=== PATIENT | male | born 1980 | race Caucasian/White ===

== ENCOUNTER → 2022-12-08 07:51 | Outpatient (CLI) | payer OTHER, SELFPAY ==
--- NOTE | 2022-12-08 07:55 | MR_ITS ---
FINAL REPORT CLINICAL HISTORY: RADICULOPATHY. RIGHT SIDED LOW BACK PAIN X4 WEEKS. NO INJURY OR TRAUMA. FINDINGS: Multiplanar MR imaging of the lumbar spine was performed without contrast. On the sagittal T2-weighted images, disc degeneration is seen at multiple levels. The vertebral alignment is normal. There is no evidence of fracture. The conus has an unremarkable appearance. T11-12: There is no significant canal stenosis or neural foraminal narrowing. T12-L1: There is no significant canal stenosis or neural foraminal narrowing. L1-2: There is no significant canal stenosis or neural foraminal narrowing. L2-3: There is no significant canal stenosis or neural foraminal narrowing. L3-4: An annular disc bulge is present. There is a right posterolateral disc protrusion with moderate right neural foraminal narrowing. L4-5: An annular disc bulge is present. There is a right posterolateral disc protrusion with moderate right and mild left neural foraminal narrowing. L5-S1: An annular disc bulge is present. There is no significant canal stenosis or neural foraminal narrowing. There is spurring of the sacroiliac joints with partial fusion on the right. IMPRESSION: Right posterolateral disc protrusions at L3-4 and L4-5 with moderate right neural foraminal narrowing. Reviewed, Interpreted and Dictated by Chetan Machado III, MD Transcribed by Anastacia Gipson Authenticated and [facility]
== END ==
PROVIDERS: PCP General Practice; Visit Provider General Practice
DX: M54.16 Radiculopathy, lumbar region (principal); M54.50 Low back pain, unspecified
CPT/HCPCS: 72148; 76376

== ENCOUNTER 2023-08-23 10:36 | Emergency (ER) | payer BC, SELFPAY ==
--- NOTE | 2023-08-23 10:40 | EXP.UTC ---
Discharge Plan Disposition Patient Disposition: Home, Self-Care Condition: Good Prescriptions Prescriptions: New amoxicillin [amoxicillin] 875 mg tablet 875 mg PO Q12H Qty: 20 0RF benzonatate [benzonatate] 100 mg capsule 100 mg PO TIDP PRN (Reason: Cough) Qty: 30 0RF methylprednisolone 4 mg Tablets,Dose Pack 4 mg PO DIRECTED 6 Days Qty: 21 0RF Rx Instructions: Take 1 pack as directed for 6 days guaifenesin [Mucinex] 600 mg tablet extended release 12hr 600 - 1,200 mg PO BIDP PRN (Reason: Congestion) Qty: 30 0RF No Action lisinopril 40 mg tablet 40 mg PO DAILY cetirizine 10 mg tablet PO DAILY Mounjaro 7.5 mg/0.5 mL pen injector SQ fluticasone propionate 50 mcg/actuation spray,suspension intranasal Referrals Follow up/Referrals: Chichi Tao MD [Primary Care Provider] - See instructions Activity Restrictions/Add. Instructions Additional Instructions/Restrictions: Drink plenty of fluids. Take tylenol or ibuprofen for pain or fever. Take the medications as directed. Follow up with your regular doctor. GO TO THE ER FOR ANY WORSENING SYMPTOMS Clinical Impressions Clinical Impression: Sinusitis Instructions Patient Instructions: Sinusitis, DI for Sinusitis Discharge ED Provider: Carlos Montemayor [facility] General Stated complaint: Headache,bodyaches Time Seen by Provider: 08/23/23 10:40 History of Present Illness Provider Complaint: He states that for the past 1 week he has had worsening sinus congestion. Related Data Home Medications Medication Instructions Recorded Confirmed cetirizine 10 mg tablet mg PO DAILY 08/23/23 08/23/23 fluticasone propionate 50 intranasal 08/23/23 08/23/23 mcg/actuation nasal spray,suspension lisinopril 40 mg tablet 40 mg PO DAILY 08/23/23 08/23/23 tirzepatide 7.5 mg/0.5 mL mg SQ 08/23/23 08/23/23 subcutaneous pen injector (Mounjaro) Previous Rx's Medication Instructions Recorded amoxicillin 875 mg tablet 875 mg PO Q12H #20 tabs 08/23/23 benzonatate 100 mg capsule 100 mg PO TIDP PRN Cough #30 caps 08/23/23 guaifenesin 600 mg tablet, 600 - 1,200 mg PO BIDP PRN 08/23/23 extended release 12 hr (Mucinex) Congestion #30 tabs methylprednisolone 4 mg tablets in 4 mg PO DIRECTED 6 days #21 tabs 08/23/23 a dose pack Allergies Allergy/AdvReac Type Severity Reaction Status Date / Time No Known Allergies Allergy Verified 08/23/23 10:57 [facility] Disclaimer: The information contained in this section may have been updated after the patient was seen, as this information can be updated by other users. 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 Social History (Updated 08/23/23 @ 09:54 by Marlena Spaulding) Smoking Status: Never smoker alcohol intake: never current occupational status: employed Travel in the last 8 weeks: None ROS Obtained: Yes All systems reviewed & no additional complaints except as documented Constitutional Constitutional: Reports poor appetite Eyes Eyes: Reports system reviewed and no additional complaints, except as documented ENT Ears, Nose, Mouth, and Throat: Reports as per HPI Cardiovascular Cardiovascular: Reports system reviewed and no additional complaints, except as documented and Denies chest pain Respiratory Respiratory: Denies shortness of breath, Denies chest congestion, Reports cough, Denies stridor and Denies wheezing Gastrointestinal Gastrointestingal: Reports system reviewed and no additional complaints, except as documented; Denies abdominal pain, diarrhea or vomiting Musculoskeletal Musculoskeletal: Reports system reviewed and no additional complaints, except as documented and Denies arthralgias Integumentary/Breasts Skin/Breast: Reports system reviewed and no additional complaints, except as documented and Denies rash Neurologic Neurologic: Denies paresthesias Allergic/Immunologic Allergic/Immunologic: Denies wheezing Physical Exam General General appearance: alert and in no apparent distress Eye Eye exam: Present normal appearance, PERRL and EOMI ENT ENT exam: Present mucous membranes moist and normal external ear exam Expanded ENT Exam External ear exam: Present normal external inspection TM/Canal exam: Bilateral TM: erythema and bulging Nose exam: Absent sinus tenderness Nasal speculum exam: Bilateral: normal Mouth exam: Present normal external inspection; Absent drooling Teeth exam: Present normal inspection Throat exam: Present tonsillar erythema and tonsillomegaly Neck Neck exam: Present normal inspection, full ROM and trachea midline; Absent tenderness, lymphadenopathy or thyromegaly Chest Chest inspection: Present normal inspection and symmetric chest wall rise; Absent tenderness or rash Respiratory Respiratory exam: Present normal lung sounds bilaterally; Absent respiratory distress, wheezes, stridor or accessory muscle use Cardiovascular Cardiovascular exam: Present regular rate, normal rhythm and normal heart sounds Abdominal Exam Abdominal exam: Present soft; Absent distention, tenderness, guarding, rebound or rigidity Extremities Exam Extremities exam: Present normal inspection, full ROM and normal capillary refill; Absent tenderness or calf tenderness Back Exam Back exam: Present normal inspection and full ROM; Absent tenderness Neurological Exam Neurological exam: Present alert and oriented X3 Psychiatric Psychiatric exam: Present normal affect and normal mood Skin Skin exam: Present warm, dry, intact and normal color Lymphatic Lymphatic Findings: no adenopathy Medical Decision Making Medical Records Medical records reviewed: No I reviewed the patient's medical records. Dario Inquiry Pt receiving controlled substance: No
[2023-08-23 10:52] VITALS: BP 129/99; PULSE 109; RESP 18; O2SAT 97; BMI 40.9
[2023-08-23 11:10] LABS: UTC Strep Screen (Rapid) Negative (Negative)
[2023-08-23 11:34] LABS: UTC Influenza A Antigen Negative (Negative); UTC Influenza B Antigen Negative (Negative)
[2023-08-23 11:43] VITALS: BP 0/0; PULSE 0; RESP 0; TEMP -17.7; TEMP 0
== END 2023-08-23 11:43 | disposition home or self-care (01) ==
PROVIDERS: Emergency Provider Nurse Practitioner Family; PCP General Practice
DX: U07.1 COVID-19 (principal); R51.9 Headache, unspecified; J01.90 Acute sinusitis, unspecified; R05.9 Cough, unspecified
CPT/HCPCS: 87635; 87804; 87880; 99204; 99212; G0463

== ENCOUNTER 2023-09-30 14:54 | Outpatient (CLI) | payer BC, SELFPAY ==
--- NOTE | 2023-09-30 14:58 | XR_ITS ---
FINAL REPORT CLINICAL HISTORY: Foot pain FINDINGS: Left ankle Three views were obtained. There is no acute fracture or dislocation. The joint spaces appear normal. No soft tissue abnormality is identified. There is a small plantar calcaneal spur. IMPRESSION: No acute process. Reviewed, Interpreted and Dictated by Chetan Machado III, MD Transcribed by Anastacia Gipson Authenticated and [facility]
--- NOTE | 2023-09-30 14:58 | XR_ITS ---
FINAL REPORT CLINICAL HISTORY: Foot pain FINDINGS: Left foot Three views were obtained. There is no acute fracture or dislocation. The joint spaces appear normal. No soft tissue abnormality is identified. There is a small plantar calcaneal spur. IMPRESSION: No acute process. Reviewed, Interpreted and Dictated by Chetan Machado III, MD Transcribed by Anastacia Gipson Authenticated and [facility]
== END 2023-09-30 23:59 ==
LOC: RAD 14:55
PROVIDERS: Visit Provider Nurse Practitioner
DX: M79.671 Pain in right foot (principal); M79.672 Pain in left foot; Z87.312 Personal history of (healed) stress fracture
CPT/HCPCS: 73610; 73630

== ENCOUNTER 2023-10-04 08:49 | Outpatient (POV) | payer OTHER, SELFPAY ==
--- NOTE | 2023-10-04 08:56 | EXP.PAIN.OV ---
HPI Data of Consult Requesting Physician: Iliana Kline APRN Primary Care Provider: Chichi Tao MD Consult Narrative History of present illness: Mr. Jason is a 43 year old male who presents today as a new patient. He is a referral from the [facility]. Today he rates his pain a 3 out of 10 however states his pain will go much higher than more he increases his activity. Patient describes this as a throbbing sensation with occasional sharp shooting pains depending on his position. He states this has been going on for longer than a year in his low back and right hip. He does state the pain interferes with his ability to perform activities of daily living such as cooking and cleaning or even simple ambulation. Patient states he has tried Tylenol, ibuprofen along with heat and ice and topicals such as Biofreeze with minimal relief. Patient had been seeing a chiropractor on a regular basis and states that this did initially help his symptoms but then over time it made his pain worse. Patient was getting epidural injections at our office in [place] and states that these did help. His last 1 was a lumbar epidural back in May in the L4-L5 and states that it did provide significant relief lasting several months. He does state that he is back to his baseline today. He has had gabapentin in the past. His Dario has been reviewed and is appropriate. CC: Iliana Kline APRN [facility] Disclaimer: The information contained in this section may have been updated after the patient was seen, as this information can be updated by other users. 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 Family History (Updated 10/04/23 @ 09:19 by Litzy Jimenez RN) Other Unknown family medical history Social History (Updated 10/04/23 @ 09:20 by Litzy Jimenez RN) Smoking Status: Never smoker alcohol intake: never current occupational status: employed Travel in the last 8 weeks: None Review of Systems Review of Systems Review of systems:: pertinent systems reviewed and negative unless documented below Review of systems (narrative): Review of Systems: General: No recent weight changes, no fever, no sleep disturbances Respiratory: No cough, no shortness of air, no recurring pulmonary infections Cardiovascular/peripheral vascular: No chest pain, no palpitations, no edema, no shortness of breath Gastrointestinal: No new onset incontinence, normal bowel movements reported Genitourinary: No new onset incontinence Musculoskeletal: Low back pain, right hip pain Psychiatric: [Normal mood/affect] Neurological: [Denies weakness in extremities], [denies balance issues] Meds Home Medications and Allergies Home Medications Medication Instructions Recorded Confirmed Type lisinopril 40 mg tablet 40 mg PO DAILY 08/23/23 10/04/23 History tirzepatide 7.5 mg/0.5 mL 7.5 mg SQ DIRECTED Diabetes 08/23/23 10/04/23 History subcutaneous pen injector (Mounjaro) fexofenadine 180 mg tablet 180 mg PO DAILY 10/04/23 10/04/23 History New Prescriptions to Start Prescriptions: Allergies Allergy/AdvReac Type Severity Reaction Status Date / Time No Known Allergies Allergy Verified 09/30/23 13:45 Objective Narrative: Physical Exam: General: Alert and oriented x3, no acute distress, pleasant and cooperative Lungs: Respirations even and unlabored, symmetrical chest expansion Eyes: PERRL Musculoskeletal: Flexion and extension of lumbar [spine] somewhat guarded secondary to pain, [antalgic gait noted] point tenderness along right SI with positive right Nickolas's, Meghan's, Gaenslen's, compression and distraction exam Neurological: Speech clear, no gross sensory deficit Additional findings Additional findings: FINDINGS: Multiplanar MR imaging of the lumbar spine was performed without contrast. On the sagittal T2-weighted images, disc degeneration is seen at multiple levels. The vertebral alignment is normal. There is no evidence of fracture. The conus has an unremarkable appearance. T11-12: There is no significant canal stenosis or neural foraminal narrowing. T12-L1: There is no significant canal stenosis or neural foraminal narrowing. L1-2: There is no significant canal stenosis or neural foraminal narrowing. L2-3: There is no significant canal stenosis or neural foraminal narrowing. L3-4: An annular disc bulge is present. There is a right posterolateral disc protrusion with moderate right neural foraminal narrowing. L4-5: An annular disc bulge is present. There is a right posterolateral disc protrusion with moderate right and mild left neural foraminal narrowing. L5-S1: An annular disc bulge is present. There is no significant canal stenosis or neural foraminal narrowing. There is spurring of the sacroiliac joints with partial fusion on the right. IMPRESSION: Right posterolateral disc protrusions at L3-4 and L4-5 with moderate right neural foraminal narrowing. Reviewed, Interpreted and Dictated by Chetan Machado III, MD Transcribed by Anastacia Gipson Authenticated and [facility] Assessment and Plan *Assessment and plan (1) Lumbar radiculopathy: Status: Acute Category: Medical Code(s): M54.16 - Radiculopathy, lumbar region (2) Sacroiliitis: Status: Acute Category: Medical Code(s): M46.1 - Sacroiliitis, not elsewhere classified (3) Right hip pain: Status: Acute Category: Medical Code(s): M25.551 - Pain in right hip Plan Patient is experiencing significant pain in his low back and right hip. Patient had limited range of motion of his lumbar spine along with point tenderness at his right SI and a positive right Nickolas's, Meghan's, Gaenslen's, compression and distraction exam. I have discussed with the patient that he may benefit from a right SI injection. Risk and benefits were discussed with patient and he would like to proceed forward with this plan of care. Patient has tried and failed conservative treatment such as oral medication, heat and ice, topicals, TENS unit, chiropractor therapy and at home stretching exercise for longer than 6 weeks. I will order the patient a compounded cream. We will schedule the patient for a right SI injection under fluoroscopy. Patient has been instructed to contact the clinic with any concerns before the next appointment. Dr. Kamara has reviewed this note and agrees with this plan of care. This note was dictated using voice recognition software and make contain errors or omissions.
[2023-10-04 08:59] VITALS: BP 116/84; PULSE 75; RESP 18; O2SAT 99; BMI 40.6
== END 2023-10-04 23:59 ==
PROVIDERS: PCP General Practice; Visit Provider Nurse Practitioner Family
DX: M46.1 Sacroiliitis, not elsewhere classified (principal); M54.16 Radiculopathy, lumbar region; M25.551 Pain in right hip
CPT/HCPCS: 99202; G0463

== ENCOUNTER 2023-10-12 09:42 | Day surgery (SDC) | payer OTHER, SELFPAY ==
[2023-10-12 10:04] VITALS: BP 140/72; PULSE 76; RESP 16; TEMP 36.4; O2SAT 99; BMI 40.2
--- NOTE | 2023-10-12 10:22 | EXP.PAIN.PRO ---
Procedure Date: 10/12/23 Time: 10:20 Anesthesiologist:: Som Tsai CRNA Complications:: None Pre-procedure Diagnosis:: Degenerative disc lumbar spine multilevels. Lumbar radiculopathy. Right sacroiliitis. Post-procedure Diagnosis:: Same. Indications for Procedure:: Patient is a very pleasant 43-year-old male comes our clinic today for right sacroiliac joint injection. Patient has had multiple lumbar epidural steroid injections with some relief in terms of overall low back pain as well as bilateral right hip and leg. Today presents for right sacroiliac joint injection. He has extreme point tenderness over the right sacroiliac joint. Patient describes difficulty sitting for any length of time. Difficulty transitioning from sitting to standing. Ambulation increases the pain significantly. He rates his pain 8/10. Procedure Details:: Procedure: Right sacroliliac joint injection under fluoroscopy Informed consent was obtained and the risk and benefits of the procedure were explained to the patient.~ The patient was taken to the procedure room and noninvasive monitors were placed including noninvasive blood pressure cuff and pulse oximeter.~ The patient was placed prone on the procedure table.~ The~ right hip was cleansed using Betadine as a cleansing solution.~ C-arm fluorosocpy was used to view the right SI joint.~ The skin and subcutaneous tissues were anesthetized using Lidocaine 1.5% and a 25-gauge needle.~ After this, a 22-gauge spinal needle was inserted under fluoroscopic guidance into the inferior aspect of the right SI joint.~ Omnipaque dye was injected and a good spread was seen throughout the joint.~ After this, approximately 5 mL of bupivacaine 0.25% and Depo-Medrol 40 mg was incrementally injected into the sacroiliac joint.~ The patient tolerated the procedure well with no complications.~ The patient was observed in the Pain Clinic, then discharged home neurologically intact.~ Plan and Disposition:: Patient was discharged without incident.
[2023-10-12 10:28] VITALS: BP 141/85; PULSE 69; RESP 18; O2SAT 99
[2023-10-12 10:31] VITALS: BP 173/98; PULSE 68; RESP 18; O2SAT 97
[2023-10-12] MEDS: methylPREDNISolone ACETATE 80MG/ML VIAL 80 MG (10:31)
[2023-10-12] MEDS: BUPIVACAINE 0.25% 10ML INJ 25 MG IJ (10:31)
[2023-10-12] MEDS: LIDOCAINE 1% 5ML PF VIAL 5 ML (10:31)
[2023-10-12 10:32] VITALS: BP 173/98; PULSE 68; RESP 18; O2SAT 97
== END 2023-10-12 10:28 | disposition home or self-care (01) ==
PROVIDERS: PCP General Practice; Visit Provider Nurse Anesthetist, Certified Registered
DX: M46.1 Sacroiliitis, not elsewhere classified (principal); M51.16 Intervertebral disc disorders with radiculopathy, lumbar region
CPT/HCPCS: 27096; G0260; J1040

== ENCOUNTER 2023-11-10 12:16 | Outpatient (CLI) | payer BC, SELFPAY ==
[2023-11-10 12:39] LABS: Blood Urea Nitrogen 15 mg/dl (9-20); Estimated Glomerular Filt Rate 81 ml/min (>60); GFR (African American) 98 ML/MIN (>60)
--- NOTE | 2023-11-10 12:40 | MR_ITS ---
FINAL REPORT CLINICAL HISTORY: Evaluate for tendon tear/rupture COMPARISON: None FINDINGS: Multiplanar MR imaging of the left ankle was performed without and with contrast. The bony structures are intact without evidence of fracture, bone bruise or marrow edema. The ankle mortise is intact. No osteochondral lesion is identified. The anterior and posterior talofibular ligaments are intact. The Achilles tendon is intact. The plantar fascia is intact. The supporting tendons about the ankle are intact. The posterior plantar aponeurosis is intact. No significant joint effusion is seen. The musculature is intact. There is no evidence of soft tissue mass or cyst. On the postcontrast images, there is no evidence of abnormal enhancement. IMPRESSION: No evidence of tendon tear/rupture. Reviewed, Interpreted and Dictated by Tunde Cartagena MD Transcribed by Nancy Aparicio Authenticated and . [facility]
--- NOTE | 2023-11-10 12:40 | MR_ITS ---
FINAL REPORT CLINICAL HISTORY: Evaluate for tendon tear/rupture COMPARISON: None FINDINGS: Multiplanar MR imaging of the left foot was performed with and without contrast. There is no evidence of fracture or marrow edema. There is no evidence of stress fracture or reaction. No bony mass is identified. The Achilles tendon is intact. The plantar fascia is intact. The flexor and extensor tendons are intact. No fluid collections are identified. The intrinsic muscles are unremarkable. There are no areas of abnormal contrast-enhancement. IMPRESSION: No evidence of tendon tear/rupture. Reviewed, Interpreted and Dictated by Tunde Cartagena MD Transcribed by Nancy Aparicio Authenticated and [facility]
[2023-11-10] MEDS: GADOTERIDOL INJ 17ML SYRINGE 28 ML IV (15:15)
[2023-11-10] MEDS: SODIUM CHLORIDE 0.9% 10ML SYR (RAD ONLY) 10 ML IV (15:15)
== END 2023-11-10 23:59 | disposition home or self-care (01) ==
PROVIDERS: PCP Family Medicine; Visit Provider Nurse Practitioner
DX: M25.572 Pain in left ankle and joints of left foot (principal); M25.472 Effusion, left ankle; G89.29 Other chronic pain
CPT/HCPCS: 36415; 73720; 73723; 82565; 84520; A9576

== ENCOUNTER 2023-11-10 15:07 | Outpatient (POV) | payer OTHER, SELFPAY ==
[2023-11-10 15:22] VITALS: BP 146/92; PULSE 85; RESP 18; O2SAT 99; BMI 40.6
--- NOTE | 2023-11-10 15:51 | EXP.PAIN.SOA ---
[facility] Pain Management SOAP Note Subjective:: Patient is a pleasant 43-year-old male who presents today for follow-up right SI injection on 10/12/2023. Patient states that he has not really had significant relief following this injection. Patient denies any new trauma or injury. Patient does state that his pain is still along his low back and the right side and it does feel like today it goes more into his right hip and into his thigh. He describes it as an aching, throbbing sensation with some numbness and tingling. Patient does state the pain interferes with his ability to perform activities of daily living such as cooking and cleaning. Patient does state from her last visit that the compounded cream has significantly helped improve some of his symptoms and that he does typically use this at night. His Dario has been reviewed and is appropriate. Review of Systems: General: No recent weight changes, no fever, no sleep disturbances Respiratory: No cough, no shortness of air, no recurring pulmonary infections Cardiovascular/peripheral vascular: No chest pain, no palpitations, no edema, no shortness of breath Gastrointestinal: No new onset incontinence, normal bowel movements reported Genitourinary: No new onset incontinence Musculoskeletal: Low back pain, right leg pain Psychiatric: [Normal mood/affect] Neurological: [Denies weakness in extremities], [denies balance issues] Objective:: Physical Exam: General: Alert and oriented x3, no acute distress, pleasant and cooperative Lungs: Respirations even and unlabored, symmetrical chest expansion Eyes: PERRL Musculoskeletal: Flexion and extension of lumbar [spine] somewhat guarded secondary to pain, [antalgic gait noted] positive right leg raise with decreased sensation to light touch and decreased reflexes Neurological: Speech clear, no gross sensory deficit Assessment:: Degenerative disc disease of lumbar spine with lumbar radiculopathy symptoms, right hip pain, right thigh pain, right sacroiliitis Plan:: Patient is experiencing worsening pain in his low back with radiating symptoms to his right hip and right lower side. Patient did have limited range of motion of his lumbar spine with a positive right leg raise and decreased sensation to light touch and decreased reflexes. I have discussed with the patient that he may benefit from a right transforaminal epidural steroid injection. Risk and benefits were discussed with patient and he would like to proceed forward with this plan of care. Patient did have 2 levels in his lumbar spine that did have moderate right neuroforaminal narrowing. We will order the patient a right transforaminal epidural steroid injection L3-L4 and L4-L5 under fluoroscopy. Patient is not on any blood thinners. Patient has been instructed to contact the clinic with any concerns before the next appointment. Dr. Kamara has reviewed this note and agrees with this plan of care. This note was dictated using voice recognition software and make contain errors or omissions. [facility] Disclaimer: The information contained in this section may have been updated after the patient was seen, as this information can be updated by other users. 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
== END 2023-11-10 23:59 | disposition home or self-care (01) ==
PROVIDERS: PCP Family Medicine; Visit Provider Nurse Practitioner Family
DX: M51.16 Intervertebral disc disorders with radiculopathy, lumbar region (principal); M25.511 Pain in right shoulder; M79.18 Myalgia, other site; M46.1 Sacroiliitis, not elsewhere classified
CPT/HCPCS: 99212; G0463

== ENCOUNTER 2023-12-28 07:57 | Day surgery (SDC) | payer OTHER, BC, SELFPAY ==
[2023-12-28 08:09] VITALS: BP 135/81; PULSE 75; RESP 18; TEMP 36.5; O2SAT 98; BMI 40.2
[2023-12-28 08:32] VITALS: BP 136/85; PULSE 60; RESP 18; O2SAT 97
[2023-12-28] MEDS: LIDOCAINE 1% 5ML PF VIAL 5 ML (08:32)
[2023-12-28 08:33] VITALS: BP 136/85; PULSE 57; RESP 18; O2SAT 97
--- NOTE | 2023-12-28 08:36 | EXP.PAIN.PRO ---
Procedure Date: 12/28/23 Time: 08:20 Anesthesiologist:: Som Tsai CRNA Complications:: None Pre-procedure Diagnosis:: Degenerative disc lumbar spinal falls. Lumbar radiculopathy. Lumbar disc bulge L3-4, L4-5. Post-procedure Diagnosis:: Same. Indications for Procedure:: Patient is a pleasant 43-year-old male comes to our clinic today for repeat right L3-4, L4-5 transforaminal epidural steroid injection. Patient reporting significant improvement terms of his overall right hip and leg pain with previous injection same level. His main complaint is low lumbar back pain right greater than left. Right hip and leg radicular symptoms. Procedure Details:: Details of the procedure were explained to the patient. The patient was taken the procedure room placed in the prone position. The area of the lumbar spine was cleansed using chlorhexidine as a cleansing solution. At this time using fluoroscopy guidance markers were placed on the right lateral border of the L4 and L5 vertebral body. The skin and subcutaneous tissue was anesthetized using 1% lidocaine and 25-gauge needle. At this time using a 22-gauge 3-1/2 inch spinal needle the right upper one third of the L4-5 foramen was accessed. The same was done at the right L5-S1 foramen. Needle positions were confirmed and a lateral view using fluoroscopy and contrast dye. At this time 1 cc of 1% lidocaine +20 mg of Depo-Medrol was injected at each level after negative aspiration. Morganza were removed. Band-Aid applied. Patient tolerated the procedure without difficulty. There are no complications. Plan and Disposition:: Patient was discharged without incident.
[2023-12-28 08:38] VITALS: BP 128/70; PULSE 67; RESP 18; TEMP 36.5; O2SAT 98
== END 2023-12-28 08:39 | disposition home or self-care (01) ==
PROVIDERS: PCP Family Medicine; Visit Provider Nurse Anesthetist, Certified Registered
DX: M51.16 Intervertebral disc disorders with radiculopathy, lumbar region (principal); M51.26 Other intervertebral disc displacement, lumbar region
CPT/HCPCS: 64483; 64484; J1010

== ENCOUNTER 2024-06-17 23:39 | Emergency (ER) | payer BC, SELFPAY ==
--- NOTE | 2024-06-17 23:22 | ECG_ITS ---
APPROVED REPORT Exam: Resting ECG HR:68 bpm ECG Measurements Heart Rate 68 AXES DE 139 P 31 QRSd 100 QRS 65 QT 366 T 52 QTc 383 Conclusion SINUS RHYTHM INCOMPLETE RIGHT BUNDLE BRANCH BLOCK [90+ ms QRS DURATION, TERMINAL R IN V1/V2, 40+ ms S IN I/aVL/V4/V5/V6] No STEMI Electronically signed by : YU BARKER, 06/19/2024 07:48:10
--- OUTSIDE RECORDS SUMMARY | 2024-06-17 23:46 | XMS_ITS | Clinical Summary ---
Author Organization [facility] Address [address] [place] [address] Care Team Providers Care Magnetic Prospecting Operator Name Role Phone Unavailable Primary Care Provider Unavailabl e Allergies No known active allergies Medications Medication Sig Dispensed Refills Start Date End Date Status Promethazine-DM (PROMETHAZINE-DM) 6.25-15 mg/5 mL syrupIndications:C ough,SOB (shortness of breath) Take 5 mL by mouth Every 4 to 6 Hours as needed for Cough. 120 mL 07/13/2018 Active albuterol (PROVENTIL HFA) 90 mcg/Actuation inhalerIndications :Cough,SOB (shortness of breath) Take 2 Puffs by inhalation Every 4 hours as needed. 1 Package QS 07/13/2018 Active Active Problems Problem Noted Date Diagnosed Date Cough 07/13/2018 Social History Tobacco Use Types Packs/Day Years Used Date Smoking Tobacco: Never Smokeless Tobacco: Current Sex and Gender Information Value Date Recorded Sex Assigned at Not on file Gender Identity Not on file Sexual Orientation Not on file Last Filed Vital Signs Vital Sign Reading Time Taken Comments Blood Pressure 180/90 07/13/2018 1:13 PM EST Pulse 105 07/13/2018 1:13 PM EST Temperature 36.7 ??C (98 ??F) 07/13/2018 1:13 PM EST Respiratory Rate 14 07/13/2018 1:13 PM EST Oxygen Saturation 96% 07/13/2018 1:13 PM EST Inhaled Oxygen Concentration - - Weight 139.7 kg (308 lb) 07/13/2018 1:13 PM EST Height - - Body Mass Index - - Plan of Treatment Health Maintenance Due Date Last Done Comments COLOGUARD 1979 COLONOSCOPY 1979 Colorectal Screening Combination 1979 FIT 1979 HEP C SCREENING 1979 SIGMOIDOSCOPY 1979 ANNUAL WELLNESS EXAM 1982 DTAP/TDAP/TD VACCINE (1 - Tdap) 1998 INFLUENZA VACCINE (#1) 2024 HEP A VACCINE Aged Out No longer elig ible based on patient's age to complete this topic HIB VACCINE Aged Out No longer eligi ble based on patient's age to complete this topic ROTOVIRUS VACCINE Aged Out No longer eligible based on patient's age to complete this topic Guarantor Name Account Type Relation to Patient Date of Phone Billing Address [id number] Workers Comp Self 1980 [address] [place] [address] Lambert Jason II Personal/Family Self 1980 [address] [place] [address]
--- OUTSIDE RECORDS SUMMARY | 2024-06-17 23:46 | XMS_ITS | Data Portability ---
Author Organization [facility] Address [address] [place] [address] Care Team Providers Care Mail Deliverer Name Role Phone FREDI TAO Primary Care Provider [phone] FREDI TAO Referring Provider FREDI TAO Primary Care Provider Assessment No assessment recorded. Plan of Treatment Reminders Order Date Submit Date Provider Last Modified By Organization Details Last Modified Time Details Appointments None recorded. Lab None recorded. Referral None recorded. Procedures None recorded. Surgeries None recorded. Imaging XR, ankle [address], [address] [place] [address] [place], [address], 3 09:33:52 XR, ankle [address], [address] [place] [address] [place], [address], 3 10:05:32 Medication Orders Sensorcaine 0.5 % (5 mg/mL) injection solution [address] [facility], [address] [place], [address], 3 08:07:27 Kenalog 10 mg/mL suspension for injection [address] [facility], [address] [place], [address], 3 08:07:00 Kenalog 10 mg/mL suspension for injection [address] [facility], [address] [place], [address], 3 09:33:52 bupivacaine (PF) 0.5 % (5 mg/mL) injection solution [address] [facility], [address] [place], [address], 3 09:33:52 Kenalog 10 mg/mL suspension for injection [address] [facility], [address] [place], [address], 3 10:05:32 bupivacaine (PF) 0.5 % (5 mg/mL) injection solution [address] [facility], [address] [place], [address], 3 10:05:32 Patient TargetsNo targets recorded. Patient InstructionsNo instructions recorded. Reason for Referral None Reported. Results Created Date Observation Date Name Description Value Unit Range Abnormal Flag Note LastModifiedBy Organization Detail LastModifiedTime 05/27/20 23 XR, ankle No observ ation record ed. KENDELL Palacios [facility] [address] [place], [address], 05/27/2023 08:15:36 06/08/20 23 XR, ankle No observ ation record ed. 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 Previo us inject ion of the ankle not otherw ise specif ied COMPAR ERIN: No compar erin availa ble. TECHNI QUE: Sagitt al T1, proton densit y fat sat, STIR, and 3DFSPG R; pugh l proton densit y and T2; axial T1 and STIR. FINDIN GS: Achill es tendon and planta r fascia are unrema rkable . Ankle joint within normal limits . No eviden ce of ankle ligame nt tear. ATFL intact . Mild synovi tis tibial is oil seal assembler ior and flexor digito rum longus as well as the perone us tendon s. No eviden ce of flexor tendon tear. Marrow signal genera lly age-ap propri ate. Howeve r there is marrow edema in the talus extend ing from its latera l margin and into the talar neck, but withou t tensio n throug h the medial margin of the neck. There is mild arthro sis of the subtal ar articu lation with edema fillin g the sinus tarsus . The cervic al ligame nt and intero sseous ligame nts are intere sting but do not appear to be comple tely torn. Subtle effusi ons ankle joint, subtal ar joint and the talar navicu lar joint. Visual ized midfoo t articu lation s are unrema rkable IMPRES [place]: 1. Marrow edema of the talus as detail ed above most compat ible with stress fractu re. 2. Suspec t sinus Tarsi syndro me with partia l tears of the cervic al and intero sseous ligame nts. This report is genera bernard using voice recogn ition comput er softwa re. Inadve rtent errors may have occurr ed while dictat ing report . Common sense approa ch is apprec iated and do not hesita te to call for clarif icatio n when necess gurinder. Electr onical ly Signed by Suzie Jimenez on 2022 at 1036 Report ed and signed by: MARCELLO Jimenez M.D. PAGE 1 Signed Report (CHINA NUED) [facility] Medica l Name: HOLLIE JASON [address] Phys: Jackson ACCOUNTS PAYABLE PROFESSIONAL/F COFFEE TASTER,[place] [address] : 1979 Age: 43 Sex: M Acct: [id number] Loc: G.MRI PHONE #: Exam Date: 2022 Status : REG CLI FAX #: Rad# [id number] Unit# [id number] Admit Date: 2022 EXAMS: CPT CODE: [id number] [place] [id number] CC: Fredi Tao ; Anuradha Elias Lisbet ACCOUNTS PAYABLE PROFESSIONAL/F COFFEE TASTER Dictat ed Date/T hoa: 2022 (1036) Techno logist : ELPIDIO MUNOZ Transc ribed Date/T hoa: 2022 (1036) Transc riptio nist: DR.HAR LEW Johnson onic Signat ure Date/T hoa: 2022 (1036) Printe d Date/T hoa: 2022 (1039) BATCH NO: N/A PAGE 2 Signed Report CC'ed Logic: Orderi ng Provid er: LISBET ANURADHA Attend ing Provid er: LISBET ANURADHA Referr ing Provid er: LISBET ANURADHA Consul ting Provid er: YORDAN miller[address] [place] [address] [place], [address], 07/07/2023 10:50:21 Result Notes None recorded. Procedures Surgical History None recorded. Imaging Results Imaging Date Name Status LastModified by Organiz ation Details LastModified Time 05/27/2023 XR, ankle completed KENDELL Palacios [facility] [address] [place], [address], 05/27/2023 08:15:36 06/08/2023 XR, ankle completed KENDELL Palacios [facility] [address] [place], [address], 06/08/2023 09:25:20 07/07/2023 - MRI ankle wo contrast lt completed [address] [facility] [place], [address], 07/07/2023 10:50:21 Procedure Notes None recorded. Medical Equipment None Reported. Allergies No known drug allergies Medications Name Sig Start Date Stop Date Status Note LastModified by Organization Details LastModified Time metformin 500 mg tablet TAKE 2 TABLETS BY MOUTH TWICE DAILY 05/27 completed Not Available Not Available Not Available cetirizine 10 mg tablet TAKE 1 TABLET BY MOUTH ONCE DAILY active Not Available Not Available No t Available azithromyci n 250 mg tablet TAKE 2 TABLETS BY MOUTH ON DAY 1, AND THEN TAKE 1 TABLET BY MOUTH ONCE A DAY ON DAY 2 THROUGH DAY 5 active Not Available Not Available No t Available prednisone 20 mg tablet TAKE 1 TABLET BY MOUTH TWICE DAILY 05/27 completed Not Available Not Available Not Available sildenafil 100 mg tablet TAKE 1/2 (ONE-HALF ) TABLET BY MOUTH ONCE DAILY NEEDED active Not Available Not Available No t Available Sensorcaine 0.5 % (5 mg/mL) injection solution Take 2 mL by injection route. 05/27 completed Not Available Not Available Not Available ketorolac 10 mg tablet TAKE 1 TABLET BY MOUTH EVERY 6 HOURS NEEDED active Not Available Not Available No t Available meloxicam 7.5 mg tablet TAKE 1 TABLET BY MOUTH TWICE DAILY 05/27 completed Not Available Not Available Not Available amoxicillin 875 mg tablet TAKE 1 TABLET BY MOUTH EVERY 12 HOURS active Not Available Not Available No t Available Kenalog 10 mg/mL suspension for injection Take 20 mg by injection route. 2022 active Not Available Not Available Not Avai lable benzonatate 100 mg capsule TAKE 1 CAPSULE BY MOUTH THREE TIMES DAILY NEEDED FOR COUGH active Not Available Not Available No t Available gabapentin 300 mg capsule 05/27 completed Not Available Not Available Not Available montelukast 10 mg tablet TAKE 1 TABLET BY MOUTH ONCE DAILY FOR 90 DAYS active Not Available Not Available No t Available methylpredn isolone 4 mg tablets in a dose pack TAKE BY MOUTH DIRECTED ON INSIDE OF PACKAGE active Not Available Not Available No t Available lisinopril 40 mg tablet TAKE 1 TABLET BY MOUTH ONCE DAILY AT BEDTIME active Not Available Not Available No t Available ondansetron 4 mg disintegrat ing tablet active Not Available Not Available N ot Available fluticasone propionate 50 mcg/actuati on nasal spray,suspe nsion USE 2 SPRAY(S) IN EACH NOSTRIL ONCE DAILY active Not Available Not Available No t Available ipratropium bromide 21 mcg (0.03 %) nasal spray 04/22 completed Not Available Not Available Not Available amoxicillin 875 mg-potassiu m clavulanate 125 mg tablet 05/27 completed Not Available Not Available Not Available escitalopra m 10 mg tablet TAKE 1 TABLET BY MOUTH ONCE DAILY FOR 90 DAYS 04/22 completed Not Available Not Available Not Available bupivacaine (PF) 0.5 % (5 mg/mL) injection solution Take 2 mL by injection route. 2022 active Not Available Not Available Not Avai lable lisinopril 05/27 completed Not Available Not Available Not Available metformin 05/27 completed Not Available Not Available Not Available Mounjaro 7.5 mg/0.5 mL subcutaneou s pen injector INJCET ONE (1) SYRINGE SUBCUTANE OUSLY ONCE A WEEK active Not Available Not Available No t Available Mounjaro 5 mg/0.5 mL subcutaneou s pen injector INJECT 5 MG SUBCUTANE OUSLY ONCE A WEEK 04/22 completed Not Available Not Available Not Available Mounjaro 10 mg/0.5 mL subcutaneou s pen injector active Not Available Not Available Not Available Mounjaro 2.5 mg/0.5 mL subcutaneou s pen injector INJECT 2.5 MG SUBCUTANE OUSLY ONCE A WEEK 04/22 completed Not Available Not Available Not Available Mounjaro 04/22 completed Not Available Not Available Not Available Vitals None Recorded Social History Question Answer Notes LastModified by Organizat ion Details LastModified Time Tobacco Smoking Status Never Smoker Livia DANIEL Piper [facility] [place] 01/27/2023 10:40:06 Do You Have An Advance Directive? No Information not available 01/27/2023 What Is Your Level Of Alcohol Consumption? None Information not available 01/27/2023 Are You Blind Or Do You Have Difficulty Seeing? No Information not available 01/27/2023 Are You Passively Exposed To Smoke? No Information no t available 01/27/2023 Do You Use Any Illicit Or Recreational Drugs? No Information not available 01/27/2023 Sex: Male Functional Status Question Answer Note LastModified by Organization D etails LastModified Time What is your exercise level? Moderate Information not available 01/27/2023 Mental Status None recorded. Family History Nothing Reported. Medical History Condition Response High Cholesterol Y Diabetes Y Hypertension Y Immunizations Vaccine Type Date Status Provider Name and Address Organization Details Recorded Time COVID-19 vaccine, vector-nr, rS-Ad26, PF, 0.5 mL 10/03/2020 completed DANIEL Fuchs [facility] [place] 06/08/2023 09:21:40 Past Encounters Encounter ID Performer Location Encounter Start Date Encounter Closed Date Diagnosis/Indication Diagnosis SNOMED-CT Code Diagnosis ICD10 Code [id number] KEO WARD [facility] [address] [place] [address] 01/27/2023 10:12:17 01/27/2023 10:56:27 Plantar fasciitis of right foot [id number] M72.2 [id number] KEO WARD [facility] [address] [place] [address] 05/27/2023 07:53:41 05/27/2023 08:35:47 Plantar fasciitis of right foot [id number] 5481047 M72.2 Injury of left ankle 436 5640769 2612974 S99.912A Acquired b ilateral pes planus 0572840070 8816952 M21.41 M21.42 [id number] ANURADHA DOLL NP [facility] [address] [place] [address] 06/08/2023 08:41:25 06/08/2023 09:43:18 Injury of left ankle 6902087858 1669826 S99.912D Tendinitis of left posterior tibial tendon 6381540647 50789 M76.822 [id number] MD DENISE [facility] [address] [address] 07/13/2023 13:08:17 07/13/2023 14:08:12 Stress fracture 803438080 M84.372A Health Concerns Section Related Observation LastModified by Organization Detai ls LastModified Time None Recorded Concern Status LastModified by Organization Details LastModified Time None Recorded Advance Directives Directive N: Payers Encounter Date Sequence Insurance Name Policy Number Policy Bauman Covered Member ID Bauman Member ID Guarantor Name 01/27/2023 1 [place] [id number] Vincent L Casie II [id number] Vinc[place] Jason 05/27/2023 1 [place] [id number] Vincent L Casie II [id number] Vincent L Casie 06/08/2023 1 [place]) [id number] 0 Vincent L Casie II [id number] Lambert Jason 07/13/2023 1 [place]) [id number] 0 Vincent L Casie II [id number] Lambert Jason Notes Date Note Type Note Provider Name and Address Organization Details Recorded Time 01/27/2023 text/html 42 year old male here today for right heel pain. He states that his last plantar fasciitis injection had helped for about 3 years. He tried working out pain with exercises, but no relief. He has most pain in heel, but some down lateral aspect of foot. ANURADHA DOLL NP [address] [facility],[address], [place], [address], [facility] [place] 01/27/2023 11:29:27 05/27/2023 text/html Patient is here to repeat RIGHT plantar fascia injection 01.27.23. His last injection was ineffective, he states that he feels the injection was pushed in too fast .He has continued to do the exercises. The pain remains in the heel.He is a type 2 diabetic. He also had a LEFT ankle injury, pain is over the achilles tendon. This date of injury was last date; 05.27.23. He states that he slid in the grass and then the foot hit a ditch and stopped him abruptly. He is wearing ankle brace. CHE1 ANURADHA DOLL, KEO [address], [place], [address], [facility] [place] 05/27/2023 09:05:53 06/08/2023 text/html Patient presents to office for continued complaints of LEFT ankle pain due to injury sustained 05/26/23. States pain is in achilles and comes around to posterior medial malleoli. Pain is sharp with plantar flexion and when walking toe to heel. Is wearing brace. No medication intervention. Injection last visit to right heel was effective. Repeat x-rays today in office. [id number] ANURADHA DOLL NP [address], [place], [address], [facility] [place] 06/08/2023 14:29:05 07/13/2023 text/html 43 year old male presents today in office for MRI LEFT ankle at [facility] 07/07/23 follow-up that revealed:IMPRESSIO N:1. Marrow edema of the talus as detailed above most compatible with stress fracture.2. 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
--- OUTSIDE RECORDS SUMMARY | 2024-06-17 23:46 | XMS_ITS | Encounter Summary ---
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 Name Role Phone Pcp, No Primary Care Provider Unavailabl e Reason for Referral * Consultation (Routine) - Authorized Specialty Diagnoses / Procedures Referred By Nitin rick Referred To Contact Pain Medicine Diagnoses Lumbar facet arthropathy Spinal stenosis of lumbar region without neurogenic claudication Lumbar radiculopathy Christina Blackburn APRN, MICHAEL [address] [facility] [address] [place] [address] Phone: tel: fax: Referral ID Status Reason Start Date Expiration Date Visits Requested Visits Authorized [id number] Authorized Specialty Services Required 12/18/2022 06/18/2024 1 1 Scheduling Instructions [place], lumbar facet blocks Reason for Visit * Consultation (Routine) - Closed Specialty Diagnoses / Procedures Referred By Conttray t Referred To Contact Neurosurgery Diagnoses Biomechanical lesion, unspecified Chichi Tao MD [address] [place] [address] Phone: tel: fax: [place] [facility] [address] [place] [address] Phone: tel: fax: Referral ID Status Reason Start Date Expiration Date V isits Requested Visits Authorized [id number] Closed Specialty Services Required 12/09/2022 06/09/2024 1 1 Encounter Details Date Type Department Care Team (Late st Contact Info) Description 12/18/2022 10:10 AM EDT Consult [place] [facility] [address] [place] [address] Christina Blackburn APRN, MICHAEL [address] [place] [address] Lumbar facet arthropathy (Primary Dx); Spinal stenosis of lumbar region without neurogenic claudication; Lumbar radiculopathy; Biomechanical lesion, unspecified Social History Tobacco Use Types Packs/Day Years Used Date Smoking Tobacco: Never Smokeless Tobacco: Current Chew Tobacco Cessation:Ready to Q uit: Not Asked; Counseling Given: Not Answered Alcohol Use Standard Drinks/Week Comments Not Currently 0 (1 standard drink = 0.6 oz pur e alcohol) occas Sex and Gender Information Value Date Recorded Sex Assigned at Not on file Legal Sex Male 8:10 AM EDT Gender Identity Not on file Sexual Orientation Not on file documented as of this encounter Last Filed Vital Signs Vital Sign Reading Time Taken Comments Blood Pressure 138/88 12/18/2022 10:20 AM EDT Pulse 88 12/18/2022 10:20 AM EDT Temperature - - Respiratory Rate 18 12/18/2022 10:20 AM EDT Oxygen Saturation 95% 12/18/2022 10:20 AM EDT Inhaled Oxygen Concentration - - Weight 154 kg (340 lb 0.3 oz) 12/18/2022 10:20 A M EDT Height 182.9 cm (6') 12/18/2022 10:20 AM EDT Body Mass Index 46.12 12/18/2022 10:20 AM EDT documented in this encounter Miscellaneous Notes * Progress Notes - Christina Blackburn APRN, MICHAEL - 12/18/2022 10:10 AM EDT Chichi Tao MD We had the pleasure of seeing your patient in our clinic today for Neurosurgical consultation. I personally reviewed approximately 18 pages of new patient referral paperwork that was sent to the clinic. Chief Complaint Back pain History Of Present Illness Lambert Jason is a 42 y.o. male presenting with an exacerbation of low back pain. He states that he had issues with back pain and right lower extremity issues about 4-5 years ago, but symptoms improved with time. His current symptoms began 11/24/2022. He was at work lifting and carrying items as normal. The next morning he woke up with severe back pain. He was unable to bend forward, had right lower extremity pain, also had a urge to void. Symptoms have improved, but continues to have mostly back pain. He describes back pain centrally at his belt line with radiation to the right lumbar paraspinal muscles which is constant. A few weeks ago, had pain radiating through the right groin, anteriorthigh but this resolved following physical therapy, chiropractic treatment. Since 11/23/2022 has had 1 episode of posterior lower extremity thigh pain, nothing past the knee. Denies left lower extremity symptoms. Denies paresthesias. Denies bowel bladder incontinence. Symptoms are worse with twistingand bending. Symptoms are somewhat improved with physical therapy/chiropractic treatment. Rates pain today as a 3/10. Has been completing therapy for about 3 weeks. This is done through a chiropractic office, but includes stretching, strengthening, ultrasound, heat, massage, traction. He is not had any treatment with interventional pain. Received an IM steroid injection in the emergency department followed by oral ketorolac, unsure benefit. Also had oral steroids. Past medical history consistent for hypertension, hyperlipidemia, diabetes with controlled blood sugars. Positive tobacco use. Positive paternal history of spine issues. 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 He works 3 weeks on, 3weeks off. Past Medical History He has a past medical history of Anxiety, Diabetes mellitus ([facility]), and Hypertension. Surgical History He has a past surgical history that includes Knee surgery and Tonsillectomy. Family History History reviewed. No pertinent family history. Social History He reports that he has never smoked. His smokeless tobacco use includes chew. He reports that he does not currently use alcohol. He reports that he does not use drugs. Medications Current Outpatient Medications Medication Sig Dispense Refill lisinopril 40 MG tablet lisinopril 40 mg tablet TAKE 1 TABLET BY MOUTH ONCE DAILY AT BEDTIME FOR 90 DAYS tirzepatide (Mounjaro) 5 MG/0.5ML solution pen-injector solution pen-injector Mounjaro 5 mg/0.5 mL subcutaneous pen injector No current facility-administered medications for this visit. Allergies Patient has no known allergies. Review of Systems 14 point review of systems was performed and was negative except as noted per HPI. Last Recorded Vitals Visit Vitals BP 138/88 Pulse 88 Resp 18 Ht 1.829 m (6') Wt 154 kg (340 lb 0.3 oz) SpO2 95% BMI 46.12 kg/m?? Smoking Status Never BSA 2.8 m?? Physical Exam GEN: well developed, no acute distress Head: normocephalic, atraumatic Eyes:EOMs intact Ears: normal auditory acuity PULM: no increased work of breathing, normal effort MSK: no joint swelling, normal range of motion SKIN: warm and dry, intact PSYCHE: normal mood and affect, appropriate historian Neuro Exam Strength 5/5 lower extremities Sensation intact throughout DTRs 2+ Achilles, 1+ right patella, absent left patella Gavi's absent, clonus absent Straight leg raise negative Som's positive on right Able to rise from chair without difficulty No overt gait abnormalities. Imaging I personally reviewed MRI of the lumbar spine completed 12/08/2022. Facet arthropathy noted. Right lateral disc protrusions at L3-4, greatest L4-5 with neural foraminal narrowing. Narrowing also present on the left. Assessment and Plan Lambert Jason is a 42 y.o. male presenting with back pain and right lower extremity symptoms though right leg symptoms have resolved with chiropractic treatment/physical therapy. MRI imaging does reveal degenerative changes including lateral disc protrusions at L4-5 and L3-4. Also presence of facet arthropathy which most likely is cause of continued symptoms. At this time, recommend that he continue chiropractic/physical therapy treatment as long as it is providing benefit. We will refer him to local interventional pain for lumbar facet blocks. If he does not have any improvement or has worsening lower extremity radiculopathy, encouraged to contact the clinic otherwise follow up as needed.Will defer any returned to work recommendations to referring providers.. Assessment/Plan Problem List Items Addressed This Visit Nervous Lumbar radiculopathy Relevant Orders Ambulatory referral to Pain Medicine Other Visit Diagnoses Lumbar facet arthropathy - Primary Relevant Orders Ambulatory referral to Pain Medicine Spinal stenosis of lumbar region without neurogenic claudication Relevant Orders Ambulatory referral to Pain Medicine Biomechanical lesion, unspecified Christina Blackburn APRN [facility] Department of Neurosurgery Thank you for allowing us to be a part of your patient's care. Please do not hesitate to contact usat [facility] if there are any questions or concerns. documented in this encounter Plan of Treatment Scheduled Referrals Name Type Priority Associated Diagnoses Orde r Schedule Ambulatory referral to Pain Medicine Outpatient Referral Routine Lumbar facet arthropathy Spinal stenosis of lumbar region without neurogenic claudication Lumbar radiculopathy Expected: 12/18/2022 (Approximate), Expires: 06/19/2024 documented as of this encounter Visit Diagnoses Diagnosis Lumbar facet arthropathy- Primary Spondylosis of unspecified site without mention of myelopathy Spinal stenosis of lumbar region without neurogenic claudication Lumbar radiculopathy Thoracic or lumbosacral neuritis or radiculitis, unspecified Biomechanical lesion, unspecified documented in this encounter Additional Health Concerns Assessment Noted Time A fall risk assessment has been complete d for the patient 12/18/2022 10:31 AM EDT A Body Mass Index follow-up plan has been documented for the patient 12/18/2022 3:35 PM EDT documented as of this encounter Care Teams Fermenting Cellar Dropper Relationship Specialty Start Date [place] [address] PCP - General Family Medicine 12/18/22 documented as of this encounter
--- OUTSIDE RECORDS SUMMARY | 2024-06-17 23:46 | XMS_ITS | Continuity of Care Document ---
Author Organization [facility] Address [address] [place] [address] Care Team Providers Care Streaming Media Specialist Name Role Phone CALE SMALL Curriculum Development Coordinator Unavailable NANCY MATTA Customer Associate NANCY MATTA Customer Associate [phone] Assessment No assessment recorded. Plan of Treatment Reminders Order Date Submit Date Provider Last Modified By Organization Details Last Modified Time Details Appointments Follow Up 2024 08:30A M Sergio Shin MD Not available Not available Not available Lab HbA1c (hemoglob in A1c), blood 2023 [facility], [address] , [facility], [place], [address], 05/13/2024 04:11:49 Referral None recorded. Procedures None recorded. Surgeries None recorded. Imaging None recorded. Medication Orders cetirizin e 10 mg tablet 2023 [facility], [address] [place], [address], 05/12/2024 10:25:16 fluticaso ne propionat e 50 mcg/actua tion nasal spray,zack pension 2023 [facility], [address] [place], [address], 05/12/2024 10:25:14 Mounjaro 15 mg/0.5 mL subcutane ous pen injector 2023 [facility], [address] [place], [address], 05/12/2024 10:25:13 ProAir HFA 90 mcg/actua tion aerosol inhaler 2023 [facility], [address] [place], [address], 05/12/2024 10:25:15 sildenafi l 100 mg tablet 2023 [facility], [address] [place], [address], 05/12/2024 10:25:15 lisinopri l 40 mg tablet [address] [facility], [address] [place], [address], 05/12/2024 10:25:14 Patient TargetsNo targets recorded. Patient Instructions Encounter Date Encounter Id Patient Instructions Last Modified By Organization Details Last Modified Time 05/12/2024 [id number] deciding about using medicines to quit smoking [email or web address] Not available 05/12/2024 10:56:32 Quitting Tobacco : Care Instructions [email or web address] Not available 05/12/2024 10:56:32 diabetic foot exam* Not available 05/12/2024 10:40:41 body mass index: care instructions [email or web address] Not available 05/12/2024 10:25:12 learning about healthy weight [email or web address] Not available 05/12/2024 10:25:12 Reason for Referral None Reported. Problems Name Problem SNOMED Code Status Onset Date Resolution Date Notes Provider Name and Address Organization Details Recorded Time Hypertens kings disorder 24920858 Active Chichi Tao MD [address], [place], [address], [place] - [facility] 09:48:21 Hyperlipi demia 20784587 Active Chichi Tao MD [address], [place], [address], [place] [facility] 09:48:22 Tobacco dependenc e syndrome 39561166 Active 2019 Chihci Tao MD [address], [place], [address], [place] [facility] 09:48:22 COVID-19 [id number] Completed 201910/15/2021 Chichi Tao MD [address], [place], [address], [place] [facility] 09:48:32 Blood glucose outside reference range 900231855 Active 2021 Chichi Tao MD [address], [place], [address], [place] [facility] 10:15:43 Acute bacterial sinusitis 36559480 Active 2021 Chichi Tao MD [address], [place], [address], [place] [facility] 17:49:07 Allergic rhinitis 57087319 Active 2022 Chichi Tao MD [address], [place], [address], [place] [facility] 3 14:40:13 Dysfuncti on of left eustachia n tube 753425495433 9106 Active 2022 Chichi Tao MD [address], [place], [address], [place] [facility] 3 14:51:31 Type 2 diabetes mellitus 94110588 Active 2022 Chichi Tao MD [address], [place], [address], [place] [facility] 14:51:33 Insulin resistanc e 651794552 Active 2022 Chichi Tao MD [address], [place], [address], [place] [facility] 14:52:07 Lumbar radiculop athy 997073188 Active 2022 Chichi Tao MD [address], [place], [address], [place] [facility] 09:53:05 History of male erectile disorder 578847654 Active 2022 Chichi Tao MD [address], [place], [address], [facility] - [facility] 3 17:24:31 Problem Notes None recorded. Procedures Surgical History Date Name Laterality Status Provider Name and Address Organization Details Recorded Time 11/23/19 20 Diastolic B/P 80-89 mm Hg completed [facility] - [facility] 11/23/2019 14:49:01 11/23/19 20 Systolic B/P greater than or equal to 140 mm Hg completed [facility] 11/23/2019 14:48:57 07/31/19 20 Diastolic B/P 80-89 mm Hg completed [facility] - [facility] 07/31/2019 08:58:33 07/31/19 20 Systolic B/P 130-139 mm Hg completed [facility] - [facility] 07/31/2019 08:58:36 07/26/19 20 Medication Reconcilliation completed [facility] 07/26/2019 17:10:58 07/18/20 19 Diastolic B/P greater than or equal to 90 mm Hg completed [facility] - [facility] 07/18/2019 09:42:10 07/18/20 19 Systolic B/P 130-139 mm Hg completed [facility] - [facility] 07/18/2019 09:42:18 06/20/20 19 Medication Reconcilliation completed [facility] - [facility] 06/20/2019 13:25:12 06/19/20 19 Medication Reconcilliation completed [facility]rupti [place] - [facility] 06/19/2019 14:16:46 Knee Surgery completed [facility] [place] [facility] 09/21/2017 14:51:42 Imaging Results None recorded. Procedure Notes None recorded. Medical Equipment None Reported. Allergies No known drug allergies Medications Name Sig Start Date Stop Date Status Note LastModified by Organization Details LastModified Time losartan 50 mg tablet Take 1 tablet every day by oral route. 07/03 completed Not Available Not Available Not Available metformin 500 mg tablet Take 2 tablets twice a day by oral route for 90 days. 12/07 completed Not Available Not Available Not Available doxycycli ne hyclate 100 mg capsule TAKE 1 CAPSULE BY MOUTH TWICE DAILY FOR 10 DAYS 10/15 completed Not Available Not Available Not Available trazodone 50 mg tablet Take 1 tablet every day by oral route at bedtime. 07/26 completed not taking Not Available Not Available Not Available cetirizin e 10 mg tablet Take 1 tablet every day by oral route for 90 days. 2023 active Not Available Not Available Not Avai lable azithromy simone 250 mg tablet TAKE 2 TABLETS BY MOUTH ON DAY 1, AND THEN TAKE 1 TABLET BY MOUTH ONCE A DAY ON DAY 2 THROUGH DAY 5 11/09 completed Not Available Not Available Not Available prednison e 20 mg tablet TAKE 1 TABLET BY MOUTH TWICE DAILY 11/09 completed Not Available Not Available Not Available naproxen 250 mg tablet Take 1 tablet twice a day by oral route. 07/03 completed Not Available Not Available Not Available amlodipin e 5 mg tablet Take 1 tablet every day by oral route for 90 days. 04/24 completed Not Available Not Available Not Available ciproflox acin 500 mg tablet Take 1 tablet every 12 hours by oral route. 09/04 completed Not Available Not Available Not Available sildenafi l 100 mg tablet Take 0.5 tablets every day by oral route as needed. 2023 active Not Available Not Available Not Avai lable ketorolac 10 mg tablet TAKE 1 TABLET BY MOUTH EVERY 6 HOURS NEEDED 12/07 completed Not Available Not Available Not Available Kenalog 40 mg/mL suspensio n for injection Take 80 mg by injectio n route. 05/12 completed Not Available Not Available Not Available meloxicam 7.5 mg tablet TAKE 1 TABLET BY MOUTH TWICE DAILY 04/19 completed Not Available Not Available Not Available amoxicill in 875 mg tablet TAKE 1 TABLET BY MOUTH EVERY 12 HOURS 11/09 completed Not Available Not Available Not Available pravastat in 10 mg tablet TAKE ONE TABLET BY MOUTH EVERY DAY AT BEDTIME 09/21 completed Not Available Not Available Not Available amlodipin e 10 mg tablet TAKE 1 TABLET BY MOUTH ONCE DAILY 10/15 completed Not Available Not Available Not Available benzonata te 100 mg capsule TAKE 1 CAPSULE BY MOUTH THREE TIMES DAILY NEEDED FOR COUGH 11/09 completed Not Available Not Available Not Available hydrocodo ne 7.5 mg-acetam inophen 325 mg tablet TK 1 PO EVERY 6 HOURS PRN FOR PAIN 10/09 completed Not Available Not Available Not Available cephalexi n 500 mg capsule Take 1 capsule twice a day by oral route for 10 days. 2023 active Not Available Not Available Not Avai lable pantopraz ole 40 mg tablet,de layed release TAKE 1 TABLET BY MOUTH ONCE DAILY 08/10 completed Not Available Not Available Not Available simvastat in 20 mg tablet take 1 tablet (20 mg) by oral route once daily in the evening 01/31 completed simvasta tin 20 mg oral tablet;P rescribe Status: Prescrib ed on: 08/05/19 16 1:03PM;U ser: gillisa; Est. Completi on: 02/01/20 16;Pharm acyVerif ied: 08/05/19 16 1:03PM Not Available Not Available Not Available lisinopri l 10 mg tablet TAKE 1 TABLET BY MOUTH ONCE DAILY 10/20 completed Not Available Not Available Not Available hydrochlo rothiazid e 12.5 mg capsule Take 1 capsule every day by oral route. 07/18 completed Not Available Not Available Not Available gabapenti n 300 mg capsule 11/09 completed Not Available Not Available Not Available sertralin e 25 mg tablet Take 1 tablet every day by oral route. 08/21 completed Not Available Not Available Not Available diclofena c sodium 75 mg tablet,de layed release Take 1 tablet twice a day by oral route with meals. 04/24 completed Not Available Not Available Not Available monteluka st 10 mg tablet TAKE 1 TABLET BY MOUTH ONCE DAILY 05/12 completed Not Available Not Available Not Available pravastat in 20 mg tablet 09/21 completed Not Available Not Available Not Available lisinopri l 5 mg tablet Take 1 tablet every day by oral route. 08/21 completed Not Available Not Available Not Available hydrochlo rothiazid e 25 mg tablet Take 1 tablet every day by oral route. 08/21 completed Not Available Not Available Not Available ibuprofen 600 mg tablet Take 1 tablet 3 times a day by oral route. 11/22 completed Not Available Not Available Not Available methylpre dnisolone 4 mg tablets in a dose pack TAKE BY MOUTH DIRECTED ON INSIDE OF PACKAGE 11/09 completed Not Available Not Available Not Available albuterol sulfate HFA 90 mcg/actua tion aerosol inhaler Inhale 2 puffs every 4 hours by inhalati on route. active Not Available Not Available No t Available lisinopri l 40 mg tablet Take 1 tablet every day by oral route at bedtime for 90 days. active Not Available Not Available No t Available ondansetr on 4 mg disintegr ating tablet 11/09 completed Not Available Not Available Not Available cefdinir 300 mg capsule Take 1 capsule every 12 hours by oral route. 07/05 completed Not Available Not Available Not Available fluticaso ne propionat e 50 mcg/actua tion nasal spray,zack pension [place] 2 sprays every day by intranas al route for 90 days. 2023 active Not Available Not Available Not Avai lable Augmentin 500 mg-125 mg tablet Take 1 tablet every 8 hours by oral route. 06/26 completed Not Available Not Available Not Available ipratropi um bromide 21 mcg (0.03 %) nasal spray 08/10 completed Not Available Not Available Not Available naproxen 500 mg tablet 12/07 completed Not Available Not Available Not Available amoxicill in 875 mg-potass ium clavulana te 125 mg tablet TAKE 1 TABLET BY MOUTH TWICE DAILY WITH FOOD 06/13 completed Not Available Not Available Not Available hydroxyzi ne pamoate 25 mg capsule Take 1 capsule 4 times a day by oral route as needed. 11/22 completed Not Available Not Available Not Available Mucinex 600 mg tablet, extended release Take 1 tablet every 12 hours by oral route. 06/26 completed Not Available Not Available Not Available escitalop rhys 10 mg tablet TAKE 1 TABLET BY MOUTH ONCE DAILY FOR 90 DAYS 12/07 completed Not Available Not Available Not Available Claritin 1 po daily 11/09 completed Not Available Not Available Not Available Versapro Cream Base topical 05/12 completed Not Available Not Available Not Available OneTouch Verio test strips USE DIRECTED TWICE DAILY TO THREE TIMES DAILY active Not Available Not Available No t Available Nasal Allergy 55 mcg spray aerosol USE 2 SPRAY(S) IN EACH NOSTRIL ONCE DAILY active Not Available Not Available No t Available OneTouch Verio Reflect Meter USE DIRECTED active Not Available Not Available No t Available Wegovy 0.25 mg/0.5 mL subcutane ous pen injector Inject 0.25 mg every week by subcutan eous route for 28 days. 11/02 completed Not Available Not Available Not Available Mounjaro 7.5 mg/0.5 mL subcutane ous pen injector INJCET ONE (1) SYRINGE SUBCUTAN EOUSLY ONCE A WEEK 11/09 completed Not Available Not Available Not Available Mounjaro 5 mg/0.5 mL subcutane ous pen injector INJECT 5 MG SUBCUTAN EOUSLY ONCE A WEEK 01/26 completed Not Available Not Available Not Available Mounjaro 15 mg/0.5 mL subcutane ous pen injector Inject 15 mg by subcutan eous route. active Not Available Not Available No t Available Mounjaro 10 mg/0.5 mL subcutane ous pen injector Inject 10 mg every week by subcutan eous route for 28 days. 06/13 completed Not Available Not Available Not Available Mounjaro 2.5 mg/0.5 mL subcutane ous pen injector INJECT 2.5 MG SUBCUTAN EOUSLY ONCE A WEEK 12/07 completed Not Available Not Available Not Available Breyna 80 mcg-4.5 mcg/actua tion HFA aerosol inhaler INHALE 2 PUFFS BY MOUTH TWICE DAILY active Not Available Not Available No t Available Vitals Date Recorded Body height Body mass index (BMI) Body weight Body temperature Heart rate Oxygen saturation Oxygen saturation in Arterial blood by Pulse oximetry Respiratory rate Systolic blood pressure Diastolic blood pressure Provider Name and Address Organization Details Last Updated DateTime 190.5 cm 38.5 kg/m2 318734. 45 g 98.6 [degF] 84 /min 96 % 96 % 18 /min 100 mm[Hg] 80 mm[Hg] Carmen Hay [place] - [facility] 4 09:58:02 Social History Question Answer Notes LastModified by Organizat ion Details LastModified Time Tobacco Smoking Status Never Smoker Orion Bernal meng, [place] - [facility] 05/10/2017 18:23:54 Able To Swim? Yes Information not available 09/21/2017 Do You Have An Advance Directive? No Information not available 05/10/2017 What Is Your Level Of Alcohol Consumption? Occasional Information not available 09/21/2017 How Many Times Per Week Do You Consume Alcohol? Less Than 1 Time Per Week [email or web address] Information not available 12/07/2022 Are You Blind Or Do You Have Difficulty Seeing? No Information not available 05/10/2017 What Is Your Level Of Caffeine Consumption? Occasional Information not available 05/10/2017 How Much Tobacco Do You Chew? 5+/day [email or web address] Information not available 12/07/2022 In The 14 Days Before Symptom Onset, Have You Had Close Contact With A Laboratory-confir med COVID-19 While That Case Was Ill? No [email or web address] Information not available 12/07/2022 In The 14 Days Before Symptom Onset, Have You Had Close Contact With A Person Who Is Under Investigation For COVID-19 While That Person Was Ill? No [email or web address] Information not available 12/07/2022 Have You Been To An Area Known To Be High Risk For COVID-19? No [email or web address] Information not available 12/07/2022 Are You Currently Employed? Yes Information not available 05/10/2017 Are You Deaf Or Do You Have Serious Difficulty Hearing? No Information not available 05/10/2017 What Type Of Diet Are You Following? REGULAR Information not available 05/10/2017 Which Illicit Or Recreational Drugs Have You Used? None [email or web address] Information not available 12/07/2022 Have You Processed Blood Or Body Fluids From An Ebola Virus Disease Patient Without Appropriate PPE? No Information not available 12/07/2022 Do You Reside In Or Have You Traveled To An Area Where Ebola Virus Transmission Is Active? No [email or web address] Information not available 12/07/2022 Do You Or Have You Ever Used E-cigarettes Or Vape? Former User Of Electronic Cigarettes [email or web address] Information not available 08/28/2019 What Is The Highest Grade Or Level Of School You Have Completed Or The Highest Degree You Have Received? 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 No [email or web address] Information no t available 12/07/2022 What Is The Fluoride Status Of Your Home? Unknown [email or web address] Information not available 12/07/2022 Hard Of Hearing Or Deaf In One Or Both Ears? No Information not available 05/10/2017 Have You Recently Or Are You Planning To Travel To An Area With Zika Virus? No Information not available 12/07/2022 Legally Blind In One Or Both Eyes? No Information no t available 05/10/2017 Live Alone Or With Others? With Others Information not available 05/10/2017 Do You Have A Medical Power Of Ward Aide? No [email or web address] Information not available 12/07/2022 What Was The Date Of Your Most Recent Tobacco Screening? 05/12/2024 Information not available 05/12/2024 How Many Children Do You Have? 1 Information not available 09/21/2017 Do You Use Protection During Sex? No Information not available 05/10/2017 Do You Use Protection Against STDs? No [email or web address] Information not available 12/07/2022 What Is Your Relationship Status? Information not available 05/10/2017 Seat Belts Used Routinely Yes Information not available 05/10/2017 Are You Sexually Active? Yes Information not available 05/10/2017 Smoke Alarm In Home Yes Information not available 09/21/2017 Do You Have Smoke And Carbon Monoxide Detectors In Your Home? Yes [email or web address] Information not available 12/07/2022 Are You Passively Exposed To Smoke? No [email or web address] Information no t available 12/07/2022 Do You Or Have You Ever Used Smokeless Tobacco? Currently Chews Tobacco Information not available 11/23/2019 How Much Tobacco Do You Smoke? No Information not available 11/23/2019 General Stress Level Medium Information not available 09/21/2017 Do You Feel Stressed (tense, Restless, Nervous, Or Anxious, Or Unable To Sleep At Night)? [id number] Information not available 12/07/2022 Do You Use Any Illicit Or Recreational Drugs? No [email or web address] Information not available 12/07/2022 Has Tobacco Cessation Counseling Been Provided? Yes Information not available 11/10/2023 On What Date Was Tobacco Cessation Counseling Provided? 05/12/2024 Information not available 05/12/2024 What Contraceptive Method Was Reported At Start Of This Visit? Male Relying On Female Method Information not available 11/10/2023 What Contraceptive Method Was Reported At End Of This Visit? Male Relying On Female Method Information not available 11/10/2023 Do You Or Have You Ever Used Any Other Forms Of Tobacco Or Nicotine? No [email or web address] Information not available 12/07/2022 Do You Want To Talk About Contraception Or Prevention During Your Visit Today? No - This Question Does Not Apply To Me/I Prefer Not To Answer Information not available 11/10/2023 How Many Years Have You Used E-cigarettes Or Vape? 25 [email or web address] Information not available 12/07/2022 How Many Years Have You Used Smokeless Tobacco? 25 Information not available 11/10/2023 Sex: Male Functional Status Question Answer Note LastModified by Organizat ion Details LastModified Time Do you have difficulty walking or climbing stairs? No Information not available 05/10/2017 Do you have transportation difficulties? No [email or web address] Information not available 12/07/2022 Are you able to walk? [email or web address] Information not available 05/10/2017 Do you have difficulty doing errands alone? No Information not available 05/10/2017 Are you able to care for yourself? Yes Information n ot available 05/10/2017 Do you have difficulty dressing or bathing? No Information not available 05/10/2017 What is your exercise level? Occasional Information not available 09/21/2017 Mental Status Question Answer Note LastModified by Organization D etails LastModified Time Do you have difficulty concentrating, remembering or making decisions? No Information no t available 05/10/2017 Family History Relationship Description Onset Age of this Age Resolved Age Notes LastModified by Organization Details LastModified Time Maternal Grandmother Heart disease [email or web address] Not available 2018 14:18:36 Mother Hypertensive disorder [email or web address] Not available 2018 14:18:45 Mother Diabetes mellitus [email or web address] Not available 2018 14:18:54 Medical History Condition Response Pancreatitis N Coronary Artery Disease N Gout N Other N Atrial Fibrillation N congenital heart disease N Blood Diseases N Kidney Stones N Hyperthyroidism N Rheumatoid arthritis N Blood Transfusion N Erectile Dysfunction N amputation N Colonoscopy N Skin Lesions N COPD N Depression N Pneumonia N Incontinence N Murmur N Edema N Alzheimer's Disease N Migraine Headaches N Tobacco Abuse N Anxiety Disorder N Muscle, Joint, or Bone Problems N Hemorrhoids N Obesity N Vision or Eye Problems N Restless Leg Syndrome N Arthritis N Polyps N Infertility N Mental Disorder N Carpal Tunnel N Acid Reflux (GERD) N Cancer N Varicosities N Stroke N Tendonitis N Crohn's Disease N Hypercholesterolemia N Skin Cancer N Headaches N Fibromyalgia N Irritable Bowel Syndrome N Anal Fissure N Kidney Disease N Heart Problems N Ear or Hearing Problems N Hospitalizations N Gallstones N Kidney or Bladder Problems N Goiter N Acne N Skin Problems N Eating Disorder N Johnson's Esophagus N Hypertriglyceridemia N MRSA exposure N Constipation N Embolism N Vitamin B12 Deficiency N Deviated Septum N Tuberculosis N AIDS/HIV N Myocardial Infarction N Asthma N Mitral Valve Disorders N Vertigo N Hepatitis N Thyroid Cancer N Neuropathy N Pulmonary Embolism N History of DVT N Herniated Disc N Chronic Ear Infections N Chicken Pox N Autism Spectrum Disorder (ASD) N Von Willebrands Disease N Thrombophilias N Breast Cancer N Hernia N Plantar Fasciitis N Hospital Admission Other Than N Lung Disease N Hypothyroidism N Developmental or Behavioral Disorders N Defects or Inherited Disease N Breast Problem N Difficulty Swallowing N Ovarian Cyst N Anesthesia Complications N Testosterone Deficiency N Meniere's disease N Head Injury/Concussion N Interstitial Cystitis N Congenital Anomalies N Hypoglycemia N Blood clot N Vitamin D Deficiency N Cellulitis N Endometriosis N Fracture N Bladder or Kidney Problems N Liver Disease N Schizophrenia N Panic Disorder N Concussion N Spina Bifida N Allergies/Hayfever N Osteoarthritis N Parkinson's Disease N Disc Protrusion N STI N Esophagitis N Angina N Thyroid Problems N GI Problems N ADD/ADHD N Anemia N Multiple Sclerosis N Abnormal PAP N Lumbago N Mental Illness N Psychiatric Illness N Ovarian Cancer N Diabetes N Bedwetting N Degenerative Disc Disease N Seizures/Epilepsy N Congestive Heart Failure (CHF) N Syncope N Insomnia N Hyperlipidemia N Eczema N Diverticulitis N Dementia N Attention Deficient Disorder N Abuse/Domestic Violence N Ulcerative colitis N Cerebrovascular Disease N Depression N Guillain-[place] N Sleep Apnea N Aneurysm N Heart Disease N Bronchitis N Suicidal Ideation N Pre-Eclampsia N Hypertension Y Osteoporosis N Immunizations Vaccine Type Date Status Provider Name and Address Organization Details Recorded Time Tdap 05/10/2018 completed Not Available [facility] 11:49:39 COVID-19 vaccine, vector-nr, rS-Ad26, PF, 0.5 mL 10/03/2020 completed DANIEL Parker - [facility] 12/07/2022 10:06:59 Past Encounters Encounter ID Performer Location Encounter Start Date Encounter Closed Date Diagnosis/Indication Diagnosis SNOMED-CT Code Diagnosis ICD10 Code [id number] Sergio Shin MD [address] [place] [id number] 05/12/2024 09:35:03 05/12/2024 10:43:11 Lumbar radiculopathy 976476530 M54.16 History of male erectile disorder 459188124 Z87.438 Type 2 galindo betes mellitus 10863262 E11.9 Allergic rhinitis 383861 04 J30.9 Insulin resistance 04134 5000 E88.819 Tobacco de pendence syndrome 41825920 F17.200 Hypertensive disorder 38 451667 I10 Hyperlipidemia 06202023 E78.1 Pulmonary emphysema 8743 3001 J43.9 Essential hypertension 94376038 I10 Body mass index 30+ - obesity 468767315 Z68.38 Health Concerns Section Related Observation LastModified by Organization Detai ls LastModified Time None Recorded Concern Status LastModified by Organization Details LastModified Time None Recorded Payers Encounter Date Sequence Insurance Name Policy Number Policy Bauman Covered Member ID Bauman Member ID Guarantor Name 05/12/2024 1 [place] [id number] Lambert Jason II [id number] Lambert Jason Notes Date Note Type Note Provider Name and Address Organization Details Recorded Time 05/12/2024 text/html Here for checkup, labs, refills. BS [id number]. Loraine pascual. Had eye exam Burak Dowd. Sergio Shin MD [facility] [address], [place], [address], [place] - [facility] 05/12/2024 10:27:16
--- OUTSIDE RECORDS SUMMARY | 2024-06-17 23:46 | XMS_ITS | Clinical Summary ---
Author Organization Healthcare Address [address] [place] [address] Care Team Providers Care Ball Thread Machine Tender Name Role Phone Pcp, No Primary Care Provider Unavailabl e Allergies No known active allergies Medications lisinopril 40 MG tablet lisinopril 40 mg tablet TAKE 1 TABLET BY MOUTH ONCE DAILY AT BEDTIME FOR 90 DAYS Active tirzepatide (Mounjaro) 5 MG/0.5ML solution pen-injector solution pen-injector Mounjaro 5 mg/0.5 mL subcutaneous pen injector Active Active Problems Problem Noted Date Diagnosed Date Hyperlipidemia 12/18/2022 Hypertensive disorder 12/18/2022 Lumbar radiculopathy 11/25/2022 Dysfunction of left eustachian tube 08/10/2022 Type 2 diabetes mellitus 08/10/2022 Blood glucose abnormal 10/15/2021 Tobacco dependence syndrome 11/23/2019 Social History Tobacco Use Types Packs/Day Years [...] Mass Index 46.12 12/18/2022 10:20 AM EDT Plan of Treatment Health Maintenance Due Date Last Done Comments [facility]-Depression Screening 1980 [facility]-Infant/Child/Adol SDOH Screenings 1979 [facility]- SDOH Screenings 1997 [facility]-Adult SDOH Screenings 1997 [facility]-Hepatitis B Vaccines (1 of 3 - 19+ 3-dose series) 1998 CT Colonography 2024 Colonoscopy 2024 FIT-DNA 2024 FIT 2024 FOBT 2024 Sigmoidoscopy 2024 [facility]-Colorectal Cancer Screening 2024 [id number] Vaccine (2 - 20 24-25 season) 2024 10/03/2020 [facility]-Influenza Vaccine (#1) 2024 [facility]-DTaP,Tdap,and Td Vaccine s (2 - Td or Tdap) 05/10/2028 05/10/2018 [facility]-Zoster Vaccines (1 of 2) 2029 [facility]-RSV Vaccine: 60+ Years o r (1 - 1-dose 75+ series) 2054 [facility]-HIB Vaccines Aged Out No longer e ligible based on patient's age to complete this topic [facility]-HPV Vaccines Aged Out No longer e ligible based on patient's age to complete this topic [facility]-Hepatitis A Vaccines Aged Out No longer eligible based on patient's age to complete this topic [facility]-IPV Vaccines Aged Out No longer e ligible based on patient's age to complete this topic [facility]-Pneumococcal Vaccine: Pediatrics (0 to 5 Years) and At-Risk Patients (6 to 64 Years) Aged Out No long er eligible based on patient's age to complete this topic [facility]-Rotavirus Vaccines Aged Out No lo nger eligible based on patient's age to complete this topic Insurance [employer] Care Teams Ball Thread Machine Tender Relationship Specialty Start Date End Date Pcp, [place] [address] PCP - General Family Medicine 12/18/22
--- OUTSIDE RECORDS SUMMARY | 2024-06-17 23:46 | XMS_ITS | Encounter Summary ---
Author Organization Healthcare Address [address] [place] [address] Care Team Providers Care Home Theatre Technician Name Role Phone Pcp, No Primary Care Provider Unavailabl e Encounter Details Date Type Department Care Team (Latest Contact Info) Description 12/18/2022 Travel Social History Tobacco Use Types Packs/Day Years Used Date Smoking Tobacco: Never Smokeless Tobacco: Current Chew Alcohol Use Standard Drinks/Week Comments Not Currently 0 (1 standard drink = 0.6 oz pur e alcohol) occas Sex and Gender Information Value Date Recorded Sex Assigned at Not on file Legal Sex Male 8:10 AM EDT Gender Identity Not on file Sexual Orientation Not on file documented as of this encounter Plan of Treatment Not on file documented as of this encounter Visit Diagnoses Not on filedocumented in this encounter Additional Health Concerns Assessment Noted Time A fall risk assessment has been complete d for the patient 12/18/2022 10:31 AM EDT A Body Mass Index follow-up plan has been documented for the patient 12/18/2022 3:35 PM EDT documented as of this encounter Care Teams Home Theatre Technician Relationship Specialty Start Date End Date Pcp, [place] [address] PCP - General Family Medicine 12/18/22 documented as of this encounter
--- OUTSIDE RECORDS SUMMARY | 2024-06-17 23:46 | XMS_ITS | Referral Summary ---
Author Organization [facility] Address [address] [place] [address] Care Team Providers Care Vocational Nursing Instructor Name Role Phone Unavailable Primary Care Provider [...] Mass Index - - Plan of Treatment Not on file Guarantor Name Account Type Relation to Patient Date of Phone Billing Address [id number] [employer] Workers [employer] Self [address] [place], [place] [id number] Lambert Jason II Personal/Family Self [address] [place], [place] [phone]
--- OUTSIDE RECORDS SUMMARY | 2024-06-17 23:46 | XMS_ITS | Encounter Summary ---
Author Organization Healthcare Address [facility] [place] [address] Care Team Providers Care Selector Packer Name Role Phone Pcp, No Primary Care Provider Unavailabl e Encounter Details Date Type Department Care Team (Late st Contact Info) Description 12/08/2022 Orders Only External Location [address] [place] [address] Chichi Tao MD [address] [place], [place] [id number] Social History Tobacco Use Types Packs/Day Years Used Date Smoking Tobacco: Never Assessed Sex and Gender Information Value Date Recorded Sex Assigned at Not on file Legal Sex Male 8:10 AM EDT Gender Identity Not on file Sexual Orientation Not on file documented as of this encounter Plan of Treatment Not on file documented as of this encounter Procedures Procedure Name Priority Date/Time Associated Diagnosis Comments MR OUTSIDE IMAGES 12/08/2022 7:55 AM EDT documented in this encounter Results * MR transfer of outside films (12/08/2022 7:55 AM EDT) Anatomical Region Laterality Modality Magnetic Resonan ce 12/08/2022 7:55 AM EDT Chichi Tao MD IMG MRI PROCEDURES Final Result documented in this encounter Visit Diagnoses Not on filedocumented in this encounter Care Teams Selector Packer Relationship Specialty Start Date End Date Pcp, No [address] [place] [address] PCP - General Family Medicine 12/18/22 documented as of this encounter
--- OUTSIDE RECORDS SUMMARY | 2024-06-17 23:46 | XMS_ITS | Encounter Summary ---
Author Organization Healthcare Address [address] [place] [address] Care Team Providers Care Ingot Caster Name Role Phone Pcp, No Primary Care Provider Unavailabl e Reason for Visit * Reason Onset Date Comments HCN - Patient Message 12/22/2022 Pain medic ine referral info Encounter Details Date Type Department Care Team (Late st Contact Info) Description 12/22/2022 Telephone [place] [facility] [address], [address] [place] [address] Christina lBackburn, INFIRMARY ATTENDANT, DNP [address] [place] [address] HCN - Patient Message (Pain medicine referral info) Social History Tobacco Use Types Packs/Day Years [...] on file documented as of this encounter Miscellaneous Notes * Telephone Encounter - Khalif Alarcon - 12/23/2022 10:44 AM EDT Called patient and discussed referral patient is understanding * Telephone Encounter - Khalif Alarcon - 12/23/2022 7:29 AM EDT Reason: Performed Elsewhere 12/21/2022 faxed 15 pages to [facility] at [phone] facility will review and schedule they will notify us and the patient once complete Per the provider request * Telephone Encounter - Lori Ng - 12/22/2022 2:48 PM EDT Patient Phone Message Reason for Call: Looking to find out where referral for LP / Pain clinic was sent Please call back Best contact number and optimal time of day to reach caller: [phone] Note: Please do not reply to this message. Follow-up communication and further actions as a result of this message need to be communicated with the patient directly, if the patient is not active onMyChart. If the patient is active on MyChart, they will receive notification of the communication/outcome via Cloutt. documented in this encounter Plan of Treatment Not on [...] documented as of this encounter Care Teams Ingot Caster Relationship Specialty Start Date End Date Pcp, [place] [address] PCP - General Family Medicine 12/18/22 documented as of this encounter
--- OUTSIDE RECORDS SUMMARY | 2024-06-17 23:46 | XMS_ITS | Continuity of Care Document ---
Author Organization [facility] Address [address] [place] [address] [place] [address] Care Team Providers Care Business Support Coordinator Name Role Phone CALE SMALL Cans Vacuum Tester Unavailable NANCY MATTA Dairy Farm Worker NANCY MATTA Dairy Farm Worker Assessment No assessment recorded. Plan of Treatment Reminders Order Date Submit Date Provider Last Modified By Organization Details Last Modified Time Details Appointments Follow Up 20 2024 08:30A M Sergio Shin MD Not available Not available Not available Lab urinalysi s, dipstick 2023 024 [facility], [address] [place] [address] , [place], [address], 06/13/2024 17:20:56 culture, urine 2023 024 [facility], [address] , [facility], [place], [address], 06/15/2024 04:11:27 Referral None recorded. Procedures None recorded. Surgeries None recorded. Imaging None recorded. Medication Orders cephalexi n 500 mg capsule 2023 024 [facility], [address] [place], [address], 06/13/2024 17:21:00 Patient TargetsNo targets recorded. Patient InstructionsNo instructions recorded. Reason for Referral None Reported. Results Created Date Observation Date Name Description Value Unit Range Abnormal Flag Note LastModifiedBy Organization Detail LastModifiedTime 06/13/20 24 06/13/2024 urina lysis , dipst ick Leukocytes Negati ve Not Available [address] , [place], [address], 06/13/2024 17:06:13 06/13/20 24 06/13/2024 urina lysis , dipst ick Nitrite negati ve Not Available [address] , [place], [address], 06/13/2024 17:06:13 06/13/2006/13/2024 urina lysis , dipst ick Urobilinogen .2 Not Available [address] , [place], [address], 06/13/2024 17:06:13 06/13/20 24 06/13/2024 urina lysis , dipst ick Protein Negati ve Not Available [address] , [place], [address], 06/13/2024 17:06:13 06/13/20 24 06/13/2024 urina lysis , dipst ick pH 5.5 Not Available [address] , [place], [address], 06/13/2024 17:06:13 06/13/2006/13/2024 urina lysis , dipst ick Blood Hemoly zed: Trace Not Available [address] , [place], [address], 06/13/2024 17:06:13 06/13/20 24 06/13/2024 urina lysis , dipst ick Specific [place] 1.030 Not Available [address] [place], [address], 06/13/2024 17:06:13 06/13/20 24 06/13/2024 urina lysis , dipst ick Ketone Negati ve Not Available [address] , [place], [address], 06/13/2024 17:06:13 06/13/20 24 06/13/2024 urina lysis , dipst ick Bilirubin Negati ve Not Available [address] , [place], [address], 06/13/2024 17:06:13 06/13/2006/13/2024 urina lysis , dipst ick Glucose Negati ve Not Available [address] , [place], [address], 06/13/2024 17:06:13 06/13/2006/13/2024 urina lysis , dipst ick Appearance Slight ly Cloudy Not Available [address] , [place], [address], 06/13/2024 17:06:13 06/13/20 24 06/13/2024 urina lysis , dipst ick Color Dark Yellow Not Available [address] , [place], [address], 06/13/2024 17:06:13 Result Notes None recorded. Problems Name Problem SNOMED Code Status Onset Date Resolution Date Notes Provider Name and Address Organization Details Recorded Time Hypertens kings disorder 00305271 Active Chichi Tao MD [address], [place], [address], [facility] - [facility] 2 09:48:21 Hyperlipi demia 10371398 Active Chichi Tao MD [address], [place], [address], [place] - [facility] 2 09:48:22 Tobacco dependenc e syndrome 08221971 Active 2019 Chichi Tao MD [address], [place], [address], [place] [facility] 2 09:48:22 COVID-19 910196334 Completed 201910/15/2021 Chichi Tao MD [address], [place], [address], [place] [facility] 2 09:48:32 Blood glucose outside reference range 427234510 Active 2021 Chichi Tao MD [address], [place], [address], [place] [facility] 2 10:15:43 Acute bacterial sinusitis 61619643 Active 2021 Chichi Tao MD [address], [place], [address], [place] [facility] 2 17:49:07 Allergic rhinitis 12403492 Active 2022 Chichi Tao MD [address], [place], [address], [place] [facility] 3 14:40:13 Dysfuncti on of left eustachia n tube 761170956110 9106 Active 2022 Chichi Tao MD [address], [place], [address], [place] [facility] 3 14:51:31 Type 2 diabetes mellitus 21665100 Active 2022 Chichi Tao MD [address], [place], [address], [place] [facility] 3 14:51:33 Insulin resistanc e 998519206 Active 2022 Chichi Tao MD [address], [place], [address], [place] [facility] 3 14:52:07 Lumbar radiculop athy 147250837 Active 2022 Chichi Tao MD [address], [place], [address], [place] [facility] 3 09:53:05 History of male erectile disorder 140189299 Active 2022 Chichi Tao MD [address], [place], [address], [facility] - [facility] 3 17:24:31 Problem Notes None recorded. Procedures Surgical History Date Name Laterality Status Provider Name and Address Organization Details Recorded Time 11/23/19 20 Diastolic B/P 80-89 mm Hg completed [facility] - [facility] 11/23/2019 14:49:01 11/23/19 20 Systolic B/P greater than or equal to 140 mm Hg completed [facility] 11/23/2019 14:48:57 07/31/19 20 Diastolic B/P 80-89 mm Hg completed [facility] 07/31/2019 08:58:33 07/31/19 20 Systolic B/P 130-139 mm Hg completed [facility] 07/31/2019 08:58:36 07/26/19 20 Medication Reconcilliation completed [facility] 07/26/2019 17:10:58 07/18/20 19 Diastolic B/P greater than or equal to 90 mm Hg completed [facility] 07/18/2019 09:42:10 07/18/20 19 Systolic B/P 130-139 mm Hg completed [facility] 07/18/2019 09:42:18 06/20/20 19 Medication Reconcilliation completed [facility] 06/20/2019 13:25:12 06/19/20 19 Medication Reconcilliation completed [facility] 06/19/2019 14:16:46 Knee Surgery completed Zoila Ha [place] - [facility] 09/21/2017 14:51:42 Imaging Results None recorded. Procedure [...] TAKE 1 TABLET BY MOUTH ONCE DAILY 03/30 /2022 completed Not Available Not Available Not Available [...] tablet;P rescribe Status: Prescrib ed on: 08/05/19 1:03PM;U ser: [email or web address]; Est. Completi on: 02/01/20 16;Pharm acyVerif ied: 08/05/19 1:03PM Not Available Not Available Not Available [...] e 50 mcg/actua tion nasal spray,zack pension [place] 2 sprays every day by intranas al [...] height Body mass index (BMI) Body weight Heart rate Oxygen saturation Oxygen saturation in Arterial blood by Pulse oximetry Respiratory rate Systolic blood pressure Diastolic blood pressure Provider Name and Address Organization Details Last Updated DateTime 4 190.5 cm 38.7 kg/m2 252926. 63 g 82 /min 98 % 98 % 16 /min 102 mm[Hg] 76 mm[Hg] Zoila Ha [place] - [facility] 4 17:09:52 Social History Question Answer Notes LastModified by [...] Alcohol? Less Than 1 Time Per Week [email or web address] Information not available 12/07/2022 Are You Blind Or Do You Have Difficulty Seeing? No Information not available 05/10/2017 What Is Your Level Of Caffeine Consumption? Occasional Information not available 05/10/2017 How Much Tobacco Do You Chew? 5+/day [email or web address] Information not available 12/07/2022 In The 14 Days Before Symptom Onset, Have You Had Close Contact With A Laboratory-confir med COVID-19 While That Case Was Ill? No [email or web address] Information not available 12/07/2022 In The 14 Days Before Symptom Onset, Have You Had Close Contact With A Person Who Is Under Investigation For COVID-19 While That Person Was Ill? No [email or web address] Information not available 12/07/2022 Have You Been To An Area Known To Be High Risk For COVID-19? No [email or web address] Information not available 12/07/2022 Are You Currently Employed? Yes Information not available 05/10/2017 Are You Deaf Or Do You Have Serious Difficulty Hearing? No Information not available 05/10/2017 What Type Of Diet Are You Following? REGULAR Information not available 05/10/2017 Which Illicit Or Recreational Drugs Have You Used? None Information not available 12/07/2022 Have You Processed Blood Or Body Fluids From An Ebola Virus Disease Patient Without Appropriate PPE? No Information not available 12/07/2022 Do You Reside In Or Have You Traveled To An Area Where Ebola Virus Transmission Is Active? No Information not available 12/07/2022 Do You Or Have You Ever Used E-cigarettes Or Vape? Former User Of Electronic Cigarettes [email or web address] Information not available 08/28/2019 What Is The Highest Grade Or Level Of School You Have Completed Or The Highest Degree You Have Received? 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 No Information no t available 12/07/2022 What Is The Fluoride Status Of Your Home? Unknown [email or web address] Information not available 12/07/2022 Hard Of Hearing Or Deaf In One Or Both Ears? No Information not available 05/10/2017 Have You Recently Or Are You Planning To Travel To An Area With Zika Virus? No [email or web address] Information not available 12/07/2022 Legally Blind In One Or Both Eyes? No Information no t available 05/10/2017 Live Alone Or With Others? With Others Information not available 05/10/2017 Do You Have A Medical Power Of President [employer]? No [email or web address] Information not available 12/07/2022 What Was The Date Of Your Most Recent Tobacco Screening? 05/12/2024 Information not available 05/12/2024 How Many Children Do You Have? 1 Information not available 09/21/2017 Do You Use Protection During Sex? No Information not available 05/10/2017 Do You Use Protection Against STDs? No [email or web address] Information not available 12/07/2022 What Is Your Relationship Status? Information not available 05/10/2017 Seat Belts Used Routinely Yes Information not available 05/10/2017 Are You Sexually Active? Yes Information not available 05/10/2017 Smoke Alarm In Home Yes Information not available 09/21/2017 Do You Have Smoke And Carbon Monoxide Detectors In Your Home? Yes Information not available 12/07/2022 Are You Passively Exposed To Smoke? No Information no t available 12/07/2022 Do You Or Have You Ever Used Smokeless Tobacco? Currently Chews Tobacco Information not available 11/23/2019 How Much Tobacco Do You Smoke? No Information not available 11/23/2019 General Stress Level Medium Information not available 09/21/2017 Do You Feel Stressed (tense, Restless, Nervous, Or Anxious, Or Unable To Sleep At Night)? [id number] [email or web address] Information not available 12/07/2022 Do You Use Any Illicit Or Recreational Drugs? No [email or web address] Information not available 12/07/2022 Has Tobacco Cessation [...] Other Forms Of Tobacco Or Nicotine? No [email or web address] Information not available 12/07/2022 Do You Want To Talk About Contraception Or Prevention During Your Visit Today? No - This Question Does Not Apply To Me/I Prefer Not To Answer Information not available 11/10/2023 How Many Years Have You Used E-cigarettes Or Vape? 25 [email or web address] Information not available 12/07/2022 How Many Years Have You Used Smokeless Tobacco? 25 Information not available 11/10/2023 Sex: Male Functional Status Question Answer Note LastModified by Organizat ion Details LastModified Time Do you have difficulty walking or climbing stairs? No Information not available 05/10/2017 Do you have transportation difficulties? No [email or web address] Information not available 12/07/2022 Are you able [...] Than N Lung Disease N Hypothyroidism N Defects or Inherited Disease N Developmental or Behavioral Disorders N Breast Problem N Difficulty Swallowing N Ovarian Cyst N Anesthesia Complications N Testosterone Deficiency N Meniere's disease N Head Injury/Concussion N Interstitial Cystitis N Congenital Anomalies N Hypoglycemia N Blood clot N Vitamin D Deficiency N Cellulitis N Endometriosis N Bladder or Kidney Problems N Fracture N Liver Disease N Schizophrenia N Panic [...] Congestive Heart Failure (CHF) N Syncope N Hyperlipidemia N Insomnia N Eczema N Abuse/Domestic Violence N Attention Deficient Disorder N Dementia N Diverticulitis N Ulcerative colitis N Cerebrovascular Disease N Depression N Guillain-Dulce N Sleep Apnea N Aneurysm N Bronchitis N Heart Disease N Suicidal Ideation N Pre-Eclampsia N Hypertension [...] Diagnosis/Indication Diagnosis SNOMED-CT Code Diagnosis ICD10 Code [id number] Jaclyn Bosch APRN [address] [place] [address] 06/13/2024 17:00:11 06/13/2024 17:21:04 Dysuria 80945929 R30.0 Acute sinusitis 72800585 J01.90 Health Concerns Section Related Observation LastModified by Organization Detai ls LastModified Time None Recorded Concern Status LastModified by Organization Details LastModified Time None Recorded Payers Encounter Date Sequence Insurance Name Policy Number Policy Bauman Covered Member ID Bauman Member ID Guarantor Name 06/13/2024 1 [employer] OF [place] [id number] Thudallas Shar Jason II [id number] Lambert Jason Notes Date Note Type Note Provider Name and Address Organization Details Recorded Time 06/13/2024 text/html Lambert is a 44 year old male who complains of pressure and burning with voiding and frequency x4-5 days. He states he has bilateral lower back pain that started accompanying symptoms today. Denies fever. 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 He admits to mild sore throat with nasal drainage. He reports that his ears feel full today. Jaclyn Bosch, ORDERING MACHINE OPERATOR [address], [place], [address], [place] - [facility] 06/13/2024 17:22:21
--- OUTSIDE RECORDS SUMMARY | 2024-06-17 23:46 | XMS_ITS | Encounter Summary ---
Author Organization Healthcare Address [address] [place] [address] Care Team Providers Care Data Modeler Name Role Phone Pcp, No Primary Care Provider Unavailabl e Encounter Details Date Type Department Care Team (Late st Contact Info) Description 12/08/2022 Orders Only External Location [address] [place] [address] Chichi Tao MD [address] [place], [place] [id number] Social History Tobacco Use Types Packs/Day Years [...] Name Priority Date/Time Associated Diagnosis Comments MR LUMBAR SPINE WO IV CONTRAST 12/08/2022 7:55 AM EDT documented in this encounter Results * MR Lumbar Spine wo IV Contrast (12/08/2022 7:55 AM EDT) Anatomical Region Laterality Modality L-spine Magnetic Resonan ce 12/08/2022 7:55 AM EDT Chichi Tao MD IMG MRI PROCEDURES Final Result documented in this encounter Visit Diagnoses Not on filedocumented in this encounter Care Teams Data Modeler Relationship Specialty Start Date End Date Pcp, No [address] [place] [address] PCP - General Family Medicine 12/18/22 documented as of this encounter
--- OUTSIDE RECORDS SUMMARY | 2024-06-17 23:46 | XMS_ITS | Encounter Summary ---
Author Organization [facility] Address [address] [place] [address] Care Team Providers Care Room Inspector Name Role Phone Unavailable Primary Care Provider Unavailabl e Reason for Visit * Reason Comments Nasal Congestion Chest Congestion Encounter Details Date Type Department Care Team (Late st Contact Info) Description 07/13/2018 12:10 PM EST Office Visit [facility] [address] [place] [address] Fer Ruiz APRN Cough (Primary Dx); SOB (shortness of breath); Pneumonia of left lower lobe due to infectious organism Social History Tobacco Use Types Packs/Day Years [...] - - Body Mass Index - - documented in this encounter Patient Instructions * Patient Instructions* Fer Ruiz APRN - 07/13/2018 12:10 PM EST Community-acquired Pneumonia WHAT YOU SHOULD KNOW: Community-acquired pneumonia (CAP) is a lung infection that you get from being around other people in the community. When you have CAP, your lungs become inflamed and cannot work well. CAP is caused by different germs, including bacteria, viruses, and fungi (yeasts). The germs are easily spread from an infected person to others by coughing, sneezing, or close contact. AFTER YOU LEAVE: Medicines: ?? Antibiotics: This medicine is given to fight or prevent an infection caused by bacteria. Always take your antibiotics exactly as ordered by your primary healthcare provider. Do not stop taking your medicine unless directed by your primary healthcare provider. Never save antibiotics or take leftover antibiotics that were given to you for another illness. ?? Expectorants: Expectorant medicine helps thin your sputum (mucus from the lungs). When sputum isthin, it may be easier for you to cough it up and spit it out. This may make your breathing easier,and may help you get better faster. ?? Bronchodilators: You may need bronchodilators to help open the air passages in your lungs, and help you breathe more easily. ?? Antipyretics: This medicine is given to decrease a fever. ?? Steroids: Steroid medicine may help open your air passages so you can breathe easier. Do not stop taking this medicine without your primary healthcare provider's okay. Stopping on your own can cause problems. ?? Inhalers and nebulizers: Your caregiver may give you one or more inhalers to help you breathe easier and cough up mucus. An inhaler gives your medicine in a mist form so that you can breathe it into your lungs. This type of medicine may also be given using a nebulizer, or breathing treatment machine . Using inhalers and nebulizers the right way takes practice. Ask your caregiver for more information about using inhalers and nebulizers correctly. ?? Antifungal medicine: This medicine helps kill fungus that may be causing your pneumonia. ?? Antiviral medicine: This is given to treat pneumonia if it is caused by a virus. ?? Take your medicine as directed. Call your primary healthcare provider if you think your medicineis not helping or if you have side effects. Tell him if you are allergic to any medicine. Keep a list of the medicines, vitamins, and herbs you take. Include the amounts, and when and why you take them. Bring the list or the pill bottles to follow-up visits. Carry your medicine list with you in case of an emergency. Follow up with your primary healthcare provider as directed: Write down your questions so you remember to ask them during your visits. Breathing treatments and support: ?? Deep breathing and coughing: Your primary healthcare provider may want you to do deep breathing and coughing. Deep breathing helps to open the air passages in your lungs. Coughing helps to bring up mucus from your lungs. Sit up regularly or get out of bed to help you breathe easier and get better faster. ?? Oxygen: You may need extra oxygen to help you breathe easier. It may be given through a plastic mask over your mouth and nose. It may be given through a nasal cannula, or prongs, instead of a mask. A nasal cannula is a pair of short, thin tubes that rest just inside your nose. Tell your caregiver if your nose gets dry or if you get redness or sores on your skin. Never smoke or let anyone else s moke in the same room while your oxygen is on. Doing so may cause a fire. Self-care: ?? Avoid the spread of germs: Wash your hands often with soap and water. Use gel hand cleanser whenthere is no soap and water available. Do not touch your eyes, nose, or mouth unless you have washedyour hands first. Cover your mouth when you cough. Cough into a tissue or your shirtsleeve so you do not spread germs from your hands. If you are sick, stay away from others as much as possible. ?? Drink enough liquids: Men 19 years old or older should drink about 3 liters of liquid each day (close to thirteen 8 ounce cups). Women 19 years old or older should drink about 2.2 liters of liquideach day (close to nine 8 ounce cups). Liquids help thin your mucus, which may make it easier for you to cough it up. While you are sick, do not drink alcohol. ?? Get vaccinated: The pneumococcal vaccine is given to adults aged 65 years or older to prevent pneumococcal disease, such as pneumonia. People aged 19 to 64 years at high risk for pneumococcal disease also should get the pneumococcal vaccine. It may need to be repeated 5 years later. Get an influenza (flu) vaccine every year as soon as it becomes available. ?? Quit smoking: Do not smoke, and do not allow others to smoke around you. Smoking increases your risk of lung infections and CAP. Smoking also makes it harder for you to get better after a lung infection. Talk to your primary healthcare provider if you need help to quit smoking. ?? Rest: Rest when you feel it is needed. Slowly start to do more each day. Return to your daily activities as directed. Contact your primary healthcare provider if: ?? You have fever and chills. ?? Your cough comes back, does not go away, or you begin to cough up blood. ?? You feel very tired or weak, or are sleeping more than usual. ?? You cannot eat or have loss of appetite, nausea, or vomiting. ?? You are urinating less, or not at all. ?? Your heart or pulse beats more than 100 times in 1 minute. ?? You have questions or concerns about your condition or care. Seek care immediately or call 911 if: ?? Your symptoms do not get better, or get worse. ?? You are confused and cannot think clearly. ?? You have more trouble breathing, or your breathing seems faster than normal. ?? Your lips or fingernails turn ruth or blue. ?? 2012 [employer]. Information is for End User's use only and may not be sold, redistributed or otherwise used for commercial purposes. All illustrations and images included in CareNotes?? are the copyrighted property of [employer]. or [employer]. The above information is an director of student financial aid only. It is not intended as medical advice for individual conditions or treatments. Talk to your doctor, nurse or pharmacist before following any medical regimen to see if it is safe and effective for you. Doxycycline (By mouth) Doxycycline (vye-z-MDI-sandy) This medicine is a tetracycline antibiotic that treats infections and anthrax infection after possible exposure. Also used to prevent malaria and treat rosacea or severe acne. Brand Name(s):Adoxa, Adoxa Gary 1/150, Alodox, Avidoxy, Avidoxy DK, Doryx, Monodox, Morgidox [id number], Morgidox [id number], NutriDox Convenience, Ocudox Convenience Kit, Oracea, Oraxyl, Periostat, Vibramycin Calcium There may be other brand names for this medicine. When This Medicine Should Not Be Used: This medicine is not right for everyone. Do not use this medicine if you had an allergic reaction to doxycycline or another tetracycline antibiotic, or if you are or . How to Use This Medicine: Capsule, Long Acting Capsule, Delayed Release Capsule, Liquid, Tablet, Delayed Release Tablet Take your medicine as directed. Ask your pharmacist or doctor if you need to take this medicine with or without food. Some forms can be taken with food or milk, but others must be taken on an empty stomach. Doryx?? delayed-release tablets: You may take this brand of medicine with food or milk to avoid stomach irritation. You may take this medicine by breaking the tablets. Hold the tablet between your thumb and index fingers close to the appropriate scored line. Then, apply enough pressure to snap the tablet segments apart. Do not use the tablet if it does not break on the scored lines. You may also take this medicine by sprinkling the broken tablets onto room- temperature applesauce. Swallow this mixture right away; do not chew. Do not store the mixture for later use. Oracea?? delayed-release capsules: This medicine must be taken on an empty stomach, at least 1 hour before or 2 hours after a meal. Swallow the capsules with a full glass (8 ounces) of water while you are sitting or standing. Do not lie down right after you this medicine. Staying upright may help prevent throat problems. Capsule: Swallow whole. Do not break, crush, chew, or open it. Oral liquid: Shake the bottle well just before each use. Measure the oral liquid medicine with a marked measuring spoon, oral syringe, or medicine cup. Take all of the medicine in your prescription to clear up your infection, even if you feel better after the first few doses. Drink plenty of fluids to avoid throat problems, if you take the capsule or tablet form. Malaria prevention: Start taking the medicine 1 or 2 days before you travel. Take the medicine every day during your trip. Keep taking it for 4 weeks after you return. However, do not use the medicine for longer than 4 months. Do not use this medicine for more than 9 months if you are using it for rosacea. Use only the brand of medicine your doctor prescribed. Other brands may not work the same way. Missed dose:Take a dose as soon as you remember. If it is almost time for your next dose, wait until then and take a regular dose. Do not take extra medicine to make up for a missed dose. Store the medicine in a closed container at room temperature, away from heat, moisture, and direct light. Do not freeze the oral liquid. Drugs and Foods to Avoid: Ask your doctor or pharmacist before using any other medicine, including ncip-rno-wvemthl medicines, vitamins, and herbal products. Some foods and medicines can affect how doxycycline works. Tell your doctor if you are using bismuth subsalicylate, isotretinoin or other acne medicines, acitretin or other medicine to treat psoriasis, a penicillin antibiotic, stomach medicine, medicine for seizures, a blood thinner (such as warfarin), or any medicine that contains aluminum, calcium, or iron (such an antacid or vitamin supplement). Warnings While Using This Medicine: This medicine may cause defects if either partner is using it during conception or .Tell your doctor right away if you or your partner becomes . Tell your doctor if you have kidney disease, liver disease, asthma, or an allergy to sulfites. Tellyour doctor if you have had surgery on your stomach, or if you have a history of yeast infections. This medicine may cause the following problems: Permanent change in tooth color (in children younger than 8 years old) Severe diarrhea Increased pressure inside the head Yeast infection Immune system problems control pills may not work as well when used with this medicine. Use a second form of control to keep from getting . Ask your doctor before you take any medicine to stop severe diarrhea. This medicine may make your skin more sensitive to sunlight. Wear sunscreen. Do not use sunlamps ortanning beds. Tell any doctor or dentist who treats you that you are using this medicine. This medicine may affect certain medical test results. Call your doctor if your symptoms do not improve or if they get worse. Keep all medicine out of the reach of children. Never share your medicine with anyone. Possible Side Effects While Using This Medicine: Call your doctor right away if you notice any of these side effects: Allergic reaction: Itching or hives, swelling in your face or hands, swelling or tingling in your mouth or throat, chest tightness, trouble breathing Burning, pain, or irritation in your upper stomach or throat Diarrhea that may contain blood Fever, chills, cough, runny or stuffy nose, sore throat, and body aches Joint pain, fever, rash, and unusual tiredness or weakness Severe headache, dizziness, or vision changes If you notice these less serious side effects, talk with your doctor: Darkening of your skin, scars, teeth, or gums Sores or white patches on your lips, mouth, or throat If you notice other side effects that you think are caused by this medicine, tell your doctor. Call your doctor for medical advice about side effects. You may report side effects to FDA at 5-358-BSM-5313 ?? 2012 [employer]. Information is for End User's use only and may not be sold, redistributed or otherwise used for commercial purposes. The above information is an director of student financial aid only. It is not intended as medical advice for individual conditions or treatments. Talk to your doctor, nurse or pharmacist before following any medical regimen to see if it is safe and effective for you. Antihistamine/Antitussive (By mouth) Treats runny nose, sneezing, watery eyes, and cough caused by the common cold or flu. Brand Name(s):Biclora, Children's Triaminic Cough & Runny Nose, Coricidin Cough & Cold Maximum Strength, Cough & Cold, Dytan-AT, EndaCof-C, [facility] Night Time Cough, Maxichlor DM, Nighttime Cough, Poly-Hist PD, Prohist CF, Promethazine DM, [employer] Nighttime Cough, Respi-TANN, [facility] Nighttime Cough Relief There may be other brand names for this medicine. When This Medicine Should Not Be Used: You should not use this medicine if you have ever had an allergic reaction to any cough and cold medicine or to any antihistamine or antitussive. You should not use this medicine if you have taken anMAO inhibitors such as Nardil??, Marplan??, Eldepryl??, or Parnate?? within the past 14 days. Do not give any ggaq-gev-iskmvpw (OTC) cough and cold medicine to a baby or child under 4 years old. Using these medicines in very young children might cause serious or possibly life-threatening side effects. How to Use This Medicine: Capsule, Chewable Tablet, Liquid, Tablet ?? Take your medicine as directed. ?? Follow the instructions on the medicine label if you are using this medicine without a prescription. ?? Measure the oral liquid medicine with a marked measuring spoon, oral syringe, or medicine cup. If a dose is missed: ?? Take a dose as soon as you remember. If it is almost time for your next dose, wait until then and take a regular dose. Do not take extra medicine to make up for a missed dose. How to Store and Dispose of This Medicine: ?? Store the medicine in a closed container at room temperature, away from heat, moisture, and direct light. Do not freeze. ?? Ask your pharmacist, doctor, or health caregiver about the best way to dispose of any outdated medicine or medicine no longer needed. ?? Keep all medicine out of the reach of children. Never share your medicine with anyone. Drugs and Foods to Avoid: Ask your doctor or pharmacist before using any other medicine, including jzww-wpq-rylswlj medicines, vitamins, and herbal products. ?? Do not use any other medicines that make you sleepy. These include sleeping pills, narcotic painrelievers, and sedatives. Warnings While Using This Medicine: ?? If you are or , talk to your doctor before using this medicine. ?? Make sure your doctor knows if you have heart disease, high blood pressure, diabetes, glaucoma, an enlarged prostate, seizure disorder, asthma, emphysema, or an overactive thyroid. ?? This medicine might contain phenylalanine (aspartame). This is only a concern if you have a disorder called phenylketonuria (a problem with amino acids). Talk to your doctor before using this medicine. ?? This medicine may make you drowsy. Avoid driving, using machines, or doing anything else that could be dangerous if you are not alert. ?? Some liquid cough medicines contain alcohol. ?? Call your doctor if your symptoms get worse after 2 or 3 days of treatment, or if they do not improve after 7 days. Also call if you develop a severe sore throat or fever; or cough up thick yellowmucus. ?? Children may be more sensitive to this medicine than adults, especially if they take too much medicine. Always read medicine labels carefully and give your child the right amount. Ask your pharmacist if you are not sure how much medicine to use. Possible Side Effects While Using This Medicine: Call your doctor right away if you notice any of these side effects: ?? Fast, slow, or irregular heartbeat ?? Trouble breathing ?? Extreme weakness ?? Skin rash, hives, or itching If you notice these less serious side effects, talk with your doctor: ?? Drowsiness or dizziness ?? Dry mouth, nose, or throat ?? Sunburn (use a sunscreen) ?? Trouble urinating ?? Confusion ?? Thickened mucus If you notice other side effects that you think are caused by this medicine, tell your doctor. Call your doctor for medical advice about side effects. You may report side effects to FDA at 4-305-GMC-9019 ?? 2012 [employer]. Information is for End User's use only and may not be sold, redistributed or otherwise used for commercial purposes. The above information is an director of student financial aid only. It is not intended as medical advice for individual conditions or treatments. Talk to your doctor, nurse or pharmacist before following any medical regimen to see if it is safe and effective for you. Albuterol (By breathing) Albuterol (hi-EYS-eol-ol) Treats or prevents bronchospasm. This medicine is a bronchodilator. Brand Name(s):Accuneb, Novaplus Ventolin HFA, ProAir HFA, Proair HFA, Proventil, Proventil HFA, ReliOn Ventolin HFA, Ventolin HFA There may be other brand names for this medicine. When This Medicine Should Not Be Used: This medicine is not right for everyone. Do not use it if you had an allergic reaction to albuterol. How to Use This Medicine: Aerosol, Powder Under Pressure, Solution ?? Take your medicine as directed. This medicine is used with either a metered- dose inhaler or a nebulizer. ?? Solution: You will use this medicine with an inhaler device called a nebulizer. The nebulizer turns the medicine into a fine mist that you breathe in through your mouth and to your lungs. Your caregiver will show you how to use your nebulizer. ?? Store unopened vials of this medicine at room temperature, away from heat and direct light. Do not freeze. An open vial of medicine must be used right away. ?? Aerosol: You will use this medicine with a device called a metered-dose inhaler. The inhaler fits on the medicine canister and turns the medicine into a fine spray that you breathe in through yourmouth and to your lungs. You may be told to use a spacer, which is a tube that is placed between the inhaler and your mouth. Your caregiver will show you how to use your inhaler and the spacer (if needed). ?? To use the inhaler: ?? Remove the cap and look at the mouthpiece to make sure it is clean. ?? Shake the inhaler well just before each use. Avoid spraying this medicine into your eyes. ?? Test spray in the air before using for the first time or if the inhaler has not been used for a while. ?? If you are supposed to use more than one puff, wait 1 to 2 minutes before inhaling the second puff. Repeat these steps for the next puff, starting with shaking the inhaler. ?? When you have finished all your inhalations, rinse your mouth out with water. ?? Clean the inhaler mouthpiece at least once a week with warm running water for 30 seconds. Let itair dry completely. ?? If you need to use the inhaler before it is completely dry, shake off the excess water, replace the canister, and spray it 2 times in the air away from the face. Use your regular dose. Wash the mouthpiece again and dry it completely. ?? Store the canister at room temperature, away from heat and direct light. Do not freeze. Do not keep this medicine inside a car where it could be exposed to extreme heat or cold. Do not poke holes in the canister or throw it into a fire, even if the canister is empty. ?? Missed dose: Take a dose as soon as you remember. If it is almost time for your next dose, wait until then and take a regular dose. Do not take extra medicine to make up for a missed dose. ?? Read and follow the patient instructions that come with this medicine. Talk to your doctor or pharmacist if you have any questions. Drugs and Foods to Avoid: Ask your doctor or pharmacist before using any other medicine, including jmwc-zgr-fjyyobn medicines, vitamins, and herbal products. ?? Some medicines can affect how albuterol works. Tell your doctor if you are also using digoxin, blood pressure medicine, any other inhaled medicine, or a diuretic (water pill). Tell your doctor if you have used medicine for depression or an MAO inhibitor within the past 2 weeks. Warnings While Using This Medicine: ?? Tell your doctor if you are or , or if you have kidney disease, diabetes, heart disease, heart rhythm problems, high blood pressure, overactive thyroid, low potassium in the blood, or a history of seizures. ?? This medicine may cause the following problems: ?? Paradoxical bronchospasm (worsening of breathing problems or wheezing; can be life-threatening) ?? Low potassium levels in the blood ?? If you use a corticosteroid medicine to control your asthma, keep using it as ordered by your doctor. ?? Call your doctor if your symptoms do not improve or if they get worse. ?? If any of your asthma medicines do not seem to be working as well as usual, call your doctor right away. Do not change your doses or stop using your medicines without asking your doctor. ?? Your doctor will check your progress and the effects of this medicine at regular visits. Keep all appointments. ?? Keep all medicine out of the reach of children. Never share your medicine with anyone. Possible Side Effects While Using This Medicine: Call your doctor right away if you notice any of these side effects: ?? Allergic reaction: Itching or hives, swelling in your face or hands, swelling or tingling in your mouth or throat, chest tightness, trouble breathing ?? Dry mouth, increased thirst, muscle cramps, nausea, vomiting ?? Fast, pounding, or uneven heartbeat, chest pain ?? Lightheadedness, dizziness, or fainting ?? Trouble breathing, increased wheezing, cough, chest tightness If you notice these less serious side effects, talk with your doctor: ?? Cough, sore throat, runny or stuffy nose ?? Headache ?? Tremors, nervousness If you notice other side effects that you think are caused by this medicine, tell your doctor. Call your doctor for medical advice about side effects. You may report side effects to FDA at 4-428-HPV-1177 ?? 2012 [employer]. Information is for End User's use only and may not be sold, redistributed or otherwise used for commercial purposes. The above information is an director of student financial aid only. It is not intended as medical advice for individual conditions or treatments. Talk to your doctor, nurse or pharmacist before following any medical regimen to see if it is safe and effective for you. documented in this encounter Progress Notes * Fer Ruiz APRN - 07/13/2018 12:10 PM EST [facility] Subjective: Patient ID: Lambert Jason II is an 38 y.o. male. Chief Complaint: Chief Complaint Patient presents with ??? Nasal Congestion ??? Chest Congestion Cough This is a new problem. The current episode started in the past 7 days. The problem has been gradually worsening. The cough is non-productive. Associated symptoms include nasal congestion, rhinorrhea and shortness of breath. Pertinent negatives include no chills, fever or rash. Nothing aggravates the symptoms. He has tried nothing for the symptoms. There is no history of asthma, COPD, environmental allergies or pneumonia. No past medical history on file. No past surgical history on file. No family history on file. Social History Substance Use Topics ??? Smoking status: Never Smoker ??? Smokeless tobacco: Current User ??? Alcohol use Not on file No Known Allergies Review of Systems Constitutional: Negative. Negative for activity change, appetite change, chills, fatigue, fever andunexpected weight change. HENT: Positive for rhinorrhea. Eyes: Negative. Respiratory: Positive for cough and shortness of breath. Cardiovascular: Negative. Gastrointestinal: Negative. Genitourinary: Negative. Musculoskeletal: Negative. Negative for neck stiffness. Skin: Negative. Negative for rash. Allergic/Immunologic: Negative for environmental allergies. Neurological: Negative. Psychiatric/Behavioral: Negative. All other systems reviewed and are negative. Objective: BP 180/90 Pulse 105 Temp 98 ??F (36.7 ??C) (Oral) Resp 14 Wt (!) 139.7 kg (308 lb) SpO2 96% Physical Exam Constitutional: He is oriented to person, place, and time. He appears well- developed and well-nourished. No distress. HENT: Right Ear: External ear normal. Left Ear: External ear normal. Nose: Nose normal. Mouth/Throat: Oropharynx is clear and moist. Eyes: Conjunctivae are normal. Neck: Neck supple. Cardiovascular: Normal rate. Pulmonary/Chest: Effort normal and breath sounds normal. He has no wheezes. He has no rales. Neurological: He is alert and oriented to person, place, and time. Skin: Skin is warm and dry. Psychiatric: He has a normal mood and affect. His behavior is normal. Nursing note and vitals reviewed. Procedures Assessment: 1. Cough XR Chest PA And Lateral 2. SOB (shortness of breath) XR Chest PA And Lateral Plan: Further patient work-up may be needed prior to any additional specific diagnosis being assigned. Per orders Patient / family questions answered Agrees to take medications as directed. Pt/family voiced understanding of treatment plan. Education sheet. Agrees to see primary care provider for f/u Will return to urgent care prn Agrees will go to the ER if symptoms worsen or become severe and/or urgent care is closed All POC testing and X-rays were independently reviewed by Fer Ruiz APRN Orders Placed This Encounter ??? XR Chest PA And Lateral There are no Patient Instructions on file for this visit. * Aleksandra Hardy RT(R) - 07/13/2018 12:10 PM EST Chest performed by RICHMOND Leigh), patient name and date of verified. Patient returned to exam room. documented in this encounter Plan of Treatment Not on file documented as of this encounter Results * XR Chest PA And Lateral (07/13/2018 1:43 PM EST) Anatomical Region Laterality Modality Chest Computed Radiogr aphy 07/13/2018 Narrative 07/13/2018 2:08 PM EST ?[facility] ?[address] ?[place] [address] ?Radiology PATIENT NAME: ??Lambert Jason, II ? MR#: ??[id number] PROCEDURE DATE: ??07/13/2018 ?ROOM#: ORDERING PHYS: ??Fer Ruiz EXAM: ??PA and lateral views of the chest, 07/13/2018. COMPARISON: ??None. INDICATION: ??Shortness of breath. FINDINGS: PA and lateral views of the chest demonstrate normal mediastinal and cardiac size. ??Lungs are clear. ??No focal consolidation or pleural effusion is noted. Pulmonary vasculatures are normal in appearance. ??No acute osseous or soft tissue abnormality is identified. IMPRESSION: ??No acute cardiopulmonary abnormality. ?THIS IS AN ELECTRONICALLY VERIFIED REPORT ?07/13/2018 2:08 PM: ??MD Tara Ornelas MD pn DD: ??07/13/2018 TD: ??07/13/2018 JOB #: ??[id number] ? Radiology Page 1 ?of ?? 1 ?COPY Procedure Note Tara Dunham MD - 07/13/2018 [place] [address] Radiology PATIENT NAME: Lambert Jason II MR#: [id number] PROCEDURE DATE: 07/13/2018 ROOM#: ORDERING PHYS: Fer Ruiz EXAM: PA and lateral views of the chest, 07/13/2018. COMPARISON: None. INDICATION: Shortness of breath. FINDINGS: PA and lateral views of the chest demonstrate normal mediastinal andcardiac size. Lungs are clear. No focal consolidation or pleural effusion isnoted. Pulmonary vasculatures are normal in appearance. No acute osseous orsoft tissue abnormality is identified. IMPRESSION: No acute cardiopulmonary abnormality. THIS IS AN ELECTRONICALLY VERIFIED REPORT 07/13/2018 2:08 PM: MD Tara Ornelas MD pn TD: 07/13/2018 JOB #: [id number] Radiology Page 1 of 1COPY Fer Ruiz APRN IMG DIAGNOSTIC IMAGI NG ORDERABLES documented in this encounter Visit Diagnoses Diagnosis Cough- Primary SOB (shortness of breath) Shortness of breath Pneumonia of left lower lobe due to infectious organism Cough SOB (shortness of breath) Shortness of breath documented in this encounter
--- OUTSIDE RECORDS SUMMARY | 2024-06-17 23:46 | XMS_ITS | Encounter Summary ---
Author Organization [facility] Address [address] [place] [address] Care Team Providers Care Fur Dresser Name Role Phone Unavailable Primary Care Provider Unavailabl e Encounter Details Date Type Department Care Team (Latest Contact Info) Description 07/13/2018 1:40 PM EST Ancillary Procedure [facility] X-Ray [phone] Fer Ruiz APRN Cough; SOB (shortness of breath) Discharge Disposition: Home or Self Care Social History Tobacco Use Types Packs/Day Years Used Date Smoking Tobacco: Never Smokeless Tobacco: Current Sex and Gender Information Value Date Recorded Sex Assigned at Not on file Gender Identity Not on file Sexual Orientation Not on file documented as of this encounter Plan of Treatment Not on file documented as of this encounter Procedures Procedure Name Priority Date/Time Associated Diagnosis Comments XR CHEST PA AND LATERAL STAT 07/13/2018 1:43 PM EST Cough SOB (shortness of breath) documented in this encounter Results * XR Chest PA And Lateral (07/13/2018 1:43 PM EST) Anatomical Region Laterality Modality Chest Computed Radiogr aphy 07/13/2018 Narrative 07/13/2018 2:08 PM EST ?[facility] ?[address] ?[place] [address] ?Radiology PATIENT NAME: ??Lambert Jason II ? MR#: ??[id number] PROCEDURE DATE: ??07/13/2018 ?ROOM#: ORDERING PHYS: ??Fer [...] pn DD: ??07/13/2018 TD: ??07/13/2018 JOB #: ??[id number] ? Radiology Page 1 ?of ?? 1 ?COPY Procedure Note Tara Dunham MD - 07/13/2018 [place] [address] Radiology PATIENT NAME: Lambert Jason II MR#: [id number] PROCEDURE DATE: 07/13/2018 ROOM#: ORDERING PHYS: Fer [...] Ornelas MD pn TD: 07/13/2018 JOB #: [id number] Radiology Page 1 of 1COPY Fer Ruiz [employer] IMG DIAGNOSTIC IMAGI NG ORDERABLES documented in this encounter Visit Diagnoses Diagnosis Cough SOB (shortness of breath) Shortness of breath documented in this encounter
--- OUTSIDE RECORDS SUMMARY | 2024-06-17 23:46 | XMS_ITS | Data Portability ---
Author Organization [facility] Address [address] [place] [address] Care Team Providers Care Telemetry Technician Name Role Phone MARYSE SMALL Entertainment Agent Unavailable NANCY MATTA Unit Nurse [phone] NANCY MATTA Unit Nurse [phone] Assessment No assessment recorded. Plan of Treatment Reminders Order Date Submit Date Provider Last Modified By Organization Details Last Modified Time Details Appointments Follow Up 20 2024 08:30A M Sergio Shin MD Not available Not available Not available Lab HbA1c (hemoglob in A1c), blood [address], [address] [place] [address] , [place], [address], 04/19/2023 12:35:31 HbA1c (hemoglob in A1c), blood 2023 024 [facility] [address], [address], [place], [address], 11/11/2023 09:14:04 lipid panel, serum 2023 024 [facility], [address], [address], [place], [address], 11/11/2023 09:14:03 CMP, serum or plasma 2023 024 [facility], [address], [address], [place], [address], 11/11/2023 09:14:02 microalbu min, urine 2023 024 [facility], [address], [address], [place], [address], 11/11/2023 09:14:04 CBC w/ auto diff 2023 024 [facility], [address], [address], [place], [address], 11/11/2023 09:14:01 HbA1c (hemoglob in A1c), blood 2023 024 [facility], [address], [address], [place], [address], 05/13/2024 04:11:49 urinalysi s, dipstick [address], [address] [place] [address] , [place], [address], 06/13/2024 17:20:56 culture, urine 2023 024 [facility], [address], [address], [place], [address], 06/15/2024 04:11:27 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 Surgeries None recorded. Imaging None recorded. Medication Orders fluticaso ne propionat e 50 mcg/actua tion nasal spray,zack pension 2022 023 [facility], [address] [place], [address], 04/19/2023 12:35:43 cetirizin e 10 mg tablet 2022 023 [facility], [address] [place] [address], [address], 04/19/2023 12:35:43 Mounjaro 7.5 mg/0.5 mL subcutane ous pen injector [address] [facility], [address] [place] [address], [address], 11/10/2023 09:10:10 lisinopri l 40 mg tablet 2022 023 [facility], [address] [place] [address], [address], 04/19/2023 12:35:43 cetirizin e 10 mg tablet 2023 024 [facility], [address] [place] [address], [address], 11/10/2023 09:28:53 fluticaso ne propionat e 50 mcg/actua tion nasal spray,zack pension 2023 024 [facility], [address] [place] [address], [address], 11/10/2023 09:28:[address] 10 mg tablet 2023 024 [facility], [address] [place] [address], [address], 05/12/2024 09:59:00 sildenafi l 100 mg tablet 2023 024 [facility], [address] [place] [address], [address], 11/10/2023 09:28:52 Mounjaro 10 mg/0.5 mL subcutane ous pen injector 2023 024 [facility], [address] [place], [address], 06/13/2024 17:07:20 lisinopri l 40 mg tablet 2023 024 [facility], [address] [place], [address], 11/10/2023 09:28:55 Kenalog 40 mg/mL suspensio n for injection 2023 Not available 05/12/2024 09:58:46 cetirizin e 10 mg tablet 2023 024 [facility], [address] [place] [address], [address], 05/12/2024 10:25:16 fluticaso ne propionat e 50 mcg/actua tion nasal spray,zack pension 2023 024 [facility], [address] [place], [address], 05/12/2024 10:25:14 Mounjaro 15 mg/0.5 mL subcutane ous pen injector 2023 024 [facility], [address] [place], [address], 05/12/2024 10:25:13 ProAir HFA 90 mcg/actua tion aerosol inhaler 2023 024 [facility], [address] [place], [address], 05/12/2024 10:25:15 sildenafi l 100 mg tablet 2023 024 [facility], [address] [place], [address], 05/12/2024 10:25:15 lisinopri l 40 mg tablet 2023 024 [facility], [address] [place], [address], 05/12/2024 10:25:14 cephalexi n 500 mg capsule 2023 024 [facility], [address] [place], [address], 06/13/2024 17:21:00 Patient TargetsNo targets recorded. Patient Instructions Encounter Date Encounter Id Patient Instructions Last Modified By Organization Details Last Modified Time 04/19/2023 [id number] learning about healthy weight Not available 04/19/2023 12:35:31 body mass index: care instructions Not available 04/19/2023 12:35:31 labs from [facility] Not availabl e 04/19/2023 16:36:31 11/10/2023 [id number] deciding about using medicines to quit smoking tgrosser Not available 11/10/2023 11:37:20 Quitting Tobacco : Care Instructions tgrosser Not available 11/10/2023 11:37:20 diabetic foot exam* tgrosser Not available 11/10/2023 09:25:22 body mass index: care instructions tgrosser Not available 11/10/2023 09:28:43 learning about healthy weight tgrosser Not available 11/10/2023 09:28:43 02/18/2024 [id number] deciding about using medicines to quit smoking tgrosser Not available 02/18/2024 15:57:03 Quitting Tobacco : Care Instructions tgrosser Not available 02/18/2024 15:57:03 body mass index: care instructions tgrosser Not available 02/18/2024 15:52:42 learning about healthy weight tgrosser Not available 02/18/2024 15:52:42 05/12/2024 [id number] deciding about using medicines to quit smoking tgrosser Not available 05/12/2024 10:56:32 Quitting Tobacco : Care Instructions tgrosser Not available 05/12/2024 10:56:32 diabetic foot exam* Not available 05/12/2024 10:40:41 body mass index: care instructions tgrosser Not available 05/12/2024 10:25:12 learning about healthy weight tgrosser Not available 05/12/2024 10:25:12 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 Referral for Aller gic rhinitis Referring Physician: Sergio Shin, Family Medicine, Encounter Date: 02/18/2024 Results Created Date Observation Date Name Description Value Unit Range Abnormal Flag Note LastModifiedBy Organization Detail LastModifiedTime 04/19/2004/19/2023 HbA1c (hemo globi n A1c), blood HbA1C 5.8 % Not Available [address] , [place], [address], 04/19/2023 12:06:27 11/10/19 24 11/11/2023 CBC WITH DIFFE RENTI AL/PL ATELE T WBC 5.2 x10e3 /uL 3.4-10 .8 Not Available [facility] ([facility]) [address] [place], [address], 11/11/2023 09:14:01 11/10/1911/11/2023 CBC WITH DIFFE RENTI AL/PL ATELE T RBC 5.38 x10e6 /uL 4.14-5 .80 Not Available [facility] ([facility]) [address] [place], [address], 11/11/2023 09:14:01 11/10/1911/11/2023 CBC WITH DIFFE RENTI AL/PL ATELE T hemoglobin 15.3 g/dL 13.0-1 7.7 Not Available [facility] ([facility]) [address] [place], [address], 11/11/2023 09:14:01 11/10/1911/11/2023 CBC WITH DIFFE RENTI AL/PL ATELE T hematocrit 45.7 % 37.5-5 1.0 Not Available [facility] ([facility]) [address] [place], [address], 11/11/2023 09:14:01 11/10/1911/11/2023 CBC WITH DIFFE RENTI AL/PL ATELE T MCV 85 fL 79-97 Not Available [facility] ([facility]) [address] [facility], [place], [address], 11/11/2023 09:14:01 11/10/1911/11/2023 CBC WITH DIFFE RENTI AL/PL ATELE T MCH 28.4 pg 26.6-3 3.0 Not Available [facility] ([facility]) [address] [facility], [place], [address], 11/11/2023 09:14:01 11/10/1911/11/2023 CBC WITH DIFFE RENTI AL/PL ATELE T MCHC 33.5 g/dL 31.5-3 5.7 Not Available [facility] ([facility]) [address] [facility], [place], [address], 11/11/2023 09:14:01 11/10/1911/11/2023 CBC WITH DIFFE RENTI AL/PL ATELE T RDW 13.2 % 11.6-1 5.4 Not Available [facility] ([facility]) [address] [facility], [place], [address], 11/11/2023 09:14:01 11/10/1911/11/2023 CBC WITH DIFFE RENTI AL/PL ATELE T platelets 279 x10e3 /uL 150-45 0 Not Available [facility] ([facility]) [address] [place], [address], 11/11/2023 09:14:01 11/10/1911/11/2023 CBC WITH DIFFE RENTI AL/PL ATELE T neutrophils 42 % not estab. Not Available [facility] ([facility]) [address] [place], [address], 11/11/2023 09:14:01 11/10/19 24 11/11/2023 CBC WITH DIFFE RENTI AL/PL ATELE T lymphs 42 % not estab. Not Available [facility] ([facility]) [address] [facility], [place], [address], 11/11/2023 09:14:01 11/10/19 24 11/11/2023 CBC WITH DIFFE RENTI AL/PL ATELE T monocytes 13 % not estab. Not Available [facility] ([facility]) [address] [facility], [place], [address], 11/11/2023 09:14:01 11/10/1911/11/2023 CBC WITH DIFFE RENTI AL/PL ATELE T eos 2 % not estab. Not Available [facility] ([facility]) [address] [facility], [place], [address], 11/11/2023 09:14:01 11/10/19 24 11/11/2023 CBC WITH DIFFE RENTI AL/PL ATELE T basos 1 % not estab. Not Available [facility] ([facility]) [address] [facility], [place], [address], 11/11/2023 09:14:01 11/10/19 24 11/11/2023 CBC WITH DIFFE RENTI AL/PL ATELE T immature cells WEB OPERATIONS SPECIALIST Not Available [facility] ([facility]) [address] [facility], [place], [address], 11/11/2023 09:14:01 11/10/1911/11/2023 CBC WITH DIFFE RENTI AL/PL ATELE T neutrophils (absolute) 2.2 x10e3 /uL 1.4-7. 0 Not Available [facility] ([facility]) [address] [place], [address], 11/11/2023 09:14:01 11/10/19 24 11/11/2023 CBC WITH DIFFE RENTI AL/PL ATELE T lymphs (absolute) 2.2 x10e3 /uL 0.7-3. 1 Not Available [facility] ([facility]) [address] [facility], [place], [address], 11/11/2023 09:14:01 11/10/19 24 11/11/2023 CBC WITH DIFFE RENTI AL/PL ATELE T monocytes(ab solute) 0.7 x10e3 /uL 0.1-0. 9 Not Available [facility] ([facility]) [address] [facility], [place], [address], 11/11/2023 09:14:01 11/10/1911/11/2023 CBC WITH DIFFE RENTI AL/PL ATELE T eos (absolute) 0.1 x10e3 /uL 0.0-0. 4 Not Available [facility] ([facility]) [address] [facility], [place], [address], 11/11/2023 09:14:01 11/10/1911/11/2023 CBC WITH DIFFE RENTI AL/PL ATELE T baso (absolute) 0.0 x10e3 /uL 0.0-0. 2 Not Available [facility] ([facility]) [address] [facility], [place], [address], 11/11/2023 09:14:01 11/10/1911/11/2023 CBC WITH DIFFE RENTI AL/PL ATELE T immature granulocytes 0 % not estab. Not Available [facility] ([facility]) [address] [facility], [place], [address], 11/11/2023 09:14:01 11/10/1911/11/2023 CBC WITH DIFFE RENTI AL/PL ATELE T immature grans (abs) 0.0 x10e3 /uL 0.0-0. 1 Not Available [facility] ([facility]) [address] [facility], [place], [address], 11/11/2023 09:14:01 11/10/19 24 11/11/2023 CBC WITH DIFFE RENTI AL/PL ATELE T NRBC WEB OPERATIONS SPECIALIST Not Available [facility] ([facility]) [address] [facility], [place], [address], 11/11/2023 09:14:01 11/10/19 24 11/11/2023 CBC WITH DIFFE RENTI AL/PL ATELE T hematology comments: WEB OPERATIONS SPECIALIST Not Available [facility] ([facility]) [address] [facility], [place], [address], 11/11/2023 09:14:01 11/10/19 24 11/11/2023 COMP. METAB OLIC PANEL (14) glucose 101 mg/dL 70-99 above high normal Not Available [facility] ([facility]) [address] [facility], [place], [address], 11/11/2023 09:14:02 11/10/19 24 11/11/2023 COMP. METAB OLIC PANEL (14) BUN 16 mg/dL 6-24 Not Available [facility] ([facility]) [address] [place], [address], 11/11/2023 09:14:02 11/10/19 24 11/11/2023 COMP. METAB OLIC PANEL (14) creatinine 1.05 mg/dL 0.76-1 .27 Not Available [facility] ([facility]) [address] [facility], [place], [address], 11/11/2023 09:14:02 11/10/19 24 11/11/2023 COMP. METAB OLIC PANEL (14) eGFR 90 mL/mi n/1.7 3 >59 Not Available [facility] ([facility]) [address] [place], [address], 11/11/2023 09:14:02 11/10/19 24 11/11/2023 COMP. METAB OLIC PANEL (14) BUN/creatini ne ratio 15 9-20 Not Available [facility] ([facility]) [address] [place], [address], 11/11/2023 09:14:02 11/10/19 24 11/11/2023 COMP. METAB OLIC PANEL (14) sodium 141 mmol/ L 134-14 4 Not Available [facility] ([facility]) [address] [place], [address], 11/11/2023 09:14:02 11/10/19 24 11/11/2023 COMP. METAB OLIC PANEL (14) potassium 5.3 mmol/ L 3.5-5. 2 above high normal Not Available [facility] ([facility]) [address] [place], [address], 11/11/2023 09:14:02 11/10/19 24 11/11/2023 COMP. METAB OLIC PANEL (14) chloride 103 mmol/ L 96-106 Not Available [facility] ([facility]) [address] [place], [address], 11/11/2023 09:14:02 11/10/19 24 11/11/2023 COMP. METAB OLIC PANEL (14) carbon dioxide, total 25 mmol/ L 20-29 Not Available [facility] ([facility]) [address] [place], [address], 11/11/2023 09:14:02 11/10/19 24 11/11/2023 COMP. METAB OLIC PANEL (14) calcium 9.6 mg/dL 8.7-10 .2 Not Available [facility] ([facility]) [address] [place], [address], 11/11/2023 09:14:02 11/10/19 24 11/11/2023 COMP. METAB OLIC PANEL (14) protein, total 7.3 g/dL 6.0-8. 5 Not Available [facility] ([facility]) [address] [facility], [place], [address], 11/11/2023 09:14:02 11/10/19 24 11/11/2023 COMP. METAB OLIC PANEL (14) albumin 4.3 g/dL 4.1-5. 1 Not Available [facility] ([facility]) [address] [place], [address], 11/11/2023 09:14:02 11/10/19 24 11/11/2023 COMP. METAB OLIC PANEL (14) globulin, total 3.0 g/dL 1.5-4. 5 Not Available [facility] ([facility]) [address] [place], [address], 11/11/2023 09:14:02 11/10/19 24 11/11/2023 COMP. METAB OLIC PANEL (14) A/G ratio 1.4 1.2-2. 2 Not Available [facility] ([facility]) [address] [place], [address], 11/11/2023 09:14:02 11/10/1911/11/2023 COMP. METAB OLIC PANEL (14) bilirubin, total 0.3 mg/dL 0.0-1. 2 Not Available [facility] ([facility]) [address] [place], [address], 11/11/2023 09:14:02 11/10/19 24 11/11/2023 COMP. METAB OLIC PANEL (14) alkaline phosphatase 67 IU/L 44-121 Not Available [facility] ([facility]) [address] [place], [address], 11/11/2023 09:14:02 11/10/19 24 11/11/2023 COMP. METAB OLIC PANEL (14) AST (SGOT) 18 IU/L 0-40 Not Available [facility] ([facility]) [address] [place], [address], 11/11/2023 09:14:02 11/10/19 24 11/11/2023 COMP. METAB OLIC PANEL (14) ALT (SGPT) 17 IU/L 0-44 Not Available [facility] ([facility]) [address] [place], [address], 11/11/2023 09:14:02 11/10/19 24 11/11/2023 LIPID PANEL cholesterol, total 196 mg/dL 100-19 9 Not Available [facility] ([facility]) [address] [place], [address], 11/11/2023 09:14:03 11/10/19 24 11/11/2023 LIPID PANEL triglyceride s 123 mg/dL 0-149 Not Available [facility] ([facility]) [address] [place], [address], 11/11/2023 09:14:03 11/10/19 24 11/11/2023 LIPID PANEL HDL cholesterol 41 mg/dL >39 Not Available [facility] ([facility]) [address] [place], [address], 11/11/2023 09:14:03 11/10/19 24 11/11/2023 LIPID PANEL VLDL cholesterol renae 22 mg/dL 5-40 Not Available [facility] ([facility]) [address] [place], [address], 11/11/2023 09:14:03 11/10/19 24 11/11/2023 LIPID PANEL LDL chol calc ([facility]) 133 mg/dL 0-99 above high normal Not Available [facility] ([facility]) [address] [place], [address], 11/11/2023 09:14:03 11/10/19 24 11/11/2023 LIPID PANEL comment: WEB OPERATIONS SPECIALIST Not Available [facility] ([facility]) [address] [place], [address], 11/11/2023 09:14:03 11/10/19 24 11/11/2023 HEMOG LOBIN A1C hemoglobin A1C 6.0 % 4.8-5. 6 above high normal Predi abete s: 5.7 - 6.4 Diabe justyn: >6.4 Glyce nissa contr ol for adult s with diabe justyn: <7.0 Not Available [facility] ([facility]) [address] [facility], [place], [address], 11/11/2023 09:14:04 11/10/19 24 11/11/2023 ALBUM IN, RANDO M URINE albumin, urine 10.2 ug/mL not estab. Not Available [facility] ([facility]) [address] [facility], [place], [address], 11/11/2023 09:14:04 05/12/20 24 05/13/2024 HEMOG LOBIN A1C hemoglobin A1C 5.8 % 4.8-5. 6 above high normal Predi abete s: 5.7 - 6.4 Diabe justyn: >6.4 Glyce nissa contr ol for adult s with diabe justyn: <7.0 Not Available [facility] ([facility]) [address] [facility], [place], [address], 05/13/2024 04:11:49 06/13/2006/13/2024 urina lysis , dipst ick Leukocytes Negati ve Not Available [address] , [place], [address], 06/13/2024 17:06:13 06/13/2006/13/2024 urina lysis , dipst ick Nitrite negati ve Not Available [address] , [place], [address], 06/13/2024 17:06:13 06/13/20 24 06/13/2024 urina lysis , dipst ick Urobilinogen .2 Not Available [address] , [place], [address], 06/13/2024 17:06:13 06/13/2006/13/2024 urina lysis , dipst ick Protein Negati ve Not Available [address] , [place], [address], 06/13/2024 17:06:13 06/13/20 24 06/13/2024 urina lysis , dipst ick pH 5.5 Not Available [address] , [place], [address], 06/13/2024 17:06:13 06/13/20 24 06/13/2024 urina lysis , dipst ick Blood Hemoly zed: Trace Not Available [address] , [place], [address], 06/13/2024 17:06:13 06/13/2006/13/2024 urina lysis , dipst ick Specific [place] 1.030 Not Available [address] , [place], [address], 06/13/2024 17:06:13 06/13/20 24 06/13/2024 urina lysis , dipst ick Ketone Negati ve Not Available [address] , [place], [address], 06/13/2024 17:06:13 06/13/20 24 06/13/2024 urina lysis , dipst ick Bilirubin Negati ve Not Available [address] [place], [address], 06/13/2024 17:06:13 06/13/20 24 06/13/2024 urina lysis , dipst ick Glucose Negati ve Not Available [address] , [place], [address], 06/13/2024 17:06:13 06/13/2006/13/2024 urina lysis , dipst ick Appearance Slight ly Cloudy Not Available [address] , [place], [address], 06/13/2024 17:06:13 06/13/2006/13/2024 urina lysis , dipst ick Color Dark Yellow Not Available [address] , [place], [address], 06/13/2024 17:06:13 11/10/19 24 07/07/2023 MRI, ankle , w/ contr ast No observ ation record ed. [address] [place], [address], 11/25/2023 11:12:16 11/11/19 24 11/10/2023 MRI, foot, w/ contr ast No observ ation record ed. [place] [id number], [place], [address], 11/12/2023 08:48:32 11/11/19 24 11/10/2023 MRI, ankle , w/ contr ast No observ ation record ed. [address], [place], [address], 11/12/2023 08:48:43 Result Notes None recorded. 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 Chichi Tao MD [address], [place], [address], [place] [facility] 09:48:21 Hyperlipi demia 90460448 Active Chichi Tao MD [address], [place], [address] [facility] 2 09:48:22 Tobacco dependenc e syndrome 75960554 Active 2019 Chichi Tao MD [address], [place], [address] [facility] 09:48:22 COVID-19 655321782 Completed 201910/15/2021 Chichi Tao MD [address], [place], [address] [facility] 09:48:32 Blood glucose outside reference range 760318374 Active 2021 Chichi Tao MD [address], [place], [address] [facility] 10:15:43 Acute bacterial sinusitis 64071479 Active 2021 Chichi Tao MD [address], [place], [address] [facility] 2 17:49:07 Allergic rhinitis 32779191 Active 2022 Chichi Tao MD [address], [place], [address] [facility] 3 14:40:13 Dysfuncti on of left eustachia n tube 466491134688 9106 Active 2022 Chichi Tao MD [address], [place], [address] [facility] 3 14:51:31 Type 2 diabetes mellitus 76941485 Active 2022 Chichi Tao MD [address], [place], [address] [facility] 14:51:33 Insulin resistanc e 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 Procedures Surgical History Date Name Laterality Status Provider Name and Address Organization Details Recorded Time 11/23/19 20 Diastolic B/P 80-89 mm Hg completed Carmen Hay [place] [facility] 11/23/2019 14:49:01 11/23/19 20 Systolic B/P greater than or equal to 140 mm Hg completed Carmen Hay [place] [facility] 11/23/2019 14:48:57 07/31/19 20 Diastolic B/P 80-89 mm Hg [place] Trupti Lou [place] [facility] 07/31/2019 08:58:33 07/31/19 20 Systolic B/P 130-139 mm Hg [place] Trupti Lou [place] [facility] 07/31/2019 08:58:36 07/26/19 20 Medication Reconcilliation completed Trupti Luo [place] [facility] 07/26/2019 17:10:58 07/18/20 19 Diastolic B/P greater than or equal to 90 mm Hg [place]i Lou [place] [facility] 07/18/2019 09:42:10 07/18/20 19 Systolic B/P 130-139 mm Hg [place] Trupti Lou [place] [facility] 07/18/2019 09:42:18 06/20/20 19 Medication Reconcilliation [place] Trupti Lou [place] [facility] 06/20/2019 13:25:12 06/19/20 19 Medication Reconcilliation [place] Trupti Lou [place] [facility] 06/19/2019 14:16:46 Knee Surgery [place]ila Ha [place] [facility] 09/21/2017 14:51:42 Imaging Results Imaging Date Name Status LastModified by Organiz ation Details LastModified Time 07/07/2023 MRI, ankle, w/ contrast completed [place] [address] , [place], [address], 11/25/2023 11:12:16 11/10/2023 MRI, foot, w/ contrast completed [email or web address] [place] [address], [place], [address], 11/12/2023 08:48:32 11/10/2023 MRI, ankle, w/ contrast completed [address], [place], [address], 11/12/2023 08:48:43 Procedure Notes None recorded. Medical Equipment None [...] e 50 mcg/actua tion nasal spray,zack pension [place] 2 sprays every day by intranas al [...] height Body mass index (BMI) Body weight Oxygen saturation Oxygen saturation in Arterial blood by Pulse oximetry Respiratory rate Heart rate Systolic blood pressure Diastolic blood pressure Provider Name and Address Organization Details Last Updated DateTime 3 190.5 cm 38 kg/m2 637257. 18 g 97 % 97 % 18 /min 89 /min 130 mm[Hg] 78 mm[Hg] Radha Hair in [facility] 3 12:03:50 Date Recorded Body height Body mass index (BMI) Body weight Body temperature Heart rate Oxygen saturation Oxygen saturation in Arterial blood by Pulse oximetry Respiratory rate Systolic blood pressure Diastolic blood pressure Provider Name and Address Organization Details Last Updated DateTime 4 190.5 cm 38.2 kg/m2 979099. 27 g 98.2 [degF] 80 /min 97 % 97 % 18 /min 130 mm[Hg] 84 mm[Hg] Carmen Vinson [facility] 4 09:07:13 Date Recorded Body height Body mass index (BMI) Body weight Body temperature Heart rate Oxygen saturation Oxygen saturation in Arterial blood by Pulse oximetry Respiratory rate Systolic blood pressure Diastolic blood pressure Provider Name and Address Organization Details Last Updated DateTime 4 190.5 cm 38.1 kg/m2 153977. 67 g 98.5 [degF] 90 /min 97 % 97 % 18 /min 124 mm[Hg] 82 mm[Hg] Carmen Vinson [facility] 4 15:34:51 Date Recorded Body height Body mass index (BMI) Body weight Body temperature Heart rate Oxygen saturation Oxygen saturation in Arterial blood by Pulse oximetry Respiratory rate Systolic blood pressure Diastolic blood pressure Provider Name and Address Organization Details Last Updated DateTime 4 190.5 cm 38.5 kg/m2 989666. 45 g 98.6 [degF] 84 /min 96 % 96 % 18 /min 100 mm[Hg] 80 mm[Hg] Carmen Vinson [place] - [facility] 4 09:58:02 Date Recorded Body height Body mass index (BMI) Body weight Heart rate Oxygen saturation Oxygen saturation in Arterial blood by Pulse oximetry Respiratory rate Systolic blood pressure Diastolic blood pressure Provider Name and Address Organization Details Last Updated DateTime 4 190.5 cm 38.7 kg/m2 593498. 63 g 82 /min 98 % 98 [...] Alcohol? Less Than 1 Time Per Week [email or web address] Information not available 12/07/2022 Are You Blind Or Do You Have Difficulty Seeing? No Information not available 05/10/2017 What Is Your Level Of Caffeine Consumption? Occasional Information not available 05/10/2017 How Much Tobacco Do You Chew? 5+/day [email or web address] Information not available 12/07/2022 In The 14 Days Before Symptom Onset, Have You Had Close Contact With A Laboratory-confir med COVID-19 While That Case Was Ill? No [email or web address] Information not available 12/07/2022 In The 14 Days Before Symptom Onset, Have You Had Close Contact With A Person Who Is Under Investigation For COVID-19 While That Person Was Ill? No [email or web address] Information not available 12/07/2022 Have You Been To An Area Known To Be High Risk For COVID-19? No [email or web address] Information not available 12/07/2022 Are You Currently Employed? Yes Information not available 05/10/2017 Are You Deaf Or Do You Have Serious Difficulty Hearing? No Information not available 05/10/2017 What Type Of Diet Are You Following? REGULAR Information not available 05/10/2017 Which Illicit Or Recreational Drugs Have You Used? None [email or web address] Information not available 12/07/2022 Have You Processed Blood Or Body Fluids From An Ebola Virus Disease Patient Without Appropriate PPE? No Information not available 12/07/2022 Do You Reside In Or Have You Traveled To An Area Where Ebola Virus Transmission Is Active? No [email or web address] Information not available 12/07/2022 Do You Or Have You Ever Used E-cigarettes Or Vape? Former User Of Electronic Cigarettes [email or web address] Information not available 08/28/2019 What Is The Highest Grade Or Level Of School You Have Completed Or The Highest Degree You Have Received? [id number] Information not available 12/07/2022 What Is Your Occupation? [employer] Information not available 09/21/2017 Have There Been Any Changes To Your Family Or Social Situation? No [email or web address] Information no t available 12/07/2022 What Is The Fluoride Status Of Your Home? Unknown [email or web address] Information not available 12/07/2022 Hard Of Hearing Or Deaf In One Or Both Ears? No Information not available 05/10/2017 Have You Recently Or Are You Planning To Travel To An Area With Zika Virus? No [email or web address] Information not available 12/07/2022 Legally Blind In One Or Both Eyes? No Information no t available 05/10/2017 Live Alone Or With Others? With Others Information not available 05/10/2017 Do You Have A Medical Power Of Creasing And Cutting Press Feeder? No [email or web address] Information not available 12/07/2022 What Was The Date Of Your Most Recent Tobacco Screening? 05/12/2024 Information not available 05/12/2024 How Many Children Do You Have? 1 Information not available 09/21/2017 Do You Use Protection During Sex? No Information not available 05/10/2017 Do You Use Protection Against STDs? No Information not available 12/07/2022 What Is Your Relationship Status? Information not available 05/10/2017 Seat Belts Used Routinely Yes Information not available 05/10/2017 Are You Sexually Active? Yes Information not available 05/10/2017 Smoke Alarm In Home Yes Information not available 09/21/2017 Do You Have Smoke And Carbon Monoxide Detectors In Your Home? Yes [email or web address] Information not available 12/07/2022 Are You Passively Exposed To Smoke? No [email or web address] Information no t available 12/07/2022 Do You Or Have You Ever Used Smokeless Tobacco? Currently Chews Tobacco Information not available 11/23/2019 How Much Tobacco Do You Smoke? No Information not available 11/23/2019 General Stress Level Medium Information not available 09/21/2017 Do You Feel Stressed (tense, Restless, Nervous, Or Anxious, Or Unable To Sleep At Night)? [id number] [email or web address] Information not available 12/07/2022 Do You Use Any Illicit Or Recreational Drugs? No [email or web address] Information not available 12/07/2022 Has Tobacco Cessation [...] Other Forms Of Tobacco Or Nicotine? No [email or web address] Information not available 12/07/2022 Do You Want To Talk About Contraception Or Prevention During Your Visit Today? No - This Question Does Not Apply To Me/I Prefer Not To Answer Information not available 11/10/2023 How Many Years Have You Used E-cigarettes Or Vape? 25 Information not available 12/07/2022 How Many Years Have You Used Smokeless Tobacco? 25 Information not available 11/10/2023 Sex: Male Functional Status Question Answer Note LastModified by Organizat ion Details LastModified Time Do you have difficulty walking or climbing stairs? No Information not available 05/10/2017 Do you have transportation difficulties? No [email or web address] Information not available 12/07/2022 Are you able [...] Response Pancreatitis N Coronary Artery Disease N Other N Gout N Atrial Fibrillation N congenital heart disease N Kidney Stones N Blood Diseases N Hyperthyroidism N Blood Transfusion N Rheumatoid arthritis N Erectile Dysfunction N amputation N Colonoscopy N Skin Lesions N Depression N COPD N Pneumonia N Incontinence N Murmur N Edema N Alzheimer's Disease N Migraine Headaches N Tobacco Abuse N Anxiety Disorder N Hemorrhoids N Muscle, Joint, or Bone Problems N Obesity N Vision or Eye Problems N Arthritis N Restless Leg Syndrome N Infertility N Polyps N Carpal Tunnel N Mental Disorder N Acid Reflux (GERD) N Cancer N Stroke N Varicosities N Tendonitis N Crohn's Disease N Hypercholesterolemia N Skin Cancer N Fibromyalgia N Headaches N Irritable Bowel Syndrome N Anal Fissure [...] colitis N Cerebrovascular Disease N Depression N Guillain-Vevay N Sleep Apnea N Aneurysm N Heart Disease N Bronchitis N Suicidal Ideation N Pre-Eclampsia N Hypertension Y Osteoporosis N Immunizations Vaccine Type Date Status Provider Name and Address Organization Details Recorded Time Tdap 05/10/2018 completed Not Available [facility] 11:49:39 COVID-19 vaccine, vector-nr, rS-Ad26, PF, 0.5 mL 10/03/2020 completed [place] - [facility] 12/07/2022 10:06:59 Past Encounters Encounter ID Performer Location Encounter Start Date Encounter Closed Date Diagnosis/Indication Diagnosis SNOMED-CT Code Diagnosis ICD10 Code [id number] Chichi Tao MD [address] [place] [address] 05/10/2017 18:05:03 05/10/2017 19:53:56 Essential hypertension 64925937 I10 Mixed hyperlipidemia 267 260164 E78.2 [id number] Gustavo Price [address] [place] [address] 7 09/21/2017 14:23:10 09/21/2017 15:24:09 Low back pain 265796249 M54.5 [id number] Gustavo Price [address] [place] [address] 09/28/2017 08:39:02 09/28/2017 09:25:02 Low back pain 454334829 M54.5 [id number] Chichi Tao MD [address] [place] [address] 04/24/2019 16:24:36 04/24/2019 17:02:50 Essential hypertension 16655493 I10 Hypertensive disorder 38 604308 I10 Hyperlipidemia 47732438 E78.1 Viral syndrome 053890708 B34.9 [id number] Amanda Florian [address] [place] [address] 06/19/2019 14:08:24 06/19/2019 15:52:55 Cough 30751396 R05 Hypertensive disorder 38 661220 I10 Otitis media 12959354 H6 6.90 [id number] Amanda Florian [address] [place] [address] 7 06/20/2019 12:57:31 06/20/2019 14:29:48 Palpitations 50001410 R00.2 Hypertensive disorder 38 268021 I10 Venereal d isease screening 883601036 Z11.3 Snoring 07426366 R06.83 Acute bronchitis 3212607 2 J20.9 Otitis media 18645023 H6 6.90 [id number] Amanda Du [address] [place] [address] 06/26/2019 09:47:25 06/26/2019 12:24:36 Otitis media 77471797 H66.90 Headache 32667047 R51 Chest pain 05504643 R07. 9 Liver enzy mes outside reference range 514447680 R94.5 Pulmonary emphysema 8743 3001 J43.9 Acute bronchitis 8342918 2 J20.9 [id number] Amanda Canales[address] [place] [address] 07/03/2019 14:06:07/03/2019 15:17:52 Hypertensive disorder 09760034 I10 Allergic rhinitis 314515 04 J30.9 Ear pressu re sensation 537646554 H93.8X9 Otitis media 93488559 H6 6.[id number] [place] [address] 07/05/2019 14:07:52 07/05/2019 15:26:31 Hypertensive disorder 74945244 I10 Insomnia 243138798 G47.[id number] [place] [address] 7 07/18/2019 09:34:10 07/18/2019 11:57:20 Hypertensive disorder 08539303 I10 [id number] [address] [place] [address] 7 07/26/2019 16:53:49 07/26/2019 18:10:22 Hypertensive disorder 82002375 I10 Hyperglycemia 39077571 R 73.[id number] [place] [address] 07/31/2019 08:41:38 07/31/2019 09:57:02 Hypertensive disorder 40198134 I10 Anxiety disorder 7874952 06 F41.9 Prediabetes 236937490 R7 3.03 [id number] Maryse Small [facility] [address] [place] [address] 08/01/2019 09:52:11 08/01/2019 11:54:[id number] [place] [address] 08/21/2019 10:15:17 08/21/2019 12:16:06 Hypertensive disorder 86369751 I10 [id number] [address] [place] [address] 7 08/28/2019 14:02:42 08/28/2019 16:13:28 Hypertensive disorder 34920814 I10 Acute uppe r respiratory infection 50963893 J06.9 Abnormal urinalysis 1672 17071 R82.90 Endocrine/ metabolic screening 746285961 Z13.228 Mass of chest wall 23321 4000 R22.2 Urinary symptoms 1598064 08 R39.9 [id number] Chichi Tao MD [address] [place] [address] 09/04/2019 09:53:33 09/04/2019 11:17:37 Prediabetes 996610298 R73.03 Anxiety 40083302 F41.9 [id number] Sergio Shin MD [address] [place] [address] 11/23/2019 14:30:38 11/23/2019 15:06:25 Acute maxillary sinusitis 10844411 J01.00 Body mass index 30+ - obesity 633609028 Z68.33 [id number] Jaclyn Bosch MEDICAL PRACTICE ASSISTANT [address] [place] [address] 11/24/2019 11:11:26 11/24/2019 12:26:12 Acute upper respiratory infection 77625764 J06.9 [id number] Jaclyn Bosch MEDICAL PRACTICE ASSISTANT [address] [place] [address] 05/06/2020 14:15:23 05/06/2020 15:22:37 Acute maxillary sinusitis 42094601 J01.00 [id number] Chichi Tao MD [address] [place] [address] 10/09/2020 17:18:22 10/09/2020 18:18:46 Hypertensive disorder 25642415 I10 Allergic rhinitis 373954 04 J30.9 Generalize d anxiety disorder 90710084 F41.1 Vaccine ad verse reaction 044628484 T50.Z95A [id number] Chichi Tao MD [address] [place] [address] 03/18/2021 15:52:08 03/18/2021 16:49:52 Peripheral venous insufficiency 56336220 I87.2 Gastroesop hageal reflux disease without esophagitis 283717974 K21.9 [id number] Chichi Tao MD [address] [place] [address] 10/15/2021 09:31:28 10/15/2021 10:15:53 Allergic rhinitis 92512878 J30.9 Blood gluc ose outside reference range 660531207 R73.09 Essential hypertension 05343520 I10 Insulin resistance 91100 5000 E88.81 Body mass index 40+ - severely obese 581504069 Z68.41 [id number] Chichi Tao MD [address] [place] [address] 08/10/2022 13:53:49 08/10/2022 14:53:56 Essential hypertension 28373691 I10 Insulin resistance 64571 5000 E88.81 Generalize d anxiety disorder 48031222 F41.1 Allergic rhinitis 875356 04 J30.9 Type 2 galindo betes mellitus 53639626 E11.9 Blood gluc ose outside reference range 960317997 R73.09 Dysfunctio n of left eustachian tube 8062723759 176099 H69.92 [id number] Chichi Tao MD [address] [place] [address] 11/02/2022 13:40:36 11/02/2022 16:16:10 Type 2 diabetes mellitus 22715090 E11.9 Hypertensive disorder 38 846893 I10 Hyperlipidemia 43702798 E78.1 Allergic rhinitis 216118 04 J30.9 Lumbar sprain 938975403 S33.5XXA [id number] Chichi Tao MD [address] [place] [address] 7 11/25/2022 08:51:34 11/25/2022 10:24:46 Lumbar radiculopathy 643131962 M54.16 [id number] Chichi Tao MD [address] [place] [address] 12/07/2022 09:53:53 12/07/2022 10:48:09 Lumbar radiculopathy 581500969 M54.16 [id number] Chichi Tao MD [address] [place] [address] 12/22/2022 12:52:16 12/22/2022 14:07:49 Lumbar radiculopathy 833578199 M54.16 [id number] Chichi Tao MD [address] [place] [address] 7 04/19/2023 11:48:58 04/19/2023 12:32:56 Body mass index 30+ - obesity 159235903 Z68.38 Obesity 881817434 E66.9 Type 2 galindo betes mellitus 26902231 E11.9 Allergic rhinitis 662291 04 J30.9 Essential hypertension 87078123 I10 Hypertensive disorder 38 994420 I10 Hyperlipidemia 18708031 E78.1 [id number] Sergio Shin MD [address] [place] [address] 11/10/2023 08:55:18 11/10/2023 09:36:50 Lumbar radiculopathy 866185752 M54.16 History of male erectile disorder 986146036 Z87.438 Type 2 galindo betes mellitus 68217793 E11.9 Allergic rhinitis 914053 04 J30.9 Insulin resistance 50817 5000 E88.819 Tobacco de pendence syndrome 76313786 F17.200 Hypertensive disorder 38 359038 I10 Hyperlipidemia 70234189 E78.1 Essential hypertension 41797209 I10 Body mass index 30+ - obesity 723540980 Z68.38 [id number] [facility] [address] [address] 11/25/2023 15:48:25 11/26/2023 13:32:50 [id number] Sergio Shin MD [address] [place] [address] 02/18/2024 15:26:20 02/18/2024 15:58:13 Allergic rhinitis 60142545 J30.9 Tobacco de pendence syndrome 93364708 F17.200 Body mass index 30+ - obesity 512851555 Z68.38 [id number] Sergio Shin MD [address] [place] [address] 05/12/2024 09:35:03 05/12/2024 10:43:11 Lumbar radiculopathy 991859485 M54.16 History of male erectile disorder 676208500 Z87.438 Type 2 galindo betes mellitus 70753526 E11.9 Allergic rhinitis 131710 04 J30.9 Insulin resistance 80035 5000 E88.819 Tobacco de pendence syndrome 14879133 F17.200 Hypertensive disorder 38 479005 I10 Hyperlipidemia 74609978 E78.1 Pulmonary emphysema 8743 3001 J43.9 Essential hypertension 22624100 I10 Body mass index 30+ - obesity 376083126 Z68.38 [id number] Jaclyn Bosch APRN [address] [place] [address] 06/13/2024 17:00:11 06/13/2024 17:21:04 Dysuria 47281644 R30.0 Acute sinusitis 03951492 J01.90 Health Concerns Section Related Observation LastModified by Organization Detai ls LastModified Time None Recorded Concern Status LastModified by Organization Details LastModified Time None Recorded Advance Directives Directive N: Payers Encounter Date Sequence Insurance Name Policy Number Policy Bauman Covered Member ID Bauman Member ID Guarantor Name 04/19/2023 1 [place] [id number] Vincent L Casie II [id number] Vincent L Casie 11/10/2023 1 [place] [id number] Vincent L Casie II [id number] Vincent L Casie 02/18/2024 1 [place] [id number] Vincent L Casie II [id number] Vincdallas L Casie 05/12/2024 1 [place] [id number] 0 Vincent L Casie II [id number] Lambert Jason 06/13/2024 1 [place] [id number] 0 Lambert Jason II [id number] Lambert Jason Notes Date Note Type Note Provider Name and Address Organization Details Recorded Time 04/19/2023 text/html labs done at [facility] recently diabetes mellitus type 2 follow upmounjaro 7.5 mg, no side effectsmetformin 500 mg two bid no ckdmicral october 2022 allergic rhinitisworse this time of yeartaking flonase, and pataday dropscetirizine, claritin, singulairsees ent apr 2023 doesn't drink any sugary beveragesin the past has walked 78 [place] hypertensionlisinopril 40 mg bid lumbar strain october 2022still has some right sided sciaticastiffness and pain in low backalleviated by moving, once he stops movingstiffens up quickly and pain settles inhas had a couple of injections, possible nerve block in the future right lower abdomen pain x 1 dayintermittent, started last nightfeels like he pulled a musclerecehck if not resolve din 2-3 weeks Chichi Tao MD [address], [place], [address], [facility] - [facility] 04/19/2023 16:36:43 11/10/2023 text/html Here for checkup , labs, refills. Problems are hyperlipidemia, htn, ED, DDD lumbar, DM. Feels well. BS 90-100. Sergio Shin MD [address], [place], [address], [facility] - [facility] 11/10/2023 09:29:55 02/18/2024 text/html C/O severe aller gies nasally and ears. Has all year long but worse last month. Maxed on meds. Sergio Shin MD [address], [place], [address], [facility] - [facility] 02/18/2024 15:53:43 05/12/2024 text/html Here for checkup , labs, refills. BS 95-105. Wants mounjaro increased. Had eye exam Burak Dowd. Sergio Shin MD [address], [place], [address], [place] - [facility] 05/12/2024 10:27:16 06/13/2024 text/html Lambert is a 44 year [...] that his ears feel full today. Jaclyn Bosch APRN [address], [place], [address], [place] - [facility] 06/13/2024 17:22:21
[2024-06-17 23:51] VITALS: BP 139/88; PULSE 80; RESP 18; TEMP 36.8; O2SAT 97; BMI 40.6
--- NOTE | 2024-06-17 23:53 | CT_ITS ---
PROCEDURE INFORMATION: Exam: CT Head Without Contrast Exam date and time: 06/18/2024 1:02 AM Age: 44 years old Clinical indication: Pain; Headache; Additional info: Headache x4d, intermittent blurry vision TECHNIQUE: Imaging protocol: Computed tomography of the head without contrast. Radiation optimization: All CT scans at this facility use at least one of these dose optimization techniques: automated exposure control; mA and/or kV adjustment per patient size (includes targeted exams where dose is matched to clinical indication); or iterative reconstruction. COMPARISON: No relevant prior studies available. FINDINGS: Brain: Normal. No hemorrhage. Unremarkable white matter. No mass effect. Cerebral ventricles: No ventriculomegaly. Paranasal sinuses: Visualized sinuses are unremarkable. No fluid levels. Mastoid air cells: Visualized mastoid air cells are well aerated. Bones: Unremarkable. No acute fracture. Soft tissues: Unremarkable. IMPRESSION: No acute intracranial abnormality.
--- NOTE | 2024-06-17 23:53 | CT_ITS ---
PROCEDURE INFORMATION: Exam: CTA Head With Contrast, Arteriography Exam date and time: 06/18/2024 1:04 AM Age: 44 years old Clinical indication: Pain; Headache; Additional info: Headache x4d, intermittent blurry vision TECHNIQUE: Imaging protocol: Computed tomographic angiography of the head with contrast. Exam focused on the arteries. 3D rendering (Not supervised by radiologist): MIP and/or 3D reconstructed images were created by the technologist. Radiation optimization: All CT scans at this facility use at least one of these dose optimization techniques: automated exposure control; mA and/or kV adjustment per patient size (includes targeted exams where dose is matched to clinical indication); or iterative reconstruction. Contrast material: ISOVUE; Contrast volume: 80 ml; Contrast route: INTRAVENOUS (IV); COMPARISON: 1. CT HEAD/BRAIN WO CON 06/18/2024 1:[address] ANGIO NECK 06/18/2024 1:04 AM FINDINGS: ANTERIOR CIRCULATION: Right internal carotid artery: Intracranial segment is patent with no significant stenosis. No aneurysm. Right middle cerebral artery: No occlusion or significant stenosis. No aneurysm. Right anterior cerebral artery: No occlusion or significant stenosis. No aneurysm. Left internal carotid artery: Intracranial segment is patent with no significant stenosis. No aneurysm. Left middle cerebral artery: No occlusion or significant stenosis. No aneurysm. Left anterior cerebral artery: No occlusion or significant stenosis. No aneurysm. POSTERIOR CIRCULATION: Right vertebral artery: No occlusion or significant stenosis. No aneurysm. Left vertebral artery: No occlusion or significant stenosis. No aneurysm. Basilar artery: No occlusion or significant stenosis. No aneurysm. Right posterior cerebral artery: No occlusion or significant stenosis. No aneurysm. Left posterior cerebral artery: No occlusion or significant stenosis. No aneurysm. Brain: No definite mass, mass effect, or midline shift. Cerebral ventricles: No ventriculomegaly. Bones/joints: Unremarkable. No acute fracture. Soft tissues: Unremarkable. IMPRESSION: No large vessel stenosis or occlusion. No acute abnormality of the intracranial vasculature.
--- NOTE | 2024-06-17 23:53 | CT_ITS ---
PROCEDURE INFORMATION: Exam: CTA Neck With Contrast Exam date and time: 06/18/2024 1:04 AM Age: 44 years old Clinical indication: Pain; Headache; Additional info: L neck pain radiating into arm, tingling fingers TECHNIQUE: Imaging protocol: Computed tomographic angiography of the neck with contrast. Exam focused on the cervical segments of the vasculature. 3D rendering (Not supervised by radiologist): MIP and/or 3D reconstructed images were created by the technologist. Radiation optimization: All CT scans at this facility use at least one of these dose optimization techniques: automated exposure control; mA and/or kV adjustment per patient size (includes targeted exams where dose is matched to clinical indication); or iterative reconstruction. Contrast material: ISOVUE; Contrast volume: 80 ml; Contrast route: INTRAVENOUS (IV); COMPARISON: 1. CT ANGIO HEAD 06/18/2024 1:[address] HEAD/BRAIN WO CON 06/18/2024 1:02 AM 3. CR XR CHEST 2V 06/18/2024 12:47 AM FINDINGS: Right common carotid artery: No stenosis. No dissection or occlusion. Right internal carotid artery: No stenosis of the extracranial segment. No dissection or occlusion. Right external carotid artery: No occlusion or stenosis of the origin. Left common carotid artery: No stenosis. No dissection or occlusion. Minimal calcification. Left internal carotid artery: No stenosis of the extracranial segment. No dissection or occlusion. Left external carotid artery: No occlusion or stenosis of the origin. Right vertebral artery: No stenosis. No dissection or occlusion. Left vertebral artery: No stenosis. No dissection or occlusion. Soft tissues: Normal. No significant soft tissue swelling. Bones/joints: No acute fracture. IMPRESSION: No stenosis or occlusion. No acute abnormality of the cervical vasculature. REFERENCES: NASCET CRITERIA. The degree of stenosis in the cervical segment of the internal carotid artery is based on NASCET criteria. Normal is no stenosis. Mild is less than 50% stenosis. Moderate is 50-69% stenosis. Severe is 70% to 99% stenosis. Total occlusion is no detectable patent lumen.
[2024-06-18 00:01] VITALS: BP 133/67; PULSE 76; O2SAT 95
[2024-06-18] MEDS: ASPIRIN 81MG CHEWABLE TABLET 324 MG PO (00:01)
[2024-06-18] MEDS: diphenhydrAMINE 50MG/ML VIAL 25 MG IV (00:02)
[2024-06-18] MEDS: KETOROLAC 30MG/ML VIAL 30 MG IV (00:03)
[2024-06-18] MEDS: METOCLOPRAMIDE HCL 10MG/2ML VIAL 10 MG IVP (00:03)
[2024-06-18 00:09] LABS: Coronavirus 19, PCR Not Detected (NotDetected); Influenza A, PCR Not Detected (NotDetected); Influenza B, PCR Not Detected (NotDetected)
[2024-06-18 00:17] LABS: Basophils # 0.1 K/mm3 (0-0.2); Basophils % 1.4 % (0.1-2.0); Eosinophils # 0.1 K/mm3 (0.0-0.4); Eosinophils % 1.2 % (0.1-12.0); Hematocrit 45.3 % (42.0-52.0); Lymphocytes # 2.9 K/mm3 (0.7-4.5); Lymphocytes % 41.2 % (10-50); Mean Corpuscular HGB Conc 35.3 g/dL (31.8-35.4); Mean Corpuscular Hemoglobin 30.3 pg (27.0-31.2); Mean Platelet Volume 7.6 fl (7.4-10.4); Monocytes # 0.7 K/mm3 (0.1-1.0); Monocytes % 9.2 % (1.7-9.3); Neutrophils # 3.3 K/mm3 (1.8-7.8); Platelet Count 270 K/mm3 (142-424); Red Blood Count 5.27 M/mm3 (4.60-6.20); Red Cell Distribution Width 13.8 % (11.5-17.5); White Blood Count 7.1 K/mm3 (4.8-10.8)
--- NOTE | 2024-06-18 00:23 | ED_ITS ---
Discharge Plan Disposition Patient Disposition: Home, Self-Care Condition: Good Prescriptions Prescriptions: New amoxicillin-pot clavulanate 875-125 mg tablet 1 tab PO BID Qty: 10 0RF No Action cetirizine 10 mg tablet 10 mg PO DAILY Patient Comments: TAKE 1 TABLET BY MOUTH ONCE DAILY fluticasone propionate 50 mcg/actuation spray,suspension 50 mcg intranasal DAILY Patient Comments: USE 2 SPRAY(S) IN EACH NOSTRIL ONCE DAILY FOR 90 DAYS Mounjaro 10 mg/0.5 mL pen injector 1 mg SQ WEEKLY meloxicam 7.5 mg tablet 15 mg PO DAILY 30 Days Qty: 60 2RF lisinopril 40 mg tablet 40 mg PO DAILY Referrals Follow up/Referrals: Sergio Shin MD [Primary Care Provider] - See instructions Activity Restrictions/Add. Instructions Additional Instructions/Restrictions: You were evaluated in the ER and are appropriate for discharge at this time. Stop taking the cephalexin, start taking the newly prescribed antibiotic as directed. Do not skip doses, do not stop taking it early. Take Tylenol, ibuprofen if still needed for headache. Continue taking your other home medications as prescribed. When the urgent care contact you with your culture results, please tell them you were switched to Augmentin to ensure that it covers any bacteria they may have identified. He can appoint with your primary care doctor for reevaluation in a few days, return to the ER with new, worsening, or otherwise concerning symptoms Clinical Impressions Clinical Impression: Headache, Otalgia, bilateral, Otitis media Print Language Print Language: Lithuanian Discharge ED Provider: Juan José Knott General Adult HPI General Chief complaint: Headache Stated complaint: pain in head, neck, and arm Time Seen by Provider: 06/17/24 23:40 Mode of Arrival: Ambulatory Source of Information: Patient Limitations: No Limitations Description of Symptoms (Recalled from ER Triage Doc. by RN): Pt here with c/o HAX4 days + Lear/neck pain. Reports starting keflex on wednesday s/p dx w/ UTI History of Present Illness HPI narrative: 44-year-old male presents to the ER with complaints of headache which he reports feels like pressure behind his eyes and in his temples for the last 4 days, left ear pain with neck stiffness radiating into the left arm starting today. Patient reports on Wednesday he started taking Keflex for urinary symptoms despite having a negative dipstick at urgent care. Reportedly they were running a culture and would call when they have results however with the holiday weekend patient has not heard anything from them. He has been taking the Keflex, but stated his headache started after starting that medication. He is not sure if it is a side effect of the medication or just a coincidence. He reports he has bad eyes and has new glasses coming but seems to have slightly worsened blurry vision since his headache started. He reports of blurry vision is equal in both eyes, he is not seeing flashers or floaters, he has no areas of blindness in the eyes. No eye pain. Patient reports he deals with significant seasonal allergies and congestion at baseline taking a nasal spray, Jessie, and Zyrtec daily. He states he often deals with ear congestion but his left ear started really hurting in the last 24 hours. He does not have fever. He reports he also woke up with a stiff neck on the left side today and the pain from the neck radiates into the top of the shoulder and into the left bicep. He stated his left fingers felt briefly tingly earlier as well he states the tingling was only a few seconds and has not happened again, he has no other numbness, tingling, or weakness that has occurred. He reports no history of neck injuries but states he thinks it may be a pinched nerve . He states he has tried Tylenol, Excedrin Migraine, and Coricidin HBP over the last few days for all of his symptoms without significant relief. No history of migraines. He denies fevers, chills, difficulty breathing. He does report that he had an episode of chest pressure earlier this evening approximately an hour prior to arrival that spontaneously resolved after taking Tums. He believes it was just indigestion but does have a history of hypertension and hyperlipidemia, no known cardiac problems. He states the pressure was brief in the left chest and has not come back since taking the Tums. He has not had any nausea, vomiting, diarrhea, shortness of breath, he reports his dysuria that he had earlier in the week is completely resolved, no hematuria, no other associated symptoms. Related Data Home Medications ?Medication ?Instructions ?Recorded ?Confirmed lisinopril 40 mg tablet 40 mg PO DAILY 08/23/23 02/02/24 cetirizine 10 mg tablet 10 mg PO DAILY 11/29/23 02/02/24 fluticasone propionate 50 50 mcg intranasal DAILY 11/29/23 02/02/24 mcg/actuation nasal spray,suspension tirzepatide 10 mg/0.5 mL 1 mg SQ WEEKLY 11/29/23 02/02/24 subcutaneous pen injector (Pauline) Previous Rx's ?Medication ?Instructions ?Recorded meloxicam 7.5 mg tablet 15 mg (2 x 7.5 mg) PO DAILY pain 02/02/24 30 days #60 tabs amoxicillin 875 mg-potassium 1 tab PO BID #10 tabs 06/18/24 clavulanate 125 mg tablet Allergies Allergy/AdvReac Type Severity Reaction Status Date / Time No Known Allergies Allergy Verified 06/17/24 23:55 [facility] Disclaimer: The information contained in this section may have been updated after the patient was seen, as this information can be updated by other users. 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 Family History Other Unknown family medical history Social History Smoking Status: Never smoker alcohol intake: never current occupational status: employed Other Medical History Have you received the Flu Vaccine for this season: No Have you received the Pneumonia Vaccine: No ROS Obtained: Yes Systems reviewed as appropriate & no additional complaints except as documented ROS per HPI Physical Exam General General appearance: alert, in no apparent distress and obese Head Head exam: atraumatic and normocephalic Eye Eye exam: Present PERRL, EOMI and other (Peripheral gutierrez intact); Absent conjunctival injection ENT ENT exam: Present mucous membranes moist and other (Bilateral tympanic membranes demonstrate bulging, mild erythema, left TM has a purulent effusion concerning for infectious otitis media) Neck Neck exam: Present normal inspection, full ROM (Range of motion is full, patient has a tightness in the left side of his neck when looking to the right) and tenderness (No midline tenderness, there is tenderness throughout the trapezius muscle on the left side without obvious spasm) Chest Chest inspection: Present symmetric chest wall rise Respiratory Respiratory exam: Present normal lung sounds bilaterally; Absent respiratory distress, wheezes or stridor Cardiovascular Cardiovascular exam: Present regular rate and normal rhythm Abdominal Exam Abdominal exam: Present soft; Absent distention or tenderness Extremities Exam Extremities exam: Present full ROM Back Exam Back exam: Present full ROM; Absent tenderness Neurological Exam Neurological exam: Present alert, oriented X3, CN II-XII intact and normal gait; Absent motor sensory deficit (5 out of 5 strength and sensation in all extremities, no dermatomal abnormalities in the upper extremities) Psychiatric Psychiatric exam: Present normal affect and normal mood Skin Skin exam: Present warm and dry Medical Decision Making Medical Records Medical records reviewed: Yes I reviewed the patient's medical records. Screening: Per USPSTF and CDC recommendations, given the prevalence of disease in our region, it is our hospital?s policy to screen for HIV and viral Hepatitis for all patients aged 18 and over and those with ongoing risk factors. MR Comment: Patient has been evaluated and treated by anesthesiology for degenerative lumbar disks. He has disc bulge at L3-L4 and L4-L5. He had Depo- Medrol injection in December for this problem. Dario Inquiry Pt receiving controlled substance: No Vital Signs: 06/17/24 23:51 06/18/24 00:01 06/18/24 00:31 Temperature 98.2 F Temperature Source Oral Pulse Rate 76 62 Pulse Rate [Apical] 80 Respiratory Rate 18 14 Blood Pressure 133/67 114/62 Blood Pressure [Right Arm] 139/88 Blood Pressure Mean [Right Arm] 105 02 Sat by Pulse Oximetry 97 95 90 L Oxygen Delivery Method Room Air 06/18/24 01:30 06/18/24 02:00 06/18/24 03:13 Temperature 98 F Temperature Source Oral Pulse Rate 70 62 71 Pulse Rate [Apical] Respiratory Rate 15 18 20 Blood Pressure 120/68 130/64 122/71 Blood Pressure [Right Arm] Blood Pressure Mean [Right Arm] 02 Sat by Pulse Oximetry 94 L 93 L Oxygen Delivery Method Room Air Lab Data Lab Results 06/18/24 00:00: WBC 7.1, RBC 5.27, Hgb 16.0, Hct 45.3, MCV 86.0, MCH 30.3, MCHC 35.3, RDW 13.8, Plt Count 270, MPV 7.6, Neut % (Auto) 47.0, Lymph % (Auto) 41.2, Meagher % (Auto) 9.2, Eos % (Auto) 1.2, Baso % (Auto) 1.4, Neut # (Auto) 3.3, Lymph # (Auto) 2.9, Meagher # (Auto) 0.7, Eos # (Auto) 0.1, Baso # (Auto) 0.1, Sodium 140, Potassium 3.8, Chloride 102, Carbon Dioxide 29, Anion Gap 12.8, BUN 17, Creatinine 0.90, Estimated Creat Clear 199, Estimated GFR 91, Est GFR ( Amer) 110, Glucose 90, Calcium 8.9, Total Bilirubin 0.5, AST 35, ALT 32, Alkaline Phosphatase 43, Troponin I < 0.01, Total Protein 8.0, Albumin 4.4, G lobulin 3.6 H, Albumin/Globulin Ratio 1.2, SARS-CoV-2 (PCR) Not detected, HIV 1&2 Antibody Rapid Nonreactive, Influenza A Untype (PCR) Not detected, Influenza Type B (PCR) Not detected 06/18/24 02:40: Troponin I < 0.01 06/18/24 00:00 06/18/24 00:00 Orders (Tests/Meds): ED MEDICATIONS Discontinued Medications Generic Name Dose Route Start Last Admin Trade Name Freq PRN Reason Stop Dose Admin Aspirin 324 mg 06/17/24 23:53 06/18/24 00:01 Aspirin 81mg Chewable Tablet PO 06/17/24 23:54 324 mg ONCE ONE Administration Diphenhydramine HCl 25 mg 06/17/24 23:56 06/18/24 00:02 Diphenhydramine 50mg/Ml Vial IV 06/17/24 23:57 25 mg ONCE ONE Administration Iopamidol 80 ml 06/18/24 01:11 06/18/24 01:12 Iopamidol-370 (76%);100ml Bottle IV 06/18/24 01:12 80 ml ONCE ONE Administration Ketorolac Tromethamine 30 mg 06/17/24 23:56 06/18/24 00:03 Ketorolac 30mg/Ml Vial IV 06/17/24 23:57 30 mg ONCE ONE Administration Lidocaine 1 each 06/18/24 00:36 06/18/24 00:42 Lidocaine 5% Transdermal Patch TP 06/18/24 00:37 1 each ONCE ONE Administration Methocarbamol 500 mg 06/18/24 00:37 06/18/24 00:42 Methocarbamol 500mg Tablet PO 06/18/24 00:38 500 mg ONCE ONE Administration Metoclopramide HCl 10 mg 06/17/24 23:56 06/18/24 00:03 Metoclopramide Hcl 10mg/2ml Vial IVP 06/17/24 23:57 10 mg ONCE ONE Administration Sodium Chloride 50 ml 06/18/24 01:11 06/18/24 01:12 0.9 % Sodium Chloride 50 Ml Vial IV 06/18/24 01:12 50 ml ONCE ONE Administration Sodium Chloride 10 ml 06/18/24 01:11 06/18/24 01:12 Sodium Chloride 0.9% 10ml Syr (Rad Only) IV 07/18/24 01:10 10 ml NEEDED PRN Administration Maintain IV Site ORDERS Category Date Time Status CT angio head Stat Cat Scan 06/17/24 23:[address] angio neck Stat Cat Scan 06/17/24 23:[address] head/brain wo con Stat Cat Scan 06/17/24 23:53 Completed XR chest 2V Stat Exams 06/18/24 00:52 Completed Complete Blood Count Auto Diff Stat Lab 06/17/24 23:53 Completed Comprehensive Metabolic Panel Stat Lab 06/17/24 23:53 Completed HIV (1&2) Antibody Rapid Stat Lab 06/17/24 23:55 Completed Hep C Ab with Reflex to RNA Stat Lab 06/17/24 23:55 Received Rapid PCR Covid and Flu A/B Stat Lab 06/18/24 00:00 Completed Troponin I Q3H Lab 06/18/24 02:40 Completed Troponin I Stat Lab 06/17/24 23:53 Completed Medical Decision Narrative: In summary, this 44-year-old male with comorbidities as described in HPI as well as degenerative disc disease with previous Depo-Medrol injection presents to the emergency department today with concerns of headache, left-sided neck pain radiating into the left arm, brief episode of chest pain. On initial evaluation patient is hemodynamically stable, afebrile, exam demonstrates fluid behind the ears, there does appear to be a purulent effusion of the left tympanic membrane, tenderness of the left trapezius, no midline cervical tenderness, no neurologic deficits, full strength and sensation throughout, no visual field abnormalities appreciated on exam, cardiopulmonary exam benign. Differential diagnosis includes but is not limited to ACS, esophageal spasm, electrolyte abnormality, muscle spasm, viral syndrome, migraine, otitis media, I considered the possibility of intracranial mass, extremely low likelihood for ischemic stroke without any persistent deficits however I did consider the possibility of other vascular abnormality such as stenosis or dissection so angiography was ordered, also considered cervical radiculopathy since patient has increased likelihood of this with the history of lumbar radiculopathy. Based on these concerns, I ordered broad workup including cardiac workup, serum labs, chest x-ray, CT imaging and angiography. ECG personally interpreted demonstrates normal sinus rhythm, rate 68, normal axis, normal NE and QTc, no STEMI. Patient received Toradol Benadryl Reglan initially for treatment. He also received a lidocaine patch and methocarbamol for the neck discomfort. Labs personally reviewed demonstrate normal CBC and nonactionable CMP, good kidney function, initial troponin undetectably low at less than 0.01, repeat troponin is indicated given timing of onset of symptoms. COVID, flu negative. XR personally interpreted demonstrates no acute intrathoracic abnormality, see radiology read. CT imaging personally interpreted demonstrate no acute intracranial bleed, mass, or midline shift on noncontrast head CT, see radiology read. CT angiography head and neck demonstrates no vascular abnormality. Repeat troponin also undetectably low less than 0.01 reassuring against cardiac abnormality.. On reassessment patient's symptoms are resolved. He is resting comfortably. He has not any recurrence of chest pain. He is appropriate for discharge at this time. Patient is concerned that the Keflex he was prescribed could be contributing to his symptoms since the headache started the day he started the Keflex. With findings concerning for left otitis media, patient was prescribed Augmentin which will still offer urinary coverage while patient's culture is pending, but will also better cover otic pathogens. He was instructed to stop the Keflex and start the Augmentin as well as discussed the Augmentin with the urgent care when they call him with his culture results. Patient was given instructions on symptomatic management, follow up instructions, and return precautions for the emergency department. Patient indicated understanding and was discharged in stable condition. Critical Care Critical Care Time Critical Care Time: No
[2024-06-18 00:31] VITALS: BP 114/62; PULSE 62; RESP 14; O2SAT 90
[2024-06-18 00:42] LABS: Sodium 140 mmol/L (136-145)
[2024-06-18] MEDS: LIDOCAINE 5% TRANSDERMAL PATCH 1 EACH TP (00:42)
[2024-06-18] MEDS: METHOCARBAMOL 500MG TABLET 500 MG PO (00:42)
[2024-06-18 00:43] LABS: Alanine Aminotransferase 32 U/L (12-78); Albumin Level 4.4 g/dl (3.5-5.0); Albumin/Globulin Ratio 1.2 (1.1-1.8); Alkaline Phosphatase 43 U/L (38-126); Anion Gap 12.8 mEq/L (5-15); Aspartate Amino Transferase 35 U/L (17-59); Bilirubin,Total 0.5 mg/dl (0.2-1.3); Blood Urea Nitrogen 17 mg/dl (9-20); Calcium 8.9 mg/dl (8.4-10.2); Carbon Dioxide 29 mmol/L (22.0-30.0); Chloride 102 mmol/L (98-107); Creatinine Clearance Estimated 199 mL/min (50-200); Estimated Glomerular Filt Rate 91 ml/min (>60); GFR (African American) 110 ML/MIN (>60); Globulin 3.6 g/dL (1.3-3.2); Glucose 90 mg/dl (74-100); Potassium 3.8 mmoL/L (3.5-5.1)
--- NOTE | 2024-06-18 00:52 | XR_ITS ---
PROCEDURE INFORMATION: Exam: XR Chest Exam date and time: 06/18/2024 12:47 AM Age: 44 years old Clinical indication: Pain; Chest pressure; Additional info: Chest tightness TECHNIQUE: Imaging protocol: Radiologic exam of the chest. Views: 2 views. COMPARISON: No relevant prior studies available. FINDINGS: Lungs: No evidence of acute pulmonary disease or infiltrates Pleural spaces: No large effusion or pneumothorax. Heart/Mediastinum: No evidence of mediastinal widening or cardiac silhouette enlargement; the mediastinum and heart appear within normal limits for contour and size. Bones/joints: No evidence of acute osseous abnormalities within the visualized portions of the thoracic spine and ribs. Osseous structures appear appropriate for patient age. IMPRESSION: No dense parenchymal consolidation, pleural effusion, or pneumothorax.
[2024-06-18 00:59] LABS: Troponin I < 0.01 ng/ml (0.00-0.034)
[2024-06-18] MEDS: IOPAMIDOL-370 (76%);100ML BOTTLE 80 ML IV (01:12)
[2024-06-18] MEDS: SODIUM CHLORIDE 0.9% 10ML SYR (RAD ONLY) 10 ML IV (01:12)
[2024-06-18] MEDS: 0.9 % SODIUM CHLORIDE 50 ML VIAL IV (01:12)
[2024-06-18 01:30] VITALS: BP 120/68; PULSE 70; RESP 15; O2SAT 94
[2024-06-18 01:44] LABS: HIV (1&2) Antibody Rapid NONREACTIVE (NONREACTIVE)
[2024-06-18 02:00] VITALS: BP 130/64; PULSE 62; RESP 18; O2SAT 93
[2024-06-18 03:05] LABS: Troponin I < 0.01 ng/ml (0.00-0.034)
[2024-06-18 03:13] VITALS: BP 122/71; PULSE 71; RESP 20; TEMP 36.6; O2SAT 98
[2024-06-20 05:11] LABS: HCV Ab Non Reactive (Non Reactive)
== END 2024-06-18 03:14 | disposition home or self-care (01) ==
PROVIDERS: Emergency Provider Emergency Medicine; PCP Family Medicine
DX: H66.90 Otitis media, unspecified, unspecified ear (principal); H92.03 Otalgia, bilateral; R51.9 Headache, unspecified; H92.02 Otalgia, left ear; H53.8 Other visual disturbances; M54.2 Cervicalgia; M79.602 Pain in left arm
CPT/HCPCS: 70450; 70496; 70498; 71046; 80053; 84484; 85025; 86803; 87389; 87636; 93005; 96374; 96375; 99285; J1200; J1885; J2765; Q9967

== ENCOUNTER 2024-08-30 09:39 | Outpatient (CLI) | payer BC, SELFPAY ==
--- NOTE | 2024-08-30 09:42 | MR_ITS ---
FINAL REPORT CLINICAL HISTORY: chronic lbp COMPARISON: 12/08/2022 FINDINGS: Multiplanar MR imaging of the lumbar spine was performed without contrast. On the sagittal T2-weighted images, multilevel disc degeneration is seen. The vertebral alignment is normal. There is no evidence of fracture. No bony mass is identified. The conus is seen at approximately the L1 level and has an unremarkable appearance. L1-2: There is no significant canal stenosis or neural foraminal narrowing. L2-3: There is no significant canal stenosis or neural foraminal narrowing. L3-4: Mild annular disc bulge without canal stenosis or neuroforaminal narrowing. L4-5: Annular disc bulge with degenerative endplate changes and mild facet osteoarthropathy. There is mild bilateral, right greater than left neuroforaminal narrowing. L5-S1: Annular disc bulge with degenerative endplate changes and facet osteoarthropathy. No significant central canal stenosis or neuroforaminal narrowing. IMPRESSION: Mildly worsening degenerative changes as above. Reviewed, Interpreted and Dictated by Loren Davies MD Transcribed by Hollie Morley Authenticated and [facility]
== END 2024-08-30 23:59 | disposition home or self-care (01) ==
LOC: RAD 09:39
PROVIDERS: PCP Family Medicine; Visit Provider Physician Assistant
DX: M54.50 Low back pain, unspecified (principal)
CPT/HCPCS: 72148

== ENCOUNTER 2024-10-29 21:19 | Emergency (ER) | payer BC, SELFPAY ==
[2024-10-29] VITALS (9 sets, daily range): BP systolic 123–150; BP diastolic 67–89; PULSE 64–84; RESP 18; TEMP 36.6; O2SAT 95–99; BMI 40.6
--- NOTE | 2024-10-29 21:47 | [facility].EDGENADL ---
Discharge Plan Disposition Patient Disposition: Home, Self-Care Prescriptions Prescriptions: No Action cetirizine 10 mg tablet 10 mg PO DAILY Patient Comments: TAKE 1 TABLET BY MOUTH ONCE DAILY fluticasone propionate 50 mcg/actuation spray,suspension 50 mcg intranasal DAILY Patient Comments: USE 2 SPRAY(S) IN EACH NOSTRIL ONCE DAILY FOR 90 DAYS Mounjaro 10 mg/0.5 mL pen injector 1 mg SQ WEEKLY lisinopril 40 mg tablet 40 mg PO DAILY Referrals Follow up/Referrals: Chetan Spence MD [Staff Physician] - See instructions Sergio Shin MD [Primary Care Provider] - See instructions Activity Restrictions/Add. Instructions Additional Instructions/Restrictions: Please follow-up with your primary care provider and with general surgery for further evaluation of your gallbladder.. Please return to the emergency department if you develop any new or worsening symptoms or become concerned for your health. Clinical Impressions Clinical Impression: Colicky right upper quadrant pain Cholelithiasis Qualifiers: Cholelithiasis location: gallbladder Cholecystitis presence: without cholecystitis Biliary obstruction: without biliary obstruction Qualified Code(s): K80.20 - Calculus of gallbladder without cholecystitis without obstruction Instructions Patient Instructions: DI for Acute Abdominal Pain Print Language Print Language: Guamanian Discharge ED Provider: Juanito Vallejo General Adult HPI <Albert Cates MD - Last Filed: 10/29/24 22:45> General Chief complaint: Abdominal Pain Stated complaint: stomach pain 1-2 weeks with nausea Time Seen by Provider: 10/29/24 21:28 Mode of Arrival: Ambulatory Source of Information: Patient Description of Symptoms (Recalled from ER Triage Doc. by RN): pt c/o right sided abd pain with slight nausea x1 week. reports polyuria and darker in color then normal. History of Present Illness HPI narrative: Please note that above description of symptoms, in this electronic medical record under categorization of recalled from ER triage doctor by RN are reflective of an initial nursing assessment, however, is not reflective of my full history and physical exam that was personally taken and clarified. Consequentially, this preceding description of symptoms, which may include the patient's categorized chief complaint in the EMR, do not reflect my personal clinical impression, and the ultimate description of history of present illness and patient stated complaints should be deferred to this section of the note. Unless stated otherwise or congruent with this section of the note, additional signs, symptoms, or incongruence should be interpreted as inaccurate with my clinical impression. Related Data Home Medications ?Medication ?Instructions ?Recorded ?Confirmed lisinopril 40 mg tablet 40 mg PO DAILY 08/23/23 10/11/24 cetirizine 10 mg tablet 10 mg PO DAILY 11/29/23 10/11/24 fluticasone propionate 50 50 mcg intranasal DAILY 11/29/23 10/11/24 mcg/actuation nasal spray,suspension tirzepatide 10 mg/0.5 mL 1 mg SQ WEEKLY 11/29/23 10/11/24 subcutaneous pen injector (Mounjaro) Allergies Allergy/AdvReac Type Severity Reaction Status Date / Time No Known Allergies Allergy Verified 10/11/24 08:23 [facility] <Albert Cates MD - Last Filed: 10/29/24 22:45> [facility] Disclaimer: The information contained in this section may have been updated after the patient was seen, as this information can be updated by other users. 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 Family History Other Unknown family medical history Social History Smoking Status: Never smoker alcohol intake: never current occupational status: employed Travel in the last 8 weeks: None Have you lived/traveled outside [place] in past 30 days?: No Contact w/someone who lives/traveled outside US past 30 days?: No Exposure to someone with infectious disease in past 14 days?: No Do you have a fever (greater than 100.4 F or 38 C)?: No Have you tested positive for COVID-19: No Exposed to someone with COVID-19 in past 14 days?: No Do you have a sore throat?: No Do you have a cough?: No Do you have any weakness?: No Do you have any diarrhea?: No Are you experiencing any unusual bleeding?: No Do you have any muscle aches/pain?: No Do you have any abdominal pain?: Yes Are you experiencing loss of taste or smell?: No Other Medical History Have you received the Flu Vaccine for this season: No Have you received the Pneumonia Vaccine: No <Albert Cates MD - Last Filed: 10/29/24 22:45> ROS Obtained: Yes All systems reviewed & no additional complaints except as documented Physical Exam <Albert Cates MD - Last Filed: 10/29/24 22:45> General General appearance: alert, in no apparent distress and obese Head Head exam: atraumatic and normocephalic Eye Eye exam: Present normal appearance, PERRL and EOMI Neck Neck exam: Present normal inspection, full ROM and trachea midline Respiratory Respiratory exam: Absent respiratory distress, wheezes, stridor, accessory muscle use or prolonged expiratory phase Cardiovascular Cardiovascular exam: Present other (Pulses equal symmetric in upper and lower extremities) Abdominal Exam Abdominal exam: Present soft; Absent distention, tenderness, guarding, rebound, rigidity or pulsatile mass Extremities Exam Extremities exam: Absent edema Neurological Exam Neurological exam: Present alert, oriented X3 and CN II-XII intact; Absent motor sensory deficit Skin Skin exam: Present warm and dry; Absent diaphoresis or erythema Medical Decision Making <Albert Cates MD - Last Filed: 10/29/24 22:45> Medical Records Medical records reviewed: Yes I reviewed the patient's medical records. Screening: Per USPSTF and CDC recommendations, given the prevalence of disease in our region, it is our hospital?s policy to screen for HIV and viral Hepatitis for all patients aged 18 and over and those with ongoing risk factors. Dario Inquiry Pt receiving controlled substance: No Dario was queried for this patient: No Vital Signs: 10/29/24 21:28 10/29/24 21:29 10/29/24 21:30 Temperature 97.8 F Temperature Source Oral Pulse Rate 78 81 Pulse Rate [Radial] 78 Respiratory Rate 18 Blood Pressure Blood Pressure [Right Arm] 132/67 Blood Pressure Mean Blood Pressure Mean [Right Arm] 88 Blood Pressure Position Blood Pressure Position [Right Arm] Sitting 02 Sat by Pulse Oximetry 98 98 99 Oxygen Delivery Method Room Air 10/29/24 21:31 10/29/24 21:45 10/29/24 22:00 Temperature Temperature Source Pulse Rate 76 75 69 Pulse Rate [Radial] Respiratory Rate Blood Pressure 150/89 H 138/79 Blood Pressure [Right Arm] Blood Pressure Mean 98 Blood Pressure Mean [Right Arm] Blood Pressure Position Blood Pressure Position [Right Arm] 02 Sat by Pulse Oximetry 99 96 98 Oxygen Delivery Method 10/29/24 22:30 10/29/24 22:55 10/29/24 23:00 Temperature Temperature Source Pulse Rate 84 69 64 Pulse Rate [Radial] Respiratory Rate Blood Pressure 133/84 140/81 123/80 Blood Pressure [Right Arm] Blood Pressure Mean 95 97 103 Blood Pressure Mean [Right Arm] Blood Pressure Position Blood Pressure Position [Right Arm] 02 Sat by Pulse Oximetry 95 96 96 Oxygen Delivery Method 10/30/24 00:20 Temperature 98.0 F Temperature Source Oral Pulse Rate 59 L Pulse Rate [Radial] Respiratory Rate 17 Blood Pressure 133/77 Blood Pressure [Right Arm] Blood Pressure Mean Blood Pressure Mean [Right Arm] Blood Pressure Position Sitting Blood Pressure Position [Right Arm] 02 Sat by Pulse Oximetry Oxygen Delivery Method Room Air Lab Data Lab Results 10/29/24 21:46: WBC 6.5, RBC 5.10, Hgb 14.9, Hct 44.5, MCV 87.3, MCH 29.2, MCHC 33.5, RDW 13.0, Plt Count 278, MPV 10.0, Neut % (Auto) 44.6, Lymph % (Auto) 41.4, [place] % (Auto) 12.3 H, Eos % (Auto) 0.8, Baso % (Auto) 0.6, Neut # (Auto) 2.9, Lymph # (Auto) 2.7, [place] # (Auto) 0.8, Eos # (Auto) 0.1, Baso # (Auto) 0.0, PT 10.5, INR 0.93, APTT 26.7, Sodium 141, Potassium 3.4 L, Chloride 100, Carbon Dioxide 29, Anion Gap 15.4 H, BUN 17, Creatinine 0.90, Estimated Creat Clear 199, Estimated GFR 91, Est GFR ( Amer) 110, Glucose 91, Calcium 9.1, Total Bilirubin 0.6, AST 36, ALT 36, Alkaline Phosphatase 49, Troponin I < 0.01, Total Protein 8.0, Albumin 4.5, Globulin 3.5 H, Albumin/Globulin Ratio 1.3, Lipase 89 10/29/24 22:55: Urine Color Yellow, Urine Appearance Clear, Urine pH 6.0, Ur Specific [place] >= 1.030, Urine Protein Negative, Urine Glucose (UA) Negative, Urine Ketones Negative, Urine Blood Trace-i, Urine Nitrate Negative, Urine Bilirubin Negative, Urine Urobilinogen 0.2, Ur Leukocyte Esterase Negative, Urine RBC 3-5, Urine WBC Occasional, Ur Squamous Epith Cells Occasional, Urine Bacteria Trace, Urine Mucus Trace 10/29/24 21:46 10/29/24 21:46 Orders (Tests/Meds): ED MEDICATIONS Discontinued Medications Generic Name Dose Route Start Last Admin Trade Name Freq PRN Reason Stop Dose Admin Dexamethasone Sodium Phosphate 8 mg 10/30/24 00:10 10/30/24 00:18 Dexamethasone 4mg/Ml 1ml Vial IV 10/30/24 00:11 8 mg ONCE ONE Administration Famotidine 20 mg 10/29/24 21:47 10/29/24 21:55 Famotidine 20mg/2ml Vial IV 10/29/24 21:48 20 mg ONCE ONE Administration Iopamidol 75 ml 10/29/24 23:36 10/29/24 23:37 Iopamidol-370 (76%);100ml Bottle IV 10/29/24 23:37 75 ml ONCE ONE Administration Ketorolac Tromethamine 15 mg 10/29/24 21:46 10/29/24 21:56 Ketorolac 30mg/Ml Vial IV 10/29/24 21:47 15 mg ONCE ONE Administration Sodium Chloride 8 ml 10/29/24 21:47 Sodium Chloride 0.9% 10ml Vial IV 11/28/24 21:46 NEEDED PRN dilute pepcid Sodium Chloride 10 ml 10/29/24 23:36 10/29/24 23:37 Sodium Chloride 0.9% 10ml Syr (Rad Only) IV 11/28/24 23:35 10 ml NEEDED PRN Administration Maintain IV Site ORDERS Category Date Time Status CT abdomen pelvis w con Stat Cat Scan 10/29/24 22:41 Completed POCUS Point of Care (ER Only) Stat Exams 10/29/24 21:46 Completed Complete Blood Count Auto Diff Stat Lab 10/29/24 21:46 Completed Comprehensive Metabolic Panel Stat Lab 10/29/24 21:46 Completed Lipase Stat Lab 10/29/24 21:46 Completed PT INR [Prothrombin Time INR] Stat Lab 10/29/24 21:46 Completed PTT [Activated Partial Thrombo Time] Stat Lab 10/29/24 21:46 Completed Troponin I Q3H Lab 10/30/24 01:00 Ordered Troponin I Q3H Lab 10/30/24 04:00 Ordered Troponin I Stat Lab 10/29/24 21:46 Completed Urinalysis and Microscopic Stat Lab 10/29/24 22:55 Completed Medical Decision Narrative: 44-year-old male presenting with abdominal pain. He states that started about 2 weeks ago and was on and off. Right lower quadrant, associated with intermittent sharp pains. 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 Seem to go away gradually. 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 Intermittently right lower quadrant, intermittently right upper quadrant, does not radiate, no vomiting, diarrhea, he has had a loss of appetite and feels that his abdomen is more distended. Intermittently states when the pain flares up the area of tenderness is hard. But is not currently experiencing the symptoms. Has not taken anything for the pain, does not notice anything that makes any better or worse. States that he is going out of town and needs either resolution of symptoms or answers prior to doing so to prevent decompensation. History was obtained via conversation with patient and . On arrival, patient hemodynamically stable, alert, oriented x4, appropriate, GCS 15, moving all extremities spontaneously, pupils equal and reactive to light. Full physical exam performed and significant for well-appearing male no acute distress. He is obese. Abdomen is soft, nontender, nondistended on my exam. No obvious hernia. No overlying skin changes. Jain sign negative, right lower quadrant tenderness absent as well. Differential includes PUD, gastritis, enteritis, hernia, pancreatitis, SBO, colitis, diverticulitis, nephrolithiasis, UTI, cholecystitis, choledocholithiasis, appendicitis, ACS, LA, less likely torsion, hepatitis, aortic pathology, mesenteric ischemia among others. Patient placed on continuous cardiac monitoring and continuous pulse ox with initial blood pressure 132/67, heart rate 78, saturation 98 percent on room air. Patient was given Toradol and Pepcid for symptomatic management and correction of underlying abnormalities. Workup independently interpreted and significant for nonactionable CBC or chemistry. Coags normal. Lipase negative troponin negative. Bedside [id number] ultrasound was performed. Difficult exam secondary to habitus, but gallbladder appears to be full of stones. Measurements difficult to obtain secondary to difficult windows and largely unsure of this exam. CT scan was ordered for further characterization given indeterminate ultrasound. On reevaluation, patient states he is feeling much better, but pain was largely resolving on his way in any way. Prior to CT scan, care handed off to oncoming physician. Oracle Database Developer disclaimer Much of this encounter note is an electronic line installation supervisor spoken language to printed text. Electronic line installation supervisor of the spoken language may permit errors. Although I have reviewed the note, some errors may still exist. <Juanito Vallejo MD - Last Filed: 10/30/24 00:47> Vital Signs: 10/29/24 21:28 10/29/24 21:29 10/29/24 21:30 Temperature 97.8 F Temperature Source Oral Pulse Rate 78 81 Pulse Rate [Radial] 78 Respiratory Rate 18 Blood Pressure Blood Pressure [Right Arm] 132/67 Blood Pressure Mean Blood Pressure Mean [Right Arm] 88 Blood Pressure Position Blood Pressure Position [Right Arm] Sitting 02 Sat by Pulse Oximetry 98 98 99 Oxygen Delivery Method Room Air 10/29/24 21:31 10/29/24 21:45 10/29/24 22:00 Temperature Temperature Source Pulse Rate 76 75 69 Pulse Rate [Radial] Respiratory Rate Blood Pressure 150/89 H 138/79 Blood Pressure [Right Arm] Blood Pressure Mean 98 Blood Pressure Mean [Right Arm] Blood Pressure Position Blood Pressure Position [Right Arm] 02 Sat by Pulse Oximetry 99 96 98 Oxygen Delivery Method 10/29/24 22:30 10/29/24 22:55 10/29/24 23:00 Temperature Temperature Source Pulse Rate 84 69 64 Pulse Rate [Radial] Respiratory Rate Blood Pressure 133/84 140/81 123/80 Blood Pressure [Right Arm] Blood Pressure Mean 95 97 103 Blood Pressure Mean [Right Arm] Blood Pressure Position Blood Pressure Position [Right Arm] 02 Sat by Pulse Oximetry 95 96 96 Oxygen Delivery Method 10/30/24 00:20 Temperature 98.0 F Temperature Source Oral Pulse Rate 59 L Pulse Rate [Radial] Respiratory Rate 17 Blood Pressure 133/77 Blood Pressure [Right Arm] Blood Pressure Mean Blood Pressure Mean [Right Arm] Blood Pressure Position Sitting Blood Pressure Position [Right Arm] 02 Sat by Pulse Oximetry Oxygen Delivery Method Room Air Lab Data Lab Results 10/29/24 21:46: WBC 6.5, RBC 5.10, Hgb 14.9, Hct 44.5, MCV 87.3, MCH 29.2, MCHC 33.5, RDW 13.0, Plt Count 278, MPV 10.0, Neut % (Auto) 44.6, Lymph % (Auto) 41.4, [place] % (Auto) 12.3 H, Eos % (Auto) 0.8, Baso % (Auto) 0.6, Neut # (Auto) 2.9, Lymph # (Auto) 2.7, [place] # (Auto) 0.8, Eos # (Auto) 0.1, Baso # (Auto) 0.0, PT 10.5, INR 0.93, APTT 26.7, Sodium 141, Potassium 3.4 L, Chloride 100, Carbon Dioxide 29, Anion Gap 15.4 H, BUN 17, Creatinine 0.90, Estimated Creat Clear 199, Estimated GFR 91, Est GFR ( Amer) 110, Glucose 91, Calcium 9.1, Total Bilirubin 0.6, AST 36, ALT 36, Alkaline Phosphatase 49, Troponin I < 0.01, Total Protein 8.0, Albumin 4.5, Globulin 3.5 H, Albumin/Globulin Ratio 1.3, Lipase 89 10/29/24 22:55: Urine Color Yellow, Urine Appearance Clear, Urine pH 6.0, Ur Specific [place] >= 1.030, Urine Protein Negative, Urine Glucose (UA) Negative, Urine Ketones Negative, Urine Blood Trace-i, Urine Nitrate Negative, Urine Bilirubin Negative, Urine Urobilinogen 0.2, Ur Leukocyte Esterase Negative, Urine RBC 3-5, Urine WBC Occasional, Ur Squamous Epith Cells Occasional, Urine Bacteria Trace, Urine Mucus Trace Orders (Tests/Meds): ED MEDICATIONS Discontinued Medications Generic Name Dose Route Start Last Admin Trade Name Freq PRN Reason Stop Dose Admin Dexamethasone Sodium Phosphate 8 mg 10/30/24 00:10 10/30/24 00:18 Dexamethasone 4mg/Ml 1ml Vial IV 10/30/24 00:11 8 mg ONCE ONE Administration Famotidine 20 mg 10/29/24 21:47 10/29/24 21:55 Famotidine 20mg/2ml Vial IV 10/29/24 21:48 20 mg ONCE ONE Administration Iopamidol 75 ml 10/29/24 23:36 10/29/24 23:37 Iopamidol-370 (76%);100ml Bottle IV 10/29/24 23:37 75 ml ONCE ONE Administration Ketorolac Tromethamine 15 mg 10/29/24 21:46 10/29/24 21:56 Ketorolac 30mg/Ml Vial IV 10/29/24 21:47 15 mg ONCE ONE Administration Sodium Chloride 8 ml 10/29/24 21:47 Sodium Chloride 0.9% 10ml Vial IV 11/28/24 21:46 NEEDED PRN dilute pepcid Sodium Chloride 10 ml 10/29/24 23:36 10/29/24 23:37 Sodium Chloride 0.9% 10ml Syr (Rad Only) IV 11/28/24 23:35 10 ml NEEDED PRN Administration Maintain IV Site ORDERS Category Date Time Status CT abdomen pelvis w con Stat Cat Scan 10/29/24 22:41 Completed POCUS Point of Care (ER Only) Stat Exams 10/29/24 21:46 Completed Complete Blood Count Auto Diff Stat Lab 10/29/24 21:46 Completed Comprehensive Metabolic Panel Stat Lab 10/29/24 21:46 Completed Lipase Stat Lab 10/29/24 21:46 Completed PT INR [Prothrombin Time INR] Stat Lab 10/29/24 21:46 Completed PTT [Activated Partial Thrombo Time] Stat Lab 10/29/24 21:46 Completed Troponin I Q3H Lab 10/30/24 01:00 Ordered Troponin I Q3H Lab 10/30/24 04:00 Ordered Troponin I Stat Lab 10/29/24 21:46 Completed Urinalysis and Microscopic Stat Lab 10/29/24 22:55 Completed Medical Decision Narrative: 44-year-old male presenting with abdominal pain. He states that started about 2 weeks ago and was on and off. Right lower quadrant, associated with intermittent sharp pains. 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 Seem to go away gradually. 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 Intermittently right lower quadrant, intermittently right upper quadrant, does not radiate, no vomiting, diarrhea, he has had a loss of appetite and feels that his abdomen is more distended. Intermittently states when the pain flares up the area of tenderness is hard. But is not currently experiencing the symptoms. Has not taken anything for the pain, does not notice anything that makes any better or worse. States that he is going out of town and needs either resolution of symptoms or answers prior to doing so to prevent decompensation. History was obtained via conversation with patient and . On arrival, patient hemodynamically stable, alert, oriented x4, appropriate, GCS 15, moving all extremities spontaneously, pupils equal and reactive to light. Full physical exam performed and significant for well-appearing male no acute distress. He is obese. Abdomen is soft, nontender, nondistended on my exam. No obvious hernia. No overlying skin changes. Jain sign negative, right lower quadrant tenderness absent as well. Differential includes PUD, gastritis, enteritis, hernia, pancreatitis, SBO, colitis, diverticulitis, nephrolithiasis, UTI, cholecystitis, choledocholithiasis, appendicitis, ACS, LA, less likely torsion, hepatitis, aortic pathology, mesenteric ischemia among others. Patient placed on continuous cardiac monitoring and continuous pulse ox with initial blood pressure 132/67, heart rate 78, saturation 98 percent on room air. Patient was given Toradol and Pepcid for symptomatic management and correction of underlying abnormalities. Workup independently interpreted and significant for nonactionable CBC or chemistry. Coags normal. Lipase negative troponin negative. Bedside [id number] ultrasound was performed. Difficult exam secondary to habitus, but gallbladder appears to be full of stones. Measurements difficult to obtain secondary to difficult windows and largely unsure of this exam. CT scan was ordered for further characterization given indeterminate ultrasound. On reevaluation, patient states he is feeling much better, but pain was largely resolving on his way in any way. Prior to CT scan, care handed off to oncoming physician. Oracle Database Developer disclaimer Much of this encounter note is an electronic line installation supervisor spoken language to printed text. Electronic line installation supervisor of the spoken language may permit errors. Although I have reviewed the note, some errors may still exist. On reassessment patient remains medically stable. No right upper quadrant pain. Right lower quadrant pain is minimal, [address] imaging shows cholelithiasis without other pathology. Interactive discussion had with patient regarding presentation. It seems consistent with symptomatic cholelithiasis. Recommend patient follow-up with Dr. Spence I gave him strict return precautions for signs or symptoms of cholecystitis. Patient requested a steroid shot for his allergies. He says that his PCP typically gives it to him because he has really bad seasonal allergies. He is on multiple allergy medications at baseline. He is not sure what type of steroid it is. I gave him 8 of dexamethasone and patient was discharged in stable condition. Procedures <Albert Cates MD - Last Filed: 10/29/24 22:45> Limited Ultrasound Indication:: Limited RUQ ultrasound Indication: Colicky abdominal pain Identified structures: -Gallbladder -Gallbladder wall -Common bile duct -Liver Findings: Sonographic Jain sign: Absent Gallstones: Appear to be present Sludge: Absent Pericholecystic fluid: Absent Maximal GB wall thickness (mm) (normal is </= 3mm): Unable to visualize Common bile duct width (mm) (normal is </= 6mm): Unable to visualize Gallbladder width (cm) (normal is < 4cm): Unable to visualize Gallbladder length (cm) (normal is < 10cm): Unable to visualize Impression: Difficult windows and exam secondary to habitus. Patient also ate just prior to arrival with likely contracted gallbladder. Images were saved to permanent archive The study was not technically adequate CPT 37805-27 This study was performed by me, and I personally interpreted all images/videos. Based on my clinical judgement, these images were inadequate and did necessitate further imaging. Critical Care <Albert Cates MD - Last Filed: 10/29/24 22:45> Critical Care Time Critical Care Time: No
[2024-10-29 21:52] LABS: Basophils % 0.6 % (0.1-2.0); Eosinophils # 0.1 K/mm3 (0.0-0.4); Eosinophils % 0.8 % (0.1-12.0); Hematocrit 44.5 % (42.0-52.0); Hemoglobin 14.9 g/dL (14.1-18.0); Lymphocytes # 2.7 K/mm3 (0.7-4.5); Lymphocytes % 41.4 % (10-50); Mean Corpuscular HGB Conc 33.5 g/dL (31.8-35.4); Mean Corpuscular Hemoglobin 29.2 pg (27.0-31.2); Mean Corpuscular Volume 87.3 fl (80-94); Monocytes # 0.8 K/mm3 (0.1-1.0); Monocytes % 12.3 % (1.7-9.3); Neutrophils # 2.9 K/mm3 (1.8-7.8); Neutrophils % 44.6 % (37.0-80.0); Nucleated Red Blood Cells # 0 10^3/uL; Nucleated Red Blood Cells % 0 %; Platelet Count 278 K/mm3 (142-424); Red Cell Distribution Width-SD 41.1 fL; White Blood Count 6.5 K/mm3 (4.8-10.8)
[2024-10-29 21:54] LABS: Albumin Level 4.5 g/dl (3.5-5.0); Chloride 100 mmol/L (98-107); Potassium 3.4 mmoL/L (3.5-5.1); Sodium 141 mmol/L (136-145)
[2024-10-29] MEDS: FAMOTIDINE 20MG/2ML VIAL 20 MG IV (21:55)
[2024-10-29] MEDS: KETOROLAC 30MG/ML VIAL 15 MG IV (21:56)
[2024-10-29 21:57] LABS: Alanine Aminotransferase 36 U/L (12-78); Albumin/Globulin Ratio 1.3 (1.1-1.8); Alkaline Phosphatase 49 U/L (38-126); Aspartate Amino Transferase 36 U/L (17-59); Bilirubin,Total 0.6 mg/dl (0.2-1.3); Blood Urea Nitrogen 17 mg/dl (9-20); Creatinine Clearance Estimated 199 mL/min (50-200); Estimated Glomerular Filt Rate 91 ml/min (>60); GFR (African American) 110 ML/MIN (>60); Globulin 3.5 g/dL (1.3-3.2); Lipase 89 U/L (23-300)
[2024-10-29 21:58] LABS: Calcium 9.1 mg/dl (8.4-10.2); Glucose 91 mg/dl (74-100)
[2024-10-29 22:00] LABS: Activated Partial Thrombo Time 26.7 seconds (22.8-30.6); INR 0.93 (0.9-1.1); Prothrombin Time 10.5 seconds (10.1-12.5)
[2024-10-29 22:18] LABS: Troponin I < 0.01 ng/ml (0.00-0.034)
[2024-10-29 22:20] LABS: Anion Gap 15.4 mEq/L (5-15); Carbon Dioxide 29 mmol/L (22.0-30.0)
--- NOTE | 2024-10-29 22:41 | CT_ITS ---
PROCEDURE INFORMATION: Exam: CT Abdomen And Pelvis With Contrast Exam date and time: 10/29/2024 11:30 PM Age: 44 years old Clinical indication: Abdominal pain; Additional info: Intermittent ruq pain, unable to locate gb on US TECHNIQUE: Imaging protocol: Computed tomography of the abdomen and pelvis with contrast. Radiation optimization: All CT scans at this facility use at least one of these dose optimization techniques: automated exposure control; mA and/or kV adjustment per patient size (includes targeted exams where dose is matched to clinical indication); or iterative reconstruction. Contrast material: ISOVUE; Contrast volume: 75 ml; Contrast route: IV; COMPARISON: MR LUMBAR SPINE WO CON 08/30/2024 9:49 AM FINDINGS: Lungs: Calcified granuloma in present within the medial right lung base. Coronary arteries: Coronary artery calcifications are evident. Liver: Normal. No mass. Gallbladder and biliary ducts: Cholelithiasis is present without findings of cholecystitis. No gallbladder wall thickening or pericholecystic fluid collection. There is no biliary ductal dilation. Pancreas: Normal. No ductal dilation. Spleen: Normal. No splenomegaly. Adrenal glands: Normal. No mass. Kidneys and ureters: Normal. No hydronephrosis. Stomach and bowel: Unremarkable. No obstruction. No mucosal thickening. Appendix: No evidence of appendicitis. Intraperitoneal space: Unremarkable. No free air. No significant fluid collection. Vasculature: Unremarkable. No abdominal aortic aneurysm. Lymph nodes: Calcified right hilar lymph nodes are noted. Urinary bladder: Unremarkable as visualized. Reproductive: Unremarkable as visualized. Bones/joints: Unremarkable. No acute fracture. Soft tissues: Unremarkable. IMPRESSION: 1. Cholelithiasis without acute inflammation evident. 2. Coronary artery calcifications.
[2024-10-29 22:58] LABS: Microscopic, Urine URINE MICROSCOPIC (MICROSCOPIC)
[2024-10-29 23:00] LABS: Appearance,Urine CLEAR (Clear); Bilirubin,Urine Negative (Negative); Blood, Urine TRACE-I (Negative); Color,Urine YELLOW (Yellow); Glucose,Urine (UA) Negative (Negative); Ketones,Urine Negative (Negative); Leukocyte Esterase,Urine Negative (Negative); Nitrate,Urine Negative (Negative); Protein,Urine Negative (Negative); Specific Gravity, Urine >= 1.030 (1.005-1.030); Urobilinogen,Urine 0.2 EU/dl (0.2)
[2024-10-29 23:13] LABS: Squamous Epithelial Cell,Urine Occasional #/hpf (0-5); WBC,Urine Occasional #/hpf (0-3)
[2024-10-29 23:14] LABS: Bacteria,Urine Trace /lpf; Mucus,Urine Trace /lpf
[2024-10-29] MEDS: SODIUM CHLORIDE 0.9% 10ML SYR (RAD ONLY) 10 ML IV (23:37)
[2024-10-29] MEDS: IOPAMIDOL-370 (76%);100ML BOTTLE 75 ML IV (23:37)
[2024-10-30] MEDS: DEXAMETHASONE 4MG/ML 1ML VIAL 8 MG IV (00:18)
[2024-10-30 00:20] VITALS: BP 133/77; PULSE 59; RESP 17; TEMP 36.7; O2SAT 97
== END 2024-10-30 00:21 | disposition home or self-care (01) ==
PROVIDERS: Emergency Medicine; Emergency Provider Emergency Medicine; PCP Family Medicine
DX: R10.11 Right upper quadrant pain (principal); R10.31 Right lower quadrant pain; K80.20 Calculus of gallbladder without cholecystitis without obstruction; R11.0 Nausea; J30.2 Other seasonal allergic rhinitis
CPT/HCPCS: 74177; 80053; 81001; 83690; 84484; 85025; 85610; 85730; 96374; 96375; 99284; J1100; J1885; Q9967

== ENCOUNTER 2024-11-28 07:53 | Outpatient (CLI) | payer BC, SELFPAY ==
--- NOTE | 2024-11-28 08:00 | US_ITS ---
FINAL REPORT TECHNIQUE: ultrasound images of the right upper quadrant were obtained. CLINICAL HISTORY: PAIN-- CT SHOWED STONES COMPARISON: CT abdomen and pelvis 10/30/2024 FINDINGS: The liver is fatty infiltrated. The gallbladder is contracted. Multiple echogenic foci are noted within the lumen of the gallbladder. The common duct is normal. IMPRESSION: Fatty liver. Gallstones. Reviewed, Interpreted and Dictated by Tunde Cartagena MD Transcribed by Nancy Aparicio Authenticated and . [facility]
[2024-11-28 10:00] LABS: Alanine Aminotransferase 26 U/L (12-78); Albumin Level 4.6 g/dl (3.5-5.0); Alkaline Phosphatase 57 U/L (38-126); Aspartate Amino Transferase 25 U/L (17-59); Bilirubin,Direct 0.2 mg/dl (0.0-0.4); Bilirubin,Indirect 0.4 mg/dL (0.0-0.9); Bilirubin,Total 0.6 mg/dl (0.2-1.3); Bilirubin,Unconjugated 0.4 mg/dL (0.0-1.1); Chol/HDL Ratio 3.1 (1-3.5); Cholesterol 103 mg/dl (140-200); HDL Cholesterol 33 mg/dl (40-60); Total Protein,Serum 7.2 g/dl (6.3-8.2); Triglycerides 131 mg/dl (30-150); VLDL Cholesterol 26 mg/dL (0-40)
[2024-11-28 10:10] LABS: Direct LDL Cholesterol 56.03 mg/dL (100-129)
== END 2024-11-28 23:59 | disposition home or self-care (01) ==
PROVIDERS: Physician Assistant; PCP Nurse Practitioner Family; Visit Provider Surgery
DX: K80.20 Calculus of gallbladder without cholecystitis without obstruction (principal); K76.0 Fatty (change of) liver, not elsewhere classified; I25.10 Atherosclerotic heart disease of native coronary artery without angina pectoris; R94.31 Abnormal electrocardiogram [ECG] [EKG]; R42 Dizziness and giddiness
CPT/HCPCS: 36415; 76705; 80061; 80076

== ENCOUNTER 2024-12-07 06:19 | Outpatient (CLI) | payer BC, SELFPAY ==
--- NOTE | 2024-12-07 | CA_ITS ---
APPROVED REPORT Exam: Pharmacologic Technologist: Jennifer Yao Ht: 6 ft 0 in Wt: 299 lbs BSA: 2.53 m2 HR: 68 bpm BP: 139/84 mmHg Rhythm: Nsr Medical History Medical History: HTN, , Diabetes Medications: Albuterol, Cetirizine, Flonase, Lisinopril, Ondansetron, Tirzepatide, Atorvastatin Allergies: No known drug allergies Cardiac Risk Factors: HTN, Diabetes Stress Test Details Test: Lexiscan HR Resting HR: 68 bpm Max Heart Rate (APMHR): 175.540717 bpm Target HR (85% APMHR): 148.639676 bpm Recovery HR: 94 bpm BP Resting BP: 139.0/84.0 mmHg Max BP: 141.0/88.0 mmHg Recovery BP: 130.0/85.0 mmHg ECG Resting ECG: Nsr Stress ECG Conclusion <1.5mm ST segment changes Non-diagnostic lexiscan stress Electronically signed by : Christelle Kellogg MD 12/07/2024 11:24:48
--- NOTE | 2024-12-07 | CA_ITS ---
APPROVED REPORT EXAM: Comprehensive 2D, Doppler, and color-flow Echocardiogram with contrast Charge Weigher: Suni Goodman CRT Ht: 6 ft 0 in Wt: 300lbs BSA: 2.53 BP: 122/80 mmHg Indications: Abnormal ECG, Chest Pain, Diabetes, Hypertension/HDD Echo Enhancing Agent Indication: Endocardial border delineation Agent(s) / Amount(s) Used: Definity 2 cc Comments: Definity given 2D Dimensions LA Volume 57.20 mL LA Volume Index 22.10 mL/m2 (M/F) 16-34 M-Mode Dimensions RVDd 2.91 cm (0.9-2.6) LA Diam 4.38 cm (1.9-4.0) LVDd 3.75 cm (3.5-5.7) LVDs 2.37 cm (3.5-5.7) IVSd 1.54 cm (0.6-1.1) PWd 1.00 cm (0.6-1.1) EF (Teich) 67.50% FS 36.80% EDV (Teich) 60.00 mL TAPSE 2.47 (<1.7) ESV (Teich) 19.50 mL LV Diastology E Decel Time 157 (160-240 msec) E/A Ratio 1.13 MED A' 11.70 cm/s LAT A' 10.00 cm/s Aortic Valve AO Peak GR. 7.00 mmHg Mitral Valve MV A Velocity 52.0 (40-130 cm/s) E/A Ratio 1.13 Pulmonary Valve PV Peak Velocity 155.0 (50-150 cm/s) Tricuspid Valve TR P. Velocity 174.00 cm/s RAP Estimate 10.00 mmHg RVSP 22.00 mmHg Left Ventricle The left ventricle is normal size. The left ventricular systolic function is normal. The left ventricular ejection fraction is within the normal range. There is normal left ventricular wall thickness. There is normal LV segmental wall motion. The left ventricular diastolic function is normal. LVEF is 65%. Right Ventricle The right ventricle is normal size. The right ventricular systolic function is normal. Atria The left atrium size is normal. The right atrium size is normal. There is no Doppler evidence of interatrial shunt. Aortic Valve Aortic valve opens well. There is no aortic valvular stenosis. No aortic regurgitation is present. Mitral Valve The mitral valve is normal in structure. No evidence of mitral valve stenosis. Trace mitral regurgitation. Tricuspid Valve Tricuspid valve is grossly normal in structure and function. Trace tricuspid regurgitation. There is insufficient TR jet to estimate RVSP. Pulmonic Valve The pulmonary valve is normal in structure. Trace pulmonic regurgitation. Great Vessels The aortic root is normal in size. IVC is normal in size and collapses >50% with inspiration. Pericardium There is no pericardial effusion. Other Information Study Quality: Adequate Conclusion Normal biventricular systolic function. No significant valvular stenosis or regurgitation. Electronically signed by : Christelle Kellogg MD 12/07/2024 11:27:21
--- NOTE | 2024-12-07 06:30 | NM_ITS ---
APPROVED REPORT Exam: Nuclear Stress Test Indication: soa..syncope Patient Location: Outpatient Stress Tech: Jennifer Yao NC Tech:Rosita Walker SEANE[place] RT(R)(N) Ht: 6 ft 0 in Wt: 293 lbs HR: 72 bpm BP: 139/84 mmHg BSA: 2.51 m2 TID: 1.06 History: soa..syncope Procedure: Patient received 0.4 mg of intravenous Lexiscan, resting heart rate 72 bpm, resting blood pressure 139/84 mmHg, with Lexiscan maximum heart rate achieved was 103 bpm which is 85 % of the maximum predicted heart rate and blood pressure was 133/81 mmHg. With Lexiscan, patient denied any complaint of chest pain. Cardiac Stress and Resting SPECT Images: Cardiac Stress and Resting SPECT images were obtained using technetium 99m Myoview 29.9 mCi stress and 10.10 mCi at rest. Resting and stress imaging in supine and prone positions demonstrate a medium sized, moderate, reversible perfusion defect in the basal to mid inferior LV hilton. Gated imaging demonstrates normal global LV systolic function. LVEF is calculated at 55%. Conclusion: Medium sized, moderate, reversible perfusion defect in the basal to mid inferior LV hilton. Findings are suggestive of reversible ischemia. Gated imaging demonstrates normal global LV systolic function. LVEF is calculated at 55%. Electronically signed by : Christelle Kellogg MD 12/07/2024 11:23:23
[2024-12-07] MEDS: SODIUM CHLORIDE 0.9% 10ML SYR (RAD ONLY) 10 ML IV ×2 (08:29)
[2024-12-07] MEDS: REGADENOSON 0.4MG/5ML SYRINGE 0.4 MG IV (08:29)
[2024-12-07] MEDS: ISOTOPE MYOVIEW (PER STUDY) 1 DOSE IV (08:29)
[2024-12-07] MEDS: DEFINITY US ECHO CONTRAST 2ML INJ 2 MG IV (09:20)
== END 2024-12-07 23:59 | disposition home or self-care (01) ==
LOC: RAD 06:20
PROVIDERS: PCP Nurse Practitioner Family; Visit Provider Physician Assistant
DX: R94.39 Abnormal result of other cardiovascular function study (principal); R94.31 Abnormal electrocardiogram [ECG] [EKG]; I25.10 Atherosclerotic heart disease of native coronary artery without angina pectoris; E11.9 Type 2 diabetes mellitus without complications; I10 Essential (primary) hypertension; R42 Dizziness and giddiness; R55 Syncope and collapse
CPT/HCPCS: 78452; 93017; 93018; 93306; A9502; J2785; Q9957

== ENCOUNTER 2024-12-14 08:26 | Day surgery (SDC) | payer BC, SELFPAY ==
[2024-12-14] VITALS (10 sets, daily range): BP systolic 83–131; BP diastolic 62–75; PULSE 71–83; RESP 18–20; O2SAT 90–96; BMI 40.0
--- NOTE | 2024-12-14 07:11 | IR_ITS ---
APPROVED REPORT Patient Location: Outpatient PROCEDURES Selective coronary angiogram Attempted angioplasty of a chronically occluded right coronary INDICATION Coronary artery disease, Abnormal Myoview, Chronically occluded right coronary artery, Angina pectoris Informed consent was obtained prior to the procedure. COMPLICATIONS NONE Estimated Blood Loss: LESS THAN 10 ML TECHNIQUE One percent lidocaine used to anesthetize the right anterior aspect of the wrist. The right radial artery was accessed via the Seldinger technique. A 6 Amharic sheath was placed in the right radial artery. 2.5 mg of Verapamil, 800 mcg of nitroglycerin, 1mg Lidocaine and 5000 U Heparin were given through the arterial sheath. The JL3 catheter was also used to perform selective coronary angiogram. At the end the diagnostic angiogram therapeutic Was administered giving a therapeutic ACT and a guide cath was placed in the right coronary followed by Choice PT extra-support wire placed distally into the right coronary. Attempts are made to push through the occlusion. A 2 mm x 12 mm compliant balloon was then advanced to the occluded spot and the wire was further pushed with the assistance of the balloon. Despite these efforts the wire would not easily pass therefore it was decided to abandon the procedure. Angiography demonstrated no change in the right coronary artery since the beginning of the procedure. At the end the procedure the apparatus was removed the sheath was removed and hemostasis was achieved using TR banding patient was transferred to the postop putting in stable condition ANGIOGRAPHIC RESULTS The left main artery Normal The left anterior descending artery Mild proximal and mid vessel 10% luminal regularities The circumflex artery Dominant normal The right coronary artery Nondominant occluded at mid vessel with the distal vessel filling via [id number] collaterals The MARIN ventriculogram reveals Not performed The left ventricular end-diastolic pressure Not measured IMPRESSION Chronically occluded right coronary Attempted angioplasty of a chronically occluded right coronary artery which was unsuccessful in opening the vessel Mild luminal regularities in the LAD with wide patency of the large dominant circumflex artery PLAN 1. Aggressive risk factor modification 2. LDL less than 55 to be achieved with high intensity statin 3. Avoidance of tobacco products 4. Risk factor modification 5. Aggressive control of diabetes 6. Weight loss exercise Electronically signed by : Luis F Song MD 12/14/2024 12:50:10
[2024-12-14 09:03] LABS: Basophils # 0.1 K/mm3 (0-0.2); Basophils % 0.4 % (0.1-2.0); Eosinophils # 0.2 Kmm3 (0.0-0.4); Eosinophils % 1.2 % (0.1-12.0); Hematocrit 45.1 % (42.0-52.0); Hemoglobin 14.8 g/dL (14.1-18.0); Immature Granulocytes # 0.03 10^3uL; Immature Granulocytes % 0.2 %; Lymphocytes # 2.7 K/mm3 (0.7-4.5); Lymphocytes % 22.2 % (10-50); Mean Corpuscular HGB Conc 32.8 g/dL (31.8-35.4); Mean Corpuscular Hemoglobin 28.8 pg (27.0-31.2); Mean Corpuscular Volume 87.7 fl (80-94); Monocytes # 1.4 K/mm3 (0.1-1.0); Monocytes % 11.4 % (1.7-9.3); Neutrophils # 7.8 K/mm3 (1.8-7.8); Neutrophils % 64.6 % (37.0-80.0); Nucleated Red Blood Cells # 0 10^3/uL; Nucleated Red Blood Cells % 0 %; Platelet Count 272 K/mm3 (142-424); Red Blood Count 5.14 M/mm3 (4.60-6.20); Red Cell Distribution Width 12.6 % (11.5-17.5); Red Cell Distribution Width-SD 40.5 fL; White Blood Count 12.1 K/mm3 (4.8-10.8)
[2024-12-14 09:09] LABS: Anion Gap 11.6 mEq/L (5-15); Blood Urea Nitrogen 11 mg/dl (9-20); Calcium 9.1 mg/dl (8.4-10.2); Carbon Dioxide 30 mmol/L (22.0-30.0); Chloride 102 mmol/L (98-107); Creatinine Clearance Estimated 177 mL/min (50-200); Estimated Glomerular Filt Rate 81 ml/min (>60); GFR (African American) 98 ML/MIN (>60); Glucose 103 mg/dl (74-100); Potassium 3.6 mmoL/L (3.5-5.1); Sodium 140 mmol/L (136-145)
[2024-12-14] MEDS: NITROGLYCERIN 800MCG/8ML SYR (CATH LAB) 800 MCG IA (10:10)
[2024-12-14] MEDS: 0.9 % SODIUM CHLORIDE 500 ML 25 ML IV (10:10)
[2024-12-14] MEDS: diphenhydrAMINE 50MG/ML VIAL 50 MG IV (10:10)
[2024-12-14] MEDS: HEPARIN 1,000 UNITS/500ML NS (CATH LAB) 3000 UNIT IV (10:10)
[2024-12-14] MEDS: HEPARIN 1,000 UNITS/ML 10ML VIAL (CATH LAB) 5000 UNIT IV (10:11)
[2024-12-14] MEDS: MIDAZOLAM HCL 1MG/ML 5ML VIAL 1 MG IV (10:11)
[2024-12-14] MEDS: VERAPAMIL 2.5MG/ML 2ML VIAL 2.5 MG IV (10:11)
[2024-12-14] MEDS: LIDOCAINE 1% 10ML MDV 10 ML IJ (10:11)
[2024-12-14] MEDS: FENTANYL 100MCG/2ML VIAL 50 MCG IV (10:12)
[2024-12-14] MEDS: IOPAMIDOL-370 (76%);100ML BOTTLE 60 ML IV (11:28)
[2024-12-14 15:18] LABS: CATHL Activated Clotting Time 314 SEC (74-125)
== END 2024-12-14 13:03 | disposition home or self-care (01) ==
PROVIDERS: PCP Nurse Practitioner Family; Visit Provider Internal Medicine
PROC: 4A023N7 Measurement of Cardiac Sampling and Pressure, Left Heart, Percutaneous Approach (ICD-10-PCS; CPT 93452; principal; 2024-12-14 10:45)
DX: I25.119 Atherosclerotic heart disease of native coronary artery with unspecified angina pectoris (principal); I25.82 Chronic total occlusion of coronary artery; R93.1 Abnormal findings on diagnostic imaging of heart and coronary circulation; E11.9 Type 2 diabetes mellitus without complications; I10 Essential (primary) hypertension; M51.369 Other intervertebral disc degeneration, lumbar region without mention of lumbar back pain or lower extremity pain; Z79.85 Long-term (current) use of injectable non-insulin antidiabetic drugs; Z79.899 Other long term (current) drug therapy
CPT/HCPCS: 92943; 80048; 85025; 85347; 99152; C1725; C1760; C1769; C9607; J1200; J1644; J3010; J7040; Q9967

== ENCOUNTER 2024-12-16 16:29 | Outpatient (CLI) | payer BC, SELFPAY ==
--- NOTE | 2024-12-16 16:32 | XR_ITS ---
PROCEDURE INFORMATION: Exam: XR Chest Exam date and time: 12/16/2024 4:23 PM Age: 44 years old Clinical indication: Cough; Additional info: Cough/chest congestion TECHNIQUE: Imaging protocol: Radiologic exam of the chest. Views: 2 views. COMPARISON: CR XR CHEST 2V 06/18/2024 12:47 AM FINDINGS: Lungs: Unremarkable. No consolidation. Pleural spaces: Unremarkable. No pleural effusion. No pneumothorax. Heart/Mediastinum: Unremarkable. No cardiomegaly. Bones/joints: Unremarkable. IMPRESSION: No acute findings.
[2024-12-16 20:47] LABS: Coronavirus 19, PCR Not Detected (NotDetected); Human Rhinovirus Not Detected (NotDetected); Influenza A, PCR Not Detected (NotDetected); Influenza B, PCR Not Detected (NotDetected); Respiratory Syncytial Virus Not Detected (NotDetected)
== END 2024-12-16 23:59 | disposition home or self-care (01) ==
LOC: RAD 16:31
PROVIDERS: PCP Nurse Practitioner Family; Visit Provider Nurse Practitioner
DX: J06.9 Acute upper respiratory infection, unspecified (principal); J02.9 Acute pharyngitis, unspecified; R09.89 Other specified symptoms and signs involving the circulatory and respiratory systems
CPT/HCPCS: 71046; 87631

== ENCOUNTER 2024-12-29 15:41 | Outpatient (CLI) | payer BC, SELFPAY ==
--- OUTSIDE RECORDS SUMMARY | 2024-11-15 13:31 | XMS_ITS | Encounter Summary ---
Author Organization [facility] Address [address] [place] [address] Care Team Providers Care Sign Manufacturer Name Role Phone Sergio Shin MD Primary Care Provider [phone] Reason for Referral * Consultation (Urgent) - Authorized Specialty Diagnoses / Procedures Referred By Nitin rick Referred To Contact Cardiology Diagnoses Hypotension Carmen Spaulding DO [address] [place] [address] Phone: tel: fax: [facility] [address] [place] [address] Phone: tel: Referral ID Status Reason Start Date Expiration Date V isits Requested Visits Authorized [id number] Authorized 11/15/2024 11/15/2025 1 1 Reason for Visit * Reason Comments Chest Pain Near Syncope Encounter Details Date Type Department Care Team (Late st Contact Info) Description 11/15/2024 1:31 PM EDT - 11/15/2024 8:53 PM EDT Emergency Emergency Department [address] [place] [phone] Carmen Spaulding DO [address] [place], [place] [id number] Hypotension (Primary Dx) Discharge Disposition: Home or Self Care Social History Tobacco Use Types Packs/Day Years Used Date Smoking Tobacco: Never Smokeless Tobacco: Current Sex and Gender Information Value Date Recorded Sex Assigned at Not on file Legal Sex Male 12:04 PM EST Gender Identity Not on file Sexual Orientation Not on file documented as of this encounter Last Filed Vital Signs Vital Sign Reading Time Taken Comments Blood Pressure 120/64 11/15/2024 6:58 PM EDT Pulse 61 11/15/2024 6:58 PM EDT Temperature 36.7 C (98 F) 11/15/2024 1:35 PM EDT Respiratory Rate 16 11/15/2024 6:58 PM EDT Oxygen Saturation 99% 11/15/2024 6:58 PM EDT Inhaled Oxygen Concentration - - Weight - - Height - - Body Mass Index - - documented in this encounter Discharge Instructions * Discharge Instructions* Carmen Spaulding DO - 11/15/2024 6:49 PM EDT Return to the ED if worse Continue home medicines Hold the lisinopril Make appointment with your family and heart . in one to 2 days We will make appointment with heart For you documented in this encounter Medications at Time of Discharge lisinopriL (PRINIVIL) 10 mg tablet Take 10 mg by mouth Once Daily. cetirizine (ZYRTEC) 10 mg tablet Take 10 mg by mouth Once Daily. albuterol (PROVENTIL HFA) 90 mcg/Actuation inhalerIndicatio ns:Cough,SOB (shortness of breath) Take 2 Puffs by inhalation Every 4 hours as needed. 1 Package QS 07/13/2018 documented as of this encounter ED Notes * Shena Benjamin RN - 11/15/2024 8:53 PM EDT Pt and family verbalized d/c understanding. Pt ambulated to [facility]. Provided pt with work excuse. Noacute distress noted. * Moe Webster RN - 11/15/2024 6:09 PM EDT States x 3 days of being dizzy and having low bp's(90's systolic). States has had chest pain intermittent also but has gall stones and alwys has pain. AOX3, speech clear, talking and answering questions appropriately, GCS 15, skin is pwd. Positive PMS extremities x 4. States came in per EMS, given zofran 4 mg IV per ems. * Carmen Spaulding DO - 11/15/2024 3:36 PM EDT Lambert Jason II [[id number]] (M) - 44 y.o. Note Creation:11/18/2024 Encounter Date:11/15/2024 History Chief Complaint Patient presents with Chest Pain Near Syncope 44 y.o. male with no pertinent PMHx on file who presents to ED via PV for evaluation of dizziness. Pt reports experiencing episodes of lightheadedness and dizziness over the past week. Today, pt states he had stood up and began to feel dizzy. Pt checked his blood pressure, 95/59. Pt admits he is on40mg of Lisinopril. Pt states his PCP recommended he be evaluated in the emergency room. Pt addresses concerns of his Lisinopril dose. He denies any other pertinent symptoms or concerns. He denies any other aggravating or alleviating factors. He denies any other pertinent PMHx. The history is provided by the patient and medical records. No past medical history on file. No past surgical history on file. No family history on file. Social History Tobacco Use Smoking status: Never Smokeless tobacco: Current Patient is not a tobacco user. No LMP for male patient. No Known Allergies Current Outpatient Medications on File Prior to Encounter Medication Sig lisinopriL (PRINIVIL) 10 mg tablet Take 10 mg by mouth Once Daily. cetirizine (ZYRTEC) 10 mg tablet Take 10 mg by mouth Once Daily. albuterol (PROVENTIL HFA) 90 mcg/Actuation inhaler Take 2 Puffs by inhalation Every 4 hours as needed. Review of Systems Review of Systems Constitutional: Negative for activity change, appetite change, diaphoresis and fever. HENT: Negative for congestion, ear pain, nosebleeds and sore throat. Eyes: Negative for pain, discharge and visual disturbance. Respiratory: Negative for chest tightness and shortness of breath. Cardiovascular: Negative for chest pain. Gastrointestinal: Negative for abdominal pain, diarrhea, nausea and vomiting. Genitourinary: Negative for difficulty urinating, dysuria, flank pain, frequency, penile discharge,penile pain, penile swelling, scrotal swelling and testicular pain. Musculoskeletal: Negative for arthralgias, back pain and neck pain. Skin: Negative for pallor and rash. Allergic/Immunologic: Negative for immunocompromised state. Neurological: Positive for dizziness and light-headedness. Negative for syncope, facial asymmetry, speech difficulty, weakness, numbness and headaches. Hematological: Does not bruise/bleed easily. All other systems reviewed and are negative. Physical Exam ED Triage Vitals BP BP Manual or Automatic? Patient Position BP Location Heart Rate (Monitor) 11/15/24 1335 11/15/24 1858 11/15/24 1858 -- 11/15/24 1335 126/86 Automatic Semi Fowlers 86 Pulse Pulse Source Respirations Temp Temp src 11/15/24 1820 -- 11/15/24 1335 11/15/24 1335 -- 65 16 98 ??F (36.7 ??C) SpO2 SPO2 Location O2 Delivery O2 Device O2 Flow Rate (l/min) 11/15/24 1335 -- 11/15/24 1335 -- -- 98 % Room air FIO2 (%) Pain Intensity 1 Exacerbated By Relieved By Quality -- 11/15/24 1820 -- -- -- 6 Duration -- Physical Exam Vitals and nursing note reviewed. Constitutional: General: He is awake. He is not in acute distress. Appearance: Normal appearance. He is well-developed and well-groomed. He is not ill-appearing, toxic-appearing or diaphoretic. HENT: Head: Normocephalic and atraumatic. Right Ear: There is no impacted cerumen. Left Ear: There is no impacted cerumen. Nose: Nose normal. Mouth/Throat: Mouth: Mucous membranes are moist. Pharynx: Oropharynx is clear. Eyes: Extraocular Movements: Extraocular movements intact. Conjunctiva/sclera: Conjunctivae normal. Pupils: Pupils are equal, round, and reactive to light. Cardiovascular: Rate and Rhythm: Normal rate and regular rhythm. Pulses: Normal pulses. Heart sounds: Normal heart sounds. Pulmonary: Effort: Pulmonary effort is normal. Breath sounds: Normal breath sounds. Abdominal: General: Abdomen is flat. Bowel sounds are normal. There is no distension. Palpations: Abdomen is soft. Tenderness: There is no abdominal tenderness. There is no guarding or rebound. Musculoskeletal: General: No swelling, tenderness or signs of injury. Cervical back: No rigidity or tenderness. Right lower leg: No edema. Left lower leg: No edema. Skin: General: Skin is warm. Capillary Refill: Capillary refill takes less than 2 seconds. Neurological: General: No focal deficit present. Mental Status: He is alert and oriented to person, place, and time. Cranial Nerves: Cranial nerves 2-12 are intact. Sensory: Sensation is intact. Motor: Motor function is intact. Coordination: Coordination is intact. Gait: Gait is intact. Psychiatric: Attention and Perception: Attention normal. Mood and Affect: Mood normal. Behavior: Behavior normal. Thought Content: Thought content normal. Cognition and Memory: Cognition and memory normal. Judgment: Judgment normal. MDM Treatment: Procedures Medications HYDROcodone-acetaminophen (NORCO) 5-325 mg per tab 2 Tablet (2 Tabs Oral Given 11/15/242021) ketorolac (TORADOL) injection 30 mg (30 mg Intravenous Given 11/15/242024) Results for orders placed or performed during the hospital encounter of 11/15/24 Blood Culture, Peripheral x 2 sets Specimen: Vein; Blood Result Value Ref Range BLOOD CULTURE No growth @ 24 hours. No growth @ 48 hours. No growth @ 72 hours. Blood Culture, Peripheral x 2 sets Specimen: Vein; Blood Result Value Ref Range BLOOD CULTURE No growth @ 24 hours. No growth @ 48 hours. No growth @ 72 hours. SARS Cov-2/Influ A+B/RSV RNA Specimen: Nasopharyngeal Swab Result Value Ref Range RSV RNA NEGATIVE Negative Influenza A NEGATIVE Negative Influenza B NEGATIVE Negative SARS-CoV-2 RNA Undetected CBC w/Differential Result Value Ref Range WBC 6.4 4.5 - 11.0 10*3/uL RBC 5.03 4.50 - 5.90 10*6/uL HGB 15.0 13.5 - 17.5 g/dL HCT 43.5 37.0 - 53.0 % MCV 86.5 80.0 - 100.0 fL MCHC 34.5 32.0 - 36.0 g/dL MCH 29.8 26.0 - 34.0 pg RDW 13.8 10.7 - 18.7 % MPV 9.5 6.5 - 10.0 fL Platelet Cnt 252 150 - 450 10*3/uL Differential Type Auto Neutrophils 62.0 35.0 - 66.0 % Lymphocytes 26.4 24.0 - 44.0 % Monocytes 9.9 2.1 - 13.3 % Eosinophils 0.7 0.3 - 5.0 % Basophils 1.0 0.0 - 1.0 % Neutrophils Abs 4.0 1.5 - 8.5 10*3/uL Lymphocytes Abs 1.7 1.1 - 5.0 10*3/uL Monocytes Abs 0.6 0.0 - 1.4 10*3/uL Eosinophils Abs 0.0 0.0 - 0.5 10*3/uL Basophils Abs 0.1 0.0 - 0.1 10*3/uL MDW 17.3 0.0 - 20.0 Comprehensive Metabolic Panel Result Value Ref Range SODIUM 139 135 - 145 mmol/L POTASSIUM 3.9 3.6 - 5.0 mmol/L CHLORIDE 100 (L) 101 - 111 mmol/L CO2 30 21 - 31 mmol/L ANION GAP 9 GLUCOSE 85 70 - 110 mg/dL CREATININE 1.0 0.6 - 1.2 mg/dL BUN 21 2 - 32 mg/dL CALCIUM 9.7 8.5 - 10.5 mg/dL PROTEIN TOTAL 7.5 6.1 - 7.8 g/dL Albumin 4.5 3.2 - 5.0 g/dL T BILIRUBIN 0.6 0.2 - 1.0 mg/dL ALP 48 42 - 121 [iU]/L AST 18 10 - 42 [iU]/L ALT (SGPT) 24 10 - 60 [iU]/L OSMOLALITY 280 266 - 309 A/G Ratio 1.5 B/C 21 (H) 10 - 20 ESTIMATED GFR 81 mL/min Procalcitonin, QN, S Result Value Ref Range PROCALCITONIN, QN, S <0.05 ng/mL Lactic Acid, Venous Result Value Ref Range LACTIC ACID 1.1 0.5 - 1.9 mmol/L UA for Infection (Reflex Culture) Specimen: Clean Catch Urine Result Value Ref Range UR GLUCOSE Negative NEGATIVE mg/dL UR BILIRUBIN Negative NEGATIVE mg/dL UR KETONE 20 (A) NEGATIVE mg/dL UR SP GRAVITY 1.031 1.005 - 1.030 UR BLOOD Trace (A) NEGATIVE mg/dL UR PH 5.0 5.0 - 9.0 UR PROTEIN Negative NEGATIVE mg/dL UR UROBILINOGEN <2.0 <2.0 UR NITRITE Negative NEGATIVE mg/dL UR LEUKOCYTE Negative NEGATIVE UR COLOR Yellow YELLOW UR CLARITY Turbid (A) CLEAR UR WBC 1-3 1 - 3 [HPF] UR RBC 1-3 1 - 3 [HPF] UR SQUAMOUS EPI None Seen 3 - 5 [HPF] UR MUCOUS Moderate (A) NONE SEEN [HPF] UR BACTERIA None Seen NONE SEEN [HPF] UR HYALINE CAST 1-3 NONE SEEN [LPF] Results XR Portable Chest (Final result) Result time 11/15/24 16:18:26 Final result Narrative: [place] [address] Radiology PATIENT NAME: Lambert Jason II MR#: [id number] PROCEDURE DATE: 11/15/2024 ROOM#: [id number] ORDERING PHYS: Carmen Spaulding DO EXAM: Portable chest dated 11/15/2024. CLINICAL INDICATION: CHEST PAIN PROCEDURE: Portable AP view of the chest. COMPARISON: 07/13/2018. FINDINGS-IMPRESSION: No cardiomegaly or pulmonary vascular congestion. No typical lung consolidation, pleural effusion or pneumothorax. The bony thorax appears grossly intact. 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1980 Requested By: CARMEN Velazquez Order Number: [id number] Reading MD: Cholo Alejandro MD Measurements Intervals [place] Rate: 84 P: 35 NV: 130 QRS: 53 QRSD: 106 T: 1 QT: 368 QTc: 435 Interpretive Statements: Sinus rhythm RSR' in V1 or V2, right VCD or RVH Borderline T abnormalities, inferior leads No previous ECG available for comparison Electronically Signed On 11-17-2024 15:20:06 EDT by Cholo Alejandro MD Preliminary result Narrative: [facility] ED Test Date: 2024-11-15 Pat Name: LAMBERT JASON Department: EMERGENCY DEPARTMENT Room: [facility] 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: Male 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 I spoke with the patient about his ED work up, diagnosis and any further treatment. I discussed the importance of following up with his PCP. I instructed him to return to the Emergency Room for new or worsening symptoms. All of the pt's questions were answered. The patient verbalized understanding. The patient is stable at time of discharge. Medical Decision Making DIFFERENTIAL DIAGNOSIS Differential Diagnosis: The following diagnoses were considered in the evaluation of this patient: LILIA, sepsis, pneumonia, overuse of medication Amount and/or Complexity of Data Reviewed Labs: ordered. Radiology: ordered. ECG/medicine tests: ordered. Risk Prescription drug management. Progress Note: ED Prescriptions None Final diagnoses: Hypotension ED Disposition ED Disposition Discharged Condition Stable Comment -- Discharge Instructions Return to the ED if worse Continue home medicines Hold the lisinopril Make appointment with your family and heart Dr. in one to 2 days We will make appointment with heart DrNewton For you Scribe Attestation: Sobia Mcintyre acting as a scribe for and in the presence of Carmen Spaulding DO Electronically signed by Sobia Mcintyre 11/15/24 3:37 PM Provider Attestation: I personally performed the services described in the documentation, reviewed the documentation recorded by the scribe in my presence and it accurately and completely records my words and actions. Electronically Signed By Carmen Spaulding DO 11/18/2024 7:15 PM * Fabiana Davies RN - 11/15/2024 1:31 PM EDT EKG DONE AND GIVEN TO PROVIDER documented in this encounter Plan of Treatment Scheduled Referrals Name Type Priority Associated Diagnoses Order Schedule Ambulatory Referral to Cardiology Outpatient Referral Routine Hypotension Ordered: 11/15/2024 documented as of this encounter Procedures Procedure Name Priority Date/Time Associated Diagnosis Comments SARS COV-2/INFLU A+B/RSV RNA STAT 11/15/2024 5:33 PM EDT UA FOR INFECTION (REFLEX CULTURE) STAT 11/15/2024 5:32 PM EDT COMPREHENSIVE METABOLIC PANEL STAT 11/15/2024 3:05 PM EDT PROCALCITONIN, QN, S STAT 11/15/2024 3:05 PM EDT LACTIC ACID, VENOUS STAT 11/15/2024 3 :05 PM EDT CBC W/DIFFERENTIAL STAT 11/15/2024 3: 05 PM EDT BLOOD CULTURE, PERIPHERAL STAT 11/15/2024 3:05 PM EDT BLOOD CULTURE, PERIPHERAL STAT 11/15/2024 3:05 PM EDT XR PORTABLE CHEST STAT 11/15/2024 2:2 7 PM EDT EKG 12-LEAD (ED) STAT 11/15/2024 1:31 PM EDT Hypotension documented in this encounter Results * SARS Cov-2/Influ A+B/RSV RNA (11/15/2024 5:33 PM EDT) RSV RNA NEGATIVE Negative 11/15/2024 6:23 PM EDT [facility] Comment: Testing was performed using the Evi Xpert Xpress System. Influenza A NEGATIVE Negative 11/15/2024 6:23 PM EDT [facility] Comment: Testing was performed using the [employer]epMo[employer] In Xpert Xpress System. Influenza B NEGATIVE Negative 11/15/2024 6:23 PM EDT [facility] Comment: Testing was performed using the Evi Xpert Xpress System. SARS-CoV-2 RNA Undetected 11/15/2024 6:23 PM EDT [facility] Comment: Testing was performed using the Evi Xpert Xpress System. Fact sheets for this Emergency Use Authorization (EUA) assay can be found at the following links: For Healthcare Providers: https://www.fda.gov/media/639012/download For Patients: https://www.fda.gov/media/470839/download Test Performed by: [facility],[address] [place] [address] Submarine Advisory Team Watch Officer: Aditi Ngael D.O. Nasopharyngeal (Nasopharyngeal Swab) 11/15/2024 5:33 PM EDT 11/15/2024 5:39 PM EDT Narrative [facility] - 11/15/2024 6:23 PM EDT NO KNOWN ALLERGIES Carmen Spaulding DO MICROBIOLOGY - GENERAL ORDE RABSHAMEKA Final Result [facility] [address] [place] [address] * (ABNORMAL) UA for Infection (Reflex Culture) (11/15/2024 5:32 PM EDT) [facility] Signature UR GLUCOSE Negative NEGATIVE mg/dL 11/15/2024 6:23 PM EDT [facility] UR BILIRUBIN Negative NEGATIVE mg/dL 11/15/2024 6:23 PM EDT [facility] UR KETONE 20(A) NEGATIVE mg/dL 11/15/2024 6:23 PM EDT [facility] UR SP GRAVITY 1.031 1.005 - 1.030 11/15/2024 6:23 PM EDT [facility] UR BLOOD Trace(A) NEGATIVE mg/dL 11/15/2024 6:23 PM EDT [facility] UR PH 5.0 5.0 - 9.0 11/15/2024 6:23 PM EDT [facility] UR PROTEIN Negative NEGATIVE mg/dL 11/15/2024 6:23 PM EDT [facility] UR UROBILINOGEN <2.0 <2.0 6:23 PM EDT [facility] UR NITRITE Negative NEGATIVE mg/dL 11/15/2024 6:23 PM EDT [facility] UR LEUKOCYTE Negative NEGATIVE 11/15/2024 6:23 PM EDT [facility] UR COLOR Yellow YELLOW 11/15/2024 6:23 PM EDT [facility] UR CLARITY Turbid(A) CLEAR 11/15/2024 6:23 PM EDT [facility] UR WBC 1-3 1 - 3 [HPF] 11/15/2024 6:27 PM EDT [facility] UR RBC 1-3 1 - 3 [HPF] 11/15/2024 6:27 PM EDT [facility] UR SQUAMOUS EPI None Seen 3 - 5 [HPF] 11/16/19 6:27 PM EDT [facility] UR MUCOUS Moderate(A) NONE SEEN [HPF] 11/15/2024 6:27 PM EDT [facility] UR BACTERIA None Seen NONE SEEN [HPF] 11/15/2024 6:27 PM EDT [facility] UR HYALINE CAST 1-3 NONE SEEN [LPF] 11/15/2024 6:27 PM EDT [facility] Clean Catch Urine 11/15/2024 5:32 PM EDT 11/15/2024 5:46 PM EDT Narrative [facility] - 11/15/2024 6:27 PM EDT NO KNOWN ALLERGIES Carmen Spaulding DO URINE ORDERABLES Final Resu lt Performing Organization Address [facility] Co de Phone Number [facility] [address] [place] [address] [facility] [address] [place] [address] * Blood Culture, Peripheral x 2 sets (11/15/2024 3:05 PM EDT) BLOOD CULTURE No growth @ 24 hours. No growth @ 48 hours. No growth @ 72 hours. No growth @ 96 hours. No growth @ 120 hours. 11/20/2024 4:00 PM EDT [facility] Blood (Vein) 11/15/2024 3:05 PM EDT 11/15/2024 3:41 PM EDT Narrative [facility] - 11/20/2024 4:00 PM EDT NO KNOWN ALLERGIES Carmen Spaulding DO MICROBIOLOGY - GENERAL ORDE RABLES Final Result Performing Organization Address [facility] de Phone Number [facility] [address] [place] [address] [facility] [address] [place] [address] * Blood Culture, Peripheral x 2 sets (11/15/2024 3:05 PM EDT) BLOOD CULTURE No growth @ 24 hours. No growth @ 48 hours. No growth @ 72 hours. No growth @ 96 hours. No growth @ 120 hours. 11/20/2024 4:00 PM EDT [facility] Blood (Vein) 11/15/2024 3:05 PM EDT 11/15/2024 3:41 PM EDT Narrative [facility] - 11/20/2024 4:00 PM EDT NO KNOWN ALLERGIES [facility] DO MICROBIOLOGY - GENERAL ORDE RABLES Final Result Performing Organization Address [facility] Co de Phone Number [facility] [address] [place] [address] [facility] [address] [place] [address] * Lactic Acid, Venous (11/15/2024 3:05 PM EDT) Pathologist [facility] LACTIC ACID 1.1 0.5 - 1.9 mmol/L 11/15/2024 3:51 PM EDT [facility] 11/15/2024 3:05 PM EDT 11/15/2024 3:28 PM EDT Narrative [facility] - 11/15/2024 3:51 PM EDT NO KNOWN ALLERGIES [facility] CHEMISTRY ORDERABLES Final Result Performing Organization Address [facility] de Phone Number [facility] [address] [place] [address] [facility] [address] [place] [address] * Procalcitonin, QN, S (11/15/2024 3:05 PM EDT) Pathologist [facility] PROCALCITONIN, QN, S <0.05 ng/mL 11/15/2024 4:12 PM EDT [facility] Comment: . <0.05 ng/mL Healthy individuals. <0.50 ng/mL Systemic infection (sepsis) is not likely. 0.50 - 2.00 ng/mL Systemic infection (sepsis) is possible, but other conditions are known to induce PCT as well. 2.00 - 10.00 ng/mL Systemic infection (sepsis) is likely, unless other causes are known. >=10.00 ng/mL Important systemic inflammatory response, almost exclusively due to severe bacterial sepsis or septic shock. 11/15/2024 3:05 PM EDT 11/15/2024 3:28 PM EDT Narrative [facility] - 11/15/2024 4:12 PM EDT NO KNOWN ALLERGIES Carmen Spaulding DO CHEMISTRY ORDERABLES Final Result [facility] [address] [place] [address] [facility] [address] [place] [address] * (ABNORMAL) Comprehensive Metabolic Panel (11/15/2024 3:05 PM EDT) SODIUM 139 135 - 145 mmol/L 11/15/2024 3:54 PM EDT [facility] POTASSIUM 3.9 3.6 - 5.0 mmol/L 11/15/2024 3:54 PM EDT [facility] CHLORIDE 100(L) 101 - 111 mmol/L 11/15/2024 3:54 PM EDT [facility] CO2 30 21 - 31 mmol/L 11/15/2024 3:54 PM EDT [facility] ANION GAP 9 11/15/2024 3:54 PM EDT [facility] GLUCOSE 85 70 - 110 mg/dL 11/15/2024 3:54 PM EDT [facility] CREATININE 1.0 0.6 - 1.2 mg/dL 11/15/2024 3:54 PM EDT [facility] BUN 21 2 - 32 mg/dL 11/15/2024 3:54 PM EDT [facility] CALCIUM 9.7 8.5 - 10.5 mg/dL 11/15/2024 3:54 PM EDT [facility] PROTEIN TOTAL 7.5 6.1 - 7.8 g/dL 11/15/2024 3:54 PM EDT [facility] Albumin 4.5 3.2 - 5.0 g/dL 11/15/2024 3:54 PM EDT [facility] T BILIRUBIN 0.6 0.2 - 1.0 mg/dL 11/15/2024 3:54 PM EDT [facility] ALP 48 42 - 121 [iU]/L 11/15/2024 3:54 PM EDT [facility] AST 18 10 - 42 [iU]/L 11/15/2024 3:54 PM EDT [facility] ALT (SGPT) 24 10 - 60 [iU]/L 11/15/2024 3:54 PM EDT [facility] OSMOLALITY 280 266 - 309 11/15/2024 3:54 PM EDT [facility] A/G Ratio 1.5 11/15/2024 3:54 PM EDT [facility] B/C 21(H) 10 - 20 11/15/2024 3:54 PM EDT [facility] ESTIMATED GFR 81 mL/min 11/15/2024 3:54 PM EDT [facility] Comment: *The estimated Glomerular Filtration Rate(EGFR) may not be accurate for children under the age of 18 yrs. To estimate the GFR for -Americans multiply the result provided by 1.21. Stage 1 90 mL/min or greater Stage 2 60-89 mL/min Stage 3 30-59 mL/min Stage 4 15-29 mL/min Stage 5 14 mL/min or less 11/15/2024 3:05 PM EDT 11/15/2024 3:28 PM EDT Narrative [facility] - 11/15/2024 3:54 PM EDT NO KNOWN ALLERGIES Carmen Spaulding DO CHEMISTRY ORDERABLES Final Result [facility] [address] [place] [address] [facility] [address] [place] [address] * CBC w/Differential (11/15/2024 3:05 PM EDT) WBC 6.4 4.5 - 11.0 10*3/uL 11/15/2024 5:14 PM EDT [facility] RBC 5.03 4.50 - 5.90 10*6/uL 11/15/2024 5:14 PM EDT [facility] HGB 15.0 13.5 - 17.5 g/dL 11/15/2024 5:14 PM EDT [facility] HCT 43.5 37.0 - 53.0 % 11/15/2024 5:14 PM EDT [facility] MCV 86.5 80.0 - 100.0 fL 11/15/2024 5:14 PM EDT [facility] MCHC 34.5 32.0 - 36.0 g/dL 11/15/2024 5:14 PM EDT [facility] MCH 29.8 26.0 - 34.0 pg 11/15/2024 5:14 PM EDT [facility] RDW 13.8 10.7 - 18.7 % 11/15/2024 5:14 PM EDT [facility] MPV 9.5 6.5 - 10.0 fL 11/15/2024 5:14 PM EDT [facility] Platelet Cnt 252 150 - 450 10*3/uL 11/15/2024 5:14 PM EDT [facility] Differential Type Auto 025 5:14 PM EDT [facility] Neutrophils 62.0 35.0 - 66.0 % 11/15/2024 5:14 PM EDT [facility] Lymphocytes 26.4 24.0 - 44.0 % 11/15/2024 5:14 PM EDT [facility] Monocytes 9.9 2.1 - 13.3 % 11/15/2024 5:14 PM EDT [facility] Eosinophils 0.7 0.3 - 5.0 % 11/15/2024 5:14 PM EDT [facility] Basophils 1.0 0.0 - 1.0 % 11/15/2024 5:14 PM EDT [facility] Neutrophils Abs 4.0 1.5 - 8.5 10*3/uL 11/15/2024 5:14 PM EDT [facility] Lymphocytes Abs 1.7 1.1 - 5.0 10*3/uL 11/15/2024 5:14 PM EDT [facility] Monocytes Abs 0.6 0.0 - 1.4 10*3/uL 11/15/2024 5:14 PM EDT [facility] Eosinophils Abs 0.0 0.0 - 0.5 10*3/uL 11/15/2024 5:14 PM EDT [facility] Basophils Abs 0.1 0.0 - 0.1 10*3/uL 11/15/2024 5:14 PM EDT [facility] MDW 17.3 0.0 - 20.0 11/15/2024 5:14 PM EDT [facility] 11/15/2024 3:05 PM EDT 11/15/2024 3:39 PM EDT Narrative [facility] - 11/15/2024 5:14 PM EDT NO KNOWN ALLERGIES us Carmen Spaulding DO HEMATOLOGY ORDERABLES Final Result [facility] [address] [place] [address] * XR Portable Chest (11/15/2024 2:27 PM EDT) Anatomical Region Laterality Modality Chest Computed Radiogr aphy 11/15/2024 Narrative 11/15/2024 4:16 [place] [address] Radiology PATIENT NAME: Lambert Jason II MR#: [id number] PROCEDURE DATE: 11/15/2024 ROOM#: [facility] ORDERING PHYS: Carmen Spaulding DO EXAM: Portable chest dated 11/15/2024. CLINICAL INDICATION: CHEST PAIN PROCEDURE: Portable AP view of the chest. COMPARISON: 07/13/2018. FINDINGS-IMPRESSION: No cardiomegaly or pulmonary vascular congestion. No typical lung consolidation, pleural effusion or pneumothorax. The bony thorax appears grossly intact. THIS IS AN ELECTRONICALLY VERIFIED REPORT 11/15/2024 4:16 PM: MD Rose Ji MD TD: 11/15/2024 JOB #: [id number] Radiology Page 1 of 1 COPY Procedure Note Rose Rosas MD - 11/15/2024 [place] [address] Radiology PATIENT NAME: Lambert Jason II MR#: [id number] PROCEDURE DATE: 11/15/2024 ROOM#: [facility] ORDERING PHYS: Carmen Spaulding DO EXAM: Portable chest dated 11/15/2024. CLINICAL INDICATION: CHEST PAIN PROCEDURE: Portable AP view of the chest. COMPARISON: 07/13/2018. FINDINGS-IMPRESSION: No cardiomegaly or pulmonary vascular congestion. No typical lung consolidation, pleural effusion or pneumothorax. The bony thoraxappears grossly intact. 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1980 Requested By: CARMEN Velazquez Order Number: [id number] Reading MD: Cholo Alejandro MD Measurements Intervals [place] Rate: 84 P: 35 NV: 130 QRS: 53 QRSD: 106 T: 1 QT: 368 QTc: 435 Interpretive Statements: Sinus rhythm RSR' in V1 or V2, right VCD or RVH Borderline T abnormalities, inferior leads No previous ECG available for comparison Electronically Signed On 11-17-2024 15:20:06 EDT by Cholo Alejandro MD Procedure Note Cholo Alejandro MD - 11/17/2024 [facility] ED Test Date: 2024-11-15 Pat Name: LAMBERT WOODYZ Department: EMERGENCYDEPARTMENT Room: [facility] 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1980 Requested By: CARMEN Velazquez Order Number: [id number] Reading MD: Cholo Lepe Measurements Intervals [place] Rate: 84 P: 35 NV: 130 QRS: 53 QRSD: 106 T: 1 QT: 368 QTc: 435 Interpretive Statements: Sinus rhythm RSR' in V1 or V2, right VCD or RVH Borderline T abnormalities, inferior leads No previous ECG available for comparison Electronically Signed On 11-17-2024 15:20:06 EDT by Cholo Alejandro MD us Carmen Spaulding DO EKG ORDERABLES Final Resul t [facility] documented in this encounter Visit Diagnoses Diagnosis Hypotension- Primary Hypotension, unspecified documented in this encounter Administered Medications Inactive Administered Medications - up to 3 most recent administrations Medication Order MAR Action Action Date Dose Rate Site HYDROcodone-acetaminophen (NORCO) 5-325 mg per tab 2 Tablet 2 Tablet, Oral, ONE TIME ONLY, 1 dose, On Wed11/15/24 at 2014, STAT, *DO NOT EXCEED 4g ACETAMINOPHEN PER DAY* (WASTE: JARETH) Given 11/15/2024 8:22 PM EDT 2 Tabs ketorolac (TORADOL) injection 30 mg 30 mg, Intravenous, ONE TIME ONLY, 1 dose, On Wed11/15/24 at 2021, STAT, (WASTE: BKC) Given 11/15/2024 8:25 PM EDT 30 mg documented in this encounter Active and Recently Administered Medications Times are shown in EDT. Scheduled Medication Order 11/13/2024 11/14/2024 11/15/2024 HYDROcodone-acetaminophen (NORCO) 5-325 mg per tab 2 Tablet (COMPLETED) 2 Tablet, Oral, ONE TIME ONLY, 1 dose, On Wed11/15/24 at 2014, STAT, *DO NOT EXCEED 4g ACETAMINOPHEN PER DAY* (WASTE: JARETH) 2021 (Given - Provid er: Shena Benjamin RN) ketorolac (TORADOL) injection 30 mg (COMPLETED) 30 mg, Intravenous, ONE TIME ONLY, 1 dose, On Wed11/15/24 at 2021, STAT, (WASTE: BKC) 2024 (Given - Provid er: Shena Benjamin RN) documented in this encounter Care Teams Sign Manufacturer Relationship Specialty Start Date End Date Sergio Shin MD [address] [place] [address] PCP - General Family Medicine 11/15/24 documented as of this encounter
[2024-12-29 18:05] LABS: Microalbumin/Creatinine Ratio 5.4
[2024-12-29 18:10] LABS: Creatinine,Urine Random 275 mg/dL (Not Estab.)
--- OUTSIDE RECORDS SUMMARY | 2024-12-29 22:22 | XMS_ITS | Encounter Summary ---
Author Organization Healthcare Address [address] [id number] Care Team Providers Care Director Of Medical Education Name Role Phone Pcp, No Primary Care Provider Unavailabl e Encounter Details Date Type Department Care Team (Late st Contact Info) Description 12/08/2022 Orders Only External Location [address] [place] [address] Chichi Tao MD [address] [place] [address] Social History Tobacco Use Types Packs/Day Years [...] Magnetic Resonan ce 12/08/2022 7:55 AM EDT us Chichi Tao MD IMG MRI PROCEDURES Final Result documented in this encounter Visit Diagnoses Not on filedocumented in this encounter Care Teams Director Of Medical Education Relationship Specialty Start Date End Date Pcp, No [address] [place] [address] PCP - General Family Medicine 12/18/22 documented as of this encounter
--- OUTSIDE RECORDS SUMMARY | 2024-12-29 22:22 | XMS_ITS | Encounter Summary ---
Author Organization [facility] Address [address] [place] [address] Care Team Providers Care Internet And E Business Project Manager Name Role Phone Sergio Shin MD Primary Care Provider [phone] Encounter Details Date Type Department Care Team (Latest Contact Info) Description 11/15/2024 Travel Social History Tobacco Use Types Packs/Day [...] on filedocumented in this encounter Care Teams Internet And E Business Project Manager Relationship Specialty Start Date End Date Sergio Shin MD [address] [place] [address] [place] [address] PCP - General Family Medicine 11/15/24 documented as of this encounter
--- OUTSIDE RECORDS SUMMARY | 2024-12-29 22:22 | XMS_ITS | Clinical Summary ---
Author Organization [facility] Address [facility] [place] [address] Care Team Providers Care Attendance Secretary Name Role Phone Pcp, No Primary Care [...] [facility]-Depression Screening 1980 [facility]-Infant/Child/Adol SDOH Screenings 1980 HPV Vaccines (1 - Male 3-dos e series) 1994 [facility]- SDOH Screenings 1997 [facility]-Adult SDOH Screenings 1997 [facility]-Hepatitis B Vaccines (1 of 3 - 19+ 3-dose series) 1998 CT Colonography 2024 Colonoscopy 2024 FIT-DNA 2024 FIT 2024 FOBT 2024 Sigmoidoscopy 2024 [facility]-Colorectal Cancer Screening 2024 [id number] Vaccine (2 - 20 24-25 season) 2024 10/03/2020 [facility]-Influenza Vaccine (Seas[place] n Ended) 2025 [facility]-DTaP,Tdap,and Td Vaccine s (2 - Td or Tdap) 05/10/2028 05/10/2018 [facility]-Zoster Vaccines (1 of 2) 2029 [facility]-HIB Vaccines Aged Out No longer e ligible based on patient's age to complete this topic [facility]-Hepatitis A Vaccines Aged Out No longer eligible based on patient's age to complete this topic [facility]-IPV Vaccines Aged Out No longer e ligible based on patient's age to complete this topic [facility]-Pneumococcal Vaccine: Pediatrics (0 to 5 Years) and At-Risk Patients (6 to 49 Years) Aged Out No long er eligible based on patient's age to complete this topic [facility]-Rotavirus Vaccines Aged Out No lo nger eligible based on patient's age to complete this topic Insurance [employer] Care Teams Attendance Secretary Relationship Specialty Start Date End Date Pcp, [place] [address] PCP - General Family Medicine 12/18/22
--- OUTSIDE RECORDS SUMMARY | 2024-12-29 22:23 | XMS_ITS | Data Portability ---
Author Organization [facility] Address [address] [place] [address] Care Team Providers Care Care Transition Mgr Name Role Phone FREDI TAO Primary Care Provider [phone] FREDI TAO Referring Provider FREDI TAO Primary Care Provider [phone] Assessment No assessment recorded. Plan of Treatment Reminders Order Date Submit Date Provider Last Modified By Organization Details Last Modified Time Details Appointments None recorded. Lab None recorded. Referral None recorded. Procedures None recorded. Surgeries None recorded. Imaging XR, ankle 2022 023 [email or web address], [address] [place] [address] [place], [address], 3 10:05:32 XR, ankle 2022 023 [email or web address] [facility], [address] [place] [address] [place], [address], 3 09:33:52 Medication Orders Kenalog 10 mg/mL suspension for injection [address] [facility], [address] [place], [address], 3 10:05:32 bupivacaine (PF) 0.5 % (5 mg/mL) injection solution [address] [facility], [address] [place], [address], 3 10:05:32 Kenalog 10 mg/mL suspension for injection [address] [facility], [address] [place], [address], 3 09:33:52 bupivacaine (PF) 0.5 % (5 mg/mL) injection solution [address] [facility], [address] [place], [address], 3 09:33:52 Sensorcaine 0.5 % (5 mg/mL) injection solution 2022 023 [facility], [address] [place] [address], [address], 3 08:07:27 Kenalog 10 mg/mL suspension for injection 2022 023 [facility], [address] [place] [address], [address], 3 08:07:00 Patient TargetsNo targets recorded. Patient InstructionsNo instructions recorded. Reason for Referral None Reported. Results Created Date Observation Date Name Description Value Unit Range Abnormal Flag Note LastModifiedBy Organization Detail LastModifiedTime 05/27/20 23 XR, ankle No observ ation record ed. KENDELL Palacios [facility] [address] [place], [address], 05/27/2023 08:15:36 06/08/20 23 XR, ankle No observ ation record ed. KENDELL Palacios 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 Mild synovi tis tibial is ophthalmology assistant ior and flexor digito rum longus as [...] M.D. PAGE 1 Signed Report (CHINA NUED) [facility] Name: HOLLIE JASON [address] Phys: [place] FINANCIAL WRITER/F SUPPORT ENGINE[place] [address] : 1979 Age: 43 Sex: M Acct: [id number] Loc: G.MRI PHONE #: Exam Date: 2022 Status : REG CLI FAX #: Rad# [id number] Unit# [id number] Admit Date: 2022 EXAMS: CPT CODE: [id number] [place] [address] CC: Fredi Tao ; Anuradha Elias Lisbet FINANCIAL WRITER/F SUPPORT ENGINEER Dictat ed Date/T hoa: 2022 (1036) Techno logist : ELPIDIO MUONZ Transc ribed Date/T hoa: 2022 (1036) Transc riptio nist: DR.HAR LEW Johnson onic Signat ure Date/T hoa: 2022 (1036) Printe d Date/T hoa: 2022 (1039) BATCH NO: N/A PAGE 2 Signed Report CC'ed Logic: Orderi ng Provid er: LISBET ANURADHA Attend ing Provid er: LISBET ANURADHA Referr ing Provid er: LISBET ANURADHA Consul ting Provid er: YORDAN miller[address] [place] [address] [place], [address], 07/07/2023 10:50:21 Result Notes None recorded. Medical Equipment None Reported. [...] Time Tobacco Smoking Status Never Smoker Livia Ortega [facility], [facility] & [place] 01/27/2023 10:40:06 Do You Have An Advance Directive? No Information not available 01/27/2023 Are You Blind Or Do You Have Difficulty Seeing? No Information not available 01/27/2023 Are You Passively Exposed To Smoke? No Information not available 01/27/2023 Sex: Male Functional Status Question Answer Note LastModified by Organizat ion Details LastModified Time Do you use any illicit or recreational drugs? No Information not available 01/27/2023 What is your level of alcohol consumption? None Information not available 01/27/2023 What is your exercise level? Moderate Information not available 01/27/2023 Mental Status None recorded. Family History Nothing Reported. Medical History Condition Response Diabetes Y Hypertension Y High Cholesterol Y Immunizations Vaccine Type Date Status Note Provider Nam e and Address Organization Details Recorded Time COVID-19 vaccine, vector-nr, rS-Ad26, PF, 0.5 mL 10/03/2020 completed Sheila fan, [place] - [facility] & [place] 06/08/2023 09:21:40 Past Encounters Encounter ID Performer Location Encounter Start Date Encounter Closed Date Diagnosis/Indication Diagnosis SNOMED-CT Code Diagnosis ICD10 Code Diagnosis Note [id number] ANURADHA DOLL NP [facility] [place] [id number] [facility] [place] [address] 01/27/2023 10:12:17 01/27/2023 10:56:27 Plantar fasciitis of right foot [id number] 3426974 M72.2 [id number] [facility] [address] [address] 05/27/2023 07:53:41 05/27/2023 08:35:47 Plantar fasciitis of right foot [id number] 5878716 M72.2 Injury of left ankle 863 2664034 0796724 S99.912A Acquired b ilateral pes planus [id number] 3234363 M21.41 M21.42 [id number] KEO WARD [facility] [place] [facility] [address] [address] 06/08/2023 08:41:25 06/08/2023 09:43:18 Injury of left ankle [id number] 2963974 S99.912D Tendinitis of left posterior tibial tendon 9590441091 38999 M76.822 [id number] MD DENISE [facility] [address] [place] [address] 07/13/2023 13:08:17 07/13/2023 14:08:12 Stress fracture 794892040 M84.372A Marrow edema of the talus most compatible with stress fracture Health Concerns Section Related Observation LastModified by Organization Detai ls LastModified Time None Recorded Concern Status LastModified by Organization Details LastModified Time None Recorded Advance Directives Directive N: Payers Insurance Date Sequence Insurance Name Policy Number Policy Bauman Covered Member ID Bauman Member ID Guarantor Name 08/23/2023 1 [place] [id number] Lambert Jason II [id number] Lambert Jason Notes Date Note Type [...] aspect of foot. ANURADHA DOLL NP [address] [facility],[address], [place], [address], [place] [facility] [facility] 01/27/2023 11:29:27 05/27/2023 text/html Patient is here [...] He is wearing ankle brace. CHE1 ANURADHA DOLL NP [address] [facility],[address], [place], [address], [facility] - [facility] & [place] 05/27/2023 09:05:53 06/08/2023 text/html Patient presents to [...] today in office. [email or web address] ANURADHA DOLL NP [address] [place] [address],[address], [place], [address], [facility] 06/08/2023 14:29:05 07/13/2023 text/html 43 year old male presents today in office for MRI LEFT ankle at [facility] 07/07/23 follow-up that revealed:IMPRESSIO N:1. Marrow edema of the talus as detailed above most compatible with stress fracture.2. 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
--- OUTSIDE RECORDS SUMMARY | 2024-12-29 22:23 | XMS_ITS | Clinical Summary ---
Author Organization [facility] Address [address] [place] [address] Care Team Providers Care Clothing Worker Name Role Phone Sergio Shin MD Primary Care Provider [phone] Allergies No known active allergies Medications albuterol (PROVENTIL HFA) 90 mcg/Actuation inhalerIndicati ons:Cough,SOB (shortness of breath) Take 2 Puffs by inhalation Every 4 hours as needed. 1 Package QS 8 Active lisinopriL (PRINIVIL) 10 mg tablet Take 10 mg by mouth Once Daily. Active cetirizine (ZYRTEC) 10 mg tablet Take 10 mg by mouth Once Daily. Active Active Problems Problem Noted Date Diagnosed Date Cough 07/13/2018 Encounters Date Type Department Care Team Description 11/15/2024 1:31 PM EDT - 11/15/2024 8:53 PM EDT Emergency Emergency Department [address] [place] [address] Tom Spaulding, Hypotension (Primary Dx) Discharge Disposition: Home or Self Care 11/15/2024 Travel from Last 3 Months Social History Tobacco Use Types Packs/Day Years [...] EDT Inhaled Oxygen Concentration - - Weight 139.7 kg (308 lb) 07/13/2018 1:13 PM EST Height - - Body Mass Index - - Plan of Treatment Health Maintenance Due Date Last Done Comments COLOGUARD 1980 COLONOSCOPY 1980 Colorectal Screening Combination 1979 FIT 1979 HEP C SCREENING 1979 SIGMOIDOSCOPY 1979 ANNUAL WELLNESS EXAM 1982 COVID-19 Vaccine (2 - 2023-2 5 season) 2024 10/03/2020 INFLUENZA VACCINE (Season Ended) 2025 DTAP/TDAP/TD VACCINE (2 - Td or Tdap) 05/10/2028 05/10/2018 HEP A VACCINE Aged Out No longer elig ible based on patient's age to complete this topic HIB VACCINE Aged Out No longer eligi ble based on patient's age to complete this topic ROTOVIRUS VACCINE Aged Out No longer eligible based on patient's age to complete this topic Procedures Procedure Name Priority Date/Time Associated Diagnosis Comments SARS COV-2/INFLU A+B/RSV RNA STAT 11/15/2024 5:33 PM EDT UA FOR INFECTION (REFLEX CULTURE) STAT 11/15/2024 5:32 PM EDT LACTIC ACID, VENOUS STAT 11/15/2024 3 :05 PM EDT PROCALCITONIN, QN, S STAT 11/15/2024 3:05 PM EDT COMPREHENSIVE METABOLIC PANEL STAT 11/15/2024 3:05 PM EDT CBC W/DIFFERENTIAL STAT 11/15/2024 3: 05 PM EDT BLOOD CULTURE, PERIPHERAL STAT 11/15/2024 3:05 PM EDT BLOOD CULTURE, PERIPHERAL STAT 11/15/2024 3:05 PM EDT XR PORTABLE CHEST STAT 11/15/2024 2:2 7 PM EDT EKG 12-LEAD (ED) STAT 11/15/2024 1:31 PM EDT Hypotension from Last 3 Months Results * SARS Cov-2/Influ A+B/RSV RNA (11/15/2024 5:33 PM EDT) RSV RNA NEGATIVE Negative 11/15/2024 6:23 PM EDT [facility] Comment: Testing was performed using the [employer] Xpert Xpress System. Influenza A NEGATIVE Negative 11/15/2024 6:23 PM EDT [facility] Comment: Testing was performed using the [employer] Xpert Xpress System. Influenza B NEGATIVE Negative 11/15/2024 6:23 PM EDT [facility] Comment: Testing was performed using the [employer] Xpert Xpress System. SARS-CoV-2 RNA Undetected 11/15/2024 6:23 PM EDT [facility] Comment: Testing was performed using the [employer] Xpert Xpress System. Fact sheets for this Emergency Use Authorization (EUA) assay can be found at the following links: For Healthcare Providers: https://www.fda.gov/media/098307/download For Patients: https://www.fda.gov/media/636280/download Test Performed by: [facility],[address] [place] [address] Landfill Grader: Aditi Nagel D.O. Nasopharyngeal (Nasopharyngeal Swab) 11/15/2024 5:33 PM EDT 11/15/2024 5:39 PM EDT Narrative [facility] - 11/15/2024 6:23 PM EDT NO KNOWN ALLERGIES Tom Spaulding DO MICROBIOLOGY - GENERAL ORDE RABSHAMEKA Final Result [facility] [address] [place] [address] LAB [address] [place] [address] * (ABNORMAL) UA for Infection (Reflex Culture) (11/15/2024 5:32 PM EDT) UR GLUCOSE Negative NEGATIVE mg/dL 11/15/2024 6:23 PM EDT [facility] UR BILIRUBIN Negative NEGATIVE mg/dL 11/15/2024 6:23 PM EDT [facility] UR KETONE 20(A) NEGATIVE mg/dL 11/15/2024 6:23 PM EDT [facility] UR SP GRAVITY 1.031 1.005 - 1.030 11/15/2024 6:23 PM EDT [facility] UR BLOOD Trace(A) NEGATIVE mg/dL 11/15/2024 6:23 PM EDT [facility] UR PH 5.0 5.0 - 9.0 11/15/2024 6:23 PM EDT [facility] UR PROTEIN Negative NEGATIVE mg/dL 11/15/2024 6:23 PM EDT [facility] UR UROBILINOGEN <2.0 <2.0 6:23 PM EDT [facility] UR NITRITE Negative NEGATIVE mg/dL 11/15/2024 6:23 PM EDT [facility] UR LEUKOCYTE Negative NEGATIVE 11/15/2024 6:23 PM EDT [facility] UR COLOR Yellow YELLOW 11/15/2024 6:23 PM EDT [facility] UR CLARITY Turbid(A) CLEAR 11/15/2024 6:23 PM EDT [facility] UR WBC 1-3 1 - 3 [HPF] 11/15/2024 6:27 PM EDT [facility] UR RBC 1-3 1 - 3 [HPF] 11/15/2024 6:27 PM EDT [facility] UR SQUAMOUS EPI None Seen 3 - 5 [HPF] 11/16/19 6:27 PM EDT [facility] UR MUCOUS Moderate(A) NONE SEEN [HPF] 11/15/2024 6:27 PM EDT [facility] UR BACTERIA None Seen NONE SEEN [HPF] 11/15/2024 6:27 PM EDT [facility] UR HYALINE CAST 1-3 NONE SEEN [LPF] 11/15/2024 6:27 PM EDT [facility] Clean Catch Urine 11/15/2024 5:32 PM EDT 11/15/2024 5:46 PM EDT Narrative [facility] - 11/15/2024 6:27 PM EDT NO KNOWN ALLERGIES Tom Spaulding DO URINE ORDERABLES Final Resu lt [facility] [address] [place] [address] [facility] [address] [place] [address] * (ABNORMAL) Comprehensive Metabolic Panel (11/15/2024 3:05 PM EDT) SODIUM 139 135 - 145 mmol/L 11/15/2024 3:54 PM EDT [facility] POTASSIUM 3.9 3.6 - 5.0 mmol/L 11/15/2024 3:54 PM EDT [facility] CHLORIDE 100(L) 101 - 111 mmol/L 11/15/2024 3:54 PM EDT [facility] CO2 30 21 - 31 mmol/L 11/15/2024 3:54 PM EDT [facility] ANION GAP 9 11/15/2024 3:54 PM EDT [facility] GLUCOSE 85 70 - 110 mg/dL 11/15/2024 3:54 PM EDT [facility] CREATININE 1.0 0.6 - 1.2 mg/dL 11/15/2024 3:54 PM EDT [facility] BUN 21 2 - 32 mg/dL 11/15/2024 3:54 PM EDT [facility] CALCIUM 9.7 8.5 - 10.5 mg/dL 11/15/2024 3:54 PM EDT [facility] PROTEIN TOTAL 7.5 6.1 - 7.8 g/dL 11/15/2024 3:54 PM EDT [facility] Albumin 4.5 3.2 - 5.0 g/dL 11/15/2024 3:54 PM EDT [facility] T BILIRUBIN 0.6 0.2 - 1.0 mg/dL 11/15/2024 3:54 PM EDT [facility] ALP 48 42 - 121 [iU]/L 11/15/2024 3:54 PM EDT [facility] AST 18 10 - 42 [iU]/L 11/15/2024 3:54 PM EDT [facility] ALT (SGPT) 24 10 - 60 [iU]/L 11/15/2024 3:54 PM EDT [facility] OSMOLALITY 280 266 - 309 11/15/2024 3:54 PM EDT [facility] A/G Ratio 1.5 11/15/2024 3:54 PM EDT [facility] B/C 21(H) 10 - 20 11/15/2024 3:54 PM EDT [facility] ESTIMATED GFR 81 mL/min 11/15/2024 3:54 PM EDT [facility] Comment: *The estimated Glomerular Filtration Rate(EGFR) [...] PM EDT 11/15/2024 3:28 PM EDT Narrative [facility] - 11/15/2024 3:54 PM EDT NO KNOWN ALLERGIES Tom Spaulding DO CHEMISTRY ORDERABLES Final Result [facility] [address] [place] [address] [facility] [address] [place] [address] * Procalcitonin, QN, S (11/15/2024 3:05 PM EDT) Pathologist [facility] PROCALCITONIN, QN, S <0.05 ng/mL 11/15/2024 4:12 PM EDT [facility] Comment: . <0.05 ng/mL Healthy individuals. [...] PM EDT 11/15/2024 3:28 PM EDT Narrative [facility] - 11/15/2024 4:12 PM EDT NO KNOWN ALLERGIES [facility] CHEMISTRY ORDERABLES Final Result Performing Organization Address [facility] Co de Phone Number [facility] [address] [place] [address] [facility] [address] [place] [address] * Lactic Acid, Venous (11/15/2024 3:05 PM EDT) Pathologist [facility] LACTIC ACID 1.1 0.5 - 1.9 mmol/L 11/15/2024 3:51 PM EDT [facility] 11/15/2024 3:05 PM EDT 11/15/2024 3:28 PM EDT Narrative [facility] - 11/15/2024 3:51 PM EDT NO KNOWN ALLERGIES [facility] CHEMISTRY ORDERABLES Final Result Performing Organization Address City/[facility] Co de Phone Number [facility] [address] [place] [address] [facility] [address] [place] [address] * CBC w/Differential (11/15/2024 3:05 PM EDT) WBC 6.4 4.5 - 11.0 10*3/uL 11/15/2024 5:14 PM EDT [facility] RBC 5.03 4.50 - 5.90 10*6/uL 11/15/2024 5:14 PM EDT [facility] HGB 15.0 13.5 - 17.5 g/dL 11/15/2024 5:14 PM EDT [facility] HCT 43.5 37.0 - 53.0 % 11/15/2024 5:14 PM EDT [facility] MCV 86.5 80.0 - 100.0 fL 11/15/2024 5:14 PM EDT [facility] MCHC 34.5 32.0 - 36.0 g/dL 11/15/2024 5:14 PM EDT [facility] MCH 29.8 26.0 - 34.0 pg 11/15/2024 5:14 PM EDT [facility] RDW 13.8 10.7 - 18.7 % 11/15/2024 5:14 PM EDT [facility] MPV 9.5 6.5 - 10.0 fL 11/15/2024 5:14 PM EDT [facility] Platelet Cnt 252 150 - 450 10*3/uL 11/15/2024 5:14 PM EDT [facility] Differential Type Auto 025 5:14 PM EDT [facility] Neutrophils 62.0 35.0 - 66.0 % 11/15/2024 5:14 PM EDT [facility] Lymphocytes 26.4 24.0 - 44.0 % 11/15/2024 5:14 PM EDT [facility] Monocytes 9.9 2.1 - 13.3 % 11/15/2024 5:14 PM EDT [facility] Eosinophils 0.7 0.3 - 5.0 % 11/15/2024 5:14 PM EDT [facility] Basophils 1.0 0.0 - 1.0 % 11/15/2024 5:14 PM EDT [facility] Neutrophils Abs 4.0 1.5 - 8.5 10*3/uL 11/15/2024 5:14 PM EDT [facility] Lymphocytes Abs 1.7 1.1 - 5.0 10*3/uL 11/15/2024 5:14 PM EDT [facility] Monocytes Abs 0.6 0.0 - 1.4 10*3/uL 11/15/2024 5:14 PM EDT [facility] Eosinophils Abs 0.0 0.0 - 0.5 10*3/uL 11/15/2024 5:14 PM EDT [facility] Basophils Abs 0.1 0.0 - 0.1 10*3/uL 11/15/2024 5:14 PM EDT [facility] MDW 17.3 0.0 - 20.0 11/15/2024 5:14 PM EDT [facility] 11/15/2024 3:05 PM EDT 11/15/2024 3:39 PM EDT Narrative [facility] - 11/15/2024 5:14 PM EDT NO KNOWN ALLERGIES Tom Spaulding DO HEMATOLOGY ORDERABLES Final Result Performing Organization Address [facility] Co de Phone Number [facility] [address] [place] [address] [facility] [address] [place] [address] * Blood Culture, Peripheral x 2 sets (11/15/2024 3:05 PM EDT) Only the most recent of2 resultswithin the time period is included. BLOOD CULTURE No growth @ 24 hours. No growth @ 48 hours. No growth @ 72 hours. No growth @ 96 hours. No growth @ 120 hours. 11/20/2024 4:00 PM EDT [facility] Blood (Vein) 11/15/2024 3:05 PM EDT 11/15/2024 3:41 PM EDT Narrative [facility] - 11/20/2024 4:00 PM EDT NO KNOWN ALLERGIES Tom Spaulding DO MICROBIOLOGY - GENERAL ORDE RABLES Final Result Performing Organization Address City/[facility]/ZIP Co de Phone Number [facility] [address] [place] [address] [facility] [address] [place] [address] * XR Portable Chest (11/15/2024 2:27 PM EDT) Anatomical Region Laterality Modality Chest Computed Radiogr aphy 11/15/2024 Narrative 11/15/2024 4:[place] [address] Radiology PATIENT NAME: Lambert López II MR#: [id number] PROCEDURE DATE: 11/15/2024 ROOM#: [id number] ORDERING PHYS: Tom Spaulding, DO EXAM: Portable chest dated 11/15/2024. CLINICAL INDICATION: CHEST PAIN PROCEDURE: Portable AP view of the chest. COMPARISON: 07/13/2018. FINDINGS-IMPRESSION: No cardiomegaly or pulmonary vascular congestion. No typical lung consolidation, pleural effusion or pneumothorax. The bony thorax appears grossly intact. THIS IS AN ELECTRONICALLY VERIFIED REPORT 11/15/2024 4:16 PM: MD Rose Ji MD TD: 11/15/2024 JOB #: [id number] Radiology Page 1 of 1 COPY Procedure Note Rose Rosas MD - 11/15/2024 [place] [address] Radiology PATIENT NAME: Lambert López II MR#: [id number] PROCEDURE DATE: 11/15/2024 ROOM#: [id number] ORDERING PHYS: Tom Spaulding, DO EXAM: Portable chest dated 11/15/2024. CLINICAL INDICATION: CHEST PAIN PROCEDURE: Portable AP view of the chest. COMPARISON: 07/13/2018. FINDINGS-IMPRESSION: No cardiomegaly or pulmonary vascular congestion. No typical lung consolidation, pleural effusion or pneumothorax. The bony thoraxappears grossly intact. THIS IS AN ELECTRONICALLY VERIFIED REPORT 11/15/2024 4:16 PM: MD Rose Ji MD TD: 11/15/2024 JOB #: [id number] Radiology Page 1 of 1COPY us Tom Spaulding DO IMG DIAGNOSTIC IMAGING ORDE RABLES Final Result * 12 Lead EKG - ED (Initial EKG) (11/15/2024 1:31 PM EDT) 11/15/2024 1:31 PM EDT Narrative [facility] - 11/17/2024 3:20 PM EDT [facility] ED Test Date: 2024-11-15 Pat Name: LAMBERT LÓPEZ Department: EMERGENCY DEPARTMENT Room: [facility] Gender: Male Manager Event: : 1980 Requested By: TOM Velazquez Order Number: [id number] Reading MD: Cholo Alejandro MD Measurements Intervals [place] Rate: 84 P: 35 WA: 130 QRS: 53 QRSD: 106 T: 1 QT: 368 QTc: 435 Interpretive Statements: Sinus rhythm RSR' in V1 or V2, right VCD or RVH Borderline T abnormalities, inferior leads No previous ECG available for comparison Electronically Signed On 11-17-2024 15:20:06 EDT by Cholo Alejandro MD Procedure Note Cholo Alejandro MD - 11/17/2024 [facility] ED Test Date: 2024-11-15 Pat Name: LAMBERT LÓPEZ Department: EMERGENCYDEPARTMENT Room: [facility] Gender: Male Manager Event: : 1980 Requested By: TOM Velazquez Order Number: [id number] Reading MD: Cholo Lepe Measurements Intervals [place] Rate: 84 P: 35 WA: 130 QRS: 53 QRSD: 106 T: 1 QT: 368 QTc: 435 Interpretive Statements: Sinus rhythm RSR' in V1 or V2, right VCD or RVH Borderline T abnormalities, inferior leads No previous ECG available for comparison Electronically Signed On 11-17-2024 15:20:06 EDT by Cholo Alejandro MD us Tom Spaulding DO EKG ORDERABLES Final Resul t [facility] from Last 3 Months [place] [address] COMMERCIAL - GENERIC COMMERCIAL - GENERIC COMMERCIAL - GENERIC Care Teams Clothing Worker Relationship Specialty Start Date End Date Sergio Shin MD [address] [place] [address] [address] [place] [address] PCP - General Family Medicine 11/15/24
== END 2024-12-29 23:59 | disposition home or self-care (01) ==
LOC: LAB.DROPOF 22:20
PROVIDERS: PCP Internal Medicine; Visit Provider Internal Medicine
DX: E11.9 Type 2 diabetes mellitus without complications (principal)
CPT/HCPCS: 82043; 82570

== ENCOUNTER 2025-01-12 17:40 | Emergency (ER) | payer BC, SELFPAY ==
[2025-01-12 17:51] VITALS: BP 138/82; PULSE 73; RESP 16; TEMP 36.8; O2SAT 100; BMI 39.0
--- OUTSIDE RECORDS SUMMARY | 2025-01-12 18:03 | XMS_ITS | Clinical Summary ---
Author Organization [facility] Address [facility] [place] [address] Care Team Providers Care Academic Records Specialist Name Role Phone Pcp, No Primary Care [...] 2024 Sigmoidoscopy 2024 [facility]-Colorectal Cancer Screening 2024 [id number] Vaccine (2 - 20 24-25 season) 2024 [...] Insurance [employer] Care Teams Academic Records Specialist Relationship Specialty Start Date End Date Pcp, [place] [address] PCP - General Family Medicine 12/18/22
--- OUTSIDE RECORDS SUMMARY | 2025-01-12 18:04 | XMS_ITS | Continuity of Care Document ---
Author Organization [facility] Address [address] [place] [id number] Care Team Providers Care Management Information Systems Director Name Role Phone CALE SMALL Jig Filler Unavailable NANCY MATTA Criminal Justice Professor NANCY MATTA Criminal Justice Professor Assessment Encounter Date Assessment Date Assessment LastModified by Organization Details LastModified Time 11/17/2024 11/17/2024 -Medications were reviewed and any necessary updates and renewals were made, patient instructed to complete as prescribed. -The potential side effects of medications were discussed. -Counseling was done on care goals and ways to prevent future hospitalizatio ns. -Further treatment per orders listed below. Not available 11/17/2024 10:00:04 Plan of Treatment Reminders Order Date Submit Date Provider Last Modified By Organization Details Last Modified Time Details Appointments None recorded. Lab None recorded. Referral None recorded. Procedures None recorded. Surgeries None recorded. Imaging None recorded. Medication Orders albuterol sulfate HFA 90 mcg/actuati on aerosol inhaler [address], [address], 10:38:43 cetirizine 10 mg tablet [address], [address], 10:38:44 fluticasone propionate 50 mcg/actuati on nasal spray,suspe nsion [address], [address], 10:38:43 Mounjaro 15 mg/0.5 mL subcutaneou s pen injector [address], [address], 10:38:42 OneTouch Ultra Test strips [address], [address], 10:41:41 Patient TargetsNo targets recorded. Patient Instructions Encounter Date Encounter Id Patient Instructions Last Modified By Organization Details Last Modified Time 11/17/2024 [id number] learning about healthy weight Not available 11/17/2024 10:38:41 body mass index: care instructions Not available 11/17/2024 10:38:41 Follow up as needed. The patient will report any new or worsening symptoms. The patient will return to clinic if new or worsening symptoms are noted, or if if the symptoms do not resolve. If marked worsening of the symptoms is noted the patient will go to the emergency department of their choice. Not available 11/17/2024 10:20:57 Reason for Referral None Reported. Results Created Date Observation Date Name Description Value Unit Range Abnormal Flag Note LastModifiedBy Organization Detail LastModifiedTime 10/31/1910/29/2024 CT, abdom en, w/o contr ast No observ ation record ed. [facility] [address], [place], [address], 10/30/2024 10:21:20 11/18/19 25 11/15/2024 elect ady nicholsgr am No observ ation record ed. [facility] [address] [facility], [place], [address], 11/20/2024 10:38:31 11/29/19 25 11/28/2024 CT, abdom en + pelvi s, w/o contr ast No observ ation record ed. [address], [place], [address], 11/28/2024 16:25:17 12/08/19 25 12/07/2024 [place], doppl er echoc ardio gram No observ ation record ed. [address], [place], [address], 12/07/2024 12:05:12 12/08/19 25 12/07/2024 nucle ar stres s test No observ ation record ed. [address], [place], [address], 12/07/2024 12:04:42 12/17/19 25 12/16/2024 XR, chest , 1 view No observ ation record ed. [address], [place], [address], 12/18/2024 08:50:40 Result Notes None recorded. Problems Name Problem SNOMED Code Status Onset Date Resolution Date Notes Provider Name and Address Organization Details Recorded Time Hypertens kings disorder 58170089 Active Chichi Tao MD [address], [place], [address], [place] [facility] 09:48:21 Hyperlipi demia 23297134 Active Chichi Tao MD [address], [place], [address], [place] [facility] 09:48:22 Tobacco dependenc e syndrome 71851667 Active 2019 Chichi Tao MD [address], [place], [address], [place] [facility] 09:48:22 COVID-19 114959801 Completed 201910/15/2021 Chichi Tao MD [address], [place], [address] [facility] 09:48:32 Blood glucose outside reference range 428293544 Active 2021 Chichi Tao MD [address], [place], [address] [facility] 10:15:43 Acute bacterial sinusitis 78602959 Active 2021 Chichi Tao MD [address], [place], [address] [facility] 17:49:07 Allergic rhinitis 12467471 Active 2022 Chichi Tao MD [address], [place], [address] [facility] 14:40:13 Dysfuncti on of left eustachia n tube 848847695508 9106 Active 2022 Chichi Tao MD [address], [place], [address] [facility] 14:51:31 Type 2 diabetes mellitus 51631602 Active 2022 Kayla Anaya, GIORGI [address], [place], [address] [facility] 5 10:41:48 Insulin resistanc e 036773353 Active 2022 Chichi Tao MD [address], [place], [address] [facility] 14:52:07 Lumbar radiculop athy 595844232 Active 2022 Chichi Tao MD [address], [place], [address] [facility] 09:53:05 History of male erectile disorder 382776648 Active 2022 Chichi Tao MD [address], [place], [address] [facility] 17:24:31 Biliary calculus 441391829 Active 2024 Kayla Anaya, CHEESEMAKER [address], [place], [address] [facility] 14:52:41 Nausea 528011951 Active 2024 Kayla Anaya, CHEESEMAKER [address], [place], [address] [facility] 14:52:43 Low blood pressure 72924351 Active 2024 Kayla Anaya, CHEESEMAKER [address], [place], [address] [facility] 11:44:18 Acute suppurati ve otitis media without spontaneo us rupture of ear drum 82732933 Active 2024 Kayla Anaya, CHEESEMAKER [address], [place], [address] [facility] 09:26:55 Viral upper respirato ry tract infection 528692957 Active 2024 Kayla Anaya, CHEESEMAKER [address], [place], [address] [facility] 09:27:18 Problem Notes None recorded. Procedures Surgical History Date Name Laterality Status Provider Name and Address Organization Details Recorded Time 11/18/19 25 Medication Reconcilliation completed Iliana Burroughs [place] - [facility] 11/17/2024 10:00:04 10/31/19 25 Medication Reconcilliation completed Iliana Burroughs [place] [facility] 10/30/2024 14:22:06 11/23/19 20 Diastolic B/P 80-89 mm Hg completed Carmen Vinson [place] [facility] 11/23/2019 14:49:01 11/23/19 20 Systolic B/P greater than or equal to 140 mm Hg completed Carmen Vinson [place] [facility] 11/23/2019 14:48:57 07/31/19 20 Diastolic B/P 80-89 mm Hg completed Trupti Lou [place] [facility] 07/31/2019 08:58:33 07/31/19 20 Systolic B/P 130-139 mm Hg completed Trupti Lou [place] [facility] 07/31/2019 08:58:36 07/26/19 20 Medication Reconcilliation completed [facility] 07/26/2019 17:10:58 07/18/20 19 Diastolic B/P greater than or equal to 90 mm Hg completed [facility] 07/18/2019 09:42:10 07/18/20 19 Systolic B/P 130-139 mm Hg completed [facility] 07/18/2019 09:42:18 06/20/20 19 Medication Reconcilliation completed [facility] 06/20/2019 13:25:12 06/19/20 19 Medication Reconcilliation completed [facility] 06/19/2019 14:16:46 Knee Surgery completed Zoila Gomezbernard [facility] 09/21/2017 14:51:42 Imaging Results None recorded. Procedure Notes None recorded. Medical Equipment None Reported. Allergies No known drug allergies Medications Name Sig Start Date Stop Date Status Note LastModified by Organization Details LastModified Time losartan 50 mg tablet Take 1 tablet every day by oral route. 07/03 completed Not Available Not Available Not Available atorvasta tin 40 mg tablet TAKE 1 TABLET BY MOUTH ONCE DAILY active Not Available Not Available No t Available metformin 500 mg tablet Take 2 [...] Not Available cetirizin e 10 mg tablet TAKE ONE (1) TABLET EVERY DAY BY ORAL ROUTE FOR 60 DAYS. active Not Available Not Available No t Available azithromy simone 250 mg tablet TAKE 2 TABLETS BY MOUTH ON DAY 1, AND THEN TAKE 1 TABLET BY MOUTH ONCE A DAY ON DAY 2 THROUGH DAY 5 11/09 completed Not Available Not Available Not Available prednison e 20 mg tablet TAKE TWO TABLETS BY MOUTH DAILY ON DAYS 1-4, THEN TAKE ONE TABLET DAILY ON DAYS 5-8, THEN TAKE 1/2 TABLET ON DAYS 9-12 active Not Available Not Available No t Available naproxen 250 mg tablet Take 1 [...] Not Available amoxicill in 875 mg tablet Take 1 tablet every 12 hours by oral route as directed for 10 days. 12/29 completed Not Available Not Available Not Available pravastat in 10 mg tablet TAKE ONE TABLET BY MOUTH EVERY DAY AT BEDTIME 09/21 completed Not Available Not Available Not Available OneTouch Ultra Test strips TEST TWICE DAILY active Not Available Not Available No t Available amlodipin e 10 mg tablet TAKE [...] day by oral route for 10 days. 11/17 completed Not Available Not Available Not Available pantopraz ole 40 mg tablet,de layed release TAKE 1 TABLET BY MOUTH ONCE DAILY 08/10 completed Not Available Not Available Not Available simvastat in 20 mg tablet take 1 tablet (20 mg) by oral route once daily in the evening 01/31 completed simvasta tin 20 mg oral tablet;P rescribe Status: Prescrib ed on: 08/05/19 1:03PM;U ser: lucila; Est. Completi on: 02/01/20 16;Pharm trayyVerimiguelito ied: 08/05/19 1:03PM Not Available Not Available Not Available lisinopri l 10 mg tablet TAKE 1 TABLET BY MOUTH EVERY DAY active Not Available Not Available No t Available hydrochlo rothiazid e 12.5 mg capsule Take 1 capsule every day by oral route. 07/18 completed Not Available Not Available Not Available nitroglyc pj 0.4 mg sublingua l tablet DISSOLVE 1 TABLET UNDER THE TONGUE EVERY 5 MINUTES NEEDED FOR CHEST PAIN. DO NOT EXCEED A TOTAL OF 3 DOSES IN 15 MINUTES. active Not Available Not Available No t Available gabapenti n 300 mg capsule 11/09 [...] sulfate HFA 90 mcg/actua tion aerosol inhaler INHALE TWO (2) PUFFS EVERY FOUR (4) HOURS BY INHALATI ON ROUTE. active Not Available Not Available No t Available lisinopri l 40 mg tablet Take 1 tablet every day by oral route at bedtime. 11/17 completed Not Available Not Available Not Available ondansetr on 4 mg disintegr ating tablet PLACE TWO (2) TABLETS EVERY 8 HOURS BY TRANSLIN GUAL ROUTE NEEDED FOR NAUSEA. active Not Available Not Available No t Available cefdinir 300 mg capsule Take 1 capsule every 12 hours by oral route. 07/05 completed Not Available Not Available Not Available fluticaso ne propionat e 50 mcg/actua tion nasal spray,[employer] [place] 2 sprays every day by intranas al route for 60 days. 2024 active Not Available Not Available Not Avai [...] TABLET BY MOUTH TWICE DAILY WITH FOOD 11/17 completed Not Available Not Available Not Available [...] completed Not Available Not Available Not Available Nasal Allergy 55 mcg spray aerosol USE 2 SPRAY(S) IN EACH NOSTRIL ONCE DAILY active Not Available Not Available No t Available OneTouch Ultra2 Meter USE DIRECTED active Not Available Not [...] 15 mg/0.5 mL subcutane ous pen injector INJECT 15 MG EVERY WEEK BY SUBCUTAN EOUS ROUTE DIRECTED active Not Available Not Available No [...] INHALE 2 PUFFS BY MOUTH TWICE DAILY 11/17 completed Not Available Not Available Not Available Vitals Date Recorded Body height Body mass index (BMI) Body weight Respiratory rate Body temperature Heart rate Oxygen saturation Oxygen saturation in Arterial blood by Pulse oximetry Systolic And Diastolic Provider Name and Address Organization Details Last Updated DateTime 5 190.5 cm 37.2 kg/m2 243568. 53 g 18 /min 98.3 [degF] 74 /min 98 % 98 % 118/80 mm[Hg] Iliana Burroughs [place] - [facility] 10:09:46 Social History Question Answer Notes LastModified by Organizat ion Details LastModified Time Tobacco Smoking Status Never Smoker [place], [place] - [facility] 05/10/2017 18:23:54 Able To Swim? Yes Information not available 09/21/2017 Do You Have An Advance Directive? No Information not available 05/10/2017 Are You Blind Or Do You Have Difficulty Seeing? No Information not available 05/10/2017 What Is Your Level Of Caffeine Consumption? Occasional Information not available 05/10/2017 How Much Tobacco Do You Chew? 5+/day [email or web address] Information not available 12/07/2022 In The 14 Days Before Symptom Onset, Have You Had Close Contact With A Laboratory-confir med COVID-19 While That Case Was Ill? No [email or web address] Information not available 12/07/2022 In The 14 Days Before Symptom Onset, Have You Had Close Contact With A Person Who Is Under Investigation For COVID-19 While That Person Was Ill? No Information not available 12/07/2022 Have You Been To An Area Known To Be High Risk For COVID-19? No [email or web address] Information not available 12/07/2022 Are You Deaf Or Do You Have Serious Difficulty Hearing? No Information not available 05/10/2017 What Type Of Diet Are You Following? REGULAR Information not available 05/10/2017 Which Illicit Or Recreational Drugs Have You Used? None [email or web address] Information not available 12/07/2022 Have You Processed Blood Or Body Fluids From An Ebola Virus Disease Patient Without Appropriate PPE? No [email or web address] Information not available 12/07/2022 Do You Reside In Or Have You Traveled To An Area Where Ebola Virus Transmission Is Active? No [email or web address] Information not available 12/07/2022 What Is The Highest Grade Or Level Of School You Have Completed Or The Highest Degree You Have Received? IQ41141-0 [email or web address] Information not available 12/07/2022 Have There Been Any Changes To Your Family Or Social Situation? No [email or web address] Information no t available 12/07/2022 What Is The Fluoride Status Of Your Home? Unknown Information not available 12/07/2022 Hard Of Hearing Or Deaf In One Or Both Ears? No Information not available 05/10/2017 Have You Recently Or Are You Planning To Travel To An Area With Zika Virus? No [email or web address] Information not available 12/07/2022 Legally Blind In One Or Both Eyes? No Information no t available 05/10/2017 Live Alone Or With Others? With Others Information not available 05/10/2017 Do You Have A Medical Power Of Tufting Machine Operator? No [email or web address] Information not available 12/07/2022 What Was The Date Of Your Most Recent Tobacco Screening? 11/17/2024 Information not available 11/17/2024 How Many Children Do You Have? 1 Information not available 09/21/2017 Do You Use Protection During Sex? No Information not available 05/10/2017 Do You Use Protection Against STDs? No [email or web address] Information not available 12/07/2022 What Is Your Relationship Status? Information not available 05/10/2017 Seat Belts Used Routinely Yes Information not available 05/10/2017 Are You Sexually Active? Yes Information not available 05/10/2017 Smoke Alarm In Home Yes Information not available 09/21/2017 Do You Have Smoke And Carbon Monoxide Detectors In Your Home? Yes [email or web address] Information not available 12/07/2022 Are You Passively Exposed To Smoke? No [email or web address] Information no t available 12/07/2022 How Much Tobacco Do You Smoke? No Information not available 11/23/2019 General Stress Level Medium Information not available 09/21/2017 Has Tobacco Cessation Counseling Been Provided? No Information not available 11/17/2024 Do You Have Difficulty Walking Or Climbing Stairs? No Information not available 05/10/2017 What Contraceptive Method Was Reported At Start Of This Visit? Male Relying On Female Method Information not available 11/10/2023 What Contraceptive Method Was Reported At End Of This Visit? Male Relying On Female Method Information not available 11/10/2023 Do You Want To Talk About Contraception Or Prevention During Your Visit Today? No - This Question Does Not Apply To Me/I Prefer Not To Answer Information not available 11/10/2023 How Many Years Have You Used E-cigarettes Or Vape? 25 [email or web address] Information not available 12/07/2022 How Many Years Have You Used Smokeless Tobacco? 25 Information not available 11/10/2023 Sex: Male Functional Status Question Answer Note LastModified by Organizat ion Details LastModified Time How many times per week do you consume alcohol? Less than 1 time per week Information not available 12/07/2022 Do you or have you ever used smokeless tobacco? Currently chews tobacco Information not available 11/23/2019 Are you currently employed? Yes Information not available 05/10/2017 Do you have transportation difficulties? No [email or web address] Information not available 12/07/2022 Are you able to care for yourself? Yes Information n ot available 05/10/2017 Do you have difficulty dressing or bathing? No Information not available 05/10/2017 Do you or have you ever used e-cigarettes or vape? Former user of electronic cigarettes [email or web address] Information not available 08/28/2019 What is your exercise level? Occasional Information not available 09/21/2017 Do you use any illicit or recreational drugs? No Information not available 12/07/2022 Do you or have you ever used any other forms of tobacco or nicotine? No [email or web address] Information not available 12/07/2022 What is your level of alcohol consumption? Occasional Information not available 09/21/2017 Are you able to walk? [email or web address] Information not available 05/10/2017 Do you have difficulty doing errands alone? 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 ME0495-1 [email or web address] Information not available 12/07/2022 Do you have difficulty concentrating, remembering or making decisions? No [email or web address] Information no t available 05/10/2017 Family History [...] Diseases N Kidney Stones N Hyperthyroidism N Blood Transfusion N Rheumatoid [...] N Arthritis N Restless Leg Syndrome N Polyps N Infertility N Mental Disorder N Carpal Tunnel N Acid Reflux (GERD) N Cancer N Varicosities N Stroke N Tendonitis N Crohn's Disease N Hypercholesterolemia N Skin Cancer N Headaches N Fibromyalgia N Anal Fissure N Irritable Bowel Syndrome N Kidney Disease N Heart Problems N [...] or Kidney Problems N Liver Disease N Panic Disorder N Schizophrenia N Concussion N Spina Bifida N Allergies/Hayfever N Osteoarthritis N Parkinson's Disease N Disc Protrusion N STI N Esophagitis N Angina N Thyroid Problems N GI Problems N ADD/ADHD N Anemia N Multiple Sclerosis N Abnormal PAP N Lumbago N Mental Illness N Psychiatric Illness N Diabetes N Ovarian Cancer N Bedwetting N Degenerative Disc Disease N Seizures/Epilepsy N Congestive Heart Failure (CHF) N Hyperlipidemia N Syncope N Insomnia N Eczema N Abuse/Domestic Violence N Attention Deficient Disorder N Diverticulitis N Dementia N Ulcerative colitis N Cerebrovascular Disease N Depression N Guillain-[place] N Sleep Apnea N Aneurysm N Bronchitis N Heart Disease N Suicidal Ideation N Pre-Eclampsia N Hypertension Y Osteoporosis N Immunizations Vaccine Type Date Status Note Provider Nam e and Address Organization Details Recorded Time Tdap 05/10/2018 completed Not Available [facility] 04/19/2023 11:49:39 COVID-19 vaccine, vector-nr, rS-Ad26, PF, 0.5 mL 10/03/2020 completed Lindsay Samano [place] - [facility] 12/07/2022 10:06:59 Past Encounters Encounter ID Performer Location Encounter Start Date Encounter Closed Date Diagnosis/Indication Diagnosis SNOMED-CT Code Diagnosis ICD10 Code Diagnosis Note [id number] GIORGI Bello [facility] [address] [place] [address] 10/30/2024 14:19:12 10/30/2024 14:57:34 Nausea 249948130 R11.0 Biliary calculus 5955730 03 K80.20 Patient has appointmen t November 24, 2024 with general surgeryFol low up as needed [id number] GIORGI Bello [facility] [address] [place] [address] 11/17/2024 09:59:35 11/17/2024 10:48:21 Body mass index 30+ - obesity 159421677 Z68.38 38.4 Obesity 290249428 E66.9 Low blood pressure 44788 003 I95.9 Episode of hypotensio n and near syncopeER Discontinu ed lisinopril , has follow up with cardiology next weekFollow up as needed Pulmonary emphysema 8743 3001 J43.9 Chronic Allergic rhinitis 780994 04 J30.9 Chronic Type 2 galinod betes mellitus 25421736 E11.9 Chronic Health Concerns Section Related Observation LastModified by Organization Detai ls LastModified Time None Recorded Concern Status LastModified by Organization Details LastModified Time None Recorded Payers Encounter Date Sequence Insurance Name Policy Number Policy Bauman Covered Member ID Bauman Member ID Guarantor Name 11/17/2024 1 [place] [id number] Lambert Jason II [id number] Lambert Jason Notes Date Note Type Note Provider Name and Address Organization Details Recorded Time 11/17/2024 text/html Emergency Depart ment Follow-Up RecordReported bypatient.Discharge InformationName of hospital/urgent care patient was seen: (Geoffrey Jaimes); Patient presented to hospital/urgent care on or around: actual date 11/15/24; Patient presented to hospital for treatment of: (syncope); Treatment received by hospital/urgent care: (Labs & Chest X-ray (normal) Discharged home with diagnosis of hypotension and referral to cardiology D/C 40mg Lisinopril He has an appointment on 11/23 with his Lime Spreader.); Patient's condition has: improved; Hospital records available at the time of this visit: Yes Kayla Anaya, CHEESEMAKER [address], [place], [address], [place] - [facility] 11/17/2024 11:45:42
[2025-01-12 18:10] VITALS: BP 132/70; PULSE 78; RESP 17; O2SAT 100
--- OUTSIDE RECORDS SUMMARY | 2025-01-12 18:10 | XMS_ITS | Data Portability ---
Author Organization [facility] Address [address] [place] [address] Care Team Providers Care Poultry Killer Name Role Phone FREDI TAO Primary Care Provider [phone] FREDI TAO Referring Provider [phone] FREDI TAO Primary Care Provider Assessment No assessment recorded. Plan of Treatment Reminders Order Date Submit Date Provider Last Modified By Organization Details Last Modified Time Details Appointments None recorded. Lab None recorded. Referral None recorded. Procedures None recorded. Surgeries None recorded. Imaging XR, ankle [email or web address], [address] [place] [address] [place], [address], 3 10:05:32 XR, ankle [email or web address], [address] [place] [address] [place], [address], 3 09:33:52 Medication Orders Kenalog 10 mg/mL suspension for injection [address] [facility], [address] [place], [address], 3 10:05:32 bupivacaine (PF) 0.5 % (5 mg/mL) injection solution [address] [facility], [address] [place], [address], 3 10:05:32 Kenalog 10 mg/mL suspension for injection [address] [facility], [address] [place] [address], [address], 3 09:33:52 bupivacaine (PF) 0.5 % (5 mg/mL) injection solution [address] [facility], [address] [place] [address], [address], 3 09:33:52 Sensorcaine 0.5 % (5 mg/mL) injection solution 2022 023 [facility], [address] [place] [address], [address], 3 08:07:27 Kenalog 10 mg/mL suspension for injection 2022 023 [facility], [address] [place] [address], [address], 3 08:07:00 Patient TargetsNo targets recorded. Patient InstructionsNo instructions recorded. Reason for Referral None Reported. Results Created Date Observation Date Name Description Value Unit Range Abnormal Flag Note LastModifiedBy Organization Detail LastModifiedTime 05/27/20 23 XR, ankle No observ ation record ed. KENDELL Palacios [address] [place], [address], 05/27/2023 08:15:36 06/08/20 23 XR, ankle No observ ation record ed. 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 Mild synovi tis tibial is chemical treatment plant technician ior and flexor digito rum longus as [...] M.D. 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 Medical [...] Time Tobacco Smoking Status Never Smoker Livia fan, DANIEL - [facility] - [place] & [place] 01/27/2023 10:40:06 Do You Have An Advance Directive? No [email or web address] Information not available 01/27/2023 Are You Blind [...] rS-Ad26, PF, 0.5 mL 10/03/2020 completed Sheila fan [place] - [facility] [place] & [place] 06/08/2023 09:21:40 Past Encounters Encounter ID Performer Location Encounter Start Date Encounter Closed Date Diagnosis/Indication Diagnosis SNOMED-CT Code Diagnosis ICD10 Code Diagnosis Note [id number] ANURADHA DOLL NP [facility] [address] [place] [address] 01/27/2023 10:12:17 01/27/2023 10:56:27 Plantar fasciitis of right foot 7769134895 3566417 M72.2 [id number] [facility] [address] [place] [address] 05/27/2023 07:53:41 05/27/2023 08:35:47 Plantar fasciitis of right foot 1807229591 5233540 M72.2 Injury of left ankle 250 9144730 8158928 S99.912A Acquired b ilateral pes planus 2249677018 2388604 M21.41 M21.42 [id number] [facility] [address] [place] [address] 06/08/2023 08:41:25 06/08/2023 09:43:18 Injury of left ankle 6977245721 7810121 S99.912D Tendinitis of left posterior tibial tendon 9230658697 13853 M76.822 [id number] MD DENISE [facility] [address] [place] [address] 07/13/2023 13:08:17 07/13/2023 14:08:12 Stress fracture 265886782 M84.372A Marrow edema of the talus most compatible with stress fracture Health Concerns Section Related Observation LastModified by Organization Detai ls LastModified Time None Recorded Concern Status LastModified by Organization Details LastModified Time None Recorded Advance Directives Directive N: Payers Insurance Date Sequence Insurance Name Policy Number Policy Bauman Covered Member ID Bauman Member ID Guarantor Name 08/23/2023 1 [place] [id number] 0 Lambert Jason II [id number] Lambert Jason Notes Date Note Type [...] aspect of foot. ANURADHA DOLL NP [address] [facility],[address], [place], [address], [facility] 01/27/2023 11:29:27 05/27/2023 text/html Patient is here [...] ankle brace. CHE1 ANURADHA DOLL NP [address] [facility],[address], [place], [address], [facility] & [place] 05/27/2023 09:05:53 06/08/2023 text/html Patient presents to [...] today in office. [email or web address] ANURADHA DOLL NP [address] [place] [address],[address], [place], [address], [facility] & [place] 06/08/2023 14:29:05 07/13/2023 text/html 43 year old male presents today in office for MRI LEFT ankle at [facility] 07/07/23 follow-up that revealed:IMPRESSIO N:1. Marrow edema of the talus as detailed above most compatible with stress fracture.2. 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
--- OUTSIDE RECORDS SUMMARY | 2025-01-12 18:10 | XMS_ITS | Continuity of Care Document ---
Author Organization [facility] Address [address] [place] [address] Care Team Providers Care Sewer Inspector Name Role Phone CALE SMALL Pool Player Unavailable NANCY MATTA Seafood Process Worker [phone] NANCY MATTA Seafood Process Worker Assessment No assessment recorded. Plan of Treatment Reminders Order Date Submit Date Provider Last Modified By Organization Details Last Modified Time Details Appointments None recorded. Lab rapid strep group A, throat [address], [address], 5 09:22:07 rapid flu (A+B) [address], [address], 5 09:22:11 rapid SARS CoV + SARS CoV 2 Ag, QL [place], respiratory specimen [address], [address], 5 09:22:14 Referral None recorded. Procedures None recorded. Surgeries None recorded. Imaging None recorded. Medication Orders amoxicillin 875 mg tablet [address], [address], 05:01:51 Patient TargetsNo targets recorded. Patient Instructions Encounter Date Encounter Id Patient Instructions Last Modified By Organization Details Last Modified Time 12/12/2024 [id number] Follow up as needed. The patient will report any new or worsening symptoms. The patient will return to clinic if new or worsening symptoms are noted, or if if the symptoms do not resolve. If marked worsening of the symptoms is noted the patient will go to the emergency department of their choice. Not available 12/12/2024 09:06:41 Reason for Referral None Reported. Results Created Date Observation Date Name Description Value Unit Range Abnormal Flag Note LastModifiedBy Organization Detail LastModifiedTime 12/13/1912/12/2024 rapid SARS CoV + SARS CoV 2 Ag, QL [place], respi rator y speci men SARS CoV antigen Negati ve Not Available [facility] [address], [address], 12/12/2024 08:59:52 12/13/1912/12/2024 rapid flu (A+B) Flu negati ve Not Available [facility] [address], [address], 12/12/2024 08:59:44 12/13/1912/12/2024 rapid flu (A+B) Type Both A & B Not Available [facility] [address], [address], 12/12/2024 08:59:44 12/13/1912/12/2024 rapid strep group A, throa t Strep negati ve Not Available [facility] [address], [place], [address], 12/12/2024 08:59:43 12/13/1912/12/2024 rapid strep group A, throa t Culture No Not Available [facility] [address], [place], [address], 12/12/2024 08:59:43 11/18/19 25 11/15/2024 elect ady vasques am No observ ation record ed. [email or web address] [facility] [address], [place], [address], 11/20/2024 10:38:31 11/29/19 25 11/28/2024 CT, abdom en + pelvi s, w/o contr ast No observ ation record ed. [place] [address], [place], [address], 11/28/2024 16:25:17 12/08/19 25 12/07/2024 US, doppl er echoc ardio gram No observ ation record ed. [place] [address], [place], [address], 12/07/2024 12:05:12 12/08/19 25 12/07/2024 nucle ar stres s test No observ ation record ed. [address], [place], [address], 12/07/2024 12:04:42 12/17/19 25 12/16/2024 XR, chest , 1 view No observ ation record ed. [address], [place], [address], 12/18/2024 08:50:40 Result Notes None recorded. Problems Name Problem SNOMED Code Status Onset Date Resolution Date Notes Provider Name and Address Organization Details Recorded Time Hypertens kings disorder 22888466 Active Chichi Tao MD [address], [place], [address], [place] - [facility] 2 09:48:21 Hyperlipi demia 83500838 Active Chichi Tao MD [address], [place], [address], [place] - [facility] 2 09:48:22 Tobacco dependenc e syndrome 43300875 Active 2019 Chichi Tao MD [address], [place], [address], [place] [facility] 2 09:48:22 COVID-19 269040612 Completed 201910/15/2021 Chichi Tao MD [address], [place], [address], [place] [facility] 2 09:48:32 Blood glucose outside reference range 713038446 Active 2021 Chichi Tao MD [address], [place], [address], [place] [facility] 2 10:15:43 Acute bacterial sinusitis 57787128 Active 2021 Chichi Tao MD [address], [place], [address], [place] [facility] 2 17:49:07 Allergic rhinitis 45437839 Active 2022 Chichi Tao MD [address], [place], [address], [place] [facility] 3 14:40:13 Dysfuncti on of left eustachia n tube 463082786376 9106 Active 2022 Chichi Tao MD [address], [place], [address], [place] [facility] 3 14:51:31 Type 2 diabetes mellitus 08033663 Active 2022 Kayla Anaya APRN [address], [place], [address], [place] [facility] 5 10:41:48 Insulin resistanc e 094986013 Active 2022 Chichi Tao MD [address], [place], [address], [place] [facility] 3 14:52:07 Lumbar radiculop athy 889641112 Active 2022 Chichi Tao MD [address], [place], [address], [place] [facility] 3 09:53:05 History of male erectile disorder 219591776 Active 2022 Chichi Tao MD [address], [place], [address], [place] [facility] 3 17:24:31 Biliary calculus 924506395 Active 2024 Kayla Anaya, COTTON INSPECTOR [address], [place], [address], [place] [facility] 5 14:52:41 Nausea 791458082 Active 2024 Kayla Jaclyn, COTTON INSPECTOR [address], [place], [address], [place] [facility] 5 14:52:43 Low blood pressure 79065305 Active 2024 Kayla Jcalyn, COTTON INSPECTOR [address], [place], [address], [place] [facility] 5 11:44:18 Acute suppurati ve otitis media without spontaneo us rupture of ear drum 52482320 Active 2024 Kayla Jaclyn, COTTON INSPECTOR [address], [place], [address], [place] - [facility] 5 09:26:55 Viral upper respirato ry tract infection 535114428 Active 2024 Kayla Jaclyn, COTTON INSPECTOR [address], [place], [address], [place] - [facility] 5 09:27:18 Problem Notes None recorded. Procedures Surgical History Date Name Laterality Status Provider Name and Address Organization Details Recorded Time 11/18/19 Medication Reconcilliation completed Iliana Burroughs [place] - [facility] 11/17/2024 10:00:04 10/31/19 25 Medication Reconcilliation completed Iliana SANCHEZ - [facility] 10/30/2024 14:22:06 11/23/19 20 Diastolic B/P 80-89 mm Hg completed Carmen SANCHEZ - [facility] 11/23/2019 14:49:01 11/23/19 20 Systolic B/P greater than or equal to 140 mm Hg completed Carmen SANCHEZ - [facility] 11/23/2019 14:48:57 07/31/19 20 Diastolic B/P 80-89 mm Hg completed [facility] 07/31/2019 08:58:33 07/31/19 20 Systolic B/P 130-139 mm Hg completed [facility] 07/31/2019 08:58:36 07/26/19 20 Medication Reconcilliation completed [facility] 07/26/2019 17:10:58 07/18/20 19 Diastolic B/P greater than or equal to 90 mm Hg completed [facility] 07/18/2019 09:42:10 07/18/20 19 Systolic B/P 130-139 mm Hg completed [facility] 07/18/2019 09:42:18 06/20/20 19 Medication Reconcilliation completed [facility] 06/20/2019 13:25:12 06/19/20 19 Medication Reconcilliation completed [facility] 06/19/2019 14:16:46 Knee Surgery completed Zoila [facility] 09/21/2017 14:51:42 Imaging Results None recorded. [...] e 50 mcg/actua tion nasal spray,z[employer] [place] 2 sprays every day by intranas al [...] Details Last Updated DateTime 5 190.5 cm 37 kg/m2 734257. 34 g 98.4 [degF] 112 /min 97 % 97 % 118/82 mm[Hg] Ruth Cynthia [place] - [facility] 5 09:02:06 Social History Question Answer Notes LastModified by [...] How Much Tobacco Do You Chew? 5+/day Information not available 12/07/2022 In The 14 Days Before Symptom Onset, Have You Had Close Contact With A Laboratory-confir med COVID-19 While That Case Was Ill? No [email or web address] Information not available 12/07/2022 In The 14 Days Before Symptom Onset, Have You Had Close Contact With A Person Who Is Under Investigation For COVID-19 While That Person Was Ill? No [email or web address] Information not available 12/07/2022 Have You Been To An Area Known To Be High Risk For COVID-19? No Information not available 12/07/2022 Are You Deaf Or Do You Have Serious Difficulty Hearing? No Information not available 05/10/2017 What Type Of Diet Are You Following? REGULAR Information not available 05/10/2017 Which Illicit Or Recreational Drugs Have You Used? None [email or web address] Information not available 12/07/2022 Have You Processed Blood Or Body Fluids From An Ebola Virus Disease Patient Without Appropriate PPE? No [email or web address] Information not available 12/07/2022 Do You Reside In Or Have You Traveled To An Area Where Ebola Virus Transmission Is Active? No [email or web address] Information not available 12/07/2022 What Is The Highest Grade Or Level Of School You Have Completed Or The Highest Degree You Have Received? [id number] [email or web address] Information not available 12/07/2022 Have There Been Any Changes To Your Family Or Social Situation? No [email or web address] Information no t available 12/07/2022 What Is The Fluoride Status Of Your Home? Unknown [email or web address] Information not available 12/07/2022 Hard Of Hearing Or Deaf In One Or Both Ears? No Information not available 05/10/2017 Have You Recently Or Are You Planning To Travel To An Area With Zika Virus? No [email or web address] Information not available 12/07/2022 Legally Blind In One Or Both Eyes? No Information no t available 05/10/2017 Live Alone Or With Others? With Others Information not available 05/10/2017 Do You Have A Medical Power Of Display Department Manager? No [email or web address] Information not available 12/07/2022 What Was The [...] Carbon Monoxide Detectors In Your Home? Yes [email or web address] Information not available 12/07/2022 Are You Passively Exposed To Smoke? No [email or web address] Information no t available 12/07/2022 How Much [...] Have You Used E-cigarettes Or Vape? 25 [email or web address] Information not available 12/07/2022 How Many Years [...] 05/10/2017 Do you have transportation difficulties? No Information not available 12/07/2022 Are you able [...] use any illicit or recreational drugs? No [email or web address] Information not available 12/07/2022 Do you or have you ever used any other forms of tobacco or nicotine? No [email or web address] Information not available 12/07/2022 What is your [...] anxious, or unable to sleep at night)? [id number] Information not available 12/07/2022 Do you have [...] Stones N Blood Diseases N Hyperthyroidism N Rheumatoid arthritis N Blood [...] colitis N Cerebrovascular Disease N Depression N Guillain-Nemo N Sleep Apnea N Aneurysm N Heart Disease N Bronchitis N Suicidal Ideation N Pre-Eclampsia N Hypertension Y Osteoporosis N Immunizations Vaccine Type Date Status Note Provider Nam e and Address Organization Details Recorded Time Tdap 05/10/2018 completed Not Available [facility] 04/19/2023 11:49:39 COVID-19 vaccine, vector-nr, rS-Ad26, PF, 0.5 mL 10/03/2020 completed Lindsay Samano [facility], [place] - [facility] 12/07/2022 10:06:59 Past Encounters Encounter ID Performer Location Encounter Start Date Encounter Closed Date Diagnosis/Indication Diagnosis SNOMED-CT Code Diagnosis ICD10 Code Diagnosis Note [id number] GIORGI Bello [facility] [address] [facility] [place] [address] 11/17/2024 09:59:35 11/17/2024 10:48:21 Body mass index 30+ - obesity 022629195 Z68.38 38.4 Obesity 579213639 E66.9 Low blood pressure 10443 003 I95.9 Episode of hypotensio n and near syncopeER Discontinu ed lisinopril , has follow up with cardiology next weekFollow up as needed Pulmonary emphysema 8743 3001 J43.9 Chronic Allergic rhinitis 757344 04 J30.9 Chronic Type 2 galindo betes mellitus 31587662 E11.9 Chronic [id number] GIORGI Bellomendez [facility] [address] [facility] [place] [address] 12/12/2024 08:54:27 12/12/2024 09:27:53 Sore throat 238009212 J02.9 Acute supp urative otitis media without spontaneous rupture of ear drum 11374217 H66.001 Follow up in 1-2 weeks if symptoms persist Viral uppe r respiratory tract infection 219401470 J06.9 Encouraged increased oral fluid intake as toleratedF ollow up in 1-2 weeks if symptoms persist Health Concerns Section Related Observation LastModified by Organization Detai ls LastModified Time None Recorded Concern Status LastModified by Organization Details LastModified Time None Recorded Payers Encounter Date Sequence Insurance Name Policy Number Policy Bauman Covered Member ID Bauman Member ID Guarantor Name 12/12/2024 1 [place] [id number] Lambert Jason II [id number] Lambert Jason Notes Date Note Type Note Provider Name and Address Organization Details Recorded Time 12/12/2024 text/html Upper Respirator y SymptomsReported bypatient.Location:hea d; chest; throat Quality:congested Severity:mild Duration:2 days ago Onset/Timing:sudden Context:no sick contacts; no foreign travel; non-smoker Associated Symptoms:no sputum production; no change in number of pillows needed to sleep at night; no sweats; no significant weight loss; no morning cough; no vomiting; no diarrhea; no rash;shortness of breath;wheezing;fatigu e;fever;sore throat;nausea; bilateral ear pain, sinus pressure/WEST, runny nose Kayla Anaya, COTTON INSPECTOR [address], [place], [address], [place] - [facility] 12/12/2024 09:27:25
--- OUTSIDE RECORDS SUMMARY | 2025-01-12 18:10 | XMS_ITS | Clinical Summary ---
Author Organization [facility] Address [address] [place] [address] Care Team Providers Care Pattern Painter Name Role Phone Sergio Shin MD Primary Care Provider [phone] Allergies No known active allergies Medications albuterol [...] 11/15/2024 8:53 PM EDT Emergency Emergency Department [address] [place] [id number] Tom Spaulding, Hypotension (Primary Dx) Discharge Disposition: [...] RNA NEGATIVE Negative 11/15/2024 6:23 PM EDT [facility] Comment: Testing was performed using the [employer] Xpert Xpress System. Influenza A NEGATIVE Negative 11/15/2024 6:23 PM EDT [facility] Comment: Testing was performed using the [employer]epTapSense[employer] Xpert Xpress System. Influenza B NEGATIVE Negative 11/15/2024 6:23 PM EDT [facility] Comment: Testing was performed using the [employer] Xpert Xpress System. SARS-CoV-2 RNA Undetected 11/15/2024 6:23 PM EDT [facility] Comment: Testing was performed using the [employer] Xpert Xpress System. Fact sheets for this Emergency Use Authorization (EUA) assay can be found at the following links: For Healthcare Providers: https://www.fda.gov/media/189500/download For Patients: https://www.fda.gov/media/904589/download Test Performed by: [facility],[address] [place] [address] Modeling Teacher: Aditi Nagel D.O. Nasopharyngeal (Nasopharyngeal Swab) 11/15/2024 5:33 PM EDT 11/15/2024 5:39 PM EDT Narrative [facility] - 11/15/2024 6:23 PM EDT NO KNOWN ALLERGIES Tom Spaulding DO MICROBIOLOGY - GENERAL ORDE RABSHAMEKA Final Result [facility] [address] [place] [address] LAB [address] [place] [address] * (ABNORMAL) UA for Infection (Reflex Culture) (11/15/2024 5:32 PM EDT) UR GLUCOSE Negative NEGATIVE mg/dL 11/15/2024 6:23 PM EDT [facility] UR BILIRUBIN Negative NEGATIVE mg/dL 11/15/2024 6:23 PM EDT [facility] UR KETONE 20(A) NEGATIVE mg/dL 11/15/2024 6:23 PM EDT [facility] UR SP GRAVITY 1.031 1.005 - 1.030 11/15/2024 6:23 PM EDT [facility] UR BLOOD Trace(A) NEGATIVE mg/dL 11/15/2024 6:23 PM EDT [facility] UR PH 5.0 5.0 - 9.0 11/15/2024 6:23 PM EDT [facility] UR PROTEIN Negative NEGATIVE mg/dL 11/15/2024 6:23 PM EDT [facility] UR UROBILINOGEN <2.0 <2.0 6:23 PM EDT [facility] UR NITRITE Negative NEGATIVE mg/dL 11/15/2024 6:23 PM EDT [facility] UR LEUKOCYTE Negative NEGATIVE 11/15/2024 6:23 PM EDT [facility] UR COLOR Yellow YELLOW 11/15/2024 6:23 PM EDT [facility] UR CLARITY Turbid(A) CLEAR 11/15/2024 6:23 PM EDT [facility] UR WBC 1-3 1 - 3 [HPF] 11/15/2024 6:27 PM EDT [facility] UR RBC 1-3 1 - 3 [HPF] 11/15/2024 6:27 PM EDT [facility] UR SQUAMOUS EPI None Seen 3 - 5 [HPF] 11/16/19 6:27 PM EDT [facility] UR MUCOUS Moderate(A) NONE SEEN [HPF] 11/15/2024 6:27 PM EDT [facility] UR BACTERIA None Seen NONE SEEN [HPF] 11/15/2024 6:27 PM EDT [facility] UR HYALINE CAST 1-3 NONE SEEN [LPF] 11/15/2024 6:27 PM EDT [facility] Clean Catch Urine 11/15/2024 5:32 PM EDT 11/15/2024 5:46 PM EDT Narrative [facility] - 11/15/2024 6:27 PM EDT NO KNOWN ALLERGIES Tom Spaulding DO URINE ORDERABLES Final Resu lt [facility] [address] [place] [address] [facility] [address] [place] [address] * (ABNORMAL) Comprehensive Metabolic Panel (11/15/2024 3:05 PM EDT) SODIUM 139 135 - 145 mmol/L 11/15/2024 3:54 PM EDT [facility] POTASSIUM 3.9 3.6 - 5.0 mmol/L 11/15/2024 3:54 PM EDT [facility] CHLORIDE 100(L) 101 - 111 mmol/L 11/15/2024 3:54 PM EDT [facility] CO2 30 21 - 31 mmol/L 11/15/2024 3:54 PM EDT [facility] ANION GAP 9 11/15/2024 3:54 PM EDT [facility] GLUCOSE 85 70 - 110 mg/dL 11/15/2024 3:54 PM EDT [facility] CREATININE 1.0 0.6 - 1.2 mg/dL 11/15/2024 3:54 PM EDT [facility] BUN 21 2 - 32 mg/dL 11/15/2024 3:54 PM EDT [facility] CALCIUM 9.7 8.5 - 10.5 mg/dL 11/15/2024 3:54 PM EDT [facility] PROTEIN TOTAL 7.5 6.1 - 7.8 g/dL 11/15/2024 3:54 PM EDT [facility] Albumin 4.5 3.2 - 5.0 g/dL 11/15/2024 3:54 PM EDT [facility] T BILIRUBIN 0.6 0.2 - 1.0 mg/dL 11/15/2024 3:54 PM EDT [facility] ALP 48 42 - 121 [iU]/L 11/15/2024 3:54 PM EDT [facility] AST 18 10 - 42 [iU]/L 11/15/2024 3:54 PM EDT [facility] ALT (SGPT) 24 10 - 60 [iU]/L 11/15/2024 3:54 PM EDT [facility] OSMOLALITY 280 266 - 309 11/15/2024 3:54 PM EDT [facility] A/G Ratio 1.5 11/15/2024 3:54 PM EDT [facility] B/C 21(H) 10 - 20 11/15/2024 3:54 PM EDT [facility] ESTIMATED GFR 81 mL/min 11/15/2024 3:54 PM EDT [facility] Comment: *The estimated Glomerular [...] PM EDT 11/15/2024 3:28 PM EDT Narrative [facility] - 11/15/2024 3:54 PM EDT NO KNOWN ALLERGIES Tom Spaulding DO CHEMISTRY ORDERABLES Final Result [facility] [address] [place] [address] [facility] [address] [place] [address] * Procalcitonin, QN, S (11/15/2024 3:05 PM EDT) Pathologist [facility] PROCALCITONIN, QN, S <0.05 ng/mL 11/15/2024 4:12 PM EDT [facility] Comment: . <0.05 ng/mL [...] PM EDT 11/15/2024 3:28 PM EDT Narrative [facility] - 11/15/2024 4:12 PM EDT NO KNOWN ALLERGIES [facility] CHEMISTRY ORDERABLES Final Result Performing Organization Address [facility] Co de Phone Number [facility] [address] [place] [address] [facility] [address] [place] [address] * Lactic Acid, Venous (11/15/2024 3:05 PM EDT) Pathologist [facility] LACTIC ACID 1.1 0.5 - 1.9 mmol/L 11/15/2024 3:51 PM EDT [facility] 11/15/2024 3:05 PM EDT 11/15/2024 3:28 PM EDT Narrative [facility] - 11/15/2024 3:51 PM EDT NO KNOWN ALLERGIES [facility] CHEMISTRY ORDERABLES Final Result Performing Organization Address City/[facility] Co de Phone Number [facility] [address] [place] [address] [facility] [address] [place] [address] * CBC w/Differential (11/15/2024 3:05 PM EDT) WBC 6.4 4.5 - 11.0 10*3/uL 11/15/2024 5:14 PM EDT [facility] RBC 5.03 4.50 - 5.90 10*6/uL 11/15/2024 5:14 PM EDT [facility] HGB 15.0 13.5 - 17.5 g/dL 11/15/2024 5:14 PM EDT [facility] HCT 43.5 37.0 - 53.0 % 11/15/2024 5:14 PM EDT [facility] MCV 86.5 80.0 - 100.0 fL 11/15/2024 5:14 PM EDT [facility] MCHC 34.5 32.0 - 36.0 g/dL 11/15/2024 5:14 PM EDT [facility] MCH 29.8 26.0 - 34.0 pg 11/15/2024 5:14 PM EDT [facility] RDW 13.8 10.7 - 18.7 % 11/15/2024 5:14 PM EDT [facility] MPV 9.5 6.5 - 10.0 fL 11/15/2024 5:14 PM EDT [facility] Platelet Cnt 252 150 - 450 10*3/uL 11/15/2024 5:14 PM EDT [facility] Differential Type Auto 025 5:14 PM EDT [facility] Neutrophils 62.0 35.0 - 66.0 % 11/15/2024 5:14 PM EDT [facility] Lymphocytes 26.4 24.0 - 44.0 % 11/15/2024 5:14 PM EDT [facility] Monocytes 9.9 2.1 - 13.3 % 11/15/2024 5:14 PM EDT [facility] Eosinophils 0.7 0.3 - 5.0 % 11/15/2024 5:14 PM EDT [facility] Basophils 1.0 0.0 - 1.0 % 11/15/2024 5:14 PM EDT [facility] Neutrophils Abs 4.0 1.5 - 8.5 10*3/uL 11/15/2024 5:14 PM EDT [facility] Lymphocytes Abs 1.7 1.1 - 5.0 10*3/uL 11/15/2024 5:14 PM EDT [facility] Monocytes Abs 0.6 0.0 - 1.4 10*3/uL 11/15/2024 5:14 PM EDT [facility] Eosinophils Abs 0.0 0.0 - 0.5 10*3/uL 11/15/2024 5:14 PM EDT [facility] Basophils Abs 0.1 0.0 - 0.1 10*3/uL 11/15/2024 5:14 PM EDT [facility] MDW 17.3 0.0 - 20.0 11/15/2024 5:14 PM EDT [facility] 11/15/2024 3:05 PM EDT 11/15/2024 3:39 PM EDT Narrative [facility] - 11/15/2024 5:14 PM EDT NO KNOWN ALLERGIES Tom Spaulding DO HEMATOLOGY ORDERABLES Final Result Performing Organization Address [facility] Co de Phone Number [facility] [address] [place] [address] [facility] [address] [place] [address] * Blood Culture, Peripheral x 2 sets (11/15/2024 3:05 PM EDT) Only the most recent of2 resultswithin the time period is included. BLOOD CULTURE No growth @ 24 hours. No growth @ 48 hours. No growth @ 72 hours. No growth @ 96 hours. No growth @ 120 hours. 11/20/2024 4:00 PM EDT [facility] Blood (Vein) 11/15/2024 3:05 PM EDT 11/15/2024 3:41 PM EDT Narrative [facility] - 11/20/2024 4:00 PM EDT NO KNOWN ALLERGIES Tom Spaulding DO MICROBIOLOGY - GENERAL ORDE RABLES Final Result Performing Organization Address City/[facility]/ZIP Co de Phone Number [facility] [address] [place] [address] [facility] [address] [place] [address] * XR Portable Chest (11/15/2024 2:27 PM EDT) Anatomical Region Laterality Modality Chest Computed Radiogr aphy 11/15/2024 Narrative 11/15/2024 4:16 [place] [address] Radiology PATIENT NAME: Lambert López II MR#: [id number] PROCEDURE DATE: 11/15/2024 ROOM#: [id number] ORDERING PHYS: [...] Rose Ji MD TD: 11/15/2024 JOB #: [id number] Radiology Page 1 of 1 COPY Procedure Note Rose Rosas MD - 11/15/2024 [place] [address] Radiology PATIENT NAME: Lambert López II MR#: [id number] PROCEDURE DATE: 11/15/2024 ROOM#: [id number] ORDERING PHYS: [...] Rose Ji MD TD: 11/15/2024 JOB #: [id number] Radiology Page 1 of 1COPY us Tom Spaulding DO IMG DIAGNOSTIC IMAGING ORDE RABLES Final Result * 12 Lead EKG - ED (Initial EKG) (11/15/2024 1:31 PM EDT) 11/15/2024 1:31 PM EDT Narrative [facility] - 11/17/2024 3:20 PM EDT [facility] ED Test Date: 2024-11-15 Pat Name: LAMBERT LÓPEZ Department: EMERGENCY DEPARTMENT Room: [facility] Gender: Male [employer]: : 1980 Requested By: TOM Velazquez Order Number: [id number] Reading MD: Cholo Alejandro MD Measurements Intervals [place] Rate: 84 P: 35 TX: 130 QRS: 53 QRSD: 106 T: 1 QT: 368 QTc: 435 Interpretive Statements: Sinus rhythm RSR' in V1 or V2, right VCD or RVH Borderline T abnormalities, inferior leads No previous ECG available for comparison Electronically Signed On 11-17-2024 15:20:06 EDT by Cholo Alejandro MD Procedure Note Cholo Alejandro MD - 11/17/2024 [facility] ED Test Date: 2024-11-15 Pat Name: LAMBERT LÓPEZ Department: EMERGENCYDEPARTMENT Room: [facility] Gender: Male [employer]: : 1980 Requested By: TOM Velazquez Order Number: [id number] Reading MD: Cholo Lepe Measurements Intervals [place] Rate: 84 P: 35 TX: 130 QRS: 53 QRSD: 106 T: 1 QT: 368 QTc: 435 Interpretive Statements: Sinus rhythm RSR' in V1 or V2, right VCD or RVH Borderline T abnormalities, inferior leads No previous ECG available for comparison Electronically Signed On 11-17-2024 15:20:06 EDT by Cholo Alejandro MD us Tom Spaulding DO EKG ORDERABLES Final Resul t [facility] from Last 3 Months Insurance [employer] [place] [address] Care Teams Pattern Painter Relationship Specialty Start Date End Date Sergio Shin MD [address] [place] [address] Dr [facility] PCP - General Family Medicine 11/15/24
--- OUTSIDE RECORDS SUMMARY | 2025-01-12 18:10 | XMS_ITS | Encounter Summary ---
Author Organization [facility] Address [address] [place] [address] Care Team Providers Care Oceanography Professor Name Role Phone Sergio Shin MD Primary Care Provider [phone] Encounter Details Date Type Department Care Team [...] on filedocumented in this encounter Care Teams Oceanography Professor Relationship Specialty Start Date End Date Sergio Shin MD [address] [place] [address] KAYLIE DANIEL [id number] PCP - General Family Medicine 11/15/24 documented as of this encounter
--- OUTSIDE RECORDS SUMMARY | 2025-01-12 18:11 | XMS_ITS | Data Portability ---
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 -The potential side effects of medications were discussed. -Counseling was done on care goals and ways to prevent future hospitalizatio ns. -Further treatment per orders listed below. Not available 10/30/2024 14:22:05 11/17/2024 11/17/2024 -Medications were reviewed and any [...] rapid strep group A, throat 2024 025 [facility] [place], [address] [facility], [place], [address], 09:22:07 rapid flu (A+B) [address], [address] [place] [address], [place], [address], 5 09:22:11 rapid SARS CoV + SARS CoV 2 Ag, QL IA, respiratory specimen [address], [address] [place] [address], [place], [address], 5 09:22:14 urinalysis, dipstick 2023 024 [facility], [address] [place] [address] , [place], [address], 4 17:20:56 culture, urine 2023 024 [facility], [address], [place] [address], [place], [address], 4 04:11:27 HbA1c (hemoglobin A1c), blood 2023 024 [facility], [address], [place], [place], [address], 4 04:11:49 Referral None recorded. Procedures None recorded. Surgeries None recorded. Imaging None recorded. Medication Orders amoxicillin 875 mg tablet [address], [address], 5 05:01:51 albuterol sulfate HFA 90 mcg/actuati on aerosol inhaler [address], [address], 5 10:38:43 cetirizine 10 mg tablet [address], [place], [address], 5 10:38:44 fluticasone propionate 50 mcg/actuati on nasal spray,suspe nsion [address], [address], 5 10:38:43 Mounjaro 15 mg/0.5 mL subcutaneou s pen injector [address], [address], 5 10:38:42 OneTouch Ultra Test strips [address], [address], 5 10:41:41 ondansetron 4 mg disintegrat ing tablet [address], [address], 5 14:51:21 cephalexin 500 mg capsule 2023 025 [facility], [address] [place], [address], 5 10:10:36 cetirizine 10 mg tablet 2023 024 [facility], [address], [address], 4 10:25:16 fluticasone propionate 50 mcg/actuati on nasal spray,suspe nsion 2023 024 [facility], [address], [address], 10:25:14 Mounjaro 15 mg/0.5 mL subcutaneou s pen injector 2023 [facility], [address] [place], [address], 10:25:13 ProAir HFA 90 mcg/actuati on aerosol inhaler 2023 [facility], [address] [place], [address], 10:25:15 sildenafil 100 mg tablet 2023 [facility], [address] [place], [address], 10:25:15 lisinopril 40 mg tablet [email or web address] [facility], [address] [place], [address], 10:25:11 Patient TargetsNo targets recorded. Patient Instructions Encounter Date Encounter Id Patient Instructions Last Modified By Organization Details Last Modified Time 05/12/2024 [id number] deciding about using medicines to quit smoking [email or web address] Not available 05/12/2024 10:56:32 Quitting Tobacco : Care Instructions [email or web address] Not available 05/12/2024 10:56:32 diabetic foot exam* Not available 05/12/2024 10:40:41 body mass index: care instructions [email or web address] Not available 05/12/2024 10:25:12 learning about healthy weight [email or web address] Not available 05/12/2024 10:25:12 10/30/2024 [id number] Follow up as needed. The patient will report any new or worsening symptoms. The patient will return to clinic if new or worsening symptoms are noted, or if if the symptoms do not resolve. If marked worsening of the symptoms is noted the patient will go to the emergency department of their choice. Not available 10/30/2024 16:41:51 11/17/2024 [id number] learning about healthy weight Not available 11/17/2024 [...] of their choice. Not available 11/17/2024 10:20:57 12/12/2024 [id number] Follow up as needed. The patient will [...] Abnormal Flag Note LastModifiedBy Organization Detail LastModifiedTime 05/12/2005/13/2024 HEMOG LOBIN A1C hemoglobin A1C 5.8 % 4.8-5. 6 above high normal Predi abete s: 5.7 - 6.4 Diabe justyn: >6.4 Glyce nissa contr ol for adult s with diabe justyn: <7.0 Not Available [facility] ([facility]) [address] [place], [address], 05/13/2024 04:11:49 06/13/20 24 06/14/2024 URINE CULTU RE, RAMANDEEPI NE urine culture, routine Final report Not Available [facility] ([facility]) [address] [place], [address], 06/15/2024 04:11:27 06/13/20 24 06/14/2024 URINE CULTU RE, ROUTI NE result 1 No growth Not Available [facility] ([facility]) [address] [place], [address], 06/15/2024 04:11:27 06/13/20 24 06/13/2024 urina lysis , dipst ick Leukocytes Negati ve Not Available [address] , [place], [address], 06/13/2024 17:06:13 06/13/20 24 06/13/2024 urina lysis , dipst ick Nitrite negati ve Not Available [address] , [place], [address], 06/13/2024 17:06:13 06/13/2006/13/2024 urina lysis , dipst ick Urobilinogen .2 Not Available [address] , [place], [address], 06/13/2024 17:06:13 06/13/20 24 06/13/2024 urina lysis , dipst ick Protein Negati ve Not Available [address] , [place], [address], 06/13/2024 17:06:13 06/13/20 24 06/13/2024 urina lysis , dipst ick pH 5.5 Not Available [address] , [place], [address], 06/13/2024 17:06:13 06/13/20 24 06/13/2024 urina lysis , dipst ick Blood Hemoly zed: Trace Not Available [address] , [place], [address], 06/13/2024 17:06:13 06/13/20 24 06/13/2024 urina lysis , dipst ick Specific [place] 1.030 Not Available [address] [place], [address], 06/13/2024 17:06:13 06/13/20 24 06/13/2024 urina lysis , dipst ick Ketone Negati ve Not Available [address] , [place], [address], 06/13/2024 17:06:13 06/13/20 24 06/13/2024 urina lysis , dipst ick Bilirubin Negati ve Not Available [address] , [place], [address], 06/13/2024 17:06:13 06/13/20 24 06/13/2024 urina lysis , dipst ick Glucose Negati ve Not Available [address] , [place], [address], 06/13/2024 17:06:13 06/13/20 24 06/13/2024 urina lysis , dipst ick Appearance Slight ly Cloudy Not Available [address] , [place], [address], 06/13/2024 17:06:13 06/13/20 24 06/13/2024 urina lysis , dipst ick Color Dark Yellow Not Available [address] , [place], [address], 06/13/2024 17:06:13 12/13/19 25 12/12/2024 rapid SARS CoV + SARS CoV 2 Ag, QL IA, respi rator y speci men SARS CoV antigen Negati ve Not Available [facility] [address], [place], [address], 12/12/2024 08:59:52 12/13/19 25 12/12/2024 rapid flu (A+B) Flu negati ve Not Available [facility] [place] [address], [place], [address], 12/12/2024 08:59:44 12/13/1912/12/2024 rapid flu (A+B) Type Both A & B Not Available [facility] [place] [address] [facility], [place], [address], 12/12/2024 08:59:44 12/13/19 25 12/12/2024 rapid strep group A, throa t Strep negati ve Not Available [facility] [place] [address] [facility], [place], [address], 12/12/2024 08:59:43 12/13/19 25 12/12/2024 rapid strep group A, throa t Culture No Not Available [facility] [place] [address] [facility], [place], [address], 12/12/2024 08:59:43 06/18/20 24 06/18/2024 XR, chest , 2 view No observ ation record ed. [place] [id number] [facility] [address], [place], [address], 06/19/2024 16:01:42 06/18/20 24 06/17/2024 CT, head, w/o contr ast No observ ation record ed. [address], [place], [address], 06/19/2024 16:01:34 06/18/20 24 06/17/2024 CT, angio gram, neck, w/ contr ast No observ ation record ed. [place] [id number], [place], [address], 06/19/2024 16:01:20 06/18/20 24 06/17/2024 CT, head, w/ contr ast No observ ation record ed. [email or web address] [facility] [address], [place], [place], [address], 06/19/2024 16:01:07 06/19/20 24 06/17/2024 elect rocar diogr am No observ ation record ed. [email or web address] [address], [place], [place], [address], 06/19/2024 16:00:38 08/30/19 25 08/30/2024 MRI, lumba r spine , w/o contr ast No observ ation record ed. [facility] [address], [place], [place], [address], 08/30/2024 13:03:15 10/31/19 25 10/29/2024 CT, abdom en, w/o contr ast No observ ation record ed. [facility] [address], [place], [place], [address], 10/30/2024 10:21:20 11/18/19 25 11/15/2024 elect rocar diogr am No observ ation record ed. [facility] [address] [place], [address], 11/20/2024 10:38:31 11/29/19 25 11/28/2024 CT, abdom en + pelvi s, w/o contr ast No observ ation record ed. [facility] [address], [place], [place], [address], 11/28/2024 16:25:17 12/08/19 25 12/07/2024 US, doppl er echoc ardio gram No observ ation record ed. [email or web address] [facility] [address], [place], [place], [address], 12/07/2024 12:05:12 12/08/19 25 12/07/2024 nucle ar stres s test No observ ation record ed. [email or web address] [facility] [address], [place], [address], 12/07/2024 12:04:42 12/17/19 25 12/16/2024 XR, chest , 1 view No observ ation record ed. [facility] [address], [place], [address], 12/18/2024 08:50:40 Result Notes None recorded. Problems Name Problem SNOMED Code Status Onset Date Resolution Date Notes Provider Name and Address Organization Details Recorded Time Hypertens kings disorder 35973065 Active Chichi Tao MD [address], [place], [address], [place] [facility] 2 09:48:21 Hyperlipi demia 65520547 Active Chichi Tao MD [address], [place], [address], [place] [facility] 2 09:48:22 Tobacco dependenc e syndrome 63988207 Active 2019 Chichi Tao MD [address], [place], [address], [place] [facility] 2 09:48:22 COVID-19 994538521 Completed 201910/15/2021 Chichi Tao MD [address], [place], [address], [place] [facility] 2 09:48:32 Blood glucose outside reference range 984006769 Active 2021 Chichi Tao MD [address], [place], [address], [place] [facility] 2 10:15:43 Acute bacterial sinusitis 65058054 Active 2021 Chicih Tao MD [address], [place], [address], [place] [facility] 2 17:49:07 Allergic rhinitis 72019462 Active 2022 Chichi Tao MD [address], [place], [address], [place] [facility] 3 14:40:13 Dysfuncti on of left eustachia n tube 436668244781 9106 Active 2022 Chichi Tao MD [address], [place], [address], [place] [facility] 3 14:51:31 Type 2 diabetes mellitus 30214443 Active 2022 Kayla Anaya APRN [address], [place], [address], [place] [facility] 5 10:41:48 Insulin resistanc e 037147920 Active 2022 Chichi Tao MD [address], [place], [address], [place] [facility] 14:52:07 Lumbar radiculop athy 384648227 Active 2022 Chichi Tao MD [address], [place], [address], [place] [facility] 3 09:53:05 History of male erectile disorder 421698372 Active 2022 Chichi Tao MD [address], [place], [address], [place] [facility] 17:24:31 Biliary calculus 215847430 Active 2024 Kayla Anaya APRN [address], [place], [address], [place] [facility] 5 14:52:41 Nausea 152333482 Active 2024 Kayla Anaya APRN [address], [place], [address], [place] [facility] 5 14:52:43 Low blood pressure 24380898 Active 2024 Kayla Anaya APRN [address], [place], [address], [place] [facility] 5 11:44:18 Acute suppurati ve otitis media without spontaneo us rupture of ear drum 64324976 Active 2024 Kayla Anaya APRN [address], [place], [address], [place] - [facility] 5 09:26:55 Viral upper respirato ry tract infection 716620534 Active 2024 Kayla Anaya, [employer] [address], [place], [address], [place] - [facility] 5 09:27:18 Problem Notes None recorded. Procedures Surgical History Date Name Laterality Status Provider Name and Address Organization Details Recorded Time 11/18/19 Medication Reconcilliation completed Iliana Pollitt [place] - [facility] 11/17/2024 10:00:04 10/31/19 25 Medication Reconcilliation completed Iliana Pollitt [place] [facility] 10/30/2024 14:22:06 11/23/19 20 [...] 08:58:36 07/26/19 20 Medication Reconcilliation completed Trupti Lou [place] [facility] 07/26/2019 17:10:58 07/18/20 19 [...] [place] [facility] 09/21/2017 14:51:42 Imaging Results None recorded. Procedure [...] Take 80 mg by injectio n route. 08/02/ 2024 10/25 /2024 completed Not Available Not Available Not Available [...] e 50 mcg/actua tion nasal spray,zack pension Sanders 2 sprays every day by intranas al [...] mass index (BMI) Body weight Body temperature Respiratory rate Heart rate Oxygen saturation Oxygen saturation in Arterial blood by Pulse oximetry Systolic And Diastolic Provider Name and Address Organization Details Last Updated DateTime 5 190.5 cm 38.4 kg/m2 448732. 86 g 98.2 [degF] 18 /min 107 /min 97 % 97 % 128/78 mm[Hg] Iliana Pollitt [place] - [facility] 5 14:31:57 Date Recorded Body height Body mass index (BMI) Body weight Respiratory rate Body temperature Heart rate Oxygen saturation Oxygen saturation in Arterial blood by Pulse oximetry Systolic And Diastolic Provider Name and Address Organization Details Last Updated DateTime 5 190.5 cm 37.2 kg/m2 515489. 53 g 18 /min 98.3 [degF] 74 /min 98 % 98 % 118/80 mm[Hg] Iliana Pollitt [place] - [facility] 5 10:09:46 Date Recorded Body height Body mass index (BMI) Body weight Body temperature Heart rate Oxygen saturation Oxygen saturation in Arterial blood by Pulse oximetry Systolic And Diastolic Provider Name and Address Organization Details Last Updated DateTime 5 190.5 cm 37 kg/m2 219952. 34 g 98.4 [degF] 112 /min 97 % 97 % 118/82 mm[Hg] Ruth Cynthia [place] - [facility] 5 09:02:06 Date Recorded Body height Body mass index (BMI) Body weight Body temperature Heart rate Oxygen saturation Oxygen saturation in Arterial blood by Pulse oximetry Respiratory rate Systolic And Diastolic Provider Name and Address Organization Details Last Updated DateTime 4 190.5 cm 38.5 kg/m2 345014. 45 g 98.6 [degF] 84 /min 96 % 96 % 18 /min 100/80 mm[Hg] Carmen Vinson [place] - [facility] 4 09:58:02 Date Recorded Body height Body mass index (BMI) Body weight Heart rate Oxygen saturation Oxygen saturation in Arterial blood by Pulse oximetry Respiratory rate Systolic And Diastolic Provider Name and Address Organization Details Last Updated DateTime 4 190.5 cm 38.7 kg/m2 855288. 63 g 82 /min 98 % 98 % 16 /min 102/76 mm[Hg] Zoila Ha [place] - [facility] 4 17:09:52 Social History Question Answer Notes LastModified by Namelyat ion Details LastModified Time Tobacco Smoking Status Never Smoker Orion Bernal meng [place] - [facility] 05/10/2017 18:23:54 Able To Swim? Yes Information not available 09/21/2017 Do You Have An Advance Directive? No Information not available 05/10/2017 Are You Blind Or Do You Have Difficulty Seeing? No Information not available 05/10/2017 What Is Your Level Of Caffeine Consumption? Occasional Information not available 05/10/2017 How Much Tobacco Do You Chew? 5+/day [email or web address] Information not available 12/07/2022 In The 14 Days Before Symptom Onset, Have You Had Close Contact With A Laboratory-confir med COVID-19 While That Case Was Ill? No [email or web address] Information not available 12/07/2022 In The 14 Days Before Symptom Onset, Have You Had Close Contact With A Person Who Is Under Investigation For COVID-19 While That Person Was Ill? No [email or web address] Information not available 12/07/2022 Have You Been To An Area Known To Be High Risk For COVID-19? No Information not available 12/07/2022 Are You Deaf Or Do You Have Serious Difficulty Hearing? No Information not available 05/10/2017 What Type Of Diet Are You Following? REGULAR Information not available 05/10/2017 Which Illicit Or Recreational Drugs Have You Used? None [email or web address] Information not available 12/07/2022 Have You Processed Blood Or Body Fluids From An Ebola Virus Disease Patient Without Appropriate PPE? No Information not available 12/07/2022 Do You Reside In Or Have You Traveled To An Area Where Ebola Virus Transmission Is Active? No Information not available 12/07/2022 What Is The Highest Grade Or Level Of School You Have Completed Or The Highest Degree You Have Received? [id number] [email or web address] Information not available 12/07/2022 Have There Been Any Changes To Your Family Or Social Situation? No Information no t available 12/07/2022 What Is The Fluoride Status Of Your Home? Unknown [email or web address] Information not available 12/07/2022 Hard Of Hearing Or Deaf In One Or Both Ears? No Information not available 05/10/2017 Have You Recently Or Are You Planning To Travel To An Area With Zika Virus? No [email or web address] Information not available 12/07/2022 Legally Blind In One Or Both Eyes? No Information no t available 05/10/2017 Live Alone Or With Others? With Others Information not available 05/10/2017 Do You Have A Medical Power Of Circular Shear Operator? No [email or web address] Information not available 12/07/2022 What Was The Date Of Your Most Recent Tobacco Screening? 11/17/2024 Information not available 11/17/2024 How Many Children Do You Have? 1 Information not available 09/21/2017 Do You Use Protection During Sex? No Information not available 05/10/2017 Do You Use Protection Against STDs? No [email or web address] Information not available 12/07/2022 What Is Your Relationship Status? Information not available 05/10/2017 Seat Belts Used Routinely Yes Information not available 05/10/2017 Are You Sexually Active? Yes Information not available 05/10/2017 Smoke Alarm In Home Yes Information not available 09/21/2017 Do You Have Smoke And Carbon Monoxide Detectors In Your Home? Yes [email or web address] Information not available 12/07/2022 Are You Passively Exposed To Smoke? No [email or web address] Information no t available 12/07/2022 How Much [...] Have You Used E-cigarettes Or Vape? 25 [email or web address] Information not available 12/07/2022 How Many Years Have You Used Smokeless Tobacco? 25 Information not available 11/10/2023 Sex: Male Functional Status Question Answer Note LastModified by Organizat ion Details LastModified Time How many times per week do you consume alcohol? Less than 1 time per week [email or web address] Information not available 12/07/2022 Do you or have you ever used smokeless tobacco? Currently [email or web address] [email or web address] Information not available 11/23/2019 Are you currently employed? Yes Information not available 05/10/2017 Do you have transportation difficulties? No [email or web address] Information not available 12/07/2022 Are you able [...] other forms of tobacco or nicotine? No [email or web address] Information not available 12/07/2022 What is your level of alcohol consumption? Occasional Information not available 09/21/2017 Are you able to walk? [email or web address] Information not available 05/10/2017 Do you have difficulty doing errands alone? 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 [id number] [email or web address] Information not available 12/07/2022 Do you have [...] colitis N Cerebrovascular Disease N Depression N Guillain-[place] N Sleep Apnea N Aneurysm N Bronchitis [...] SNOMED-CT Code Diagnosis ICD10 Code Diagnosis Note [id number] Chichi Tao MD [address] [place] [address] 05/10/2017 18:05:03 05/10/2017 19:53:56 Essential hypertension 32672657 I10 Mixed hyperlipidemia 267 740773 E78.2 [id number] Gustavo Price MD [address] [place] [address] 09/21/2017 14:23:10 09/21/2017 15:24:09 Low back pain 884219050 M54.5 [id number] Gustavo Price MD [address] [place] [address] 09/28/2017 08:39:02 09/28/2017 09:25:02 Low back pain 015185263 M54.5 Resolved [id number] Chichi Tao MD [address] [place] [address] 04/24/2019 16:24:36 04/24/2019 17:02:50 Essential hypertension 60556774 I10 Hypertensive disorder 38 094375 I10 Hyperlipidemia 81679919 E78.1 Viral syndrome 570361195 B34.9 [id number] Amanda Du MD [address] [place] [address] 06/19/2019 14:08:24 06/19/2019 15:52:55 Cough 67886867 R05 He also has symptoms suggestive of acute bronchitis . Rapid Flu test is negative. Get chest x-rays. Note he had complained of chest congestion . I did a baseline EKG. Take Mucinex and Tessalon as prescribed . Maintain an adequate hydration. See us back or go to Er right away should get worse or develop any new symptoms or complaints . Follow up with us in 5 days Hypertensive disorder 38 338571 I10 Continue Amlodipine at current dose.Added Losartan. Reduce dietary sodium intake to less than 100 mEq (2.3 g of sodium or 6 g of sodium chloride)/ day. Discussed weight loss, DASH diet and exercise programGet labs in our clinic as soon as possible. Follow up on high blood pressure in 2 weeks Otitis media 57340566 H6 6.90 Take Augmentin as prescribed . See us back or go to Er right away should get worse or develop any new symptoms or complaints . Follow up with us in 5 days. See us earlier if no improvemen t within next 48 to 72 hours. [id number] Amanda Du MD [address] [place] [address] 06/20/2019 12:57:31 06/20/2019 14:29:48 Palpitations 39727417 R00.2 Pt had an episode featuring nervousnes s, dizziness, near syncope, and palpitatio ns on 06.19.2019 and went to Er. Told to have an unremarkab le EKG in the ER.Labs CBC, CMP were okay other than slightly elevated ALT and AST (per patient). Will get his ER records. His episode might well be a side effect to Prednisone he had for 4-5 days (stopped Prednisone on 06.18.2019 ). Will check TSH and magnesium. Wants to see cardiologi st for a thorough evaluation and management (might benefit from Holter and Echo). Referral for cardiology placed. 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 Discussed weight loss, DASH diet and exercise programFol low up in 2 weeks Venereal d isease screening 898060813 Z11.3 Snoring 71779965 R06.83 Patient snores and at times stop breathing during sleep. Also daytime sleepiness sometimes. Possible PARTH. Referred to sleep clinic. Warned and cautioned him about not to engage in activities that require mental alertness like driving, operaing machinery, etc Acute bronchitis 0328402 2 J20.9 Take Mucinex and Tessalon as prescribed . CXR showed no acute findings. See us back or go to Er right away should get worse or develop any new symptoms or complaints . Follow up with us in one week Otitis media 61611450 H6 6.90 Take Augmentin as prescribed . See us back or go to Er right away should get worse or develop any new symptoms or complaints . Follow up with us in one week. See us earlier if no improvemen t within next 48 to 72 hours. [id number] Amanda Du MD [address] [place] [address] 06/26/2019 09:47:25 06/26/2019 12:24:36 Otitis media 99325759 H66.90 Patient continues having left ear pain despite taking Augmentin. Stop Augmentin. Take Cefdinir as prescribed . See us or go to Er right away if not better within next 48 to 72 hours. See us back or go to Er right away should get worse or develop any new symptoms or complaints . Follow u with us in 3 days Headache 57405876 R51 It might well be part of his current viral illness. No known allergies to contrast. Will get MRI brain to rule out other possibilit ies (since he has a concomitan t left sided otitis media that did not respond to Augmentin) . Note no headache is going on at time of encounter. But he had it earlier this morning. I recommende d he should seek an immediate medical attention i.e. go to (ER) right away should get INSERT again. Chest pain 54326193 R07. 9 I reviewed EKG in office and showed a normal sinus rhythm w/o acute ST and T wave changes. There is tenderness over left upper chest wall. It looks like his chest pain is due to costochond ritis. Take low dose Naproxen as prescribed . Will get chest x-rays. No known allergies to contrast or dye. Will get CTA chest (if insurance approves) to rule out PE and aortic disease (less likely). He has an appointmen t scheduled with Cardiologsudhir inman in a week. And I recommende d he should keep that appointmen t. Liver enzy mes outside reference range 035920612 R94.5 Will check labs. Get outstandin g liver ultrasound . Most likely he has fatty liver- Discussed low fat diet, exercise (once feeling better) and weight loss Pulmonary emphysema 8743 3001 J43.9 Addendum: CTA chest showed minimal emphysema. Use Proair as needed. Looks like recent acute bronchitis exacerbate d underlying emphysema. He quit smoking six years ago. But he smoked about one pack of cigarette per day x 15 years prior to that. Note cough and sputum have resolved. Has Prednisone 20 mg tablets. Take Prednisone 20 mg 2 tablets by mouth once a day for 5 days. Tells me he has enough Prednisone and dose not need refill. See us back or go to Er right away should get worse or develop any new symptoms or complaints . Follow up with us in 3 days Acute bronchitis 0741996 2 J20.9 Cough and sputum have resolved. He continues having shortness of air with exertion [id number] Amanda Du MD [address] [place] [address] 07/03/2019 14:06:01 07/03/2019 15:17:52 Hypertensive disorder 25024545 I10 Better control. Continue Amlodipine . Recommende d to reduce dietary sodium intake to less than 100 mEq (2.3 g of sodium or 6 g of sodium chloride)/ day. Discussed weight loss, DASH diet and exercise programFol low up with us in 3 months Allergic rhinitis 949479 04 J30.9 Use Flonase as prescribed . See us back or go to the Er right away should get worse or develop any new symptoms or complaints . Follow up with us in a couple of weeks Ear pressu re sensation 988170657 H93.8X9 Patient would like to see ENT and referral for same will be placed Otitis media 66500059 H6 6.90 Ear pain resolved. Complete course of Cefdinir. See us back or go to the Er right away should get worse or develop any new symptoms or complaints . Note he still has 3 more days of abx to go. Follow up with us in 3 days [id number] Amanda Du MD [address] [place] [address] 07/05/2019 14:07:52 07/05/2019 15:26:31 Hypertensive disorder 22082388 I10 Continue Amlodipine at current doseAdded Hydrochlor othiazide and start taking it as prescribed .Do not take Losartan.R educe dietary sodium intake to less than 100 mEq (2.3 g of sodium or 6 g of sodium chloride)/ day. Discussed weight loss, DASH diet and exercise programFol low up with us in 2 weeks Insomnia 578564332 G47.0 0 Take Trazodone as prescribed . Establish care with a Licensed Clinical Construction Skills Teacher ([employer]). I counselled patient about side effects of medicine (s). Seek an immediate medical attention i.e. see us or go to Er right away should get worse or develop any new symptoms or complaints . Call 911 and go to Er right away should develop any suicidal ideation. Follow up with us in 2 weeks. [id number] Amanda Du MD [address] [place] [address] 07/18/2019 09:34:10 07/18/2019 11:57:20 Hypertensive disorder 29620864 I10 Continue Amlodipine at current dose.Incre ased dose of Hydrochlor othiazide 12.5 to 25 mg once a day Reduce dietary sodium intake to less than 100 mEq (2.3 g of sodium or 6 g of sodium chloride)/ day. Discussed weight loss, DASH diet and exercise programFol low up with us in a couple of weeks [id number] Amanda Du MD [address] [place] [address] 07/26/2019 16:53:49 07/26/2019 18:10:22 Hypertensive disorder 02672973 I10 Continue Amlodipine at current dose (does not need refill) Reduce dietary sodium intake to less than 100 mEq (2.3 g of sodium or 6 g of sodium chloride)/ day. Discussed weight loss, DASH diet and exercise programGet labs (BMP) and follow up with us for BP check in 3 days. Hyperglycemia 07120202 R 73.9 Recent labs had shown Glucose 123. Take a low carb diet, exercise and loose weight. Get A1c [id number] Amanda Du MD [address] [place] [address] 07/31/2019 08:41:38 07/31/2019 09:57:02 Hypertensive disorder 47643207 I10 Continue Amlodipine and Lisinopril at current doses. Recommende d to reduce dietary sodium intake to less than 100 mEq (2.3 g of sodium or 6 g of sodium chloride)/ day. Discussed weight loss, DASH diet and exercise programFol low up in 3 months Anxiety disorder 4676276 06 F41.9 Start Sertraline . Establish care with a Licensed Clinical Construction Skills Teacher ([employer]). I counselled patient about side effects of medicine (s). Seek an immediate medical attention i.e. see us or go to Er right away should get worse or develop any new symptoms or complaints . Call 911 and go to Er right away should develop any suicidal ideation. Follow up in 2 weeks Prediabetes 117688135 R7 3.03 A1c 6.1 (on 07.28.19). Take a diabetic diet, exercise and loose weight. Get a repeat A1c in 3 months. [id number] Maryse Small LCSW [place] [address] 08/01/2019 09:52:11 08/01/2019 11:54:44 [id number] Amanda Du MD [address] [place] [address] 08/21/2019 10:15:17 08/21/2019 12:16:06 Hypertensive disorder 62566718 I10 Continue Amlodipine at current dose.Incre ase dose of Lisinopril from 5 to 10 mg once a day.Recomm ended to reduce dietary sodium intake to less than 100 mEq (2.3 g of sodium or 6 g of sodium chloride)/ day.Discus sed weight loss, DASH diet and exercise programFol low up with us in 4 weeksfor BP checkGet a repeat BMP in 2 weeks [id number] Amanda Du MD [address] [place] [address] 08/28/2019 14:02:42 08/28/2019 16:13:28 Hypertensive disorder 21366379 I10 Continue Amlodipine and Lisinopril at current doses. Recommende d to reduce dietary sodium intake to less than 100 mEq (2.3 g of sodium or 6 g of sodium chloride)/ day. Discussed weight loss, DASH diet and exercise program. Follow up in 3 months. Acute uppe r respiratory infection 26652649 J06.9 Rapid flu is negative. Take Ibuprofen as prescribed with food. Maintain an adequate hydration. Discussed use of warm fluids like chicken soup, tea. Nasal saline. See us back or go to the Er right away should get worse or develop any new symptoms or complaints . Follow up with us in 3 days Abnormal urinalysis 1672 21377 R82.90 See above under urinary symptoms and cystitis Endocrine/ metabolic screening 260494675 Z13.228 Fasting glucose 102 in office. Take a diabetic diet. Exercise and loose weight. Will check A1c Mass of chest wall 34580 4000 R22.2 Deep seated lump over left lower chest pain. Referred to general surgery Urinary symptoms 6419417 08 R39.9 Pt with recent onset urinary frequency and urgency. Frequency has resolved but he continues having urgency. UA in office showed trace blood, moderate ketones and small bilirubin. I recommende d he should maintain an adequate hydration. Prostate exam is unremarkab le. Follow urine culture. Cover with Ciprofloxa simone for symptoms suggestive of acute cystitis. See us back or go to the Er right away should get worse or develop any new symptoms or complaints . Follow up with us in 3 days. 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 Patient will come to office for swab. [id number] Jaclyn Bosch APRN [address] [place] [address] 05/06/2020 14:15:23 05/06/2020 15:22:37 Acute maxillary sinusitis 86562242 J01.00 Patient likely has an acute bacterial sinusitis. Will treat as below. No signs of preseptal or orbital cellulitis , meningismu s, or neurologic changes concerning for intracrani al process. Instructed family to monitor patient closely and call office for any of these symptoms. Supportive care reviewed: raising HOB, humidifier use, saline nasal spray, rest, encourage PO fluids and monitor hydration status, infection control measures. Recommende d acetaminop hen/ibupro fen PRN pain, fever; reviewed appropriat e doses. Follow-up as needed if symptoms worsen or do not improve. [id number] Chichi Tao MD [address] [place] [address] 10/09/2020 17:18:22 10/09/2020 18:18:46 Hypertensive disorder 12649320 I10 Allergic rhinitis 096629 04 J30.9 Generalize d anxiety disorder 61437422 F41.1 Vaccine ad verse reaction 481837005 T50.Z95A [id number] Chichi Tao MD [address] [place] [address] 03/18/2021 15:52:08 03/18/2021 16:49:52 Peripheral venous insufficiency 03673070 I87.2 Gastroesop hageal reflux disease without esophagitis 837783968 K21.9 [id number] Chichi Tao MD [address] [place] [address] 10/15/2021 09:31:28 10/15/2021 10:15:53 Allergic rhinitis 18872841 J30.9 Blood gluc ose outside reference range 149049979 R73.09 Essential hypertension 73620533 I10 Insulin resistance 73866 5000 E88.81 Body mass index 40+ - severely obese 755465284 Z68.41 [id number] Chichi Tao MD [address] [place] [address] 08/10/2022 13:53:49 08/10/2022 14:53:56 Essential hypertension 39922619 I10 Insulin resistance 77678 5000 E88.81 Generalize d anxiety disorder 74715830 F41.1 Allergic rhinitis 934454 04 J30.9 Type 2 galindo betes mellitus 88538536 E11.9 Blood gluc ose outside reference range 368658092 R73.09 Dysfunctio n of left eustachian tube 3448877676 603528 H69.92 [id number] Chichi aTo MD [address] [place] [address] 11/02/2022 13:40:36 11/02/2022 16:16:10 Type 2 diabetes mellitus 15658988 E11.9 Hypertensive disorder 38 157252 I10 Hyperlipidemia 08315252 E78.1 Allergic rhinitis 377169 04 J30.9 Lumbar sprain 980691725 S33.5XXA [id number] Chichi Tao MD [address] [place] [address] 11/25/2022 08:51:34 11/25/2022 10:24:46 Lumbar radiculopathy 985568796 M54.16 [id number] Chichi Tao MD [address] [place] [address] 12/07/2022 09:53:53 12/07/2022 10:48:09 Lumbar radiculopathy 449941322 M54.16 [id number] Chichi Tao MD [address] [place] [address] 12/22/2022 12:52:16 12/22/2022 14:07:49 Lumbar radiculopathy 627619999 M54.16 [id number] Chichi Tao MD [address] [place] [address] 04/19/2023 11:48:58 04/19/2023 12:32:56 Body mass index 30+ - obesity 896797865 Z68.38 Obesity 110348179 E66.9 Type 2 galindo betes mellitus 67131870 E11.9 Allergic rhinitis 273632 04 J30.9 Essential hypertension 36401634 I10 Hypertensive disorder 38 836386 I10 Hyperlipidemia 60773576 E78.1 [id number] Sergio Shin MD [address] 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 F17.200 Hypertensive disorder 38 736517 I10 Hyperlipidemia 78607926 E78.1 Essential hypertension 77116246 I10 Body mass index 30+ - obesity 839490853 Z68.38 [id number] [address] [address] 11/25/2023 15:48:25 11/26/2023 13:32:50 [id number] Sergio Shin MD [address] [place] [address] 02/18/2024 15:26:20 02/18/2024 15:58:13 Allergic rhinitis 43824092 J30.9 Tobacco de pendence syndrome 73456714 F17.200 Body mass index 30+ - obesity 600365106 Z68.38 [id number] Sergio Shin MD [address] [place] [address] 05/12/2024 09:35:03 05/12/2024 10:43:11 Lumbar radiculopathy 472110434 M54.16 History of male erectile disorder 527729311 Z87.438 Type 2 galindo betes mellitus 49797799 E11.9 Allergic rhinitis 911762 04 J30.9 Insulin resistance 55613 5000 E88.819 Tobacco de pendence syndrome 59213984 F17.200 Hypertensive disorder 38 175768 I10 Hyperlipidemia 09969700 E78.1 Pulmonary emphysema 8743 3001 J43.9 Essential hypertension 98905794 I10 Body mass index 30+ - obesity 283576949 Z68.38 [id number] Jaclyn Bosch APRN [address] [place] [address] 06/13/2024 17:00:11 06/13/2024 17:21:04 Dysuria 59923242 R30.0 Will call with results of urine culture Acute sinusitis 95846310 J01.90 F/U PRN if symptoms worsen or no improvemen t - discussed antibiotic prescribed below will treat sinus symptoms as well as urinary symptoms (pending culture results) [id number] GIORGI Bello [facility] [address] [place] [address] 10/30/2024 14:19:12 10/30/2024 14:57:34 Nausea 734319377 R11.0 Biliary calculus 3443403 03 K80.20 Patient has appointmen t November 24, 2024 with general surgeryFol low up as needed [id number] GIORGI Bello [facility] [address] [facility] [place], [place] [address] 11/17/2024 09:59:35 11/17/2024 10:48:21 Body mass index 30+ - obesity 872357946 Z68.38 38.4 Obesity 930097942 E66.9 Low blood pressure 17933 003 I95.9 Episode of hypotensio n and near syncopeER Discontinu ed lisinopril , has follow up with cardiology next weekFollow up as needed Pulmonary emphysema 8743 3001 J43.9 Chronic Allergic rhinitis 542691 04 J30.9 Chronic Type 2 galindo betes mellitus 59478664 E11.9 Chronic [id number] Kayla Anaya APRN [facility] [address] [facility] [place] [place] [address] 12/12/2024 08:54:27 12/12/2024 09:27:53 Sore throat 935966133 J02.9 Acute supp urative otitis media without spontaneous rupture of ear drum 70635115 H66.001 Follow up in 1-2 weeks if symptoms persist Viral uppe r respiratory tract infection 425223827 J06.9 Encouraged increased oral fluid intake as toleratedF ollow up in 1-2 weeks if symptoms persist Health Concerns Section Related Observation LastModified by Organization Detai ls LastModified Time None Recorded Concern Status LastModified by Organization Details LastModified Time None Recorded Advance Directives Directive N: Payers Insurance Date Sequence Insurance Name Policy Number Policy Bauman Covered Member ID Bauman Member ID Guarantor Name 09/22/2017 Abakan Lambert Jason 11/26/2022 [employer] Lambert Jason 10/12/2019 [employer] Lambert Jason 12/12/2024 1 [place] [id number] Lambert Jason II [id number] Lambert Jason Notes Date Note Type Note Provider Name and Address Organization Details Recorded Time 05/12/2024 text/html Here for checkup , labs, refills. BS 95-105. Wants mounjaro increased. Had eye exam [facility] Dr[facility] Dowd. Sergio Shin MD [address], [place], [address], [place] - [facility] 05/12/2024 10:27:16 06/13/2024 text/html Lambret is a 44 year old male who [...] today. Jaclyn Bosch APRN [address], [place], [address], [place] - [facility] 06/13/2024 17:22:21 10/30/2024 text/html Emergency Depart ment Follow-Up RecordReported bypatient.Discharge InformationName of hospital/urgent care patient was seen: ([facility]); Patient presented to hospital/urgent care on or around: actual date 10/29/24; Patient presented to hospital for treatment of: (abdominal pain); Treatment received by hospital/urgent care: (Abdominal US & CT. CT showed cholelithiasis He has an appointment with Dr. Chetan Spence @ [facility] on November 24.); Patient's condition has: unchanged; Hospital records available at the time of this visit: Yes Kayla Anaya APRN [address], [place], [address], [place] - [facility] 10/30/2024 16:41:55 11/17/2024 text/html Emergency Depart ment Follow-Up RecordReported bypatient.Discharge InformationName of hospital/urgent care patient was seen: ([facility]); Patient presented to hospital/urgent care on or around: actual date 11/15/24; Patient presented to hospital for treatment of: (syncope); Treatment received by hospital/urgent care: (Labs & Chest X-ray (normal) Discharged home with diagnosis of hypotension and referral to cardiology D/C 40mg Lisinopril He has an appointment on 11/23 with his [employer].); Patient's condition has: improved; Hospital records available at the time of this visit: Yes Kayla Anaya APRN [address], [place], [address], [facility] - [facility] 11/17/2024 11:45:42 12/12/2024 text/html Upper Respirator y SymptomsReported bypatient.Location:hea [...] pain, sinus pressure/WEST, runny nose Kayla Anaya, [employer] [address], [place], [address], [facility] - [facility] 12/12/2024 09:27:25
--- NOTE | 2025-01-12 18:43 | XR_ITS ---
PROCEDURE INFORMATION: Exam: XR Right Ankle Exam date and time: 01/12/2025 6:43 PM Age: 44 years old Clinical indication: Injury or trauma; Fall; Sprain or strain; Ankle; Right; Additional info: Lateral pain after inversion injry TECHNIQUE: Imaging protocol: Radiologic exam of the right ankle. Views: 3 or more views. COMPARISON: No relevant prior studies available. FINDINGS: Bones/joints: Calcaneus enthesophytes. No acute fracture or dislocation. Soft tissues: Normal. IMPRESSION: No acute fracture or dislocation.
--- NOTE | 2025-01-12 18:43 | XR_ITS ---
PROCEDURE INFORMATION: Exam: XR Right Foot Exam date and time: 01/12/2025 6:46 PM Age: 44 years old Clinical indication: Injury or trauma; Fall; Sprain or strain; Ankle; Right; Additional info: Lateral pain after inversion injry TECHNIQUE: Imaging protocol: Radiologic exam of the right foot. Views: 3 or more views. COMPARISON: CR Ankle R 01/12/2025 6:43 PM FINDINGS: Bones/joints: Calcaneus enthesophytes. No acute fracture or dislocation. Soft tissues: Normal. IMPRESSION: No acute fracture or dislocation.
--- NOTE | 2025-01-12 18:49 | HMH.EDGENADL ---
Discharge Plan Disposition Patient Disposition: Home, Self-Care Prescriptions Prescriptions: No Action cetirizine 10 mg tablet 10 mg PO DAILY Patient Comments: TAKE 1 TABLET BY MOUTH ONCE DAILY fluticasone propionate 50 mcg/actuation spray,suspension 50 mcg intranasal DAILY Patient Comments: USE 2 SPRAY(S) IN EACH NOSTRIL ONCE DAILY FOR 90 DAYS (DME) blood-glucose meter [OneTouch Ultra2 Meter] [facility] [place] See Rx Instructions .ROUTE .MEDSUPPLY Qty: 1 Patient Comments: USE DIRECTED Rx Instructions: As directed (DME) OneTouch Ultra Test Strip See Rx Instructions .ROUTE .MEDSUPPLY Qty: 10 Patient Comments: TEST TWICE DAILY Rx Instructions: As directed lisinopril 10 mg tablet 10 mg PO DAILY Patient Comments: TAKE ONE (1) TABLET EVERY DAY BY ORAL ROUTE DIRECTED FOR 30 DAYS. albuterol sulfate 90 mcg/actuation HFA aerosol inhaler inhalation Patient Comments: INHALE TWO (2) PUFFS EVERY FOUR (4) HOURS BY INHALATION ROUTE. ondansetron 4 mg tablet,disintegrating 4 mg PO Q8H PRN Patient Comments: PLACE TWO (2) TABLETS EVERY 8 HOURS BY TRANSLINGUAL ROUTE NEEDED FOR NAUSEA. Mounjaro 15 mg/0.5 mL pen injector 15 mg SQ atorvastatin [Lipitor] 40 mg tablet 40 mg PO DAILY Qty: 90 2RF fexofenadine [Jessie Allergy] 180 mg tablet 180 mg PO DAILY prednisone 20 mg tablet 20 mg PO BID Qty: 14 0RF Rx Instructions: Take two tablets on days 1-4. Take one tablet daily on days 5-8. On days 9-12 take one half tablet. nitroglycerin 0.4 mg tablet, sublingual 0.4 mg sublingual Q5-15M PRN (Reason: chest pain) Qty: 30 1RF Rx Instructions: do not exceed 3 doses per episode Referrals Follow up/Referrals: Luis F Meredith DO [Primary Care Provider, Family Practice] - See instructions Activity Restrictions/Add. Instructions Additional Instructions/Restrictions: Call your family doctor to establish care for this visit to the emergency department and schedule follow-up as needed to ensure improvement. Take Tylenol 1000 mg every 6 hours (4 times daily) and ibuprofen 400 mg every 6 hours (4 times daily) as needed with food and water to prevent GI upset and kidney damage. Clinical Impressions Clinical Impression: Right ankle sprain Print Language Print Language: Upper Sorbian Discharge ED Provider: Albert Cates General Adult HPI General Chief complaint: Extremity Injury, Lower Stated complaint: AO 01/12/25 1000 unjury right ankle Time Seen by Provider: 01/12/25 17:53 Mode of Arrival: Ambulatory Source of Information: Patient Description of Symptoms (Recalled from ER Triage Doc. by RN): Patient states about 1000 this morning he was walking in his yard and stepped in a hole and rolled his right ankle. Patient has not taken anything for the pain. History of Present Illness HPI narrative: Please note that above description of symptoms, in this electronic medical record under categorization of recalled from ER triage doctor by RN are reflective of an initial nursing assessment, however, is not reflective of my full history and physical exam that was personally taken and clarified. Consequentially, this preceding description of symptoms, which may include the patient's categorized chief complaint in the EMR, do not reflect my personal clinical impression, and the ultimate description of history of present illness and patient stated complaints should be deferred to this section of the note. Unless stated otherwise or congruent with this section of the note, additional signs, symptoms, or incongruence should be interpreted as inaccurate with my clinical impression. Related Data Home Medications ?Medication ?Instructions ?Recorded ?Confirmed cetirizine 10 mg tablet 10 mg PO DAILY 11/29/23 01/09/25 fluticasone propionate 50 50 mcg intranasal DAILY 11/29/23 01/09/25 mcg/actuation nasal spray,suspension albuterol sulfate 90 mcg/actuation inhalation 11/22/24 01/09/25 aerosol inhaler blood sugar diagnostic (OneTouch #10 ea 11/22/24 01/09/25 Ultra Test strips) blood-glucose meter (OneTouch #1 ea 11/22/24 01/09/25 Ultra2 Meter) lisinopril 10 mg tablet 10 mg PO DAILY 11/22/24 01/09/25 ondansetron 4 mg disintegrating 4 mg PO Q8H PRN 11/22/24 01/09/25 tablet tirzepatide 15 mg/0.5 mL 15 mg SQ Type 2 diabetes 11/22/24 01/09/25 subcutaneous pen injector (Gadielunjaro) fexofenadine 180 mg tablet 180 mg PO DAILY 12/29/24 01/09/25 (Jessie Allergy) Previous Rx's ?Medication ?Instructions ?Recorded atorvastatin 40 mg tablet (Lipitor) 40 mg PO DAILY #90 tabs 12/07/24 nitroglycerin 0.4 mg sublingual 0.4 mg sublingual Q5-15M PRN chest 12/20/24 tablet pain #30 tabs prednisone 20 mg tablet 20 mg PO BID #14 tabs 12/29/24 Allergies Allergy/AdvReac Type Severity Reaction Status Date / Time No Known Allergies Allergy Verified 01/09/25 11:28 [facility] Disclaimer: The information contained in this section may have been updated after the patient was seen, as this information can be updated by other users. 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: No Have you tested positive for COVID-19?: No Exposed to someone with COVID-19 in past 14 days?: No Do you have a sore throat?: No Do you have a cough?: No Do you have any weakness?: No Do you have any diarrhea?: No Are you experiencing any unusual bleeding?: No Do you have any muscle aches/pain?: No Do you have any abdominal pain?: No Are you experiencing loss of taste or smell?: No Other Medical History Have you received the Flu Vaccine for this season: No Have you received the Pneumonia Vaccine: No ROS Obtained: Yes All systems reviewed & no additional complaints except as documented Physical Exam General General appearance: alert Head Head exam: atraumatic and normocephalic Eye Eye exam: Present normal appearance, PERRL and EOMI Neck Neck exam: Present normal inspection, full ROM and trachea midline Respiratory Respiratory exam: Absent respiratory distress, wheezes, stridor, accessory muscle use or prolonged expiratory phase Cardiovascular Cardiovascular exam: Present other (Pulses equal symmetric in upper and lower extremities) Abdominal Exam Abdominal exam: Present soft; Absent distention, tenderness or pulsatile mass Extremities Exam Extremities exam: Present other (Tenderness along the lateral aspect of the ankle, but no evidence of outward signs of swelling, abnormality, etc.); Absent edema Neurological Exam Neurological exam: Present alert, oriented X3 and CN II-XII intact; Absent motor sensory deficit Skin Skin exam: Present warm and dry; Absent diaphoresis or erythema Medical Decision Making Medical Records Medical records reviewed: Yes I reviewed the patient's medical records. Screening: Per USPSTF and CDC recommendations, given the prevalence of disease in our region, it is our hospital?s policy to screen for HIV and viral Hepatitis for all patients aged 18 and over and those with ongoing risk factors. Dario Inquiry Pt receiving controlled substance: No Dario was queried for this patient: No Vital Signs: 01/12/25 17:51 01/12/25 18:10 Temperature 98.3 F Temperature Source Oral Pulse Rate 78 Pulse Rate [Right Brachial] 73 Respiratory Rate 16 17 Blood Pressure 132/70 Blood Pressure [Right Arm] 138/82 Blood Pressure Mean [Right Arm] 100 Blood Pressure Source Automatic Cuff Blood Pressure Source [Right Arm] Automatic Cuff Blood Pressure Position Sitting Blood Pressure Position [Right Arm] Sitting 02 Sat by Pulse Oximetry 100 100 Oxygen Delivery Method Room Air Room Air Orders (Tests/Meds): ORDERS Category Date Time Status XR ankle RT min 3V Stat Exams 01/12/25 18:43 Completed XR foot RT min 3V Stat Exams 01/12/25 18:43 Completed Medical Decision Narrative: This a 44-year-old male presenting with ankle pain. He states that he rolled his ankle earlier today while carrying lumber. He stepped in a hole and inverted his ankle, having pain on the lateral aspect of his ankle and foot. Came in for further evaluation. Able to bear weight, but having mild to moderate pain. On physical exam, very clinically well. Range of motion is intact, but he has significant tenderness when inverting his ankle, not so much everting his ankle. Flexion and extension of the ankle intact. Some tenderness to base of the fifth, some tenderness lateral malleolus. Differential includes sprain, strain, less likely to be fracture, dislocation, among others. X-rays were obtained. On independent interpretation, these demonstrated no acute bony abnormality. Because patient at baseline without signs or symptoms of clinical decompensation, deemed appropriate for discharge. Results were relayed to patient who voiced understanding and were agreeable to outpatient management and follow up. I discussed my clinical impression with patient and answered all questions. At this time, the evidence for any other entities in the differential is insufficient to warrant any further testing or ED observation. This was explained as well. Advisory was given that persistent or worsening symptoms require further evaluation. I confirmed the understanding of this discussion. Director Toxicology disclaimer Much of this encounter note is an electronic dairy grazer spoken language to printed text. Electronic dairy grazer of the spoken language may permit errors. Although I have reviewed the note, some errors may still exist. Critical Care Critical Care Time Critical Care Time: No
[2025-01-12 20:05] VITALS: BP 130/71; PULSE 79; RESP 16; TEMP 36.8; O2SAT 100
== END 2025-01-12 20:05 | disposition home or self-care (01) ==
PROVIDERS: Emergency Provider Emergency Medicine; PCP Internal Medicine
DX: S93.401A Sprain of unspecified ligament of right ankle, initial encounter (principal); W18.42XA Slipping, tripping and stumbling without falling due to stepping into hole or opening, initial encounter; I10 Essential (primary) hypertension
CPT/HCPCS: 73610; 73630; 99284

== ENCOUNTER 2025-03-29 13:20 | Outpatient (CLI) | payer BC, SELFPAY ==
[2025-03-29 13:28] VITALS: BMI 38.0
--- NOTE | 2025-03-29 13:28 | ECG_ITS ---
APPROVED REPORT Exam: Resting ECG HR:69 bpm ECG Measurements Heart Rate 69 AXES VT 140 P 36 QRSd 101 QRS 35 QT 374 T 39 QTc 393 Conclusion SINUS RHYTHM NORMAL ECG UNCONFIRMED REPORT Electronically signed by : Carlos A Lambert MD 03/31/2025 08:55:04
[2025-03-29 14:14] LABS: Hematocrit 44.8 % (42.0-52.0); Hemoglobin 14.9 g/dL (14.1-18.0); Immature Granulocytes % 0.1 %; Mean Corpuscular HGB Conc 33.3 g/dL (31.8-35.4); Mean Corpuscular Hemoglobin 29.3 pg (27.0-31.2); Mean Corpuscular Volume 88.0 fl (80-94); Nucleated Red Blood Cells % 0 %; Platelet Count 263 K/mm3 (142-424); Red Blood Count 5.09 M/mm3 (4.60-6.20); Red Cell Distribution Width-SD 41.9 fL; White Blood Count 6.9 K/mm3 (4.8-10.8)
[2025-03-29 14:16] LABS: Anion Gap 12.4 mEq/L (5-15); Blood Urea Nitrogen 15 mg/dl (9-20); Calcium 9.3 mg/dl (8.4-10.2); Carbon Dioxide 29 mmol/L (22.0-30.0); Chloride 104 mmol/L (98-107); Creatinine Clearance Estimated 184 mL/min (50-200); Creatinine,Serum 0.90 mg/dl (0.66-1.25); Estimated Glomerular Filt Rate 91 ml/min (>60); GFR (African American) 110 ML/MIN (>60); Glucose 83 mg/dl (74-100); Potassium 4.4 mmoL/L (3.5-5.1); Sodium 141 mmol/L (136-145)
== END 2025-03-29 23:59 | disposition home or self-care (01) ==
LOC: PREOP 13:21
PROVIDERS: PCP Internal Medicine; Visit Provider Surgery
DX: Z01.810 Encounter for preprocedural cardiovascular examination (principal); Z01.812 Encounter for preprocedural laboratory examination
CPT/HCPCS: 80048; 85025; 93005

== ENCOUNTER 2025-04-02 06:01 | Day surgery (SDC) | payer BC, SELFPAY ==
[2025-03-30 08:40] VITALS: BMI 38.0
[2025-04-02] VITALS (11 sets, daily range): BP systolic 119–148; BP diastolic 0–99; PULSE 61–95; RESP 16–24; TEMP 36.2–43; O2SAT 93–99; BMI 38.0
--- NOTE | 2025-04-02 06:49 | EXP.ANES.CKL ---
[facility] Disclaimer: The information contained in this section may have been updated after the patient was seen, as this information can be updated by other users. 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 Surgical History History of cardiac cath History of left knee surgery Family History Family/Other Diabetes Coronary artery disease Heart attack Hypertension Hyperlipidemia Stroke Cancer Other Unknown family medical history Social History (Updated 04/02/25 @ 06:30 by Leslye Garvin RN) Smoking Status: Never smoker alcohol intake: never substance use type: denies use current occupational status: employed Travel in the last 8 weeks?: None [facility] Anesthesia Checklist Patient Identification Patient Identification: Arm Band and Family Structural Data Admitted From: Home Planned Operative Procedure/s: Lap Madonna Consent for Planned Operative Procedure(s) Verified: Yes Verified Documents: Surgical Consent, History and Physical and Cardiac Clearance NPO Status Verified Time NPO: 00:00 Additional verifications Patient : No Anesthesia Reactions: No Hx Blood Transfusions: No Blood Transfusion Reaction: No Cephalosporin Allergy: No Previous Colonoscopy: No Airway Assessment Mallampati Score:: Class III C-Spine Mobility Assessed: Yes TMJ Mobility Assessed: Yes Dentition: Partials Neurological Assessment Level of Consciousness: Awake, Alert, Appropriate and Follows Commands Hx Seizures: No Numbness or tingling in extremities: No Anesthesia Plan Anesthesia Risk discussed: Yes ASA Class: III Anesthesia Type: General Preoperative Comments Pre-Operative Comments: [place] 1-2 years ago. NIDDM.
[2025-04-02] MEDS: LACTATED RINGERS 1000ML 1,000 ML 25 ML IV (06:59)
[2025-04-02] MEDS: LIDOCAINE 1% 20ML MDV 20 ML (07:43)
[2025-04-02] MEDS: SODIUM CHLORIDE IRRIG SOLUTION 3,000 ML 200 ML IR (07:47)
--- NOTE | 2025-04-02 08:54 | EXP.OP.NOTE ---
Date of procedure: 04/02/25 Pre-op Diagnosis:: Gallbladder disease, chronic cholecystitis Post-op Diagnosis:: Same Procedure performed:: Laparoscopic cholecystectomy Surgeon:: Chetan Spence MD MANUFACTURING WORKER:: Carlos Rosenthal Anesthesia: GETAniket Estimated blood loss (mL): 50 Clinical Note:: Patient presents for cholecystectomy. I had seen him initially in the office on 11/23/2024 after he had been seen in the emergency department for intermittent right lower quadrant pain which was occasionally sharp with some occasional pain in the right upper quadrant. He did have some worsening with high-fat type foods. CT scan revealed cholelithiasis. I had him undergo a dedicated gallbladder ultrasound which reveals fatty liver and gallstones. He has seen cardiology and thallium test revealed reversible ischemia. He underwent heart catheterization. He has continued to have some issues with postprandial pain with fatty type foods and dairy products with pain in the right back radiating around to the right upper quadrant and into the right shoulder. This is controlled with diet. He also has some occasional right suprapubic pain which seems to be more positional. 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 He has a screening colonoscopy scheduled now for April. Operative findings:: He had some fatty infiltration of the liver. There was some gallbladder distention and mild thickening. Operative note:: Consent was obtained patient was taken the operating room. He was given preoperative intravenous antibiotics. In the operating room he was placed in a supine position. General anesthesia was induced via endotracheal tube. Abdomen was prepped and draped in the standard surgical fashion. Subumbilical skin incision was made and while performing abdominal wall lift Veress needle was inserted. CO2 pneumoperitoneum was achieved to 15 mmHg. 5 mm optical trocar was inserted at the umbilicus. Intraperitoneal contents were visualized. There was a significant amount of intra-abdominal visceral fat. Attempt was made to inspect the lower abdomen/pelvis laparoscopically. No obvious identifiable pathology was encountered but visualization was limited. He was positioned in reverse Trendelenburg left side down. A couple 5 mm trocars were inserted in the right upper abdomen. 11 mm trocar was inserted in the epigastrium. Gallbladder was grasped retracted anteriorly over the dome of the liver. The 0 degree laparoscope was placed with the 5 mm 30 degree laparoscope. Infundibulum of the gallbladder was retracted anterior laterally. Blunt dissection was carried out at the neck of the gallbladder bluntly incising the visceral peritoneum. There was a prominent lymph node. Careful dissection was carried out isolating the cystic duct and cystic artery. Cystic duct was isolated, multiply clipped, and sharply divided. Cystic artery was carefully coagulated with ultrasonic harmonic mendy and divided. Gallbladder was dissected free from the liver in a retrograde fashion using Alexandre ultrasonic harmonic mendy. Gallbladder was placed within an Endo Catch retrieval device and removed in the peritoneal cavity via the umbilical trocar site which required some extension of the fascia and muscle for delivery. There was some oozing from the extended epigastric site muscle. Therefore CO2 pneumoperitoneum was evacuated. 11 mm trocar was removed. Muscle and fascia was reapproximated with a couple of interrupted 0 Ethibond sutures. CO2 pneumoperitoneum was then reestablished. Trocar site was inspected for hemostasis which was assured. Residual blood was suctioned free. Gallbladder fossa was inspected for hemostasis which was assured. Thorough irrigation and suctioning was carried out until clear with assurance of hemostasis. Remaining trocars were then removed as CO2 pneumoperitoneum was evacuated. Local anesthetic was infiltrated. Skin incisions were closed with 4-0 Monocryl in a subcuticular fashion. Steri-Strips and dressings were applied. Condition: stable Disposition: PACU Complications:: None immediately apparent
--- NOTE | 2025-04-02 09:11 | EXP.ANES.I ---
[facility] Anesthesia Record Part I Anesthesia Record I Intake, IV Amount: 800 Hydration: Adequate Estimated blood loss (mL): 50 Urine output (mL): 0 Blood Products used (#): none Blood Pressure: 137/0 SaO2: 94 Pulse Rate: 94 Airway Patency: Patent Respiratory Rate: 24 Temperature: 98.5 F Patient is:: Drowsy and Stable Stable to PACU at:: 09:00
[2025-04-02] MEDS: MORPHINE 2MG/ML SYRINGE 2 MG IV (09:20)
--- NOTE | 2025-04-02 13:42 | EXP.ANES.II ---
[facility] Anesthesia Record Part II Anesthesia Record Part II Discharge Time: 09:30 Destination: Surgical Day Care (OP Surgery) PACU nurse assessment reviewed?: Yes Patient Condition:: Good Anesthesia Complications:: None Swallowing reflex intact?: Yes Airway Patency: Patent Cyanosis?: No Blood Pressure: 123/76 SaO2: 95 Respiratory Rate: 16 Pulse Rate: 84 Temperature: 98.5 F Mental Status: Alert & Oriented Pain level:: 0 Nausea and/or vomitting:: None Intake, IV Amount: 0 Hydration: Adequate
[2025-04-02 19:36] LABS: POC Glucose,Bedside 91 gm/dL (70-110)
== END 2025-04-02 10:05 | disposition home or self-care (01) ==
PROVIDERS: Visit Provider Surgery
PROC: 0FT44ZZ Resection of Gallbladder, Percutaneous Endoscopic Approach (ICD-10-PCS; CPT 47562; principal; 2025-04-02 07:30)
DX: K80.10 Calculus of gallbladder with chronic cholecystitis without obstruction (principal); K76.0 Fatty (change of) liver, not elsewhere classified; I25.10 Atherosclerotic heart disease of native coronary artery without angina pectoris; E11.9 Type 2 diabetes mellitus without complications; I10 Essential (primary) hypertension; Z79.85 Long-term (current) use of injectable non-insulin antidiabetic drugs; Z79.82 Long term (current) use of aspirin; Z79.899 Other long term (current) drug therapy
CPT/HCPCS: 47562; 82962; 96374; J0690; J1100; J2003; J2250; J2270; J2405; J2704; J2795; J3010; J7120

== ENCOUNTER 2025-04-02 18:00 | Inpatient (IN) | payer BC, SELFPAY ==
--- OUTSIDE RECORDS SUMMARY | 2008-06-12 07:00 | XMS_ITS | Continuity of Care Document ---
Author Organization [facility] Address [address] [facility] [address] [place] [address] Phone Care Team Providers Care Wharfinger Chief Name Role Phone Unavailable Unavailable Unavailable Procedures Procedure Date OFFICE VISIT/EST LEVEL III Advance Directives Directive Yes / No Effective Date File Name No Information Encounters Encounter Description Practice Location Reason(s) For Visit Diagnoses Date Provider Providers Copied on Encounter OFFICE VISIT/EST LEVEL III [facility], [address] [facility] [address], [place], [place], [id number], [place] tel:[phone] [facility] No Information No Information Family History Family Member Type Diagnosis Age At Onset No Information Payers Payer name Insurance type Covered constitution party ID Authoriza tihu(s) Thompson [id number] Social History Type Description Quantity Date Captured Comments Sex Male Smoking Status No Information Chief Complaint And Reason For Visit No Information Reason For Referral Reason For Referral No Information History Of Present Illness Encounter Date Complaint History Of Prese nt Illness No Information Functional Status Date Functional Assessmen t No Information Instructions Date Instruction Additional Infor mation No Information Assessments Type Assessment Date No Information Patient Care Teams Name Effective Dates (start - stop) Status Members No Information
--- OUTSIDE RECORDS SUMMARY | 2008-06-12 07:00 | XMS_ITS | Continuity of Care Document ---
Author Organization [facility] Address [address] [facility] [address] [place] [address] Phone Care Team Providers Care Medical Detail Representative Name Role Phone Unavailable Unavailable Unavailable Procedures Procedure Date OFFICE VISIT/EST LEVEL III Advance Directives Directive Yes / No Effective Date File Name No Information Encounters Encounter Description Practice Location Reason(s) For Visit Diagnoses Date Provider Providers Copied on Encounter OFFICE VISIT/EST LEVEL III [facility], [address] [facility] [address], [place], [place], [id number], [place] tel:[phone] [facility] No Information No Information Family History Family Member Type Diagnosis Age At Onset No Information Payers Payer name Insurance type Covered alliance party ID Authoriza tihu(s) Thompson [id number] Social History Type Description Quantity Date Captured [...]
[2025-04-02] VITALS (9 sets, daily range): BP systolic 119–156; BP diastolic 76–90; PULSE 110–153; RESP 16–30; TEMP 37.2–37.3; O2SAT 91–100; BMI 38.0; BMI 38.7
--- NOTE | 2025-04-02 18:11 | ECG_ITS ---
APPROVED REPORT Exam: Resting ECG HR:149 bpm ECG Measurements Heart Rate 149 AXES IA 131 P 39 QRSd 88 QRS 97 QT 287 T 28 QTc 372 Conclusion SINUS TACHYCARDIA, POSSIBLE ATRIAL FLUTTER BORDERLINE RIGHT AXIS DEVIATION [QRS AXIS > 90] POSSIBLE RIGHT VENTRICULAR CONDUCTION DELAY [RSR (QR) IN V1/V2] ABNORMAL RHYTHM ECG UNCONFIRMED REPORT Electronically signed by : SHIRAZ JUAREZ, 04/04/2025 07:46:16
--- NOTE | 2025-04-02 18:17 | ED_ITS ---
Discharge Plan Disposition Patient Disposition: Admitted Condition: Good Clinical Impressions Clinical Impression: Post-op bleeding, Intraperitoneal bleeding Discharge ED Provider: Livia Taveras Adult HPI General Chief complaint: Abdominal Pain Stated complaint: Post op am; SOB; Bleeding from Incision Time Seen by Provider: 04/02/25 18:15 History of Present Illness HPI narrative: Patient is a 45-year-old presented with shortness of breath and abdominal pain. Patient states that he had a laparoscopic cholecystectomy this morning and patient has had continued abdominal pains since this time. Patient states that his pain is on the right side in his right upper abdomen as well as his right back. Patient reports some bleeding of his upper abdominal laparoscopic incision site. Patient states that he was sent home with narcotics but reports worsening pain throughout the day. Patient denies any nausea or vomiting. Patient denies any chest pain but does report shortness of breath and pain taking a deep breath. Related Data Home Medications ?Medication ?Instructions ?Recorded ?Confirmed cetirizine 10 mg tablet 10 mg PO DAILY 11/29/2303/19 fluticasone propionate 50 2 spray intranasal DAILY 04/03/25 mcg/actuation nasal spray,suspension blood-glucose meter (OneTouch #1 ea 11/22/24 04/02/25 Ultra2 Meter) aspirin 81 mg capsule 81 mg PO DAILY 03/29/2503/19 albuterol sulfate 90 mcg/actuation 2 puff inhalation Q 4HP PRN 04/03/25 04/03/25 aerosol inhaler shortness of breath or wheez ing atorvastatin 40 mg tablet (Lipitor) 40 mg PO HS 04/03/25 Held on 04/04/25. Instructions: Resume on 04/09/25. hydrocodone 5 mg-acetaminophen 325 1 - 2 tab PO Q6HP P RN Pain 04/03/25 04/03/25 mg tablet nitroglycerin 0.4 mg sublingual 0.4 mg sublingual Q5MI [employer] PRN chest 04/03/25 04/03/25 tablet pain Previous Rx's ?Medication ?Instructions ?Recorded blood sugar diagnostic (OneTouch #100 ea 02/06/25 Ultra Test strips) lisinopril 10 mg tablet 10 mg PO DAILY #90 tabs 02/16 09/12 tirzepatide 15 mg/0.5 mL 15 mg (0.5 mL) SQ QWEEK Type 2 02/27/25 subcutaneous pen injector diabetes #6 mL (Pauline) Held on 04/04/25. Instructions: Resume on 04/10/25. Allergies Allergy/AdvReac Type Severity Reaction Status Date / Time No Known Allergies Allergy Verified 04/02/25 06:41 [facility] Disclaimer: The information contained in this section may have been updated after the patient was seen, as this information can be updated by other users. 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 Surgical History History of cardiac cath History of left knee surgery Family History Family/Other Diabetes Coronary artery disease Heart attack Hypertension Hyperlipidemia Stroke Cancer Other Unknown family medical history Social History (Updated 04/02/25 @ 06:51 by Zander Rosenthal CRNA) Smoking Status: Never smoker alcohol intake: never substance use type: denies use current occupational status: employed Travel in the last 8 weeks?: None Other Medical History Have you received the Flu Vaccine for this season: No Have you received the Pneumonia Vaccine: No ROS Obtained: Yes All systems reviewed & no additional complaints except as documented and Yes Systems reviewed as appropriate & no additional complaints except as documented Physical Exam General General appearance: alert and in no apparent distress Head Head exam: atraumatic, normocephalic and normal inspection Eye Eye exam: Present normal appearance, PERRL and EOMI; Absent scleral icterus ENT ENT exam: Present normal exam and normal external ear exam Neck Neck exam: Present normal inspection and full ROM Chest Chest inspection: Present normal inspection and symmetric chest wall rise Respiratory Respiratory exam: Present normal lung sounds bilaterally; Absent respiratory distress or wheezes Cardiovascular Cardiovascular exam: Present regular rate, normal rhythm and normal heart sounds Abdominal Exam Abdominal exam: Present soft, distention and tenderness (diffuse tenderness worse in the RUQ. + CVA tenderness, right. ); Absent guarding or rebound Extremities Exam Extremities exam: Present normal inspection and full ROM Back Exam Back exam: Present normal inspection and full ROM Neurological Exam Neurological exam: Present alert and oriented X3 Psychiatric Psychiatric exam: Present normal affect and normal mood Skin Skin exam: Present warm, dry and other (3 laproscopic scars on the abdomen, epigastric site with minimal bleeding) Medical Decision Making Medical Records Screening: Per USPSTF and CDC recommendations, given the prevalence of disease in our region, it is our hospital?s policy to screen for HIV and viral Hepatitis for all patients aged 18 and over and those with ongoing risk factors. Dario Inquiry Pt receiving controlled substance: No Vital Signs: 04/02/25 18:16 04/02/25 18:38 04/02/25 19:41 Temperature 98.9 F Temperature Source Oral Pulse Rate 121 H 122 H Pulse Rate [Right Radial] 153 H Respiratory Rate 18 18 30 H Blood Pressure 136/88 138/76 Blood Pressure [Right Arm] 125/79 Blood Pressure Mean [Right Arm] 94 Blood Pressure Source Automatic Cuff Blood Pressure Source [Right Arm] Automatic Cuff Blood Pressure Position Sitting Blood Pressure Position [Right Arm] Sitting 02 Sat by Pulse Oximetry 100 91 L 95 Oxygen Delivery Method Room Air Room Air Nasal Cannula Oxygen Flow Rate (LPM) 2 04/02/25 20:00 04/02/25 20:30 04/02/25 20:59 Temperature Temperature Source Pulse Rate 111 H 110 H Pulse Rate [Right Radial] Respiratory Rate 21 28 H Blood Pressure 128/83 144/79 H Blood Pressure [Right Arm] Blood Pressure Mean [Right Arm] Blood Pressure Source Blood Pressure Source [Right Arm] Blood Pressure Position Blood Pressure Position [Right Arm] 02 Sat by Pulse Oximetry 99 99 Oxygen Delivery Method Nasal Cannula Nasal Cannula Nasal Cannula Oxygen Flow Rate (LPM) 2 2 3 04/02/25 21:00 04/02/25 21:00 04/02/25 21:35 Temperature Temperature Source Pulse Rate 111 H 115 H Pulse Rate [Right Radial] Respiratory Rate 16 Blood Pressure 156/90 H Blood Pressure [Right Arm] Blood Pressure Mean [Right Arm] Blood Pressure Source Blood Pressure Source [Right Arm] Blood Pressure Position Blood Pressure Position [Right Arm] 02 Sat by Pulse Oximetry 99 Oxygen Delivery Method Nasal Cannula Nasal Cannula Oxygen Flow Rate (LPM) 2 2 04/02/25 21:38 Temperature 98.9 F Temperature Source Oral Pulse Rate 112 H Pulse Rate [Right Radial] Respiratory Rate 23 Blood Pressure 132/87 Blood Pressure [Right Arm] Blood Pressure Mean [Right Arm] Blood Pressure Source Blood Pressure Source [Right Arm] Blood Pressure Position Sitting Blood Pressure Position [Right Arm] 02 Sat by Pulse Oximetry Oxygen Delivery Method Nasal Cannula Oxygen Flow Rate (LPM) 2 Lab Data Lab results reviewed: Yes I reviewed the patient's lab results. Lab Results 04/02/25 18:14: WBC 14.5 H, RBC 5.04, Hgb 14.7, Hct 43.6, MCV 86.5, MCH 29.2, MCHC 33.7, RDW 13.0, Plt Count 346, MPV 10.5 H, Neut % (Auto) 79.8, Lymph % (Auto) 12.3, Patrick % (Auto) 7.3, Eos % (Auto) 0.0 L, Baso % (Auto) 0.3, Neut # (Auto) 11.6 H, Lymph # (Auto) 1.8, Patrick # (Auto) 1.1 H, Eos # (Auto) 0.0, Baso # (Auto) 0.0, Sodium 138, Potassium 4.2, Chloride 99, Carbon Dioxide 25, Anion Gap 18.2 H, BUN 15, Creatinine 1.10, Estimated Creat Clear 151, Estimated GFR 72, Est GFR ( Amer) 87, Glucose 125 H, Calcium 9.2, Total Bilirubin 1.2, AST 39, ALT 40, Alkaline Phosphatase 61, Troponin I < 0.01, Total Protein 7.8, Albumin 4.7, Globulin 3.1, Albumin/Globulin Ratio 1.5 04/02/25 18:47: Lactate 2.5 H, Lipase 56, Blood Type A Positive, Antibody Screen Negative 04/04/25 04:58 04/04/25 04:58 Orders (Tests/Meds): ED MEDICATIONS Discontinued Medications Generic Name Dose Route Start Last Admin Trade Name Freq PRN Reason Stop Dose Admin Hydrocodone Bitart/Acetaminophen 2 tab 04/03/25 14:22 04/03/25 21:38 Hydrocodone/Apap 5/325 Mg Tablet PO 05/03/25 14:21 2 tab Q6HP PRN Administration Moderate Pain (4-6) Albuterol Sulfate 2 puff 04/03/25 11:32 Albuterol-Hfa 90mcg/Puff Inhaler 8gm 05/03/25 11:31 Q4HP PRN Shortness Of Breath Or Wheezing Albuterol/Ipratropium 3 ml 04/03/25 09:10 04/03/25 09:19 Ipratropium/Albuterol 3 Ml Neb 04/03/25 09:11 3 ml ONCE ONE Administration Calcium Carbonate 1,000 mg 04/03/25 01:22 04/03/25 01:39 Calcium Carbonate 500mg Chewtab PO 04/03/25 01:23 1,000 mg ONCE ONE Administration Famotidine 20 mg 04/02/25 21:01 04/02/25 21:19 Famotidine 20mg/2ml Vial IV 04/02/25 21:02 20 mg ONCE ONE Administration Hydromorphone HCl 0.5 mg 04/03/25 09:08 Hydromorphone 2mg/Ml Syringe IV 04/03/25 11:08 Q5MINP PRN Severe Pain (7-10) Sodium Chloride 1,000 mls @ 999 mls/hr 04/02/25 18:47 04/02/25 20:23 Sod Chlor 0.9% 1000ml Bag IV 04/02/25 19:47 Infused .Q1H1M ONE Infusion Piperacillin Sod/Tazobactam 100 mls @ 200 mls/hr 04/02/25 20:00 04/02/25 20:49 Sod 4.5 gm/ Sodium Chloride IV 04/12/25 19:59 Infused Q8H REYES Infusion Sodium Chloride 1,000 mls @ 999 mls/hr 04/02/25 21:34 04/03/25 06:54 Sod Chlor 0.9% 1000ml Bag IV 04/02/25 22:34 Infused .Q1H1M ONE Infusion Sodium Chloride 1,000 mls @ 75 mls/hr 04/02/25 21:45 04/04/25 07:41 Sod Chlor 0.9% 1000ml Bag IV 05/02/25 21:44 0 mls/hr .[id number] REYES Infusion Pantoprazole Sodium 80 mg/ 100 mls @ 100 mls/hr 04/03/25 01:22 04/03/25 02:51 Sodium Chloride IV 04/03/25 02:21 Infused ONCE ONE Infusion Meropenem 1 gm/ Sodium 100 mls @ 100 mls/hr 04/03/25 02:15 04/04/25 03:52 Chloride IV 04/13/25 02:14 Infused Q12H [facility] Infusion Sodium Chloride 1,000 mls @ 999 mls/hr 04/03/25 05:00 04/03/25 05:55 Sod Chlor 0.9% 1000ml Bag IV 04/03/25 06:00 Not Given .Q1H1M REYES Vancomycin/PEG/NADA/Lysine/Water 1.75 gm in 350 mls @ 175 mls/hr 04/03/25 08:00 04/04/25 09:50 Vancomycin 1.75gm/350ml (Peg) Premix IV 04/13/25 07:59 Infused Q12H [facility] Infusion Vancomycin HCl 2,250 mg/ 250 mls @ 125 mls/hr 04/04/25 15:00 Sodium Chloride IV 04/13/25 14:59 Q8H [facility] Insulin Human Lispro 0 unit 04/03/25 21:00 04/04/25 06:01 Humalog 100 Units/Ml 10ml Vial (Ssi) SUBCUT 05/03/25 20:59 Not Given ACHS [facility] Protocol Iopamidol 80 ml 04/02/25 19:26 04/02/25 19:27 Iopamidol-370 (76%);100ml Bottle IV 04/02/25 19:27 80 ml ONCE ONE Administration Lisinopril 10 mg 04/04/25 09:00 04/04/25 08:17 Lisinopril 10mg Tablet PO 05/04/25 08:59 10 mg DAILY REYES Administration Meperidine HCl 12.5 mg 04/03/25 09:08 Meperidine 25mg/Ml 1ml Syringe IV 04/03/25 11:08 Q5MINP PRN Shivering Miscellaneous 1 each 04/03/25 05:00 04/03/25 05:38 Vancomycin Consult Request NOTAPPLIC 05/03/25 04:59 1 each CONSULT PHARMACY [facility] Administration Miscellaneous 1 unit 04/03/25 11:32 04/03/25 19:11 Aerochamber/Optihaler MC 04/03/25 11:33 Not Given ONCE ONE Miscellaneous 1 each 04/04/25 22:00 Pha To Nursing Instruction NOTAPPLIC 04/04/25 22:01 ONCE ONE Morphine Sulfate 4 mg 04/02/25 18:31 04/02/25 18:36 Morphine 4mg/Ml Syringe IV 04/02/25 18:32 4 mg ONCE ONE Administration Morphine Sulfate 4 mg 04/02/25 20:36 04/02/25 21:19 Morphine 4mg/Ml Syringe IV 05/02/25 20:35 4 mg Q6 PRN Administration Breakthru Severe Pain (7-10) Morphine Sulfate 4 mg 04/02/25 21:34 04/03/25 13:06 Morphine 4mg/Ml Syringe IV 05/02/25 21:32 4 mg Q4HP PRN Administration Breakthru Severe Pain (7-10) Morphine Sulfate 1 mg 04/03/25 09:08 Morphine 2mg/Ml Syringe IV 04/03/25 11:08 Q5MINP PRN Mild Pain (1-3) Naloxone HCl 0.4 mg 04/03/25 09:08 Naloxone 0.4mg/Ml Vial IV 04/03/25 11:08 Q3MINP PRN Decreased Respirations Ondansetron HCl 4 mg 04/02/25 18:31 04/02/25 18:35 Ondansetron 4mg/2ml Vial IV 04/02/25 18:32 4 mg ONCE ONE Administration Ondansetron HCl 4 mg 04/02/25 21:35 Ondansetron 4mg/2ml Vial IV 05/02/25 21:34 Q6HP PRN Nausea Ondansetron HCl 4 mg 04/03/25 09:08 Ondansetron 4mg/2ml Vial IV 04/03/25 11:08 Q6HP PRN Nausea Promethazine HCl 6.25 mg 04/03/25 09:08 Promethazine Hcl 25mg/Ml 1ml Vial IV 04/03/25 11:08 [id number] PRN Nausea And Vomiting Sodium Chloride 10 ml 04/02/25 19:26 04/02/25 19:27 Sodium Chloride 0.9% 10ml Syr (Rad Only) IV 04/02/25 19:27 10 ml ONCE ONE Administration Sodium Chloride 50 ml 04/02/25 19:26 04/02/25 19:27 0.9 % Sodium Chloride 50 Ml Vial IV 04/02/25 19:27 50 ml ONCE ONE Administration Sodium Chloride 8 ml 04/02/25 21:01 Sodium Chloride 0.9% 10ml Vial IV 05/02/25 21:00 NEEDED PRN dilute famotidine Sodium Chloride 10 ml 04/02/25 21:35 Sodium Chloride 0.9% 10ml Flush Syringe IV 05/02/25 21:34 NEEDED PRN Maintain IV Site Sodium Chloride 10 ml 04/03/25 04:58 Sodium Chloride 0.9% 10ml Flush Syringe IV 05/03/25 04:57 NEEDED PRN Maintain IV Site Sodium Chloride 25 ml 04/03/25 09:08 Sodium Chloride 0.9% 25ml Bag IV 04/03/25 11:08 NEEDED PRN for Use with IV Promethazine ORDERS Category Date Time Status Type and Screen Stat BBK 04/02/25 18:[address] angio abdomen pelvis Stat Cat Scan 04/02/25 18:[address] angio chest PE protocol Stat Cat Scan 04/02/25 18:27 Completed CXR --portable [XR chest portable] Stat Exams 04/02/25 18:31 Completed POCUS Point of Care (ER Only) Stat Exams 04/02/25 18:31 Completed Complete Blood Count Auto Diff Stat Lab 04/02/25 18:14 Completed Comprehensive Metabolic Panel Stat Lab 04/02/25 18:14 Completed Lactic Acid Stat Lab 04/02/25 18:47 Completed Lipase Stat Lab 04/02/25 18:47 Completed Troponin I Q3H Lab 04/02/25 22:18 Completed Troponin I Q3H Lab 04/03/25 00:57 Completed Troponin I Stat Lab 04/02/25 18:14 Completed Blood Culture Stat Micro 04/02/25 19:07 Results Medical Decision Narrative: Patient is a 45-year-old gentleman who presented to the emergency department with abdominal pain and shortness of breath. On arrival, patient was tachycardic normotensive vital signs were otherwise unremarkable. On exam, patient had diffuse abdominal tenderness, worse in the right upper quadrant and right flank. Patient had 3 laparoscopic scars that were well appearing and well-healing. Differential includes but not limited to: Intra-abdominal abscess, intra- abdominal bleeding, postoperative pain, gallbladder leak, pulmonary embolism, ACS/MA, pneumothorax, amongst others. Labs were reviewed and interpreted by myself: CBC showed mild leukocytosis of 14, hemoglobin stable. CMP unremarkable except for mildly elevated anion gap. Lactate mildly elevated at 2.5. Initial troponin less than 0.01, second troponin less than 0.01. Lipase normal. EKG was reviewed and interpreted by myself and showed sinus tachycardia without acute ST or T wave changes concerning for ischemia Chest x-ray was reviewed and interpreted by myself and showed no focal consolidation, pneumothorax, pleural effusion or other acute cardiopulmonary process. CT scans were reviewed and interpreted by myself: CT PE showed no acute intrathoracic pathology however CT abdomen showed moderate amount of hemoperitoneum with concern for small amount of free air. Given patient's tachycardia and leukocytosis, patient was given IV fluids here in the emergency department, blood cultures were obtained and patient was treated with IV Zosyn with concern for possible sepsis or intra-abdominal abscess. Patient significant moderate amount of hemoperitoneum, general surgery was consulted. They recommended no acute operative management at this time but felt the patient was appropriate for observation overnight. I discussed the case with hospital medicine and patient was admitted to their service for further evaluation and workup. Critical Care Critical Care Time Critical Care Time: No
--- NOTE | 2025-04-02 18:27 | CT_ITS ---
PROCEDURE INFORMATION: Exam: CTA Abdomen and Pelvis With Contrast Exam date and time: 04/02/2025 7:28 PM Age: 45 years old Clinical indication: Abdominal pain; Generalized; Additional info: Abdominal pain, tachycardia, surgery today TECHNIQUE: Imaging protocol: Computed tomographic angiography of the abdomen and pelvis with contrast. Exam focused on the arteries. 3D rendering (Not supervised by radiologist): MIP and/or 3D reconstructed images were created by the technologist. Radiation optimization: All CT scans at this facility use at least one of these dose optimization techniques: automated exposure control; mA and/or kV adjustment per patient size (includes targeted exams where dose is matched to clinical indication); or iterative reconstruction. Contrast material: ISOVUE; Contrast volume: 80 ml; Contrast route: INTRAVENOUS (IV); COMPARISON: CT ABDOMEN PELVIS W CON 10/29/2024 11:30 PM FINDINGS: Aorta: No aortic aneurysm. No aortic dissection. Celiac trunk and mesenteric arteries: No occlusion or significant stenosis. Renal arteries: No occlusion or significant stenosis. Right iliac arteries: No occlusion or significant stenosis. Left iliac arteries: No occlusion or significant stenosis. Other arteries: No visualized active arterial extravasation is identified on this exam. Liver: No mass. Gallbladder and biliary ducts: Postop changes from cholecystectomy. Pancreas: The pancreas is normal. Spleen: The spleen is normal. Adrenal glands: The adrenal glands appear within normal limits. Kidneys and ureters: The kidneys are normal. Stomach and bowel: Evaluation of the cecum does show some peripheral margination of air bubbles in the dependent portion of the bowel. This is near the site of the greatest amount of high density blood. Query whether there could have been a postsurgical injury causing localized pneumatosis within this region. See series 4 image 121 and series 5 image 76. The stomach appears within normal limits. No wall thickening or inflammatory change. Appendix: No evidence of appendicitis. Intraperitoneal space: High attenuation hemoperitoneum identified. There is a moderate amount. Lymph nodes: Unremarkable. No pathologically enlarged lymph nodes are identified. Urinary bladder: The bladder appears within normal limits. No wall thickening. Reproductive: Unremarkable as visualized. Bones/joints: No acute fracture. Soft tissues: Small amount of air within the abdomen, not unexpected given recent abdominal surgery. IMPRESSION: 1. High attenuation hemoperitoneum identified. There is a moderate amount. 2. Evaluation of the cecum does show some peripheral margination of air bubbles in the dependent portion of the bowel. This is near the site of the greatest amount of high density blood. Query whether there could have been a postsurgical injury causing localized pneumatosis within this region. See series 4 image 121 and series 5 image 76. 3. Small amount of free air within the abdomen, not unexpected given recent abdominal surgery. 4. No visualized active arterial extravasation is identified on this exam. 5. Postop changes from cholecystectomy. THIS REPORT CONTAINS FINDINGS THAT MAY BE CRITICAL TO PATIENT CARE. The findings were verbally communicated via telephone conference at 8:29 PM EDT on 04/02/2025 with Livia Taveras. The findings were acknowledged and understood.
--- NOTE | 2025-04-02 18:27 | CT_ITS ---
PROCEDURE INFORMATION: Exam: CTA Chest With Contrast Exam date and time: 04/02/2025 7:28 PM Age: 45 years old Clinical indication: Other: Hypoxia; Additional info: Tachycardia, hypoxia, gallbladder sugery today TECHNIQUE: Imaging protocol: Computed tomographic angiography of the chest with contrast. Exam focused on the arteries. 3D rendering (Not supervised by radiologist): MIP and/or 3D reconstructed images were created by the technologist. Radiation optimization: All CT scans at this facility use at least one of these dose optimization techniques: automated exposure control; mA and/or kV adjustment per patient size (includes targeted exams where dose is matched to clinical indication); or iterative reconstruction. Contrast material: ISOVUE; Contrast volume: 80 ml; Contrast route: INTRAVENOUS (IV); COMPARISON: CR XR CHEST PORTABLE 04/02/2025 6:43 PM FINDINGS: Pulmonary arteries: No CT evidence for pulmonary embolism. Great vessels off aortic arch: The mediastinal structures including the esophagus, trachea, great vessels, and heart show no evidence of injury or acute pathologic processes. Aorta: Unremarkable. No aortic aneurysm. No aortic dissection. Lungs: Prominent small lung volumes with prominent bibasilar atelectasis and small bilateral pleural effusions. Prominent discoid atelectasis within the right upper lobe as well. Pleural spaces: See Lungs finding. Heart: See Great vessels off aortic arch finding. Lymph nodes: Calcified subcarinal lymph node measures 2.8 cm consistent with old granulomatous disease. Bones/joints: Unremarkable. No acute fracture. Soft tissues: Unremarkable. Other findings: Partially visualized hemoperitoneum-see CT abdomen angiogram report for additional comments. IMPRESSION: 1. No CT evidence for pulmonary embolism. 2. Prominent small lung volumes with prominent bibasilar atelectasis and small bilateral pleural effusions. 3. Partially visualized hemoperitoneum-see CT abdomen angiogram report for additional comments. 4. Prominent discoid atelectasis within the right upper lobe as well. 5. Calcified subcarinal lymph node measures 2.8 cm consistent with old granulomatous disease.
--- OUTSIDE RECORDS SUMMARY | 2025-04-02 18:27 | XMS_ITS | Clinical Summary ---
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 Role Phone Pcp, No Primary Care [...] 2024 Sigmoidoscopy 2024 [facility]-Colorectal Cancer Screening 2024 [id number] Vaccine (2 - 20 25-26 season) 2025 10/03/2020 [facility]-Influenza Vaccine (#1) 2025 [facility]-DTaP,Tdap,and Td Vaccine s (2 - Td or Tdap) 05/10/2028 05/10/2018 [facility]-Zoster Vaccines (1 of 2) 2029 HPV Vaccines Aged Out No longer eligi ble based on patient's age to complete this topic [facility]-HIB Vaccines Aged Out No longer e [...] Insurance [employer] Care Teams Pressing Machine Operator Relationship Specialty Start Date End Date Pcp, [place] [address] PCP - General Family Medicine 12/18/22
--- OUTSIDE RECORDS SUMMARY | 2025-04-02 18:28 | XMS_ITS | Encounter Summary ---
Author Organization Healthcare Address 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
--- OUTSIDE RECORDS SUMMARY | 2025-04-02 18:28 | XMS_ITS | Clinical Summary ---
Author Organization [facility] Address [address] [place] [address] Care Team Providers Care Eyeletter Name Role Phone Sergio Shin MD Primary Care Provider [phone] Allergies No known active allergies Medications albuterol [...] WELLNESS EXAM 1982 COVID-19 Vaccine (2 - 2024-2 6 season) 2025 10/03/2020 INFLUENZA VACCINE (#1) 2025 DTAP/TDAP/TD VACCINE (2 - Td or Tdap) 05/10/2028 05/10/2018 HEP A VACCINE Aged Out No longer elig ible based on patient's age to complete this topic HIB VACCINE Aged Out No longer eligi ble based on patient's age to complete this topic ROTOVIRUS VACCINE Aged Out No longer eligible based on patient's age to complete this topic Insurance [place] [id number] Care Teams Eyeletter Relationship Specialty Start Date End Date Sergio Shin MD [address] [place] [address] [address] [place] [address] PCP - General Family Medicine 11/15/24
[2025-04-02 18:30] LABS: Hematocrit 43.6 % (42.0-52.0); Hemoglobin 14.7 g/dL (14.1-18.0); Immature Granulocytes % 0.3 %; Mean Corpuscular HGB Conc 33.7 g/dL (31.8-35.4); Mean Corpuscular Hemoglobin 29.2 pg (27.0-31.2); Mean Corpuscular Volume 86.5 fl (80-94); Nucleated Red Blood Cells % 0 %; Platelet Count 346 K/mm3 (142-424); Red Blood Count 5.04 M/mm3 (4.60-6.20); Red Cell Distribution Width-SD 40.7 fL; White Blood Count 14.5 K/mm3 (4.8-10.8)
--- NOTE | 2025-04-02 18:31 | XR_ITS ---
PROCEDURE INFORMATION: Exam: XR Chest Exam date and time: 04/02/2025 6:43 PM Age: 45 years old Clinical indication: Shortness of breath; Additional info: Shrotness of breath TECHNIQUE: Imaging protocol: Radiologic exam of the chest. Views: 1 view. COMPARISON: CR Chest 12/16/2024 4:23 PM FINDINGS: Lungs: Small lung volumes identified with bibasilar atelectasis. Given the hypoinflation, would be difficult to exclude infiltrates on this study. Pleural spaces: Unremarkable. No pleural effusion. No pneumothorax. Heart/Mediastinum: Unremarkable. No cardiomegaly. Bones/joints: Unremarkable. IMPRESSION: Small lung volumes identified with bibasilar atelectasis. Given the hypoinflation, would be difficult to exclude infiltrates on this study. Follow-up two-view chest x-ray may be beneficial.
[2025-04-02] MEDS: ONDANSETRON 4MG/2ML VIAL 4 MG IV (18:35)
[2025-04-02] MEDS: MORPHINE 4MG/ML SYRINGE 4 MG IV ×2 (18:36→21:19)
[2025-04-02 18:38] LABS: Albumin Level 4.7 g/dl (3.5-5.0); Chloride 99 mmol/L (98-107); Potassium 4.2 mmoL/L (3.5-5.1); Sodium 138 mmol/L (136-145)
[2025-04-02 18:41] LABS: Alanine Aminotransferase 40 U/L (12-78); Albumin/Globulin Ratio 1.5 (1.1-1.8); Alkaline Phosphatase 61 U/L (38-126); Anion Gap 18.2 mEq/L (5-15); Aspartate Amino Transferase 39 U/L (17-59); Bilirubin,Total 1.2 mg/dl (0.2-1.3); Blood Urea Nitrogen 15 mg/dl (9-20); Calcium 9.2 mg/dl (8.4-10.2); Carbon Dioxide 25 mmol/L (22.0-30.0); Creatinine Clearance Estimated 151 mL/min (50-200); Creatinine,Serum 1.10 mg/dl (0.66-1.25); Estimated Glomerular Filt Rate 72 ml/min (>60); GFR (African American) 87 ML/MIN (>60); Globulin 3.1 g/dL (1.3-3.2); Glucose 125 mg/dl (74-100); Total Protein,Serum 7.8 g/dl (6.3-8.2)
--- NOTE | 2025-04-02 18:45 | PC.NURSE ---
radiology and lab at bedside.
[2025-04-02 18:54] LABS: Troponin I < 0.01 ng/ml (0.00-0.034)
[2025-04-02] MEDS: 0.9 % SODIUM CHLORIDE 1000ML 1,000 ML 999 ML IV (18:56)
[2025-04-02] MEDS: SODIUM CHLORIDE 0.9% 10ML SYR (RAD ONLY) 10 ML IV (19:27)
[2025-04-02] MEDS: 0.9 % SODIUM CHLORIDE 50 ML VIAL IV (19:27)
[2025-04-02] MEDS: IOPAMIDOL-370 (76%);100ML BOTTLE 80 ML IV (19:27)
--- NOTE | 2025-04-02 19:30 | PC.NURSE ---
CT calls to report that patient was experiencing SOA in the CT scanner when it comes to lying flat. 2L NC placed on patient for comfort with sats reading 95% on RA. Pt hooked to monitoring equipment while in the scanner. Pt assisted to appropriate position and scan began.
[2025-04-02 19:53] LABS: Lipase 56 U/L (23-300)
[2025-04-02] MEDS: PIPERACILLIN/TAZO 4.5 GM in 0.9 % SODIUM CHLORIDE 100 ML IV (20:17)
[2025-04-02] MEDS: FAMOTIDINE 20MG/2ML VIAL 20 MG IV (21:19)
--- NOTE | 2025-04-02 21:37 | PC.NURSE ---
Report given Lang ABRAMS in step down.
--- NOTE | 2025-04-02 21:54 | P.HP_ITS ---
<Statement entered by Carlos Miller MD - 04/03/25 15:54> Rounded on patient after nurse practitioner. Personally examined and interviewed patient. Agree with exam findings and care plan as documented. History of Present Illness *Admission Date: 04/02/25 *Reason for visit:: Abdominal pain *History of present illness: This is a 45-year-old male with past medical history of CAD, DM2, obesity who presents emergency department today with complaints of postoperative abdominal pain. He underwent elective lap sp today in the outpatient setting with Dr. Spence for cholelithiasis. States that after surgery he had significant amount of pain that has never gone away. Complains of significant pain into his right back as well as right upper and right lower abdomen.Denies any fever but does endorse nausea. Also endorses elements of GERD. Denies any melanotic stool, or BRBPR. Emergency department workup notable for white blood cell count of 14, anion gap of 18, lactic of 2.5, hemoglobin of 14. CT chest abdomen pelvis notable for high-attenuation hemoperitoneum, moderate in size with some peripheral margination of air bubbles in the dependent portion of the bowel secondary to localized pneumatosis postsurgical injury. He was also noted to be tachycardic to a heart rate of 150 when he arrived. Blood pressure stable. He received IV fluids, pain medication with improvement heart rate to 110. Dr. Spence was consulted Emergency Department and recommends serial abdominal exams as well as serial labs overnight with pain control. He is admitted to hospital service at this time. [facility] Disclaimer: The information contained in this section may have been updated after the patient was seen, as this information can be updated by other users. 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 Surgical History History of cardiac cath History of left knee surgery Family History Family/Other Diabetes Coronary artery disease Heart attack Hypertension Hyperlipidemia Stroke Cancer Other Unknown family medical history Social History (Updated 04/02/25 @ 06:51 by Zander Rosenthal CRNA) Smoking Status: Never smoker alcohol intake: never substance use type: denies use current occupational status: employed Travel in the last 8 weeks?: None Have you lived/traveled outside US in past 30 days?: No Contact w/someone who lives/traveled outside US past 30 days?: No Exposure to someone with infectious disease in past 14 days?: No Do you have a fever (greater than 100.4 F or 38 C)?: No Have you tested positive for COVID-19?: No Exposed to someone with COVID-19 in past 14 days?: No Do you have a sore throat?: No Do you have a cough?: No Do you have any weakness?: No Do you have any diarrhea?: No Are you experiencing any unusual bleeding?: No Do you have any muscle aches/pain?: No Do you have any abdominal pain?: No Are you experiencing loss of taste or smell?: No Other Medical History Have you received the Flu Vaccine for this season: No Have you received the Pneumonia Vaccine: No Review of Systems Review of Systems Review of systems:: pertinent systems reviewed and negative unless documented below Review of systems (narrative): Negative except for HPI Meds Home Medications and Allergies Home Medications ?Medication ?Instructions ?Recorded ?Confirmed ?Type cetirizine 10 mg tablet 10 mg PO DAILY 11/29/2303/19 History fluticasone propionate 50 50 mcg intranasal DAILY 11/1603/30/25 History mcg/actuation nasal spray,suspension blood-glucose meter (OneTouch #1 ea 11/22/24 03/30/25 History Ultra2 Meter) ondansetron 4 mg disintegrating 4 mg PO Q8H PRN Nausea 11/22/24 03/30/25 History tablet fexofenadine 180 mg tablet 180 mg PO DAILY 12/29/24 History (Jessie Allergy) albuterol sulfate 90 mcg/actuation 2 puff inhalation Q 4-6H PRN 02/06/25 03/30/25 Rx aerosol inhaler shortness of breath or [place] ing #8.5 grams blood sugar diagnostic (OneTouch #100 ea 02/06/2503/19 Rx Ultra Test strips) nitroglycerin 0.4 mg sublingual 0.4 mg sublingual Q5-1 5M PRN chest 02/14/25 03/30/25 Rx tablet pain #30 tabs atorvastatin 40 mg tablet (Lipitor) 40 mg PO DAILY #90 tabs 02/27/25 03/30/25 Rx lisinopril 10 mg tablet 10 mg PO DAILY #90 tabs 02/1603/30/25 Rx tirzepatide 15 mg/0.5 mL 15 mg (0.5 mL) SQ QWEEK Type 2 02/27/25 04/02/25 Rx subcutaneous pen injector diabetes #6 mL (Mounjaro) aspirin 81 mg capsule 81 mg PO DAILY 03/29/2503/19 History hydrocodone 5 mg-acetaminophen 325 1 - 2 tab PO Q6H [place] Pain #17 tabs 04/02/25 Rx mg tablet New Prescriptions to Start Prescriptions: Allergies Allergy/AdvReac Type Severity Reaction Status Date / Time No Known Allergies Allergy Verified 04/02/25 06:41 Exam Data for Last 24 hours Vital signs and Labs for Last 24 Hours: Temp Pulse Resp BP Pulse Ox O2 Del Method O2 Flow Rate 98.9 F 112 H 23 132/87 99 Nasal Cannula 2 04/02/25 21:38 04/02/25 21:38 04/02/25 21:38 04/02/25 21:38 04/02/25 21:00 04/02/25 21:38 04/02/25 21:38 Laboratory Results - last 24 hr 04/02/25 18:14: WBC 14.5 H, RBC 5.04, Hgb 14.7, Hct 43.6, MCV 86.5, MCH 29.2, MCHC 33.7, RDW 13.0, Plt Count 346, MPV 10.5 H, Neut % (Auto) 79.8, Lymph % (Auto) 12.3, [place] % (Auto) 7.3, Eos % (Auto) 0.0 L, Baso % (Auto) 0.3, Neut # (Auto) 11.6 H, Lymph # (Auto) 1.8, [place] # (Auto) 1.1 H, Eos # (Auto) 0.0, Baso # (Auto) 0.0, Sodium 138, Potassium 4.2, Chloride 99, Carbon Dioxide 25, Anion Gap 18.2 H, BUN 15, Creatinine 1.10, Estimated Creat Clear 151, Estimated GFR 72, Est GFR ( Amer) 87, Glucose 125 H, Calcium 9.2, Total Bilirubin 1.2, AST 39, ALT 40, Alkaline Phosphatase 61, Troponin I < 0.01, Total Protein 7.8, Albumin 4.7, Globulin 3.1, Albumin/Globulin Ratio 1.5 04/02/25 18:47: Lactate 2.5 H, Lipase 56, Blood Type A Positive, Antibody Screen Negative I & O for Last 24 hours: Intake & Output 03/30/25 03/31/25 04/01/25 04/02/25 23:59 23:59 23:59 23:59 Intake Total 1100 / 1100 Balance 1100 / 1100 Weight 127.006 kg Constitutional Constitutional: no acute distress *Routine HEENT Exam Head: Present normocephalic Eye: Present EOMI and PERRL ENT: Present mucous membranes moist *Routine Neck Exam Neck: Present supple; Absent lymphadenopathy *Routine Respiratory Exam Respiratory: Present CTA bilaterally *Routine Cardiovascular Exam Cardiovascular: Present RRR *Routine Abdominal Exam Abdominal: Present soft, normoactive bowel sounds, tenderness (Diffuse tenderness across abdomen with radiation to back. No peritonitis noted. Soft compress) and other (Laparoscopic incisions with gauze coverings intact bloody but not saturated) *Routine Rectal Exam Rectal:: deferred *Routine Genitalia Exam Genitalia:: deferred *Routine Extremities Exam Extremities: Absent cyanosis, clubbing or edema *Routine Skin Exam Skin: Present warm; Absent rash *Routine Neurological Exam Neurological: Present alert and oriented X3 Assessment and Plan *Assessment and plan (1) Intraperitoneal bleeding: Status: Acute Category: Medical Code(s): K66.1 - Hemoperitoneum (2) Abdominal pain: Status: Acute Category: Medical Code(s): R10.9 - Unspecified abdominal pain (3) Post-op bleeding: Status: Acute Category: Medical (4) Cholelithiasis: Status: Acute Qualifiers: Biliary obstruction: without biliary obstruction Cholecystitis presence: without cholecystitis Cholelithiasis location: gallbladder Qualified Code(s): K80.20 - Calculus of gallbladder without cholecystitis without obstruction Category: Medical Code(s): K80.20 - Calculus of gallbladder without cholecystitis without obstruction (5) Diabetes: Status: Acute Qualifiers: Diabetes mellitus type: type 2 Diabetes mellitus terminal operator insulin use: without assisted use Diabetes mellitus complication status: without complication Qualified Code(s): E11.9 - Type 2 diabetes mellitus without complications Category: Medical Code(s): E11.9 - Type 2 diabetes mellitus without complications (6) CAD (coronary artery disease): Status: Acute Category: Medical Code(s): I25.10 - Atherosclerotic heart disease of [place] coronary artery without angina pectoris (7) Hypertension: Status: Acute Category: Medical Code(s): I10 - Essential (primary) hypertension Plan #Abdominal pain #Intraperitoneal bleeding #Cholelithiasis Patient presents with abdominal pain status post outpatient laparoscopic cholecystectomy. Diffuse tenderness across abdomen. Not peritonitic. Lipase negative Allran consulted Emergency Department, recommends serial abdominal exams, pain control and trending of H&H Continue multimodal pain medication Every 6 hour CBC and BMP Serial abdominal exams Empiric antibiotic coverage with Zosyn N.p.o. for now #SIRS SIRS criteria of tachycardia, leukocytosis with elevated lactic. No overt signs of infection. Given recent instrumentation with laparoscopic cholecystectomy, will treat empirically with Zosyn Repeat lactic acid pending #HTN #CAD Resume home medications once reported #DM2 ACHS Accu-Cheks and sliding scale insulin Hold GLP-1
[2025-04-02 22:04] LABS: POC Glucose,Bedside 116 gm/dL (70-110)
--- NOTE | 2025-04-02 22:12 | PC.NURSE ---
Patient admitted to ICU unit via stretcher from ED @ 1013
[2025-04-02 22:33] LABS: Reflex Lactic Add Lactic Reflex
[2025-04-02 22:46] LABS: Lactic Acid Follow Up (RFLX 1) 1.9 mmol/L (0.7-2.1)
[2025-04-02 22:52] LABS: Troponin I < 0.01 ng/ml (0.00-0.034)
[2025-04-02] MEDS: 0.9 % SODIUM CHLORIDE 1000ML 1,000 ML 250 ML IV (23:12)
[2025-04-03] VITALS (37 sets, daily range): BP systolic 108–167; BP diastolic 72–101; PULSE 90–121; RESP 15–46; TEMP 36.8–38; O2SAT 88–98; BMI 38.7
[2025-04-03 00:05] LABS: VBG HCO3 24.2 mmol/L (23-30); VBG PCO2 50.6 mmol/L (35-51); VBG PH 7.30 mmol/L (7.31-7.41); VBG PO2 40.1 mmol/L (28-40)
[2025-04-03 00:08] LABS: Lactate Venous 2.5 mmol/L (0.4-2.0)
[2025-04-03] MEDS: MORPHINE 4MG/ML SYRINGE 4 MG IV ×3 (00:12→13:06)
[2025-04-03 01:36] LABS: Albumin Level 4.2 g/dl (3.5-5.0); Chloride 103 mmol/L (98-107); Potassium 4.1 mmoL/L (3.5-5.1); Sodium 136 mmol/L (136-145)
[2025-04-03 01:39] LABS: Alanine Aminotransferase 28 U/L (12-78); Albumin/Globulin Ratio 1.4 (1.1-1.8); Alkaline Phosphatase 65 U/L (38-126); Anion Gap 16.1 mEq/L (5-15); Aspartate Amino Transferase 31 U/L (17-59); Bilirubin,Total 1.2 mg/dl (0.2-1.3); Blood Urea Nitrogen 17 mg/dl (9-20); Calcium 8.4 mg/dl (8.4-10.2); Carbon Dioxide 21 mmol/L (22.0-30.0); Creatinine Clearance Estimated 121 mL/min (50-200); Creatinine,Serum 1.40 mg/dl (0.66-1.25); Estimated Glomerular Filt Rate 55 ml/min (>60); GFR (African American) 66 ML/MIN (>60); Globulin 2.9 g/dL (1.3-3.2); Glucose 136 mg/dl (74-100); Total Protein,Serum 7.1 g/dl (6.3-8.2)
[2025-04-03] MEDS: PANTOPRAZOLE SODIUM 80 MG in 0.9 % SODIUM CHLORIDE 100 ML 100 MG IV (01:39)
[2025-04-03] MEDS: CALCIUM CARBONATE 500MG CHEWTAB 1000 MG PO (01:39)
[2025-04-03] MEDS: 0.9 % SODIUM CHLORIDE 1000ML 1,000 ML 75 ML IV ×2 (01:51→18:29)
[2025-04-03 01:53] LABS: Troponin I < 0.01 ng/ml (0.00-0.034)
[2025-04-03 02:09] LABS: Hematocrit 39.2 % (42.0-52.0); Immature Granulocytes % 0.4 %; Mean Corpuscular HGB Conc 33.2 g/dL (31.8-35.4); Mean Corpuscular Hemoglobin 29.2 pg (27.0-31.2); Mean Corpuscular Volume 88.1 fl (80-94); Nucleated Red Blood Cells % 0 %; Platelet Count 291 K/mm3 (142-424); Red Blood Count 4.45 M/mm3 (4.60-6.20); Red Cell Distribution Width-SD 42.5 fL; White Blood Count 16.4 K/mm3 (4.8-10.8)
[2025-04-03 02:12] LABS: Hemoglobin 12.8 g/dL (14.1-18.0)
[2025-04-03 02:30] LABS: Total Cells Counted 100
[2025-04-03] MEDS: MEROPENEM 1 GM in 0.9 % SODIUM CHLORIDE 100 ML IV ×2 (02:35→14:29)
[2025-04-03 04:37] LABS: Hematocrit 39.6 % (42.0-52.0); Hemoglobin 13.0 g/dL (14.1-18.0); Immature Granulocytes % 0.4 %; Mean Corpuscular HGB Conc 32.8 g/dL (31.8-35.4); Mean Corpuscular Hemoglobin 29.2 pg (27.0-31.2); Mean Corpuscular Volume 89.0 fl (80-94); Nucleated Red Blood Cells % 0 %; Platelet Count 281 K/mm3 (142-424); Red Blood Count 4.45 M/mm3 (4.60-6.20); Red Cell Distribution Width-SD 42.8 fL; White Blood Count 17.0 K/mm3 (4.8-10.8)
[2025-04-03 04:43] LABS: Albumin Level 4.1 g/dl (3.5-5.0); Chloride 102 mmol/L (98-107); Sodium 139 mmol/L (136-145)
[2025-04-03 04:44] LABS: Potassium 4.4 mmoL/L (3.5-5.1)
[2025-04-03 04:46] LABS: Alanine Aminotransferase 25 U/L (12-78); Albumin/Globulin Ratio 1.5 (1.1-1.8); Alkaline Phosphatase 59 U/L (38-126); Anion Gap 16.4 mEq/L (5-15); Aspartate Amino Transferase 27 U/L (17-59); Bilirubin,Total 1.2 mg/dl (0.2-1.3); Blood Urea Nitrogen 20 mg/dl (9-20); Carbon Dioxide 25 mmol/L (22.0-30.0); Creatinine Clearance Estimated 113 mL/min (50-200); Creatinine,Serum 1.50 mg/dl (0.66-1.25); Estimated Glomerular Filt Rate 50 ml/min (>60); GFR (African American) 61 ML/MIN (>60); Globulin 2.7 g/dL (1.3-3.2); Total Protein,Serum 6.8 g/dl (6.3-8.2)
[2025-04-03 04:47] LABS: Calcium 8.2 mg/dl (8.4-10.2); Glucose 111 mg/dl (74-100)
[2025-04-03] MEDS: VANCOMYCIN CONSULT REQUEST 1 EACH NOTAPPLIC (05:38)
[2025-04-03] MEDS: 0.9 % SODIUM CHLORIDE 1000ML 1,000 ML 999 ML IV (05:41)
--- NOTE | 2025-04-03 05:56 | EXP.SURG.CON ---
History of Present Illness *Admission Date: 04/02/25 *Reason for visit:: Abdominal pain, tachycardia *History of present illness: Patient is a 45-year-old male whom I have seen in the office several times for evaluation of symptomatic gallstones. He has had some problems with postprandial pain with high fatty type foods and dairy products with pain in the right back radiating into the right upper quadrant and into his shoulder. He elected to undergo cholecystectomy which was performed yesterday morning on 04/02/2025. He had some gallbladder wall thickening and distention with some mild fatty infiltration of the liver. He required extension of the epigastric trocar site for removal of the gallbladder. There was noted to be some oozing from the musculature at the epigastric trocar site after extension. This was closed with a couple of 0 Ethibond [id number] sutures. Completion laparoscopy revealed this to be hemostatic. The procedure went without complication and he was discharged home after the postoperative recovery time period. He had progressive pain after surgery and he presented to the emergency department in the evening of 04/02/2025. He had a CT angiogram of the abdomen and pelvis which revealed no evidence of any active bleeding but there was high attenuation fluid consistent with some hemoperitoneum. He had tachycardia. His hemoglobin was 14. Preoperative hemoglobin on 03/29/2025 was 14.9. Surgery was contacted. Was felt that he likely had some recurrent postoperative bleeding from the abdominal wall the epigastric trocar site which had now stopped resulting in pain and tachycardia. It is felt that it would be reasonable for admission. Interestingly the CT scan report reveals moderate high attenuation hemoperitoneum. There is some peripheral margination of air bubbles in the dependent portion of the cecum which is near the site of the highest amount of hemoperitoneum. There is no active extravasation. . [facility] Disclaimer: The information contained in this section may have been updated after the patient was seen, as this information can be updated by other users. 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 Surgical History History of cardiac cath History of left knee surgery Family History Family/Other Diabetes Coronary artery disease Heart attack Hypertension Hyperlipidemia Stroke Cancer Other Unknown family medical history Social History (Updated 04/02/25 @ 06:51 by Zander Rosenthal CRNA) Smoking Status: Never smoker alcohol intake: never substance use type: denies use current occupational status: employed Travel in the last 8 weeks?: None Have you lived/traveled outside US in past 30 days?: No Contact w/someone who lives/traveled outside US past 30 days?: No Exposure to someone with infectious disease in past 14 days?: No Do you have a fever (greater than 100.4 F or 38 C)?: No Have you tested positive for COVID-19?: No Exposed to someone with COVID-19 in past 14 days?: No Do you have a sore throat?: No Do you have a cough?: No Do you have any weakness?: No Do you have any diarrhea?: No Are you experiencing any unusual bleeding?: No Do you have any muscle aches/pain?: No Do you have any abdominal pain?: No Are you experiencing loss of taste or smell?: No Meds Home Medications and Allergies Home Medications ?Medication ?Instructions ?Recorded ?Confirmed ?Type cetirizine 10 mg tablet 10 mg PO DAILY 11/29/23 04/02/25 History fluticasone propionate 50 50 mcg intranasal DAILY 11/29/23 04/02/25 History mcg/actuation nasal spray,suspension blood-glucose meter (OneTouch #1 ea 11/22/24 04/02/25 History Ultra2 Meter) ondansetron 4 mg disintegrating 4 mg PO Q8H PRN Nausea 11/22/24 04/02/25 History tablet fexofenadine 180 mg tablet 180 mg PO DAILY 12/29/24 04/02/25 History (Jessie Allergy) albuterol sulfate 90 mcg/actuation 2 puff inhalation Q4-6H PRN 02/06/25 04/02/25 Rx aerosol inhaler shortness of breath or wheezing #8.5 grams blood sugar diagnostic (OneTouch #100 ea 02/06/25 04/02/25 Rx Ultra Test strips) nitroglycerin 0.4 mg sublingual 0.4 mg sublingual Q5-15M PRN chest 02/14/25 04/02/25 Rx tablet pain #30 tabs atorvastatin 40 mg tablet (Lipitor) 40 mg PO DAILY #90 tabs 02/27/25 04/02/25 Rx lisinopril 10 mg tablet 10 mg PO DAILY #90 tabs 02/27/25 04/02/25 Rx tirzepatide 15 mg/0.5 mL 15 mg (0.5 mL) SQ QWEEK Type 2 02/27/25 04/02/25 Rx subcutaneous pen injector diabetes #6 mL (Mounjaro) aspirin 81 mg capsule 81 mg PO DAILY 03/29/25 04/02/25 History hydrocodone 5 mg-acetaminophen 325 1 - 2 tab PO Q6H PRN Pain #17 tabs 04/02/25 04/02/25 Rx mg tablet New Prescriptions to Start Prescriptions: Allergies Allergy/AdvReac Type Severity Reaction Status Date / Time No Known Allergies Allergy Verified 04/02/25 06:41 Exam (Inpt) Vital signs and Labs for Last 24 Hours: Temp Pulse Resp BP Pulse Ox O2 Del Method O2 Flow Rate 98.9 F 97 H 18 108/74 L 96 Nasal Cannula 3 04/03/25 04:00 04/03/25 04:00 04/03/25 04:00 04/03/25 04:00 04/03/25 04:00 04/03/25 05:00 04/03/25 05:00 Laboratory Results - last 24 hr 04/02/25 18:14: WBC 14.5 H, RBC 5.04, Hgb 14.7, Hct 43.6, MCV 86.5, MCH 29.2, MCHC 33.7, RDW 13.0, Plt Count 346, MPV 10.5 H, Neut % (Auto) 79.8, Lymph % (Auto) 12.3, [place] % (Auto) 7.3, Eos % (Auto) 0.0 L, Baso % (Auto) 0.3, Neut # (Auto) 11.6 H, Lymph # (Auto) 1.8, [place] # (Auto) 1.1 H, Eos # (Auto) 0.0, Baso # (Auto) 0.0, Sodium 138, Potassium 4.2, Chloride 99, Carbon Dioxide 25, Anion Gap 18.2 H, BUN 15, Creatinine 1.10, Estimated Creat Clear 151, Estimated GFR 72, Est GFR ( Amer) 87, Glucose 125 H, Calcium 9.2, Total Bilirubin 1.2, AST 39, ALT 40, Alkaline Phosphatase 61, Troponin I < 0.01, Total Protein 7.8, Albumin 4.7, Globulin 3.1, Albumin/Globulin Ratio 1.5 04/02/25 18:47: Lactate 2.5 H, Lipase 56, Blood Type A Positive, Antibody Screen Negative 04/02/25 21:58: POC Glucose 116 H 04/02/25 22:18: Lactate 1.9, Troponin I < 0.01 04/03/25 00:00: VBG pH 7.30 L, VBG pCO2 50.6, VBG pO2 40.1 H, VBG HCO3 24.2, VBG Total CO2 25.7, VBG O2 Saturation 72.7 H, VBG Base Excess -2.3, VBG Lactic Acid 2.5 H 04/03/25 00:57: Sodium 136, Potassium 4.1, Chloride 103, Carbon Dioxide 21 L, Anion Gap 16.1 H, BUN 17, Creatinine 1.40 H D, Estimated Creat Clear 121, Estimated GFR 55 L, Est GFR ( Amer) 66 D, Glucose 136 H, Calcium 8.4, Total Bilirubin 1.2, AST 31, ALT 28 D, Alkaline Phosphatase 65, Troponin I < 0.01, Total Protein 7.1, Albumin 4.2 D, Globulin 2.9, Albumin/Globulin Ratio 1.4 04/03/25 01:56: WBC 16.4 H, RBC 4.45 L, Hgb 12.8 L D, Hct 39.2 L, MCV 88.1, MCH 29.2, MCHC 33.2, RDW 13.2, Plt Count 291, MPV 10.2, Neut % (Auto) 78.4, Lymph % (Auto) 11.2, [place] % (Auto) 9.8 H, Eos % (Auto) 0.0 L, Baso % (Auto) 0.2, Neut # (Auto) 12.8 H, Lymph # (Auto) 1.8, [place] # (Auto) 1.6 H, Eos # (Auto) 0.0, Baso # (Auto) 0.0, Total Counted 100, Neutrophils % (Manual) 80 H, Lymphocytes % (Manual) 12, Monocytes % (Manual) 8, Platelet Estimate Not Reportable, RBC Morphology Not Reportable 04/03/25 04:21: WBC 17.0 H, RBC 4.45 L, Hgb 13.0 L, Hct 39.6 L, MCV 89.0, MCH 29.2, MCHC 32.8, RDW 13.2, Plt Count 281, MPV 10.3, Neut % (Auto) 73.7, Lymph % (Auto) 14.9, [place] % (Auto) 10.7 H, Eos % (Auto) 0.0 L, Baso % (Auto) 0.3, Neut # (Auto) 12.6 H, Lymph # (Auto) 2.5, [place] # (Auto) 1.8 H, Eos # (Auto) 0.0, Baso # (Auto) 0.1, Sodium 139, Potassium 4.4, Chloride 102, Carbon Dioxide 25, Anion Gap 16.4 H, BUN 20, Creatinine 1.50 H, Estimated Creat Clear 113, Estimated GFR 50 L, Est GFR ( Amer) 61, Glucose 111 H, Lactate 2.2 H, Calcium 8.2 L, Total Bilirubin 1.2, AST 27, ALT 25, Alkaline Phosphatase 59, Total Protein 6.8, Albumin 4.1, Globulin 2.7, Albumin/Globulin Ratio 1.5 I & O for Labs for Last 24 Hours: Intake & Output 03/31/25 04/01/25 04/02/25 04/03/25 11:59 11:59 11:59 11:59 Intake Total 2250.25 / 2250. Output Total 300 / 300 Balance / Weight 286 lb 2.56 oz Comment:: Uncomfortable. Cardiac: Present Tachycardia GI: Present soft and tenderness Results Labs 04/03/25 04:21 04/03/25 04:21 Labs: Laboratory Results - last 24 hr 04/02/25 18:14: WBC 14.5 H, RBC 5.04, Hgb 14.7, Hct 43.6, MCV 86.5, MCH 29.2, MCHC 33.7, RDW 13.0, Plt Count 346, MPV 10.5 H, Neut % (Auto) 79.8, Lymph % (Auto) 12.3, [place] % (Auto) 7.3, Eos % (Auto) 0.0 L, Baso % (Auto) 0.3, Neut # (Auto) 11.6 H, Lymph # (Auto) 1.8, [place] # (Auto) 1.1 H, Eos # (Auto) 0.0, Baso # (Auto) 0.0, Sodium 138, Potassium 4.2, Chloride 99, Carbon Dioxide 25, Anion Gap 18.2 H, BUN 15, Creatinine 1.10, Estimated Creat Clear 151, Estimated GFR 72, Est GFR ( Amer) 87, Glucose 125 H, Calcium 9.2, Total Bilirubin 1.2, AST 39, ALT 40, Alkaline Phosphatase 61, Troponin I < 0.01, Total Protein 7.8, Albumin 4.7, Globulin 3.1, Albumin/Globulin Ratio 1.5 04/02/25 18:47: Lactate 2.5 H, Lipase 56, Blood Type A Positive, Antibody Screen Negative 04/02/25 21:58: POC Glucose 116 H 04/02/25 22:18: Lactate 1.9, Troponin I < 0.01 04/03/25 00:00: VBG pH 7.30 L, VBG pCO2 50.6, VBG pO2 40.1 H, VBG HCO3 24.2, VBG Total CO2 25.7, VBG O2 Saturation 72.7 H, VBG Base Excess -2.3, VBG Lactic Acid 2.5 H 04/03/25 00:57: Sodium 136, Potassium 4.1, Chloride 103, Carbon Dioxide 21 L, Anion Gap 16.1 H, BUN 17, Creatinine 1.40 H D, Estimated Creat Clear 121, Estimated GFR 55 L, Est GFR ( Amer) 66 D, Glucose 136 H, Calcium 8.4, Total Bilirubin 1.2, AST 31, ALT 28 D, Alkaline Phosphatase 65, Troponin I < 0.01, Total Protein 7.1, Albumin 4.2 D, Globulin 2.9, Albumin/Globulin Ratio 1.4 04/03/25 01:56: WBC 16.4 H, RBC 4.45 L, Hgb 12.8 L D, Hct 39.2 L, MCV 88.1, MCH 29.2, MCHC 33.2, RDW 13.2, Plt Count 291, MPV 10.2, Neut % (Auto) 78.4, Lymph % (Auto) 11.2, [place] % (Auto) 9.8 H, Eos % (Auto) 0.0 L, Baso % (Auto) 0.2, Neut # (Auto) 12.8 H, Lymph # (Auto) 1.8, [place] # (Auto) 1.6 H, Eos # (Auto) 0.0, Baso # (Auto) 0.0, Total Counted 100, Neutrophils % (Manual) 80 H, Lymphocytes % (Manual) 12, Monocytes % (Manual) 8, Platelet Estimate Not Reportable, RBC Morphology Not Reportable 04/03/25 04:21: WBC 17.0 H, RBC 4.45 L, Hgb 13.0 L, Hct 39.6 L, MCV 89.0, MCH 29.2, MCHC 32.8, RDW 13.2, Plt Count 281, MPV 10.3, Neut % (Auto) 73.7, Lymph % (Auto) 14.9, [place] % (Auto) 10.7 H, Eos % (Auto) 0.0 L, Baso % (Auto) 0.3, Neut # (Auto) 12.6 H, Lymph # (Auto) 2.5, [place] # (Auto) 1.8 H, Eos # (Auto) 0.0, Baso # (Auto) 0.1, Sodium 139, Potassium 4.4, Chloride 102, Carbon Dioxide 25, Anion Gap 16.4 H, BUN 20, Creatinine 1.50 H, Estimated Creat Clear 113, Estimated GFR 50 L, Est GFR ( Amer) 61, Glucose 111 H, Lactate 2.2 H, Calcium 8.2 L, Total Bilirubin 1.2, AST 27, ALT 25, Alkaline Phosphatase 59, Total Protein 6.8, Albumin 4.1, Globulin 2.7, Albumin/Globulin Ratio 1.5 Assessment and Plan *Assessment and plan (1) Post-op bleeding: Status: Acute Category: Medical Plan Given the nature of the case and intra-abdominal findings he most likely had some recurrent bleeding from the abdominal wall at the epigastric trocar site which has now stopped. The pain from the hemoperitoneum and blood loss likely caused the tachycardia. I have no clinical suspicion to believe that there is ongoing bleeding or bowel injury however given the reading of the CT scan with patient's tachycardia, leukocytosis, and abdominal pain, the better part of valor likely would be to proceed with repeat laparoscopy for evacuation of hematoma and inspection of the cecum.
--- NOTE | 2025-04-03 06:34 | PC.NURSE ---
patient left ICU unit with surgery via bed @0631
--- NOTE | 2025-04-03 06:35 | PC.NURSE ---
Patient is being transported to surgery for possible exploratory laporotmy possible open due to increase pain, increased abd distention and elevated WBC. the General Surg provider made a round on patient and then OR proceeded to come and supervisor picking crew patient.
[2025-04-03] MEDS: CEFAZOLIN 2GM VIAL 2 GM (07:12)
--- NOTE | 2025-04-03 07:39 | P.PNANES_ITS ---
[facility] Disclaimer: The information contained in this section may have been updated after the patient was seen, as this information can be updated by other users. 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 Surgical History History of cardiac cath History of left knee surgery Family History Family/Other Diabetes Coronary artery disease Heart attack Hypertension Hyperlipidemia Stroke Cancer Other Unknown family medical history Social History (Updated 04/02/25 @ 06:51 by Zander Rosenthal CRNA) Smoking Status: Never smoker alcohol intake: never substance use type: denies use current occupational status: employed Travel in the last 8 weeks?: None Have you lived/traveled outside US in past 30 days?: No Contact w/someone who lives/traveled outside US past 30 days?: No Exposure to someone with infectious disease in past 14 days?: No Do you have a fever (greater than 100.4 F or 38 C)?: No Have you tested positive for COVID-19?: No Exposed to someone with COVID-19 in past 14 days?: No Do you have a sore throat?: No Do you have a cough?: No Do you have any weakness?: No Do you have any diarrhea?: No Are you experiencing any unusual bleeding?: No Do you have any muscle aches/pain?: No Do you have any abdominal pain?: No Are you experiencing loss of taste or smell?: No [facility] Anesthesia Checklist Patient Identification Patient Identification: Arm Band and Verbal (Name & ) Structural Data Admitted From: Inpatient Planned Operative Procedure/s: Diagnostic laparascopy Consent for Planned Operative Procedure(s) Verified: Yes Verified Documents: Surgical Consent NPO Status Verified Time NPO: 00:00 Chart Verification Results Verified: CBC and BMP Additional verifications Anesthesia Reactions: No Hx Blood Transfusions: No Blood Transfusion Reaction: No Airway Assessment Mallampati Score:: Class II C-Spine Mobility Assessed: Yes TMJ Mobility Assessed: Yes Dentition: Edentulous Neurological Assessment Level of Consciousness: Awake, Alert and Appropriate Hx Seizures: No Numbness or tingling in extremities: No Anesthesia Plan Anesthesia Risk discussed: Yes Anesthesia Plan: Verified ASA Class: III Anesthesia Type: General
[2025-04-03] MEDS: LIDOCAINE 1% 20ML MDV 20 ML (07:52)
--- NOTE | 2025-04-03 07:53 | EXP.PHA.CONS ---
Pharmacy Consult Date: 04/03/25 Time: 07:53 Referring provider: Dale ROMO Reason for Consult:: VANCOMYCIN DOSING Allergies Allergy/AdvReac Type Severity Reaction Status Date / Time No Known Allergies Allergy Verified 04/02/25 06:41 Home Medications ?Medication ?Instructions ?Recorded ?Confirmed ?Type cetirizine 10 mg tablet 10 mg PO DAILY 11/29/23 04/02/25 History fluticasone propionate 50 50 mcg intranasal DAILY 11/29/23 04/02/25 History mcg/actuation nasal spray,suspension blood-glucose meter (OneTouch #1 ea 11/22/24 04/02/25 History Ultra2 Meter) ondansetron 4 mg disintegrating 4 mg PO Q8H PRN Nausea 11/22/24 04/02/25 History tablet fexofenadine 180 mg tablet 180 mg PO DAILY 12/29/24 04/02/25 History (Jessie Allergy) albuterol sulfate 90 mcg/actuation 2 puff inhalation Q4-6H PRN 02/06/25 04/02/25 Rx aerosol inhaler shortness of breath or wheezing #8.5 grams blood sugar diagnostic (OneTouch #100 ea 02/06/25 04/02/25 Rx Ultra Test strips) nitroglycerin 0.4 mg sublingual 0.4 mg sublingual Q5-15M PRN chest 02/14/25 04/02/25 Rx tablet pain #30 tabs atorvastatin 40 mg tablet (Lipitor) 40 mg PO DAILY #90 tabs 02/27/25 04/02/25 Rx lisinopril 10 mg tablet 10 mg PO DAILY #90 tabs 02/27/25 04/02/25 Rx tirzepatide 15 mg/0.5 mL 15 mg (0.5 mL) SQ QWEEK Type 2 02/27/25 04/02/25 Rx subcutaneous pen injector diabetes #6 mL (Mounjaro) aspirin 81 mg capsule 81 mg PO DAILY 03/29/25 04/02/25 History hydrocodone 5 mg-acetaminophen 325 1 - 2 tab PO Q6H PRN Pain #17 tabs 04/02/25 04/02/25 Rx mg tablet New Prescriptions to Start Prescriptions: Height: 1.83 m Weight: 129.8 kg Laboratory Results:: Laboratory Results - last 24 hr 04/02/25 18:14: WBC 14.5 H, RBC 5.04, Hgb 14.7, Hct 43.6, MCV 86.5, MCH 29.2, MCHC 33.7, RDW 13.0, Plt Count 346, MPV 10.5 H, Neut % (Auto) 79.8, Lymph % (Auto) 12.3, [place] % (Auto) 7.3, Eos % (Auto) 0.0 L, Baso % (Auto) 0.3, Neut # (Auto) 11.6 H, Lymph # (Auto) 1.8, [place] # (Auto) 1.1 H, Eos # (Auto) 0.0, Baso # (Auto) 0.0, Sodium 138, Potassium 4.2, Chloride 99, Carbon Dioxide 25, Anion Gap 18.2 H, BUN 15, Creatinine 1.10, Estimated Creat Clear 151, Estimated GFR 72, Est GFR ( Amer) 87, Glucose 125 H, Calcium 9.2, Total Bilirubin 1.2, AST 39, ALT 40, Alkaline Phosphatase 61, Troponin I < 0.01, Total Protein 7.8, Albumin 4.7, Globulin 3.1, Albumin/Globulin Ratio 1.5 04/02/25 18:47: Lactate 2.5 H, Lipase 56, Blood Type A Positive, Antibody Screen Negative 04/02/25 21:58: POC Glucose 116 H 04/02/25 22:18: Lactate 1.9, Troponin I < 0.01 04/03/25 00:00: VBG pH 7.30 L, VBG pCO2 50.6, VBG pO2 40.1 H, VBG HCO3 24.2, VBG Total CO2 25.7, VBG O2 Saturation 72.7 H, VBG Base Excess -2.3, VBG Lactic Acid 2.5 H 04/03/25 00:57: Sodium 136, Potassium 4.1, Chloride 103, Carbon Dioxide 21 L, Anion Gap 16.1 H, BUN 17, Creatinine 1.40 H D, Estimated Creat Clear 121, Estimated GFR 55 L, Est GFR ( Amer) 66 D, Glucose 136 H, Calcium 8.4, Total Bilirubin 1.2, AST 31, ALT 28 D, Alkaline Phosphatase 65, Troponin I < 0.01, Total Protein 7.1, Albumin 4.2 D, Globulin 2.9, Albumin/Globulin Ratio 1.4 04/03/25 01:56: WBC 16.4 H, RBC 4.45 L, Hgb 12.8 L D, Hct 39.2 L, MCV 88.1, MCH 29.2, MCHC 33.2, RDW 13.2, Plt Count 291, MPV 10.2, Neut % (Auto) 78.4, Lymph % (Auto) 11.2, [place] % (Auto) 9.8 H, Eos % (Auto) 0.0 L, Baso % (Auto) 0.2, Neut # (Auto) 12.8 H, Lymph # (Auto) 1.8, [place] # (Auto) 1.6 H, Eos # (Auto) 0.0, Baso # (Auto) 0.0, Total Counted 100, Neutrophils % (Manual) 80 H, Lymphocytes % (Manual) 12, Monocytes % (Manual) 8, Platelet Estimate Not Reportable, RBC Morphology Not Reportable 04/03/25 04:21: WBC 17.0 H, RBC 4.45 L, Hgb 13.0 L, Hct 39.6 L, MCV 89.0, MCH 29.2, MCHC 32.8, RDW 13.2, Plt Count 281, MPV 10.3, Neut % (Auto) 73.7, Lymph % (Auto) 14.9, [place] % (Auto) 10.7 H, Eos % (Auto) 0.0 L, Baso % (Auto) 0.3, Neut # (Auto) 12.6 H, Lymph # (Auto) 2.5, [place] # (Auto) 1.8 H, Eos # (Auto) 0.0, Baso # (Auto) 0.1, Sodium 139, Potassium 4.4, Chloride 102, Carbon Dioxide 25, Anion Gap 16.4 H, BUN 20, Creatinine 1.50 H, Estimated Creat Clear 113, Estimated GFR 50 L, Est GFR ( Amer) 61, Glucose 111 H, Lactate 2.2 H, Calcium 8.2 L, Total Bilirubin 1.2, AST 27, ALT 25, Alkaline Phosphatase 59, Total Protein 6.8, Albumin 4.1, Globulin 2.7, Albumin/Globulin Ratio 1.5 Medical History: Medical History (Updated 04/02/25 @ 22:15 by Barbara Rick, ACNP) Allergies Complete occlusion of coronary artery, chronic CAD (coronary artery disease) URI (upper respiratory infection) Other forms of dyspnea DDD (degenerative disc disease), lumbar HTN (hypertension) Diabetes 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 Drug selected: Vancomycin Loading dose (mg): 0 Vd (liters): 103.8 (factor used: 0.8 L/kg) Alen (hr-1): 0.060 Half life (hrs): 11.55 Recommended dose: 1750 mg Interval: 12 hrs Infusion time (hrs): 2.0 Predicted peak (mcg/mL): 31.0 Predicted trough (mcg/mL): 17.01 Total body weight is being used for vancomycin dosing. Recommendations: Give Vancomycin 1750 mg q 12 hrs with an expected Cpeak of 31.0 mcg/ml and an expected Ctrough of 17.01 mcg/ml ----Vanco only - ignore for aminoglycosides----- CLvanco= 6.23 L/hr AUC 0-24 /SURINDER Data: SURINDER 0.5 mcg/mL: AUC/SURINDER: 1123.6 SURINDER 1.0 mcg/mL: AUC/SURINDER: 561.8 --------- SURINDER 1.5 mcg/mL: AUC/SURINDER: 374.5 SURINDER 2.0 mcg/mL: AUC/SURINDER: 280.9
[2025-04-03] MEDS: SODIUM CHLORIDE IRRIG SOLUTION 3,000 ML 200 ML IR (07:55)
--- NOTE | 2025-04-03 08:55 | EXP.OP.NOTE ---
Date of procedure: 04/03/25 Pre-op Diagnosis:: Hemoperitoneum Post-op Diagnosis:: Same Procedure performed:: Diagnostic laparoscopy with evacuation of hemoperitoneum Surgeon:: Chetan Spence MD EVENT DECORATOR:: Dale Mirza Anesthesia: GETA Estimated blood loss (mL): 10 Clinical Note:: Patient is a 45-year-old male whom I have seen in the office several times for evaluation of symptomatic gallstones. He has had some problems with postprandial pain with high fatty type foods and dairy products with pain in the right back radiating into the right upper quadrant and into his shoulder. He elected to undergo cholecystectomy which was performed yesterday morning on 04/02/2025. He had some gallbladder wall thickening and distention with some mild fatty infiltration of the liver. He required extension of the epigastric trocar site for removal of the gallbladder. There was noted to be some oozing from the musculature at the epigastric trocar site after extension. This was closed with a couple of 0 Ethibond [id number] sutures. Completion laparoscopy revealed this to be hemostatic. The procedure went without complication and he was discharged home after the postoperative recovery time period. He had progressive pain after surgery and he presented to the emergency department in the evening of 04/02/2025. He had a CT angiogram of the abdomen and pelvis which revealed no evidence of any active bleeding but there was high attenuation fluid consistent with some hemoperitoneum. He had tachycardia. His hemoglobin was 14. Preoperative hemoglobin on 03/29/2025 was 14.9. Surgery was contacted. Was felt that he likely had some recurrent postoperative bleeding from the abdominal wall the epigastric trocar site which had now stopped resulting in pain and tachycardia. It is felt that it would be reasonable for admission. Interestingly the CT scan report reveals moderate high attenuation hemoperitoneum. There is some peripheral margination of air bubbles in the dependent portion of the cecum which is near the site of the highest amount of hemoperitoneum. There is no active extravasation. It was felt that given the nature of the case and intra-abdominal findings he most likely had some recurrent bleeding from the abdominal wall at the epigastric trocar site which had likely stopped. The pain from the hemoperitoneum and blood loss likely caused the tachycardia. Clinical suspicion for ongoing bleeding or bowel injury were quite low however given the reading of the CT scan with patient's tachycardia, progressive leukocytosis, and abdominal pain, the better part of valor likely would be to proceed with repeat laparoscopy for evacuation of hematoma and inspection of the cecum. Arrangements were made. . Operative findings:: No active bleeding. Moderate amount of hemoperitoneum mostly along the right paracolic gutter with some in the perihepatic space. 550 cc of old clotted blood suctioned free. No bowel injury. Cecum appeared normal. . Operative note:: Consent was obtained patient was taken the operating room. He was given preoperative intravenous antibiotics. In the operating room he was placed in a supine position. General anesthesia was induced. Alarcon catheter was placed. Abdomen was prepped and draped in the standard surgical fashion. The subumbilical incision was opened. While performing abdominal wall lift 5 mm optical trocar was carefully inserted into the abdominal cavity and CO2 pneumoperitoneum was achieved. Laparoscopic surveillance was carried out which revealed no evidence of any active bleeding. There was noted to be some blood along the right paracolic gutter and cecum. Epigastric trocar site was opened and one of the fascial sutures was removed. 11 mm trocar was inserted at this point. 10 mm suction was inserted. Old blood was suctioned free from the perihepatic space. 5 mm medial trocar site was reopened and 5 mm trocar was inserted. Fan retractor was inserted and the colon was retracted medially. There was some old clotted blood along the right paracolic gutter. This was suctioned free. The cecum was completely normal. Patient was positioned in a few different positions to allow for evacuation of blood. Ultimately he was positioned in reverse Trendelenburg and left side down as traditional gallbladder position. Gallbladder fossa was inspected for hemostasis. There was no evidence of any active bleeding. A total of 550 cc of old clotted blood was evacuated. Irrigation and suctioning was performed. There was good hemostasis. For assurance of hemostasis Kristin was deployed in the gallbladder fossa. Limited use of electrocautery was used for cauterization adjacent to the gallbladder fossa for assurance of hemostasis. Patient was then positioned in a neutral position. 11 mm trocar was inserted. The site, potential previous source of bleeding, was closed with multiple 0 Ethibond sutures to ensure hemostasis using the Kin-Mykel suture passer device. There was good hemostasis. Remaining trocars were then removed as CO2 pneumoperitoneum was evacuated. Local anesthetic was infiltrated. Skin incisions were closed with 4-0 Monocryl in a subcuticular fashion. Steri-Strips and dressings were applied. . Condition: stable Disposition: PACU Complications:: None immediately apparent
--- NOTE | 2025-04-03 09:06 | P.PNANES_ITS ---
[facility] Anesthesia Record Part I Anesthesia Record I Intake, IV Amount: 1,800 Hydration: Adequate Estimated blood loss (mL): 500 Urine output (mL): 200 Blood Products used (#): none Blood Pressure: 159/90 SaO2: 88 Pulse Rate: 115 Airway Patency: Patent Respiratory Rate: 20 Temperature: 98.3 F Patient is:: Awake, Mask O2 and Stable Stable to PACU at:: 09:00 Comments:: Pain medication given and breathing treatment ordered.
[2025-04-03] MEDS: IPRATROPIUM/ALBUTEROL 3 ML NEB IH (09:19)
--- NOTE | 2025-04-03 09:25 | XR_ITS ---
FINAL REPORT TECHNIQUE: Single view chest CLINICAL HISTORY: SOB in PACU COMPARISON: 04/02/2025 FINDINGS: A single view of the chest was obtained. The heart and mediastinum are within normal limits. The lungs are clear. There is no pneumothorax. IMPRESSION: No acute cardiopulmonary process. Reviewed, Interpreted and Dictated by Dale Lynn MD Transcribed by Hollie Morley Authenticated and [facility]
[2025-04-03 09:27] LABS: POC Glucose,Bedside 112 gm/dL (70-110)
--- NOTE | 2025-04-03 09:59 | PC.NURSE ---
0910- RT at bedside with ISIDROONEB 0930- radiology at bedside for chest x-ray
[2025-04-03] MEDS: VANCOMYCIN/WATER FOR INJ (PEG) 1.75 GM/350 ML PIGGYBACK IV ×2 (10:12→19:45)
--- NOTE | 2025-04-03 10:56 | EXP.ANES.II ---
[facility] Anesthesia Record Part II Anesthesia Record Part II Discharge Time: 09:40 Destination: Intensive Care Unit PACU nurse assessment reviewed?: Yes Patient Condition:: Good Anesthesia Complications:: None Swallowing reflex intact?: Yes Airway Patency: Patent Cyanosis?: No Blood Pressure: 144/94 SaO2: 94 Respiratory Rate: 18 Pulse Rate: 109 Temperature: 98.3 F Mental Status: Alert & Oriented Pain level:: 5 Nausea and/or vomitting:: None Intake, IV Amount: 0 Hydration: Adequate
[2025-04-03 11:19] LABS: POC Glucose,Bedside 123 gm/dL (70-110)
[2025-04-03 12:04] LABS: POC Glucose,Bedside 108 gm/dL (70-110)
[2025-04-03 14:06] LABS: Microscopic,Cath URINE MICROSCOPIC (MICROSCOPIC)
[2025-04-03 14:10] LABS: Appearance,Urine/Cath CLEAR (Clear); Bilirubin,Cath Negative (Negative); Blood, Urine/Cath Negative (Negative); Color,Urine/Cath YELLOW (Yellow); Glucose,Urine/Cath (UA) Negative (Negative); Ketones,Urine/Cath TRACE (Negative); Leukocyte Esterase,Cath Negative (Negative); Nitrate,Cath Negative (Negative); PH,Urine/Cath 5.5 (5.0-8.5); Protein,Urine/Cath TRACE (Negative); Specific Gravity, Urine/Cath 1.025 (1.005-1.030); Urobilinogen,Cath 0.2 EU/dl (0.2)
[2025-04-03 14:20] LABS: Bacteria,Urine/Cath 1+ /lpf; Squamous Epithelial Ur./Cath Occasional #/hpf (0-5)
--- OUTSIDE RECORDS SUMMARY | 2025-04-03 15:34 | XMS_ITS | Clinical Summary ---
Author Organization [facility] Address [facility] [place] [address] Care Team Providers Care Attorney Recruiter Name Role Phone Pcp, No Primary Care [...] 2024 Sigmoidoscopy 2024 [facility]-Colorectal Cancer Screening 2024 [id number] Vaccine (2 - 20 25-26 season) 2025 [...] Insurance [employer] Care Teams Attorney Recruiter Relationship Specialty Start Date End Date Pcp, [place] [address] PCP - General Family Medicine 12/18/22
--- OUTSIDE RECORDS SUMMARY | 2025-04-03 15:34 | XMS_ITS | Encounter Summary ---
Author Organization Healthcare Address [address] [id number] Care Team Providers Care Vision Impaired Teacher Name Role Phone Pcp, No Primary Care Provider Unavailabl e Encounter Details Date Type Department Care Team (Late st Contact Info) Description 12/08/2022 Orders Only External Location [address] [place] [address] Chichi Tao MD [address] [place] [address] Social History Tobacco Use Types [...] on filedocumented in this encounter Care Teams Vision Impaired Teacher Relationship Specialty Start Date End Date Pcp, No [address] [place] [address] PCP - General Family Medicine 12/18/22 documented as of this encounter
--- OUTSIDE RECORDS SUMMARY | 2025-04-03 15:34 | XMS_ITS | Clinical Summary ---
Author Organization [facility] Address [address] [place] [address] Care Team Providers Care Virginia Line Attendant Name Role Phone Sergio Shin MD Primary Care Provider [phone] Allergies No known active allergies Medications albuterol [...] Insurance [place] [id number] Care Teams Virginia Line Attendant Relationship Specialty Start Date End Date Sergio Shin MD [address] [place] [address] [address] [place] [address] PCP - General Family Medicine 11/15/24
[2025-04-03] MEDS: HYDROCODONE/APAP 5/325 MG TABLET 2 TAB PO ×2 (15:57→21:38)
[2025-04-03 16:55] LABS: POC Glucose,Bedside 156 gm/dL (70-110)
--- NOTE | 2025-04-03 17:59 | EXP.ACUTE.PN ---
Subjective *Date: 04/03/25 *Time: 17:59 Interval history: Taken to the OR this morning. Found to have old blood in his abdomen from surgery. No other acute findings. Return back to the ICU for further monitoring. Initially on supplemental oxygen. Remains tachycardic. Afebrile. Medical Exam Vital signs and Labs for Last 24 Hours: Vital Signs Temp Pulse Pulse Resp BP BP Pulse Ox 04/03/25 16:53 04/03/25 16:01 20 94 L 04/03/25 16:01 107 H 131/81 04/03/25 16:00 22 04/03/25 16:00 107 H 04/03/25 15:00 04/03/25 14:00 115 H 25 H 140/101 H 93 L 04/03/25 14:00 04/03/25 13:00 04/03/25 12:20 114 H 21 144/84 H 92 L 04/03/25 12:00 121 H 04/03/25 12:00 98.9 F 95 H 17 130/91 H 94 L 04/03/25 11:50 96 H 16 130/91 H 94 L 04/03/25 11:20 97 H 20 136/74 92 L 04/03/25 10:59 04/03/25 10:57 18 04/03/25 10:50 104 H 24 132/75 91 L 04/03/25 10:35 98.8 F 103 H 20 115/76 93 L 04/03/25 10:20 107 H 24 137/80 91 L 04/03/25 10:10 139/87 04/03/25 10:10 25 H 04/03/25 10:05 105 H 18 134/85 96 04/03/25 10:00 107 H 21 134/85 95 04/03/25 09:50 99.2 F 112 H 23 124/85 93 L 04/03/25 09:40 98.3 F 109 H 18 144/94 H 94 L 04/03/25 09:30 110 H 20 138/89 96 04/03/25 09:20 118 H 18 139/77 88 L 04/03/25 09:18 111 H 04/03/25 09:18 115 H 04/03/25 09:10 98.3 F 113 H 20 167/97 H 92 L 04/03/25 09:07 98.3 F 115 H 20 159/90 H 04/03/25 09:00 98.3 F 117 H 20 159/90 H 88 L 04/03/25 06:42 106 H 26 H 123/78 98 04/03/25 06:26 123/78 04/03/25 06:15 106 H 38 H 95 04/03/25 06:01 111 H 21 96 04/03/25 06:00 98 H 28 H 123/78 98 04/03/25 05:00 04/03/25 04:00 97 H 04/03/25 04:00 98.9 F 93 H 18 108/74 L 96 04/03/25 04:00 108/74 L 04/03/25 03:00 04/03/25 02:00 101 H 15 113/72 94 L 04/03/25 01:00 04/03/25 00:00 110 H 04/03/25 00:00 99.2 F 108 H 46 H 134/85 98 04/02/25 23:00 04/02/25 22:05 99.2 F 116 H 24 119/78 93 L 04/02/25 21:38 98.9 F 112 H 23 132/87 04/02/25 21:35 115 H 04/02/25 21:00 04/02/25 21:00 111 H 16 156/90 H 99 04/02/25 20:59 04/02/25 20:30 110 H 28 H 144/79 H 99 04/02/25 20:00 111 H 21 128/83 99 04/02/25 19:41 122 H 30 H 138/76 95 04/02/25 18:38 121 H 18 136/88 91 L 04/02/25 18:16 98.9 F 153 H 18 125/79 100 O2 Del Method O2 Flow Rate 04/03/25 16:53 Nasal Cannula 3 04/03/25 16:01 Nasal Cannula 3 04/03/25 16:01 04/03/25 16:00 04/03/25 16:00 04/03/25 15:00 Nasal Cannula 3 04/03/25 14:00 Nasal Cannula 3 04/03/25 14:00 Nasal Cannula 3 04/03/25 13:00 Nasal Cannula 4 04/03/25 12:20 Nasal Cannula 4 04/03/25 12:00 04/03/25 12:00 Nasal Cannula 4 04/03/25 11:50 Nasal Cannula 4 04/03/25 11:20 Nasal Cannula 4 04/03/25 10:59 Nasal Cannula 4 04/03/25 10:57 04/03/25 10:50 Nasal Cannula 4 04/03/25 10:35 Simple Mask 6 04/03/25 10:20 Simple Mask 6 04/03/25 10:10 04/03/25 10:10 04/03/25 10:05 Simple Mask 6 04/03/25 10:00 Nasal Cannula 6 04/03/25 09:50 Simple Mask 10 04/03/25 09:40 Simple Mask 10 04/03/25 09:30 Simple Mask 10 04/03/25 09:20 Simple Mask 10 04/03/25 09:18 04/03/25 09:18 04/03/25 09:10 Aerosol Mask 15 04/03/25 09:07 04/03/25 09:00 Nasal Cannula 6 04/03/25 06:42 Nasal Cannula 2 04/03/25 06:26 Nasal Cannula 3 04/03/25 06:15 04/03/25 06:01 04/03/25 06:00 Nasal Cannula 3 04/03/25 05:00 Nasal Cannula 3 04/03/25 04:00 04/03/25 04:00 Nasal Cannula 3 04/03/25 04:00 04/03/25 03:00 Nasal Cannula 3 04/03/25 02:00 Nasal Cannula 3 04/03/25 01:00 Nasal Cannula 3 04/03/25 00:00 04/03/25 00:00 Nasal Cannula 3 04/02/25 23:00 Nasal Cannula 2 04/02/25 22:05 Room Air 04/02/25 21:38 Nasal Cannula 2 04/02/25 21:35 04/02/25 21:00 Nasal Cannula 2 04/02/25 21:00 Nasal Cannula 2 04/02/25 20:59 Nasal Cannula 3 04/02/25 20:30 Nasal Cannula 2 04/02/25 20:00 Nasal Cannula 2 04/02/25 19:41 Nasal Cannula 2 04/02/25 18:38 Room Air 04/02/25 18:16 Room Air Intake and Output 04/03/25 04/03/25 04/03/25 07:59 15:59 23:59 Intake Total 2151.25 / 4601.25 2450 / 4601.25 Output Total 300 / 1825 875 / 1825 650 / 1825 Balance 1851.25 / 2776.25 1575 / 2776.25 -650 / 2776.25 Intake: Intake, Oral Amount 200 / 200 Intake, Total IV Amount 2151.25 / 4401.25 2250 / 4401.25 0.9 % Sodium Chloride 1000ML 1, 288.75 / 288.75 0 / 288.75 000 ml @ 75 mls/hr IV .[id number] [facility] Rx#:[id number] 0.9 % Sodium Chloride 1000ML 1, 1662.5 / 1662.5 000 ml @ 999 mls/hr IV .Q1H1M [facility] Rx#:[id number] Meropenem 1 gm In 0.9 % Sodium 100 / 200 100 / 200 Chloride 100 ml @ 100 mls/hr IV Q12H [facility] Rx#:[id number] Pantoprazole Sodium 80 mg In 0. 100 / 100 9 % Sodium Chloride 100 ml @ 100 mls/hr IV ONCE ONE Rx#: [id number] Vancomycin/Water For Inj (Peg) 350 / 350 1.75 gm In 350 ml @ 175 mls/hr IV Q12H [facility] Rx#:[id number] Output: Output, Urine Amount 300 / 1825 875 / 1825 650 / 1825 Other: Weight 129.8 kg Patient Weight 04/03/25 23:59 Weight 129.8 kg Laboratory Results - last 24 hr 04/02/25 18:14: WBC 14.5 H, RBC 5.04, Hgb 14.7, Hct 43.6, MCV 86.5, MCH 29.2, MCHC 33.7, RDW 13.0, Plt Count 346, MPV 10.5 H, Neut % (Auto) 79.8, Lymph % (Auto) 12.3, [place] % (Auto) 7.3, Eos % (Auto) 0.0 L, Baso % (Auto) 0.3, Neut # (Auto) 11.6 H, Lymph # (Auto) 1.8, [place] # (Auto) 1.1 H, Eos # (Auto) 0.0, Baso # (Auto) 0.0, Sodium 138, Potassium 4.2, Chloride 99, Carbon Dioxide 25, Anion Gap 18.2 H, BUN 15, Creatinine 1.10, Estimated Creat Clear 151, Estimated GFR 72, Est GFR ( Amer) 87, Glucose 125 H, Calcium 9.2, Total Bilirubin 1.2, AST 39, ALT 40, Alkaline Phosphatase 61, Troponin I < 0.01, Total Protein 7.8, Albumin 4.7, Globulin 3.1, Albumin/Globulin Ratio 1.5 04/02/25 18:47: Lactate 2.5 H, Lipase 56, Blood Type A Positive, Antibody Screen Negative 04/02/25 21:58: POC Glucose 116 H 04/02/25 22:18: Lactate 1.9, Troponin I < 0.01 04/03/25 00:00: VBG pH 7.30 L, VBG pCO2 50.6, VBG pO2 40.1 H, VBG HCO3 24.2, VBG Total CO2 25.7, VBG O2 Saturation 72.7 H, VBG Base Excess -2.3, VBG Lactic Acid 2.5 H 04/03/25 00:57: Sodium 136, Potassium 4.1, Chloride 103, Carbon Dioxide 21 L, Anion Gap 16.1 H, BUN 17, Creatinine 1.40 H D, Estimated Creat Clear 121, Estimated GFR 55 L, Est GFR ( Amer) 66 D, Glucose 136 H, Calcium 8.4, Total Bilirubin 1.2, AST 31, ALT 28 D, Alkaline Phosphatase 65, Troponin I < 0.01, Total Protein 7.1, Albumin 4.2 D, Globulin 2.9, Albumin/Globulin Ratio 1.4 04/03/25 01:56: WBC 16.4 H, RBC 4.45 L, Hgb 12.8 L D, Hct 39.2 L, MCV 88.1, MCH 29.2, MCHC 33.2, RDW 13.2, Plt Count 291, MPV 10.2, Neut % (Auto) 78.4, Lymph % (Auto) 11.2, [place] % (Auto) 9.8 H, Eos % (Auto) 0.0 L, Baso % (Auto) 0.2, Neut # (Auto) 12.8 H, Lymph # (Auto) 1.8, [place] # (Auto) 1.6 H, Eos # (Auto) 0.0, Baso # (Auto) 0.0, Total Counted 100, Neutrophils % (Manual) 80 H, Lymphocytes % (Manual) 12, Monocytes % (Manual) 8, Platelet Estimate Not Reportable, RBC Morphology Not Reportable 04/03/25 04:21: WBC 17.0 H, RBC 4.45 L, Hgb 13.0 L, Hct 39.6 L, MCV 89.0, MCH 29.2, MCHC 32.8, RDW 13.2, Plt Count 281, MPV 10.3, Neut % (Auto) 73.7, Lymph % (Auto) 14.9, [place] % (Auto) 10.7 H, Eos % (Auto) 0.0 L, Baso % (Auto) 0.3, Neut # (Auto) 12.6 H, Lymph # (Auto) 2.5, [place] # (Auto) 1.8 H, Eos # (Auto) 0.0, Baso # (Auto) 0.1, Sodium 139, Potassium 4.4, Chloride 102, Carbon Dioxide 25, Anion Gap 16.4 H, BUN 20, Creatinine 1.50 H, Estimated Creat Clear 113, Estimated GFR 50 L, Est GFR ( Amer) 61, Glucose 111 H, Lactate 2.2 H, Calcium 8.2 L, Total Bilirubin 1.2, AST 27, ALT 25, Alkaline Phosphatase 59, Total Protein 6.8, Albumin 4.1, Globulin 2.7, Albumin/Globulin Ratio 1.5 04/03/25 06:07: POC Glucose 108 04/03/25 07:20: Urine Color Yellow, Urine Appearance Clear, Urine pH 5.5, Ur Specific [place] 1.025, Urine Protein Trace, Urine Glucose (UA) Negative, Urine Ketones Trace, Urine Blood Negative, Urine Nitrate Negative, Urine Bilirubin Negative, Urine Urobilinogen 0.2, Ur Leukocyte Esterase Negative, Urine RBC None, Urine WBC 3-5, Ur Squamous Epith Cells Occasional, Urine Bacteria 1+ 04/03/25 09:15: POC Glucose 112 H 04/03/25 10:59: POC Glucose 123 H 04/03/25 16:48: POC Glucose 156 H I & O for Labs for Last 24 Hours: Intake & Output 03/31/25 04/01/25 04/02/25 04/03/25 23:59 23:59 23:59 23:59 Intake Total 1100 / 1100 4601.25 / 4601.25 Output Total 1825 / 1825 Balance 1100 / 950 2776.25 / 2776.25 Weight 129.8 kg 129.8 kg Constitutional: Present mild distress, obese, chronically ill appearing and cooperative Head: Present atraumatic and normocephalic ENT: Present normal exam Respiratory: Present normal respiratory effort; Absent rhonchi, wheezes or crackles Comment:: Splinting when he breathes, not taking deep breaths Cardiac: Present Regular Rhythm and Tachycardia GI: Present soft, distention, tenderness (Diffuse, nonfocal) and normal bowel sounds Extremities: Present normal inspection and full ROM; Absent edema Skin: Present intact; Absent erythema Neuro: Present Grossly Intact, alert, awake, oriented x 3 and moves all extremities Assessment and Plan *Assessment and plan (1) Intraperitoneal bleeding: Status: Acute Category: Medical Code(s): K66.1 - Hemoperitoneum (2) Abdominal pain: Status: Acute Category: Medical Code(s): R10.9 - Unspecified abdominal pain (3) Post-op bleeding: Status: Acute Category: Medical (4) Cholelithiasis: Status: Acute Qualifiers: Biliary obstruction: without biliary obstruction Cholecystitis presence: without cholecystitis Cholelithiasis location: gallbladder Qualified Code(s): K80.20 - Calculus of gallbladder without cholecystitis without obstruction Category: Medical Code(s): K80.20 - Calculus of gallbladder without cholecystitis without obstruction (5) Diabetes: Status: Acute Qualifiers: Diabetes mellitus type: type 2 Diabetes mellitus fpc insulin use: without extermination inspector use Diabetes mellitus complication status: without complication Qualified Code(s): E11.9 - Type 2 diabetes mellitus without complications Category: Medical Code(s): E11.9 - Type 2 diabetes mellitus without complications (6) CAD (coronary artery disease): Status: Acute Category: Medical Code(s): I25.10 - Atherosclerotic heart disease of [place] coronary artery without angina pectoris (7) Hypertension: Status: Acute Category: Medical Code(s): I10 - Essential (primary) hypertension Plan 45-year-old male with recent cholecystectomy. Brought back to the OR today after being admitted with worsening abdominal pain. Found to have blood in his abdomen, likely sequela of his surgery and possible bleed from trocar site. No further active signs of bleeding. Blood was evacuated. Will monitor overnight. Dressing pain control. Advancing diet. Surgery assisting with care. Problems addressed as follows: #Abdominal pain #Intraperitoneal bleeding #Cholelithiasis Patient presents with abdominal pain status post outpatient laparoscopic cholecystectomy. Diffuse tenderness across abdomen. Not peritonitic. Repeat exploratory laparoscopy performed today, discussed case with surgery. Found blood in abdomen. Evacuated. No other acute findings. Recommend monitoring overnight and advancing diet. White count 17, hemoglobin 13. Repeat CBC, CMP, magnesium ordered for the morning. Kidney function stable with BUN 20, creatinine 1.5. Broaden empiric coverage with meropenem. Doing better by morning with normalization of white count, will discontinue antibiotics prior to discharge Repeat H&H ordered for this evening to monitor stability hemoglobin, transfusion threshold hemoglobin less than 7 Still on oxygen postprocedural, wean as tolerated. No focal signs of pneumonia. Reevaluate in the morning #SIRS SIRS criteria of tachycardia, leukocytosis with elevated lactic. No overt signs of infection. Given recent instrumentation with laparoscopic cholecystectomy, will treat empirically with Zosyn Repeat lactic showed improvement at 2.2 #HTN #CAD Resume lisinopril 10 mg daily #DM2 ACHS Accu-Cheks and sliding scale insulin Hold GLP-1 Glucose 111. Full code Holding anticoagulation Full liquid diet
[2025-04-03 18:29] LABS: Hematocrit 36.1 % (42.0-52.0); Hemoglobin 11.8 g/dL (14.1-18.0)
[2025-04-03 19:49] LABS: POC Glucose,Bedside 124 gm/dL (70-110)
[2025-04-04] VITALS (9 sets, daily range): BP systolic 105–129; BP diastolic 60–67; PULSE 64–80; RESP 9–15; TEMP 36.4–37.2; O2SAT 90–97; BMI 40.7
[2025-04-04] MEDS: 0.9 % SODIUM CHLORIDE 1000ML 1,000 ML 75 ML IV (01:00)
[2025-04-04] MEDS: MEROPENEM 1 GM in 0.9 % SODIUM CHLORIDE 100 ML IV (02:04)
[2025-04-04 05:44] LABS: Alanine Aminotransferase 34 U/L (12-78); Albumin Level 3.6 g/dl (3.5-5.0); Albumin/Globulin Ratio 1.4 (1.1-1.8); Alkaline Phosphatase 49 U/L (38-126); Anion Gap 10.0 mEq/L (5-15); Aspartate Amino Transferase 36 U/L (17-59); Bilirubin,Total 0.6 mg/dl (0.2-1.3); Blood Urea Nitrogen 11 mg/dl (9-20); Calcium 8.5 mg/dl (8.4-10.2); Carbon Dioxide 29 mmol/L (22.0-30.0); Chloride 105 mmol/L (98-107); Creatinine Clearance Estimated 223 mL/min (50-200); Creatinine,Serum 0.80 mg/dl (0.66-1.25); Estimated Glomerular Filt Rate 104 ml/min (>60); GFR (African American) 126 ML/MIN (>60); Globulin 2.6 g/dL (1.3-3.2); Glucose 101 mg/dl (74-100); Magnesium 1.8 mg/dl (1.6-2.3); Potassium 4.0 mmoL/L (3.5-5.1); Sodium 140 mmol/L (136-145); Total Protein,Serum 6.2 g/dl (6.3-8.2)
[2025-04-04 05:56] LABS: Hematocrit 32.4 % (42.0-52.0); Immature Granulocytes % 0.5 %; Mean Corpuscular HGB Conc 31.5 g/dL (31.8-35.4); Mean Corpuscular Hemoglobin 28.5 pg (27.0-31.2); Mean Corpuscular Volume 90.5 fl (80-94); Nucleated Red Blood Cells % 0 %; Platelet Count 242 K/mm3 (142-424); Red Blood Count 3.58 M/mm3 (4.60-6.20); Red Cell Distribution Width-SD 44.2 fL; White Blood Count 10.8 K/mm3 (4.8-10.8)
[2025-04-04 06:04] LABS: Hemoglobin 10.5 g/dL (14.1-18.0)
[2025-04-04 06:05] LABS: POC Glucose,Bedside 97 gm/dL (70-110)
[2025-04-04] MEDS: VANCOMYCIN/WATER FOR INJ (PEG) 1.75 GM/350 ML PIGGYBACK IV (07:41)
[2025-04-04] MEDS: LISINOPRIL 10MG TABLET 10 MG PO (08:17)
--- NOTE | 2025-04-04 10:09 | P.PN_ITS ---
Subjective Patient reports: feels better Exam Data for Last 24 hours Vital signs and Labs for Last 24 Hours: Temp Pulse Resp BP Pulse Ox O2 Del Method O2 Flow Rate 97.6 F 80 15 129/67 90 L Room Air 2 04/04/25 08:00 04/04/25 08:00 04/04/25 08:00 04/04/25 06:25 04/04/25 08:00 04/04/25 08:59 04/04/25 06:48 Laboratory Results - last 24 hr 04/03/25 06:07: POC Glucose 108 04/03/25 07:20: Urine Color Yellow, Urine Appearance Clear, Urine pH 5.5, Ur Specific [place] 1.025, Urine Protein Trace, Urine Glucose (UA) Negative, Urine Ketones Trace, Urine Blood Negative, Urine Nitrate Negative, Urine Bilirubin Negative, Urine Urobilinogen 0.2, Ur Leukocyte Esterase Negative, Urine RBC None, Urine WBC 3-5, Ur Squamous Epith Cells Occasional, Urine Bacteria 1+ 04/03/25 10:59: POC Glucose 123 H 04/03/25 16:48: POC Glucose 156 H 04/03/25 18:22: Hgb 11.8 L, Hct 36.1 L 04/03/25 19:41: POC Glucose 124 H 04/04/25 04:58: WBC 10.8 D, RBC 3.58 L, Hgb 10.5 L D, Hct 32.4 L, MCV 90.5, MCH 28.5, MCHC 31.5 L, RDW 13.2, Plt Count 242, MPV 10.6 H, Neut % (Auto) 66.7, Lymph % (Auto) 21.6, [place] % (Auto) 10.8 H, Eos % (Auto) 0.1, Baso % (Auto) 0.3, Neut # (Auto) 7.2, Lymph # (Auto) 2.3, [place] # (Auto) 1.2 H, Eos # (Auto) 0.0, Baso # (Auto) 0.0, Sodium 140, Potassium 4.0, Chloride 105, Carbon Dioxide 29, Anion Gap 10.0, BUN 11 D, Creatinine 0.80 D, Estimated Creat Clear 223, Estimated GFR 104, Est GFR ( Amer) 126 D, Glucose 101 H, Calcium 8.5, Magnesium 1.8, Total Bilirubin 0.6, AST 36 D, ALT 34 D, Alkaline Phosphatase 49, Total Protein 6.2 L, Albumin 3.6 D, Globulin 2.6, Albumin/Globulin Ratio 1.4 04/04/25 05:57: POC Glucose 97 I & O for Last 24 hours: Intake & Output 04/01/25 04/02/25 04/03/25 04/04/25 11:59 11:59 11:59 11:59 Intake Total 5401.25 / 5401.25 2763.75 / 2763.75 Output Total 300 / 300 2900 / 2900 Balance 5101.25 / 5101.25 -136.25 / -136.25 Weight 286 lb 2.56 oz 300 lb 14.896 oz Microbiology Reports for the Last 24 Hours: Microbiology 04/02/25 19:07 Blood Blood Culture - Preliminary NO GROWTH AFTER 24 HOURS 04/02/25 18:47 Blood Blood Culture - Preliminary NO GROWTH AFTER 24 HOURS Constitutional Constitutional: no acute distress *Routine Respiratory Exam Respiratory: Absent respiratory distress *Routine Cardiovascular Exam Cardiovascular: Absent tachycardia *Routine Abdominal Exam Abdominal: Present soft Comments: Dressings intact. No erythema. Progress Note: A&P Assessment and plan (1) Intraperitoneal bleeding: Status: Acute Assessment and plan: Overall, doing well status post laparoscopy with hematoma evacuation Okay from surgical standpoint for discharge home with close outpatient follow-up (2) Abdominal pain: Status: Acute (3) Post-op bleeding: Status: Acute (4) Cholelithiasis: Status: Acute (5) Diabetes: Status: Acute (6) CAD (coronary artery disease): Status: Acute (7) Hypertension: Status: Acute
--- NOTE | 2025-04-04 11:05 | EXP.DC.SUM ---
General Admission date:: 04/02/25 Discharge date: 04/04/25 HPI HPI HPI: Patient is a 45-year-old male whom I have seen in the office several times for evaluation of symptomatic gallstones. He has had some problems with postprandial pain with high fatty type foods and dairy products with pain in the right back radiating into the right upper quadrant and into his shoulder. He elected to undergo cholecystectomy which was performed yesterday morning on 04/02/2025. He had some gallbladder wall thickening and distention with some mild fatty infiltration of the liver. He required extension of the epigastric trocar site for removal of the gallbladder. There was noted to be some oozing from the musculature at the epigastric trocar site after extension. This was closed with a couple of 0 Ethibond [id number] sutures. Completion laparoscopy revealed this to be hemostatic. The procedure went without complication and he was discharged home after the postoperative recovery time period. He had progressive pain after surgery and he presented to the emergency department in the evening of 04/02/2025. He had a CT angiogram of the abdomen and pelvis which revealed no evidence of any active bleeding but there was high attenuation fluid consistent with some hemoperitoneum. He had tachycardia. His hemoglobin was 14. Preoperative hemoglobin on 03/29/2025 was 14.9. Surgery was contacted. Was felt that he likely had some recurrent postoperative bleeding from the abdominal wall the epigastric trocar site which had now stopped resulting in pain and tachycardia. It is felt that it would be reasonable for admission. Interestingly the CT scan report reveals moderate high attenuation hemoperitoneum. There is some peripheral margination of air bubbles in the dependent portion of the cecum which is near the site of the highest amount of hemoperitoneum. There is no active extravasation. . Hospital Course Hospital Course Hospital Course: 45-year-old male with recent cholecystectomy. Presented with abdominal pain and SIRS criteria. Taken to the OR on 04/03 after being admitted with worsening abdominal pain. Found to have blood in his abdomen, likely sequela of his surgery and possible bleed from trocar site. No further active signs of bleeding. Blood was evacuated. Symptoms defervesced over the next 24 hours. Able to tolerate advancement of diet. Pain stable. Feeling better by morning of discharge. Stable to discharge with close follow-up as an outpatient with surgery. Hemoglobin with slight drop no overt signs of bleeding. Problems addressed as follows: #Abdominal pain #Intraperitoneal bleeding #Cholelithiasis Patient presents with abdominal pain status post outpatient laparoscopic cholecystectomy. Diffuse tenderness across abdomen. Not peritonitic. Repeat exploratory laparoscopy performed today, discussed case with surgery. Found blood in abdomen. Evacuated. No other acute findings. Recommend monitoring overnight and advancing diet. Tolerated advancement of diet. White count improved from 17-10.8. Hemoglobin dropped somewhat from 13-10.5. Platelets stable at 242. Kidney function normal with BUN 11, creatinine 0.8. Initially on empiric coverage with meropenem given SIRS criteria. Low concern for active infection. Discontinued antibiotics at discharge. Able to wean off oxygen after his procedure over 12 hours. No focal signs of pneumonia or infection. No oxygen requirement at discharge #SIRS SIRS criteria of tachycardia, leukocytosis with elevated lactic. No overt signs of infection. Given recent instrumentation with laparoscopic cholecystectomy, initially treated with Zosyn, transition to meropenem as above. Lactic acid showed improvement. Stable by morning. Suspect SIRS was secondary to pain and postop abnormalities. Infection ruled out #HTN #CAD Resume lisinopril 10 mg daily #DM2 ACHS Accu-Cheks and sliding scale insulin Hold GLP-1 for at least a week. Discussed with patient Glucose 111. Exam Data for Last 24 hours Vital signs and Labs for Last 24 Hours: Temp Pulse Resp BP Pulse Ox O2 Del Method O2 Flow Rate 97.6 F 80 15 129/67 90 L Room Air 2 04/04/25 08:00 04/04/25 08:00 04/04/25 08:00 04/04/25 06:25 04/04/25 08:00 04/04/25 08:59 04/04/25 06:48 Laboratory Results - last 24 hr 04/03/25 06:07: POC Glucose 108 04/03/25 07:20: Urine Color Yellow, Urine Appearance Clear, Urine pH 5.5, Ur Specific [place] 1.025, Urine Protein Trace, Urine Glucose (UA) Negative, Urine Ketones Trace, Urine Blood Negative, Urine Nitrate Negative, Urine Bilirubin Negative, Urine Urobilinogen 0.2, Ur Leukocyte Esterase Negative, Urine RBC None, Urine WBC 3-5, Ur Squamous Epith Cells Occasional, Urine Bacteria 1+ 04/03/25 10:59: POC Glucose 123 H 04/03/25 16:48: POC Glucose 156 H 04/03/25 18:22: Hgb 11.8 L, Hct 36.1 L 04/03/25 19:41: POC Glucose 124 H 04/04/25 04:58: WBC 10.8 D, RBC 3.58 L, Hgb 10.5 L D, Hct 32.4 L, MCV 90.5, MCH 28.5, MCHC 31.5 L, RDW 13.2, Plt Count 242, MPV 10.6 H, Neut % (Auto) 66.7, Lymph % (Auto) 21.6, [place] % (Auto) 10.8 H, Eos % (Auto) 0.1, Baso % (Auto) 0.3, Neut # (Auto) 7.2, Lymph # (Auto) 2.3, [place] # (Auto) 1.2 H, Eos # (Auto) 0.0, Baso # (Auto) 0.0, Sodium 140, Potassium 4.0, Chloride 105, Carbon Dioxide 29, Anion Gap 10.0, BUN 11 D, Creatinine 0.80 D, Estimated Creat Clear 223, Estimated GFR 104, Est GFR ( Amer) 126 D, Glucose 101 H, Calcium 8.5, Magnesium 1.8, Total Bilirubin 0.6, AST 36 D, ALT 34 D, Alkaline Phosphatase 49, Total Protein 6.2 L, Albumin 3.6 D, Globulin 2.6, Albumin/Globulin Ratio 1.4 04/04/25 05:57: POC Glucose 97 I & O for Last 24 hours: Intake & Output 04/01/25 04/02/25 04/03/25 04/04/25 23:59 23:59 23:59 23:59 Intake Total 1100 / 1100 5405.00 / 5405.00 1660.00 / 1660.00 Output Total 2700 / 2700 500 / 500 Balance 1100 / 950 2705.00 / 2705.00 1160.00 / 1160.00 Weight 129.8 kg 129.8 kg 136.5 kg Microbiology Reports for the Last 24 Hours: Microbiology 04/02/25 19:07 Blood Blood Culture - Preliminary NO GROWTH AFTER 24 HOURS 04/02/25 18:47 Blood Blood Culture - Preliminary NO GROWTH AFTER 24 HOURS Constitutional Constitutional: no acute distress, morbidly obese and cooperative *Routine HEENT Exam Head: Present normocephalic Eye: Present EOMI and PERRL ENT: Present mucous membranes moist *Routine Neck Exam Neck: Present supple; Absent lymphadenopathy *Routine Respiratory Exam Respiratory: Present CTA bilaterally; Absent rhonchi, wheezes or crackles *Routine Cardiovascular Exam Cardiovascular: Present RRR *Routine Abdominal Exam Abdominal: Present soft, normoactive bowel sounds and tenderness (Mild, significant improvement from admission); Absent distended, rebound or guarding Comments: Trocar insertion site in right abdomen with bruising *Routine Rectal Exam Patient deferred: visual exam *Routine Exam Patient deferred: penile exam *Routine Extremities Exam Extremities: Absent cyanosis, clubbing or edema *Routine Skin Exam Skin: Present warm; Absent rash *Routine Neurological Exam Neurological: Present alert, oriented X3 and moving all extremities; Absent altered mental status Results Data Completed and Pending Labs on day of discharge: Labs from last 24 hours 04/04/25 04/04/25 04/03/25 05:57 04:58 19:41 WBC 10.8 D RBC 3.58 L Hgb 10.5 L D Hct 32.4 L MCV 90.5 MCH 28.5 MCHC 31.5 L RDW 13.2 Plt Count 242 MPV 10.6 H Neut % (Auto) 66.7 Lymph % (Auto) 21.6 [place] % (Auto) 10.8 H Eos % (Auto) 0.1 Baso % (Auto) 0.3 Neut # (Auto) 7.2 Lymph # (Auto) 2.3 [place] # (Auto) 1.2 H Eos # (Auto) 0.0 Baso # (Auto) 0.0 Sodium 140 Potassium 4.0 Chloride 105 Carbon Dioxide 29 Anion Gap 10.0 BUN 11 D Creatinine 0.80 D Estimated Creat Clear 223 Estimated GFR 104 Est GFR ( Amer) 126 D Glucose 101 H POC Glucose 97 124 H Calcium 8.5 Magnesium 1.8 Total Bilirubin 0.6 AST 36 D ALT 34 D Alkaline Phosphatase 49 Total Protein 6.2 L Albumin 3.6 D Globulin 2.6 Albumin/Globulin Ratio 1.4 Urine Color Urine Appearance Urine pH Ur Specific [place] Urine Protein Urine Glucose (UA) Urine Ketones Urine Blood Urine Nitrate Urine Bilirubin Urine Urobilinogen Ur Leukocyte Esterase Urine RBC Urine WBC Ur Squamous Epith Cells Urine Bacteria 04/03/25 04/03/25 04/03/25 18:22 16:48 10:59 WBC RBC Hgb 11.8 L Hct 36.1 L MCV MCH MCHC RDW Plt Count MPV Neut % (Auto) Lymph % (Auto) [place] % (Auto) Eos % (Auto) Baso % (Auto) Neut # (Auto) Lymph # (Auto) [place] # (Auto) Eos # (Auto) Baso # (Auto) Sodium Potassium Chloride Carbon Dioxide Anion Gap BUN Creatinine Estimated Creat Clear Estimated GFR Est GFR ( Amer) Glucose POC Glucose 156 H 123 H Calcium Magnesium Total Bilirubin AST ALT Alkaline Phosphatase Total Protein Albumin Globulin Albumin/Globulin Ratio Urine Color Urine Appearance Urine pH Ur Specific [place] Urine Protein Urine Glucose (UA) Urine Ketones Urine Blood Urine Nitrate Urine Bilirubin Urine Urobilinogen Ur Leukocyte Esterase Urine RBC Urine WBC Ur Squamous Epith Cells Urine Bacteria 04/03/25 04/03/25 07:20 06:07 WBC RBC Hgb Hct MCV MCH MCHC RDW Plt Count MPV Neut % (Auto) Lymph % (Auto) [place] % (Auto) Eos % (Auto) Baso % (Auto) Neut # (Auto) Lymph # (Auto) [place] # (Auto) Eos # (Auto) Baso # (Auto) Sodium Potassium Chloride Carbon Dioxide Anion Gap BUN Creatinine Estimated Creat Clear Estimated GFR Est GFR ( Amer) Glucose POC Glucose 108 Calcium Magnesium Total Bilirubin AST ALT Alkaline Phosphatase Total Protein Albumin Globulin Albumin/Globulin Ratio Urine Color Yellow Urine Appearance Clear Urine pH 5.5 Ur Specific [place] 1.025 Urine Protein Trace Urine Glucose (UA) Negative Urine Ketones Trace Urine Blood Negative Urine Nitrate Negative Urine Bilirubin Negative Urine Urobilinogen 0.2 Ur Leukocyte Esterase Negative Urine RBC None Urine WBC 3-5 Ur Squamous Epith Cells Occasional Urine Bacteria 1+ Preliminary micro results at discharge 04/02/25 19:07 Blood Culture - Preliminary Blood NO GROWTH AFTER 24 HOURS 04/02/25 18:47 Blood Culture - Preliminary Blood NO GROWTH AFTER 24 HOURS DS: Diagnosis Discharge Diagnosis (1) Intraperitoneal bleeding: Status: Acute Code(s): K66.1 - Hemoperitoneum (2) Abdominal pain: Status: Acute Code(s): R10.9 - Unspecified abdominal pain (3) Post-op bleeding: Status: Acute (4) Cholelithiasis: Status: Acute Code(s): K80.20 - Calculus of gallbladder without cholecystitis without obstruction Qualifiers: Biliary obstruction: without biliary obstruction Cholecystitis presence: without cholecystitis Cholelithiasis location: gallbladder Qualified Code(s): K80.20 - Calculus of gallbladder without cholecystitis without obstruction (5) Diabetes: Status: Acute Code(s): E11.9 - Type 2 diabetes mellitus without complications Qualifiers: Diabetes mellitus complication status: without complication Diabetes mellitus jail insulin use: without terminal carman use Diabetes mellitus type: type 2 Qualified Code(s): E11.9 - Type 2 diabetes mellitus without complications (6) CAD (coronary artery disease): Status: Acute Code(s): I25.10 - Atherosclerotic heart disease of [place] coronary artery without angina pectoris (7) Hypertension: Status: Acute Code(s): I10 - Essential (primary) hypertension Meds Home Medications and Allergies Home Medications ?Medication ?Instructions ?Recorded ?Confirmed ?Type cetirizine 10 mg tablet 10 mg PO DAILY 11/29/23 04/02/25 History fluticasone propionate 50 2 spray intranasal DAILY 11/29/23 04/03/25 History mcg/actuation nasal spray,suspension blood-glucose meter (OneTouch #1 ea 11/22/24 04/02/25 History Ultra2 Meter) blood sugar diagnostic (OneTouch #100 ea 02/06/25 04/02/25 Rx Ultra Test strips) lisinopril 10 mg tablet 10 mg PO DAILY #90 tabs 02/27/25 04/02/25 Rx tirzepatide 15 mg/0.5 mL 15 mg (0.5 mL) SQ QWEEK Type 2 02/27/25 04/02/25 Rx subcutaneous pen injector diabetes #6 mL (Pauline) Held on 04/04/25. Instructions: Resume on 04/10/25. aspirin 81 mg capsule 81 mg PO DAILY 03/29/25 04/02/25 History albuterol sulfate 90 mcg/actuation 2 puff inhalation Q4HP PRN 04/03/25 04/03/25 History aerosol inhaler shortness of breath or wheezing atorvastatin 40 mg tablet (Lipitor) 40 mg PO HS 04/03/25 04/03/25 History Held on 04/04/25. Instructions: Resume on 04/09/25. hydrocodone 5 mg-acetaminophen 325 1 - 2 tab PO Q6HP PRN Pain 04/03/25 04/03/25 History mg tablet nitroglycerin 0.4 mg sublingual 0.4 mg sublingual Q5MINP PRN chest 04/03/25 04/03/25 History tablet pain New Prescriptions to Start Prescriptions: Allergies Allergy/AdvReac Type Severity Reaction Status Date / Time No Known Allergies Allergy Verified 04/02/25 06:41 Discharge Plan Disposition Patient Disposition: Home, Self-Care Condition: Good Discharge Order Discharge Orders: Discharge Order (Routine); Ordered 04/04/25 Ordered By: Carlos Miller Follow up Plan Follow up with: Chetan Spence MD [Staff Physician, General Surgery] - 04/24/25 9:00 am Referral Note: as scheduled Luis F Meredith DO [Primary Care Provider, [facility]] - 04/11/25 9:30 am Prescriptions/Medication Reconciliation: Continued cetirizine 10 mg tablet 10 mg PO DAILY Patient Comments: TAKE 1 TABLET BY MOUTH ONCE DAILY fluticasone propionate 50 mcg/actuation spray,suspension 2 spray intranasal DAILY Patient Comments: USE 2 SPRAY(S) IN EACH NOSTRIL ONCE DAILY FOR 90 DAYS (DME) blood-glucose meter [OneTouch Ultra2 Meter] [facility] See Rx Instructions .ROUTE .MEDSUPPLY Qty: 1 Patient Comments: USE DIRECTED Rx Instructions: As directed lisinopril 10 mg tablet 10 mg PO DAILY Qty: 90 3RF (DME) OneTouch Ultra Test Strip See Rx Instructions .ROUTE .MEDSUPPLY Qty: 100 0RF Rx Instructions: Test twice daily aspirin 81 mg Capsule 81 mg PO DAILY hydrocodone-acetaminophen 5-325 mg tablet 1 - 2 tab PO Q6HP PRN (Reason: Pain) nitroglycerin 0.4 mg tablet, sublingual 0.4 mg sublingual Q5MINP PRN (Reason: chest pain) Rx Instructions: do not exceed 3 doses per episode albuterol sulfate 90 mcg/actuation HFA aerosol inhaler 2 puff inhalation Q4HP PRN (Reason: shortness of breath or wheezing) Held Mounjaro 15 mg/0.5 mL pen injector 15 mg SQ QWEEK Qty: 6 6RF Hold Instructions: Resume on 04/10/25. atorvastatin [Lipitor] 40 mg tablet 40 mg PO HS Hold Instructions: Resume on 04/09/25. Problem Reconciliation Problems Reviewed?: Yes Patient Discharge Instructions ACTIVITY: Continue current activity DIET: continue same diet Patient Instructions: DI for Laparoscopy, DI for Abdominal Pain-Adult Print Language: Tunisian Providers Primary Care Provider: Luis F Meredith Admit Provider: Khalif Dickerson Attending Provider: Khalif Dickerson
--- NOTE | 2025-04-04 11:31 | PC.NURSE ---
pt discharged from the ICU at this time, walked out with ICU staff
--- NOTE | 2025-04-05 10:10 | SW/DCPLANNER ---
Spoke with patient on the phone. Patient stated that he is doing well. Patient stated that he is aware of his upcoming appointments. Patient stated that he was not prescribed any new medicine and that they continued him on his regular medicine and held 2 for a week. Patient stated that he has no concerns or questions at this time. Pasha Salomon
== END 2025-04-04 11:31 | disposition home or self-care (01) | DRG 907 ==
LOC: ER 20:53 → ICU 04-03 00:39 → 2ND 04-03 15:32
PROVIDERS: Internal Medicine Adolescent Medicine; Nurse Practitioner Acute Care; Surgery; Admitting Provider Student in an Organized Health Care Education/Training Program; Emergency Provider Student in an Organized Health Care Education/Training Program; PCP Internal Medicine; Visit Provider Student in an Organized Health Care Education/Training Program
PROC: 0WCG4ZZ Extirpation of Matter from Peritoneal Cavity, Percutaneous Endoscopic Approach (ICD-10-PCS; CPT 49000; principal; 2025-04-03 07:30)
DX: K91.840 Postprocedural hemorrhage of a digestive system organ or structure following a digestive system procedure (principal); K66.1 Hemoperitoneum; R65.10 Systemic inflammatory response syndrome (SIRS) of non-infectious origin without acute organ dysfunction; N17.9 Acute kidney failure, unspecified; D62 Acute posthemorrhagic anemia; K80.10 Calculus of gallbladder with chronic cholecystitis without obstruction; I10 Essential (primary) hypertension; I25.10 Atherosclerotic heart disease of native coronary artery without angina pectoris; E11.9 Type 2 diabetes mellitus without complications; E66.01 Morbid (severe) obesity due to excess calories; K76.0 Fatty (change of) liver, not elsewhere classified; Z68.38 Body mass index [BMI] 38.0-38.9, adult; Y83.6 Removal of other organ (partial) (total) as the cause of abnormal reaction of the patient, or of later complication, without mention of misadventure at the time of the procedure; Z79.82 Long term (current) use of aspirin; Z79.85 Long-term (current) use of injectable non-insulin antidiabetic drugs; Z79.899 Other long term (current) drug therapy
CPT/HCPCS: 36415; 51702; 71045; 71275; 74174; 80053; 81001; 82803; 82962; 83605; 83690; 83735; 84484; 85007; 85014; 85018; 85025; 86850; 87040; 93005; 94640; 99285; J0690; J1100; J2003; J2185; J2250; J2270; J2371; J2405; J2470; J2543; J2704; J2795; J3010; J3375; J7030; J7120; Q9967

== ENCOUNTER 2025-04-09 14:33 | Outpatient (CLI) | payer BC, SELFPAY ==
--- OUTSIDE RECORDS SUMMARY | 2025-04-09 14:36 | XMS_ITS | Clinical Summary ---
Author Organization [facility] Address [facility] [place] [address] Care Team Providers Care Licensing Registration Examiner Name Role Phone Pcp, No Primary Care [...] 2024 Sigmoidoscopy 2024 [facility]-Colorectal Cancer Screening 2024 [id number] Vaccine (2 - 20 25-26 season) 2025 [...] Insurance [employer] Care Teams Licensing Registration Examiner Relationship Specialty Start Date End Date Pcp, [place] [address] PCP - General Family Medicine 12/18/22
--- OUTSIDE RECORDS SUMMARY | 2025-04-09 14:36 | XMS_ITS | Encounter Summary ---
Author Organization Healthcare Address [address] [id number] Care Team Providers Care Ballistic Expert Name Role Phone Pcp, No Primary Care Provider Unavailabl e Encounter Details Date Type Department Care Team (Late st Contact Info) Description 12/08/2022 Orders Only External Location [address] [place] [address] Chichi Tao MD [address] [place] [address] Social History Tobacco Use Types [...] on filedocumented in this encounter Care Teams Ballistic Expert Relationship Specialty Start Date End Date Pcp, No [address] [place] [address] PCP - General Family Medicine 12/18/22 documented as of this encounter
--- OUTSIDE RECORDS SUMMARY | 2025-04-09 14:36 | XMS_ITS | Clinical Summary ---
Author Organization [facility] Address [address] [place] [address] Care Team Providers Care Underground Miner Name Role Phone Sergio Shin MD Primary Care Provider [phone] Allergies No known active allergies Medications albuterol [...] Insurance [place] [address] Care Teams Underground Miner Relationship Specialty Start Date End Date Sergio Shin MD [address] [place] [address] [address] [place] [place] [address] PCP - General Family Medicine 11/15/24
--- NOTE | 2025-04-09 15:00 | CT_ITS ---
FINAL REPORT TECHNIQUE: Axial imaging of the chest is obtained after the administration of contrast. 3-D MIP reformatted images were also obtained and reviewed per PE protocol. This study was performed with techniques to keep radiation doses as low as reasonably achievable (ALARA). Individualized dose reduction techniques using automated exposure control or adjustment of mA and/or kV according to the patient's size were employed. CLINICAL HISTORY: Chest pain/Dyspnea/Recent surgery to remove gb COMPARISON: 04/02/2025 FINDINGS: There is a single segmental filling defect in a right upper lobe pulmonary artery best seen on image #30 of series 3, consistent with a small embolus. No central pulmonary emboli are noted. There is no aortic dissection. Heart size is normal without evidence of right heart strain. There is no mediastinal, hilar, or axillary lymphadenopathy. Bilateral lower lobe atelectasis is present, and the lower lobe pneumonia seen in the prior exam have improved. The lungs are otherwise clear. Bilateral effusions are present, which have increased in size since the prior exam. The previously seen in the extrapleural soft tissues has resolved, as well as the hemoperitoneum noted on the exam. No acute osseous abnormality. IMPRESSION: Single segmental filling defect in a right upper lobe pulmonary artery branch consistent with a pulmonary embolus as described. No central pulmonary emboli are noted, and there is no evidence of right heart strain. Bilateral pleural effusions are present, increased since the prior exam. Reviewed, Interpreted and Dictated by Loren Davies MD Transcribed by Peggy De Dios Authenticated and [facility]
[2025-04-09 15:33] LABS: Hematocrit 38.7 % (42.0-52.0); Hemoglobin 12.4 g/dL (14.1-18.0); Immature Granulocytes % 0.6 %; Mean Corpuscular HGB Conc 32.0 g/dL (31.8-35.4); Mean Corpuscular Hemoglobin 27.7 pg (27.0-31.2); Mean Corpuscular Volume 86.6 fl (80-94); Nucleated Red Blood Cells % 0 %; Platelet Count 365 K/mm3 (142-424); Red Blood Count 4.47 M/mm3 (4.60-6.20); Red Cell Distribution Width-SD 41.8 fL; White Blood Count 6.2 K/mm3 (4.8-10.8)
[2025-04-09 16:05] LABS: Albumin Level 4.5 g/dl (3.5-5.0); Chloride 101 mmol/L (98-107); Potassium 4.6 mmoL/L (3.5-5.1); Sodium 140 mmol/L (136-145)
[2025-04-09 16:08] LABS: Alanine Aminotransferase 29 U/L (12-78); Albumin/Globulin Ratio 1.6 (1.1-1.8); Alkaline Phosphatase 59 U/L (38-126); Anion Gap 15.6 mEq/L (5-15); Aspartate Amino Transferase 33 U/L (17-59); Bilirubin,Total 0.8 mg/dl (0.2-1.3); Blood Urea Nitrogen 14 mg/dl (9-20); Calcium 9.7 mg/dl (8.4-10.2); Carbon Dioxide 28 mmol/L (22.0-30.0); Creatinine,Serum 1.00 mg/dl (0.66-1.25); Estimated Glomerular Filt Rate 80 ml/min (>60); GFR (African American) 97 ML/MIN (>60); Globulin 2.9 g/dL (1.3-3.2); Glucose 110 mg/dl (74-100); Total Protein,Serum 7.4 g/dl (6.3-8.2)
[2025-04-09] MEDS: 0.9 % SODIUM CHLORIDE 50 ML VIAL IV (16:15)
[2025-04-09] MEDS: SODIUM CHLORIDE 0.9% 10ML SYR (RAD ONLY) 10 ML IV (16:15)
[2025-04-09] MEDS: IOPAMIDOL-370 (76%);100ML BOTTLE 80 ML IV (16:15)
== END 2025-04-09 23:59 | disposition home or self-care (01) ==
LOC: RAD 14:34
PROVIDERS: PCP Internal Medicine; Visit Provider Physician Assistant
DX: I26.99 Other pulmonary embolism without acute cor pulmonale (principal); J90 Pleural effusion, not elsewhere classified; I10 Essential (primary) hypertension; Z98.890 Other specified postprocedural states
CPT/HCPCS: 36415; 71275; 80053; 85025; Q9967

== ENCOUNTER 2025-05-24 09:56 | Outpatient (CLI) | payer BC, SELFPAY ==
--- NOTE | 2025-05-24 09:59 | XR_ITS ---
FINAL REPORT CLINICAL HISTORY: cough COMPARISON: 04/03/2025 FINDINGS: PA and lateral views of the chest were obtained. The cardiac and mediastinal silhouettes are within normal limits. The lungs are clear. There is no pleural effusion or pneumothorax. No acute osseous abnormality is identified. IMPRESSION: No radiographic evidence of acute cardiac or pulmonary disease. Reviewed, Interpreted and Dictated by Loren Davies MD Transcribed by Peggy De Dios Authenticated and [facility]
--- OUTSIDE RECORDS SUMMARY | 2025-05-24 10:02 | XMS_ITS | Clinical Summary ---
Author Organization [facility] Address [address] [place] [address] Care Team Providers Care Software Engineer Developer Name Role Phone Sergio Shin MD Primary Care Provider [phone] Allergies No known active allergies Medications albuterol [...] (2 - Td or Tdap) 05/10/2028 05/10/2018 CT Colonography Completed HEP A VACCINE Aged Out No longer elig ible based on patient's age to complete this topic HIB VACCINE Aged Out No longer eligi ble based on patient's age to complete this topic ROTOVIRUS VACCINE Aged Out No longer eligible based on patient's age to complete this topic Insurance WORK[employer] [place] [address] Care Teams Software Engineer Developer Relationship Specialty Start Date End Date Sergio Shin MD [address] [place] [address] [address] [address] PCP - General Family Medicine 11/15/24
--- OUTSIDE RECORDS SUMMARY | 2025-05-24 10:02 | XMS_ITS | Data Portability ---
Author Organization [facility] Address [address] [place] [address] Care Team Providers Care Tank House Operator Helper Name Role Phone FREDI TAO Primary Care Provider FREDI TAO Referring Provider FREDI TAO Primary Care Provider [phone] Assessment No assessment recorded. Plan of Treatment Reminders Order Date Submit Date Provider Last Modified By Organization Details Last Modified Time Details Appointments None recorded. Lab None recorded. Referral None recorded. Procedures None recorded. Surgeries None recorded. Imaging XR, ankle [email or web address], [address] [place] [address] [place], [address], 3 10:05:32 XR, ankle [email or web address], [address] [place] [address] [place], [address], 3 09:33:52 Medication Orders Kenalog 10 mg/mL suspension for injection [address] [facility], [address] [place], [address], 3 10:05:32 bupivacaine (PF) 0.5 % (5 mg/mL) injection solution [address] [facility] [address] [facility], [address] [place], [address], 3 10:05:32 Kenalog 10 mg/mL suspension for injection [address] [facility] [address] [facility], [address] [place] [address], [address], 3 09:33:52 bupivacaine (PF) 0.5 % (5 mg/mL) injection solution [address] [facility] [address] [facility], [address] [place] [address], [address], 3 09:33:52 Sensorcaine 0.5 % (5 mg/mL) injection solution 2022 023 [facility], [address] [place] [address], [address], 3 08:07:27 Kenalog 10 mg/mL suspension for injection 2022 023 [facility], [address] [place] [address], [address], 3 08:07:00 Patient TargetsNo targets recorded. Patient InstructionsNo instructions recorded. Reason for Referral None Reported. Results Created Date Observation Date Name Description Value Unit Range Abnormal Flag Note LastModifiedBy Organization Detail LastModifiedTime 05/27/20 23 XR, ankle No observ ation record ed. KENDELL Palacios [address] [place], [address], 05/27/2023 08:15:36 06/08/20 23 XR, ankle No observ ation record ed. 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 Mild synovi tis tibial is integration software developer ior and flexor digito rum longus as [...] M.D. 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 Medical [...] Status Never Smoker Livia fan, [facility] [place] & [place] 01/27/2023 10:40:06 Do You Have [...] Reported. Medical History Condition Response Diabetes Y High Cholesterol Y Hypertension Y Immunizations Vaccine Type Date Status Note Provider Nam e and Address Organization Details Recorded Time COVID-19 vaccine, vector-nr, rS-Ad26, PF, 0.5 mL 10/03/2020 completed Sheila fan, [place] - [facility] [place] 06/08/2023 09:21:40 Past Encounters Encounter ID Performer Location Encounter Start Date Encounter Closed Date Diagnosis/Indication Diagnosis SNOMED-CT Code Diagnosis ICD10 Code Diagnosis IMO Codes Diagnosis Note [id number] ANURADHA DOLL NP [facility] [address] [facility] [place] [address] 01/27/2023 10:12:17 01/27/2023 10:56:27 Plantar fasciitis of right foot [id number] 7465117 M72.2 [id number] [facility] [address] [address] 05/27/2023 07:53:41 05/27/2023 08:35:47 Plantar fasciitis of right foot 2156034731 8769697 M72.2 Injury of left ankle 540 7988201 4827273 S99.912A Acquired b ilateral pes planus 8540626956 6779571 M21.41 M21.42 [id number] [facility] [address] [address] 06/08/2023 08:41:25 06/08/2023 09:43:18 Injury of left ankle 0134764763 2318409 S99.912D Tendinitis of left posterior tibial tendon 7286320519 92172 M76.822 [id number] MD DEN[facility] [address] [place] [address] 07/13/2023 13:08:17 07/13/2023 14:08:12 Stress fracture 615653179 M84.372A Marrow edema of the talus most compatible with stress fracture Health Concerns Section Related Observation LastModified by Organization Detai ls LastModified Time None Recorded Concern Status LastModified by Organization Details LastModified Time None Recorded Advance Directives Directive N: Payers Insurance Date Sequence Insurance Name Policy Number Policy Bauman Covered Member ID Bauman Member ID Guarantor Name 08/23/2023 1 [place] [id number] Lambert Jason II [id number] Lambert Jason Notes Date Note Type [...] aspect of foot. ANURADHA DOLL NP [address] [facility],[address], [place], [address], [facility] - [facility] [place] 01/27/2023 11:29:27 05/27/2023 text/html Patient [...] ankle brace. CHE1 ANURADHA DOLL NP [address] [facility],[address], [place], [address], [facility] - [facility] & [place] 05/27/2023 09:05:53 06/08/2023 text/html ROS as noted in the HPI Patient presents to office for continued complaints of LEFT ankle pain due to injury sustained 05/26/23. States pain is in achilles and comes around to posterior medial malleoli. Pain is sharp with plantar flexion and when walking toe to heel. Is wearing brace. No medication intervention. Injection last visit to right heel was effective. Repeat x-rays today in office. [email or web address] ANURADHA DOLL NP [address] [place] [address],[address], [place], [address], [facility] & [place] 06/08/2023 14:29:05 07/13/2023 text/html ROS as noted in the HPI 43 year old male presents today in office for MRI LEFT ankle at [facility] 07/07/23 follow-up that revealed:IMPRESSIO N:1. Marrow edema of the talus as detailed above most compatible with stress fracture.2. 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
--- OUTSIDE RECORDS SUMMARY | 2025-05-24 10:02 | XMS_ITS | Data Portability ---
Author Organization [facility] Address [address] [facility] [place] [address] [place] [address] Care Team Providers Care Customer Service Receptionist Name Role Phone DEMETRIUS BARNEY Referring Provider Assessment Encounter Date Assessment Date Assessment LastModified by Organization Details LastModified Time 10/16/2024 10/16/2024 Pain History: This is a 44-year-old gentleman with right sided low back pain He has chronic right-sided axial pain, pain is worse when he sits and bends forward. Denies incontinence or myelopathy. Dr. Barney did not recommend back surgery. Referred him to us for workup and evaluation. Physical therapy in the past without benefit. Prior injection therapy includes ZACH and SI joint injection with Dr. Kamara with minimal benefit. MRI personally reviewed below, images uploaded in DICOM folder. Not using controlled pain medicine. Past Medical History: Hypertension Imaging: MRI lumbar spine personally reviewed today [facility] 08/2024 Modic 2 endplate change L5-S1 Disc bulge without significant stenosis Surgical evaluation/ history: Referred by Dr. Barney, back surgery not recommended Conservative Treatments: The patient has failed formal physical therapy for more than 6 weeks in the past without benefit for his back pain Interventional treatment history: Lumbar ZACH, SI joint injection Previous analgesics: NSAIDs Current analgesics: NSAIDs Compliance Monitoring: No UDS obtained today Patient is moderate risk overall VILMA, ORT reviewed today documented in HPI Anticoagulant/A ntiplatelet Medications: No blood thinners [email or web address] Not available 10/16/2024 14:05:27 Plan of Treatment Reminders Order Date Submit Date Provider Last Modified By Organization Details Last Modified Time Details Appointments None recorded. Lab methicillin resistant staphylococ cus aureus, culture, nasal - additional dx: Z22.322 2024 [email or web address] Not available 16:10:26 Referral None recorded. Procedures remote therapeutic monitoring to monitor musculoskel etal system (PROC) 2024 [email or web address] Not available 15:38:26 Surgeries destruction of intraosseou s basivertebr al nerve, including imaging guidance, lumbar/sacr um (SURG) 2024 [email or web address] Not available 14:44:15 Imaging None recorded. Medication Orders Hibiclens 4 % topical liquid 2024 [facility], [address] [place] [address], [address], 14:07:05 Patient TargetsNo targets recorded. Patient Instructions Encounter Date Encounter Id Patient Instructions Last Modified By Organization Details Last Modified Time 10/16/2024 [id number] behavioral healt h screen* [email or web address] Not available 10/16/2024 15:58:08 Reason for Referral None Reported. Results Created Date Observation Date Name Description Value Unit Range Abnormal Flag Note LastModifiedBy Organization Detail LastModifiedTime 09/28/19 25 MRI, lumba r spine , w/o contr ast No observ ation record ed. [email or web address] Not Available 2024 14:02:54 10/17/19 25 MRI, lumba r spine , w/o contr ast No observ ation record ed. [email or web address] Not Available 2024 14:02:53 Result Notes None recorded. Procedures Surgical History Date Name Laterality Status Provider Name and Address Organization Details Recorded Time Knee Surgery completed Christina Mclain [facility] 10/16/2024 13:24:39 Imaging Results None recorded. Procedure Notes None recorded. Medical Equipment None Reported. Allergies No known drug allergies Medications Name Sig Start Date Stop Date Status Note LastModified by Organization Details LastModified Time cetirizin e 10 mg tablet TAKE 1 TABLET BY MOUTH ONCE DAILY active Not Available Not Available No t Available sildenafi l 100 mg tablet TAKE 1/2 (ONE-ILENE F) TABLET BY MOUTH ONCE DAILY NEEDED 10/16 completed Not Available Not Available Not Available cephalexi n 500 mg capsule TAKE 1 CAPSULE BY MOUTH TWICE DAILY FOR 10 DAYS 10/16 completed Not Available Not Available Not Available monteluka st 10 mg tablet TAKE 1 TABLET BY MOUTH ONCE DAILY 10/16 completed Not Available Not Available Not Available albuterol sulfate HFA 90 mcg/actua tion aerosol inhaler INHALE 2 PUFFS BY MOUTH EVERY 4 TO 6 HOURS NEEDED USE WITH SPACER active Not Available Not Available No t Available lisinopri l 40 mg tablet TAKE 1 TABLET BY MOUTH ONCE DAILY AT BEDTIME active Not Available Not Available No t Available ondansetr on 4 mg disintegr ating tablet PLACE TWO (2) TABLETS EVERY 8 HOURS BY TRANSLIN GUAL ROUTE NEEDED FOR NAUSEA. active Not Available Not Available No t Available fluticaso ne propionat e 50 mcg/actua tion nasal spray,zack pension USE 2 SPRAY(S) IN EACH NOSTRIL ONCE DAILY FOR 90 DAYS active Not Available Not Available No t Available Hibiclens 4 % topical liquid Wash back night before and the morning of surgery 2024 active Intracep t Not Available Not Available Not Available amoxicill in 875 mg-potass ium clavulana te 125 mg tablet TAKE 1 TABLET BY MOUTH TWICE DAILY 10/16 completed Not Available Not Available Not Available budesonid e-formote rol HFA 80 mcg-4.5 mcg/actua tion aerosol inhaler INHALE 2 PUFFS BY MOUTH TWICE DAILY active Not Available Not Available No t Available Nasal Allergy 55 mcg spray aerosol USE 2 SPRAY(S) IN EACH NOSTRIL ONCE DAILY 10/16 completed Not Available Not Available Not Available Mounjaro 15 mg/0.5 mL subcutane ous pen injector active Not Available Not Available Not Available Mounjaro 10 mg/0.5 mL subcutane ous pen injector INJECT 1 SYRINGE SUBCUTAN EOUSLY ONCE A WEEK 10/16 completed Not Available Not Available Not Available Vitals Date Recorded Body height Body mass index (BMI) Body weight Provider Name and Address Organization Details Last Updated DateTime 10/16/2024 185.42 cm 39.1 kg/m2 153910.34 g BERRY HOWELL MD [address] [place] [address], [address], [facility] 03/06/2025 08:42:46 Date Recorded Oxygen saturation Oxygen saturation in Arterial blood by Pulse oximetry Heart rate Systolic And Diastolic Provider Name and Address Organization Details Last Updated DateTime 10/16/2024 96 % 96 % 75 /min 141/87 mm[Hg] Christina SANCHEZ [facility] 13:22:44 Social History Question Answer Notes LastModified by LeWa [employer] Details LastModified Time Tobacco Smoking Status Former Smoker Christina fan [facility] 10/16/2024 13:24:25 Do You Have An Advance Directive? No [email or web address] Information not available 10/16/2024 Do You Have A Medical Power Of Prison Classification Counselor? No [email or web address] Information not available 10/16/2024 What Is Your Relationship Status? [email or web address] Information not available 10/16/2024 Sex: Unknown Functional Status Question Answer Note LastModified by [employer] Details LastModified Time Do you use any illicit or recreational drugs? No [email or web address] Information not available 10/16/2024 What is your level of alcohol consumption? None [email or web address] Information not available 10/16/2024 Are you currently employed? Yes [email or web address] Information not available 10/16/2024 Are you able to walk independently without assistance or assistive devices? YESWOREST [email or web address] Information not available 10/16/2024 Mental Status None recorded. Family History Nothing Reported. Medical History Condition Response Bipolar Disease N Coronary Artery Disease N Seizure Disorder N Gout N Atrial Fibrillation N Thyroid Disease N Hernia N Head Trauma/Injury N COPD N Depression N Anxiety Disorder N Acid Reflux (GERD) N Cancer N Skin Disorder N Stroke N High Cholesterol N Liver Disease N Rheumatoid Arthritis N Headaches N Fibromyalgia N Autoimmune Disease N Kidney Disease N Osteoarthritis N Neurosurgery N DVT N Peptic Ulcer Disease N Anemia N Heart Attack (PR) N Diabetes N Cardiomyopathy N Bleeding Disorder N CHF N AIDS/HIV N Inflammatory Bowel Disease N Dementia N Asthma Y Substance Abuse N Sleep Apnea N Hepatitis N Heart Disease N Pulmonary Embolism N Chronic Low Back Pain N Hypertension Y Osteoporosis N Past Encounters Encounter ID Performer Location Encounter Start Date Encounter Closed Date Diagnosis/Indication Diagnosis SNOMED-CT Code Diagnosis ICD10 Code Diagnosis IMO Codes Diagnosis Note [id number] BERRY HOWELL MD [place] [address] [place] [address] 10/16/2024 13:08:45 10/16/2024 14:06:03 Chronic low back pain 861881267 M54.51 This is a 44-year-ol d with chronic right-side d low back pain Presentati on is consistent with anterior column axial pain related to Modic endplate change. Recommend Intracept procedure. Intracept procedure has been recommende d to the patient as a potential therapy.-T he patient's pain has been present for at least 6 months.-Pa in impacts daily activities including home chores and recreation al activities .-The patient reports VAS score which can reach up to 9/10.-Tim c endplate changes are seen on MRI per review as above.-Pre vious treatments have included injection therapy, multiple classes of medication s, and physical therapy.-T he patient has attempted lifestyle modificati on including exercises and stretching for the low back without benefit I feel that the patient could benefit from Intracept at the following levels: L5/S1. I attest to the absence of untreated, underlying mental health conditions or problems, including depression , drug or alcohol abuse, and anxiety as a major contributo r to chronic back pain. The patient is also mentally sound and willing to proceed with the Intracept procedure. Health Concerns Section Related Observation LastModified by Organization Detai ls LastModified Time None Recorded Concern Status LastModified by Organization Details LastModified Time None Recorded Advance Directives Directive N: Payers Insurance Date Sequence Insurance Name Policy Number Policy Bauman Covered Member ID Bauman Member ID Guarantor Name 10/13/2024 1 [place] [id number] Lambert Jason II [id number] Lambert Jason Notes Date Note Type Note Provider Name and Address Organization Details Recorded Time 5 text/html Low back painReported by PatientHPIFor onset, patient reportsdate of onset: (2022). For location, patient reportsmidline,paraspina l: right, andradiating down the right lower extremity to the knee(posterior). For duration, patient reportsvaries throughout the day. For context, patient reportsstarted without cause. For quality, patient reportssharp. For pain intensity, patient reportsmild,current pain level: 2/10, andworst pain level: 9/10. For alleviating factors, patient reportsnothing helps. For aggravating factors, patient reportslifting,carrying, andtwisting(climbing a ladder). For associated symptoms, patient reportsno numbness,no tingling,no swelling,no popping/clicking,no bowel incontinence,no urinary retention,no urinary incontinence, andno perineal paresthesia/anesthesia. 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 For prior imaging, patient reportsmri (08/30/2024 lumbar mri). For physical therapy, [facility]complete more than 6weeks, andresponse to therapy: temporary pain/symptoms improvement(patient continues with home exercise program with benefit.). For other conservative treatments, patient reportschiropractic treatments: not effective,heat: not effective,ice: not effective, andtens unit: effective. For prior pain management, patient reportsyes:(dr. kamara). For oswestry disability index (vilma), patient reportsscore/date completed: (12%). For lumbar surgery, (patient consulted with dr. barney who did not recommend surgery). For interventional treatment history, (patient was having injection therapy with dr. kamara and david higgins. patient was not getting any relief with injections. patient has si joint and lumbar facet injections.). BERRY HOWELL MD [address] [place] [address], [address], [facility] 03/06/2025 08:42:57
--- OUTSIDE RECORDS SUMMARY | 2025-05-24 10:02 | XMS_ITS | Encounter Summary ---
Author Organization Healthcare Address [address] [id number] Care Team Providers Care Risk Control Product Liability Director Name Role Phone Pcp, No Primary Care Provider Unavailabl e Encounter Details Date Type Department Care Team (Late st Contact Info) Description 12/08/2022 Orders Only External Location [address] [place] [address] Chichi Tao MD [address] [place] [address] Social History Tobacco Use Types [...] on filedocumented in this encounter Care Teams Risk Control Product Liability Director Relationship Specialty Start Date End Date Pcp, No [address] [place] [address] PCP - General Family Medicine 12/18/22 documented as of this encounter
--- OUTSIDE RECORDS SUMMARY | 2025-05-24 10:02 | XMS_ITS | Clinical Summary ---
Author Organization [facility] Address [facility] [place] [address] Care Team Providers Care Motors And Generators Inspector Name Role Phone Pcp, No Primary Care [...] 2024 Sigmoidoscopy 2024 [facility]-Colorectal Cancer Screening 2024 [id number] Vaccine (2 - 20 25-26 season) 2025 [...] Insurance [employer] Care Teams Motors And Generators Inspector Relationship Specialty Start Date End Date Pcp, [place] [address] PCP - General Family Medicine 12/18/22
== END 2025-05-24 23:59 | disposition home or self-care (01) ==
LOC: RAD 09:57
PROVIDERS: PCP Internal Medicine; Visit Provider Student in an Organized Health Care Education/Training Program
DX: R05.9 Cough, unspecified (principal)
CPT/HCPCS: 71046

== ENCOUNTER 2025-06-07 16:24 | Emergency (ER) | payer OTHER, SELFPAY ==
[2025-06-07 16:26] VITALS: BP 179/96; PULSE 75; RESP 18; TEMP 36.9; O2SAT 100; BMI 36.6
--- NOTE | 2025-06-07 16:49 | ED_ITS ---
<Statement entered by Iliana Jacob DO - 06/07/25 20:00> I was consulted by the RC, and we discussed the complexity of the problems being addressed. I approved the treatment and management plan for this patient's care in the emergency department, thus performing a substantive portion of the medical decision making. Iliana Jacob DO Discharge Plan Disposition Patient Disposition: Home, Self-Care Condition: Good Prescriptions Prescriptions: New ondansetron 4 mg tablet,disintegrating 4 mg PO Q6H PRN (Reason: nausea and vomiting) Qty: 10 0RF dicyclomine 20 mg tablet 20 mg PO QID PRN (Reason: abdominal pain) Qty: 14 0RF No Action cetirizine 10 mg tablet 10 mg PO DAILY Patient Comments: TAKE 1 TABLET BY MOUTH ONCE DAILY fluticasone propionate 50 mcg/actuation spray,suspension 2 spray intranasal DAILY Patient Comments: USE 2 SPRAY(S) IN EACH NOSTRIL ONCE DAILY FOR 90 DAYS (DME) blood-glucose meter [ShoeboxedTouch Ultra2 Meter] Misc See Rx Instructions .ROUTE .MEDSUPPLY Qty: 1 Patient Comments: USE DIRECTED Rx Instructions: As directed hydralazine 25 mg tablet 25 mg PO QID Qty: 30 2RF pseudoephedrine HCl 30 mg tablet 60 mg PO Q6H PRN (Reason: nasal congestion) Qty: 30 1RF Rx Instructions: Start with one tablet, increase to two tablets per dose if one not effective azithromycin [Zithromax Z-Gary] 250 mg tablet See Rx Instructions PO .COMPLEX Qty: 6 0RF Rx Instructions: For 250 mg dose pack: take 500 mg today (day 1), then 250 mg for 4 days (days 2-5) PO guaifenesin 600 mg tablet extended release 12hr 600 mg PO Q12H PRN (Reason: congestion) Qty: 30 0RF methylprednisolone 4 mg tablets,dose pack See Rx Instructions PO PER PKG DIR Qty: 21 0RF Rx Instructions: PO PER PKG DIR Xarelto DVT-PE Treat 30d Start 15 mg (42)- 20 mg (9) tablets,dose pack 1 tab PO DIRECTED Qty: 51 0RF (DME) OneTouch Ultra Test Strip See Rx Instructions .ROUTE .MEDSUPPLY Qty: 100 0RF Rx Instructions: Test twice daily Xarelto 20 mg tablet 20 mg PO DAILY Qty: 90 2RF Rx Instructions: must administer with evening meal lisinopril 20 mg tablet 20 mg PO DAILY Qty: 60 3RF Mounjaro 12.5 mg/0.5 mL pen injector 12.5 mg SQ WEEKLY Qty: 2 2RF aspirin 81 mg Capsule 81 mg PO DAILY atorvastatin [Lipitor] 40 mg tablet 40 mg PO HS nitroglycerin 0.4 mg tablet, sublingual 0.4 mg sublingual Q5MINP PRN (Reason: chest pain) Rx Instructions: do not exceed 3 doses per episode albuterol sulfate 90 mcg/actuation HFA aerosol inhaler 2 puff inhalation Q4HP PRN (Reason: shortness of breath or wheezing) Referrals Follow up/Referrals: Robert Perez II, MD [Staff Physician, Gastroenterology] - See instructions Luis F Meredith DO [Primary Care Provider, Family Practice] - See instructions Activity Restrictions/Add. Instructions Additional Instructions/Restrictions: Please return to the emergency department with any worsening signs or symptoms, please take antinausea medicine and medication for your abdominal pain as needed/as prescribed. Please call GI doctor for potential consultation/follow- up. Please follow-up with your PCP in the upcoming days/weeks. Clinical Impressions Clinical Impression: Abdominal pain Instructions Patient Instructions: DI for Acute Abdominal Pain Print Language Print Language: Citizen Of [place] Discharge ED Provider: Iliana Jacob General Adult HPI General Chief complaint: Abdominal Pain Stated complaint: Abd. Pain Time Seen by Provider: 06/07/25 16:37 Mode of Arrival: Ambulatory Source of Information: Patient and Spouse Description of Symptoms (Recalled from ER Triage Doc. by RN): patient presents for right lower abdominal/groin pain he noticed yesterday. patient denies urinary or bowel issues. patient stated he had his gallbladder removed 8 weeks ago here by Dr Spence. History of Present Illness HPI narrative: 45-year-old male presents to the emergency department with right lower quadrant abdominal pain, that has been going on for the last several months, really occurred/worsened yesterday, patient endorses is nausea no vomiting the pain has been waxing and waning, patient has any fever chills chest pain shortness of breath, has had adequate intake today at around 11 AM, denies any constipation or diarrhea, denies any urinary type symptomatology, patient is a former smoker, denies any alcohol or drug use, patient has other past medical history consistent with previous cholecystectomy 2 months ago, when he developed what sounds a postoperative pulmonary embolism, he is currently on Xarelto for this, hyperlipidemia, CAD, T2DM, patient of note was recently had a dosage change of his GLP-1 agonist, from 10-12.5 leaves he may not be tolerating this as well, he was previously on 15 mg, and tolerated well, he endorses his symptoms may have worsened over the last 3 weeks, with his increased dose of GLP-1 agonist. Initial triage vitals are unremarkable. Please note that above description of symptoms, in this electronic medical record under categorization of recalled from ER triage doctor by RN are reflective of an initial nursing assessment, however, is not reflective of my full history and physical exam that was personally taken and clarified. Consequentially, this preceding description of symptoms, which may include the patient's categorized chief complaint in the EMR, do not reflect my personal clinical impression, and the ultimate description of history of present illness and patient stated complaints should be deferred to this section of the note. Unless stated otherwise or congruent with this section of the note, additional signs, symptoms, or incongruence should be interpreted as inaccurate with my clinical impression. Onset (ago): day(s) Related Data Home Medications ?Medication ?Instructions ?Recorded ?Confirmed cetirizine 10 mg tablet 10 mg PO DAILY 11/29/2301/10 fluticasone propionate 50 2 spray intranasal DAILY 05/24/25 mcg/actuation nasal spray,suspension blood-glucose meter (ShoeboxedTouch #1 ea 11/22/24 05/24/25 Ultra2 Meter) aspirin 81 mg capsule 81 mg PO DAILY 03/29/2501/10 albuterol sulfate 90 mcg/actuation 2 puff inhalation Q 4HP PRN 04/03/25 05/24/25 aerosol inhaler shortness of breath or wheez ing atorvastatin 40 mg tablet (Lipitor) 40 mg PO HS 05/24/25 Held on 04/04/25. Instructions: Resume on 04/09/25. nitroglycerin 0.4 mg sublingual 0.4 mg sublingual Q5MI [employer] PRN chest 04/03/25 05/24/25 tablet pain Previous Rx's ?Medication ?Instructions ?Recorded blood sugar diagnostic (ShoeboxedTouch #100 ea 02/06/25 Ultra Test strips) hydralazine 25 mg tablet 25 mg PO QID #30 tabs rivaroxaban 15 mg (42)-20 mg (9) 1 tab PO DIRECTED #51 tabs 04/10/25 tablets in a starter pack (Xarelto DVT-PE Treatment 30-Day Starter) pseudoephedrine HCl 30 mg tablet 60 mg (2 x 30 mg) PO Q6H PRN nasal 04/20/25 congestion #30 tabs lisinopril 20 mg tablet 20 mg PO DAILY #60 tabs 04/19 03/12 rivaroxaban 20 mg tablet (Xarelto) 20 mg PO DAILY #90 tabs 05/15/25 tirzepatide 12.5 mg/0.5 mL 12.5 mg (0.5 mL) SQ WEEKLY #2 mL 05/15/25 subcutaneous pen injector (Pauline) azithromycin 250 mg tablet See Rx Instructions PO .COM PLEX #6 05/24/25 (Zithromax Z-Gary) tabs guaifenesin 600 mg tablet, 600 mg PO Q12H PRN congesti on #30 05/24/25 extended release 12 hr tabs methylprednisolone 4 mg tablets in See Rx Instructions PO PER PKG DIR 05/24/25 a dose pack #21 tabs dicyclomine 20 mg tablet 20 mg PO QID PRN abdominal p ain 06/07/25 #14 tabs ondansetron 4 mg disintegrating 4 mg PO Q6H PRN nausea and 06/07/25 tablet vomiting #10 tabs Allergies Allergy/AdvReac Type Severity Reaction Status Date / Time No Known Allergies Allergy Verified 05/24/25 09:20 [facility] Disclaimer: The information contained in this section may have been updated after the patient was seen, as this information can be updated by other users. 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 Surgical History History of laparoscopic cholecystectomy History of recent surgery History of cardiac cath History of left knee surgery Family History Family/Other Diabetes Coronary artery disease Heart attack Hypertension Hyperlipidemia Stroke Cancer Other Unknown family medical history Social History Smoking Status: Current every day smoker alcohol intake: never substance use type: denies use current occupational status: employed Travel in the last 8 weeks?: None Have you lived/traveled outside US in past 30 days?: No Contact w/someone who lives/traveled outside US past 30 days?: No Exposure to someone with infectious disease in past 14 days?: No Do you have a fever (greater than 100.4 F or 38 C)?: No Have you tested positive for COVID-19?: No Exposed to someone with COVID-19 in past 14 days?: No Do you have a sore throat?: No Do you have a cough?: No Do you have any weakness?: No Do you have any diarrhea?: No Are you experiencing any unusual bleeding?: No Do you have any muscle aches/pain?: No Do you have any abdominal pain?: Yes Are you experiencing loss of taste or smell?: No Other Medical History Have you received the Flu Vaccine for this season: No Have you received the Pneumonia Vaccine: No ROS Obtained: Yes All systems reviewed & no additional complaints except as documented Physical Exam General General appearance: alert and in no apparent distress Head Head exam: atraumatic and normocephalic Eye Eye exam: Present PERRL and EOMI ENT ENT exam: Present mucous membranes moist Neck Neck exam: Present normal inspection Chest Chest inspection: Present normal inspection and symmetric chest wall rise Respiratory Respiratory exam: Present normal lung sounds bilaterally; Absent respiratory distress Cardiovascular Cardiovascular exam: Present regular rate and normal rhythm Abdominal Exam Abdominal exam: Present soft and tenderness; Absent guarding, rebound, rigidity, normal bowel sounds or tenderness at McBurney's Point Abdominal tenderness: Present RLQ, suprapubic and diffuse Comment: Minimal to mild suprapubic/right lower quadrant abdominal tenderness palpation, no real tenderness to McBurney's point Extremities Exam Extremities exam: Present normal inspection Neurological Exam Neurological exam: Present alert and oriented X3 Psychiatric Psychiatric exam: Present normal affect Skin Skin exam: Present warm and dry Medical Decision Making Medical Records Medical records reviewed: Yes I reviewed the patient's medical records. Screening: Per USPSTF and CDC recommendations, given the prevalence of disease in our region, it is our hospital?s policy to screen for HIV and viral Hepatitis for all patients aged 18 and over and those with ongoing risk factors. Dario Inquiry Pt receiving controlled substance: Yes Dario was queried for this patient: No Reason not queried -: Emergent pt cond-no time Risks and benefits of using a controlled substance: were discussed with pt by me Vital Signs: 06/07/25 16:26 06/07/25 17:00 06/07/25 17:30 Temperature 98.4 F Temperature Source Oral Pulse Rate 77 75 Pulse Rate [Right Radial] 75 Respiratory Rate 18 Blood Pressure 135/79 144/80 H Blood Pressure [Right Arm] 179/96 H Blood Pressure Mean [Right Arm] 123 Blood Pressure Source [Right Arm] Automatic Cuff Blood Pressure Position [Right Arm] Sitting 02 Sat by Pulse Oximetry 100 99 98 Oxygen Delivery Method Room Air 06/07/25 18:00 06/07/25 18:30 Temperature Temperature Source Pulse Rate 67 79 Pulse Rate [Right Radial] Respiratory Rate Blood Pressure 138/83 145/87 H Blood Pressure [Right Arm] Blood Pressure Mean [Right Arm] Blood Pressure Source [Right Arm] Blood Pressure Position [Right Arm] 02 Sat by Pulse Oximetry 99 99 Oxygen Delivery Method Lab Data Lab results reviewed: Yes I reviewed the patient's lab results. Lab Results 06/07/25 16:39: Urine Color Yellow, Urine Appearance Clear, Urine pH 6.0, Ur Specific Hayden 1.015, Urine Protein Negative, Urine Glucose (UA) Negative, Urine Ketones Negative, Urine Blood 1+ A, Urine Nitrate Negative, Urine Bilirubin Negative, Urine Urobilinogen 0.2, Ur Leukocyte Esterase Negative, Urine RBC None, Urine WBC Occasional, Ur Squamous Epith Cells None, Urine Bacteria None 06/07/25 16:45: WBC 7.7, RBC 5.12, Hgb 14.5, Hct 44.0, MCV 85.9, MCH 28.3, MCHC 33.0, RDW 12.3, Plt Count 304, MPV 10.0, Neut % (Auto) 58.5, Lymph % (Auto) 30.0, Warren % (Auto) 10.1 H, Eos % (Auto) 0.6, Baso % (Auto) 0.5, Neut # (Auto) 4.5, Lymph # (Auto) 2.3, Warren # (Auto) 0.8, Eos # (Auto) 0.1, Baso # (Auto) 0.0, Sodium 141, Potassium 3.8, Chloride 100, Carbon Dioxide 27, Anion Gap 17.8 H, BUN 13, Creatinine 0.90, Estimated Creat Clear 178, Estimated GFR 91, Est GFR ( Amer) 110, Glucose 92, Lactate 0.9, Calcium 9.2, Magnesium 2.1, Total Bilirubin 0.8, AST 43, ALT 27, Alkaline Phosphatase 74, Total Protein 8.7 H, Albumin 4.9, Globulin 3.8 H, Albumin/Globulin Ratio 1.3, Lipase 48 06/07/25 16:45 06/07/25 16:45 Orders (Tests/Meds): ED MEDICATIONS Discontinued Medications Generic Name Dose Route Start Last Admin Trade Name Freq PRN Reason Stop Dose Admin Belladonna Alkaloids 60 ml 06/07/25 18:16 06/07/25 18:18 Belladonna Alkaloids 60 Ml Ml PO 06/07/25 18:17 60 ml ONCE ONE Administration Iopamidol 75 ml 06/07/25 17:27 06/07/25 17:28 Iopamidol-370 (76%);100ml Bottle IV 06/07/25 17:28 75 ml ONCE ONE Administration Morphine Sulfate 2 mg 06/07/25 16:56 06/07/25 17:05 Morphine 2mg/Ml Syringe IV 06/07/25 16:57 2 mg ONCE ONE Administration Ondansetron HCl 4 mg 06/07/25 16:56 06/07/25 17:05 Ondansetron 4mg/2ml Vial IV 06/07/25 16:57 4 mg ONCE ONE Administration Sodium Chloride 10 ml 06/07/25 17:27 06/07/25 17:28 Sodium Chloride 0.9% 10ml Syr (Rad Only) IV 06/07/25 17:28 10 ml ONCE ONE Administration ORDERS Category Date Time Status CT abdomen pelvis w con Stat Cat Scan 06/07/25 16:55 Completed Complete Blood Count Auto Diff Stat Lab 06/07/25 16:45 Completed Comprehensive Metabolic Panel Stat Lab 06/07/25 16:45 Completed Lactic Acid Stat Lab 06/07/25 16:45 Completed Lipase Stat Lab 06/07/25 16:45 Completed Magnesium Stat Lab 06/07/25 16:45 Completed Urinalysis and Microscopic Stat Lab 06/07/25 16:39 Completed Medical Decision Narrative: 45-year-old male presents to the emergency department with lower abdominal pain nausea, that has been waxing and waning since yesterday, with some chronic abdominal pain for months, differential diagnose include but not limited to, acute UTI, bowel obstruction, colitis, ileitis, hernia, malignancy, acute pyelonephritis, nephrolithiasis, ureterolithiasis, appendicitis, pancreatitis, diverticulitis, pseudo colonic obstruction, volvulus among others. I discussed this patient's case with the attending physician Dr. Jacob Will obtain basic laboratory studies, lactic acid level lipase level magnesium level urinalysis, CT ab pelvis with contrast, will give 2 mg IV morphine for pain and 4 mg of Zofran for nausea. CBC is unremarkable UA is noted for 1+ hematuria, negative nitrites, negative leukocyte esterase. CMP is unremarkable, lipase within normal limits No lactic acids No RBCs, occasional WBCs, no squamous cells no bacteria. I reviewed the patient's CT abdomen pelvis with contrast along the corresponding radiologic report, scattered mildly fluid distended small bowel loops in the father can be associate with gastroenteritis. Was also notified by nursing staff that patient was complaining of some bloating , will attempt a trial GI cocktail for symptomatic relief. I discussed the results with the patient family bedside patient family in agreement with current treatment plan/discharge plan. Patient is nonspecific gastroenteritis, will prescribe the patient 4 mg p.o. Zofran and Bentyl 20 mg p.o. as needed for crampy abdominal pain. Will give the patient GI referral and patient follow-up with PCP in the upcoming days/weeks. Strict ED return precaution given. Patient voiced understanding and agreement with the current treatment plan/discharge plan. Critical Care Critical Care Time Critical Care Time: No
[2025-06-07 16:53] LABS: Microscopic, Urine URINE MICROSCOPIC (MICROSCOPIC)
[2025-06-07 16:54] LABS: Hematocrit 44.0 % (42.0-52.0); Hemoglobin 14.5 g/dL (14.1-18.0); Immature Granulocytes % 0.3 %; Mean Corpuscular HGB Conc 33.0 g/dL (31.8-35.4); Mean Corpuscular Hemoglobin 28.3 pg (27.0-31.2); Mean Corpuscular Volume 85.9 fl (80-94); Nucleated Red Blood Cells % 0 %; Platelet Count 304 K/mm3 (142-424); Red Blood Count 5.12 M/mm3 (4.60-6.20); Red Cell Distribution Width-SD 38.5 fL; White Blood Count 7.7 K/mm3 (4.8-10.8)
[2025-06-07 16:54] LABS: Bilirubin,Urine Negative (Negative); Color,Urine YELLOW (Yellow); Glucose,Urine (UA) Negative (Negative); Ketones,Urine Negative (Negative); Leukocyte Esterase,Urine Negative (Negative); PH,Urine 6.0 (5.0-8.5); Protein,Urine Negative (Negative); Specific Gravity, Urine 1.015 (1.005-1.030); Urobilinogen,Urine 0.2 EU/dl (0.2)
--- NOTE | 2025-06-07 16:55 | CT_ITS ---
PROCEDURE INFORMATION: Exam: CT Abdomen And Pelvis With Contrast Exam date and time: 06/07/2025 5:24 PM Age: 45 years old Clinical indication: Abdominal pain; Additional info: Lower abd pain and nausea TECHNIQUE: Imaging protocol: Computed tomography of the abdomen and pelvis with contrast. Radiation optimization: All CT scans at this facility use at least one of these dose optimization techniques: automated exposure control; mA and/or kV adjustment per patient size (includes targeted exams where dose is matched to clinical indication); or iterative reconstruction. Contrast material: ISOVUE; Contrast volume: 75 ml; Contrast route: IV; COMPARISON: CT ANGIO ABDOMEN PELVIS 04/02/2025 7:28 PM FINDINGS: Lungs: Lung bases are clear. Liver: Normal. No mass. Gallbladder and biliary ducts: Status post cholecystectomy. No evident bile duct dilatation allowing for prior cholecystectomy. Pancreas: Normal. No ductal dilation. Spleen: Normal. No splenomegaly. Adrenal glands: Normal. No mass. Kidneys and ureters: Normal. No hydronephrosis. Stomach and bowel: Scattered mildly fluid distended small bowel loops identified. GI tract structures otherwise unremarkable with no evident wall thickening allowing for incomplete distention. Appendix: Appendix is normal. No evidence of appendicitis. Intraperitoneal space: Unremarkable. No free air. No significant fluid collection. Vasculature: Unremarkable. No abdominal aortic aneurysm. Lymph nodes: Unremarkable. No enlarged lymph nodes. Urinary bladder: Unremarkable as visualized. Reproductive: Unremarkable as visualized. Bones/joints: Unremarkable. No acute fracture. Soft tissues: Unremarkable. IMPRESSION: Scattered mildly fluid distended small bowel loops identified that can be associated with gastroenteritis.
[2025-06-07 17:00] VITALS: BP 135/79; PULSE 77; O2SAT 99
[2025-06-07] MEDS: ONDANSETRON 4MG/2ML VIAL 4 MG IV (17:05)
[2025-06-07] MEDS: MORPHINE 2MG/ML SYRINGE 2 MG IV (17:05)
[2025-06-07 17:08] LABS: Albumin Level 4.9 g/dl (3.5-5.0); Chloride 100 mmol/L (98-107); Potassium 3.8 mmoL/L (3.5-5.1); Sodium 141 mmol/L (136-145)
[2025-06-07 17:10] LABS: Alanine Aminotransferase 27 U/L (12-78); Anion Gap 17.8 mEq/L (5-15); Aspartate Amino Transferase 43 U/L (17-59); Blood Urea Nitrogen 13 mg/dl (9-20); Carbon Dioxide 27 mmol/L (22.0-30.0); Creatinine Clearance Estimated 178 mL/min (50-200); Creatinine,Serum 0.90 mg/dl (0.66-1.25); Estimated Glomerular Filt Rate 91 ml/min (>60); GFR (African American) 110 ML/MIN (>60)
[2025-06-07 17:11] LABS: Albumin/Globulin Ratio 1.3 (1.1-1.8); Alkaline Phosphatase 74 U/L (38-126); Bilirubin,Total 0.8 mg/dl (0.2-1.3); Calcium 9.2 mg/dl (8.4-10.2); Globulin 3.8 g/dL (1.3-3.2); Glucose 92 mg/dl (74-100); Lipase 48 U/L (23-300); Magnesium 2.1 mg/dl (1.6-2.3); Total Protein,Serum 8.7 g/dl (6.3-8.2)
[2025-06-07 17:20] LABS: WBC,Urine Occasional #/hpf (0-3)
[2025-06-07] MEDS: IOPAMIDOL-370 (76%);100ML BOTTLE 75 ML IV (17:28)
[2025-06-07] MEDS: SODIUM CHLORIDE 0.9% 10ML SYR (RAD ONLY) 10 ML IV (17:28)
[2025-06-07 17:30] VITALS: BP 144/80; PULSE 75; O2SAT 98
--- OUTSIDE RECORDS SUMMARY | 2025-06-07 17:30 | XMS_ITS | Data Portability ---
Author Organization [facility] Address [address] [place] [address] Care Team Providers Care Cleaner Window Name Role Phone DEMETRIUS BARNEY Referring Provider [...] Imaging: MRI lumbar spine personally reviewed today [facility] 08/2024 Modic 2 endplate change L5-S1 [...] including imaging guidance, lumbar/sacr um (SURG) 2024 025 [email or web address] Not available 15:04:38 Imaging None recorded. Medication Orders Hibiclens 4 % topical liquid 2024 [facility], [address] [place] [address], [id number], 14:07:05 Patient TargetsNo targets recorded. Patient Instructions Encounter Date Encounter Id Patient Instructions Last Modified By Organization Details Last Modified Time 10/16/2024 [id number] behavioral healt h screen* [id number] Not available [...] Knee Surgery completed Christina Mclain [facility] 10/16/2024 13:24:39 Imaging Results None recorded. Procedure [...] Updated DateTime 10/16/2024 185.42 cm 39.1 kg/m2 451606.34 g BERRY HOWELL MD [address] [place] [address], [id number], [facility] 03/06/2025 08:42:46 Date Recorded Oxygen saturation Heart rate Systolic And Diastolic Provider Name and Address Organization Details Last Updated DateTime 10/16/2024 96 % 75 /min 141/87 mm[Hg] Christina Mclain [facility] 10/16/2024 13:22:44 Social History Question Answer Notes LastModified by [email or web address] Details LastModified Time Tobacco Smoking Status Former Smoker Christina fan [facility] 10/16/2024 13:24:25 Do You Have An Advance Directive? No [email or web address] Information not available 10/16/2024 Do You Have A Medical Power Of Sizing Sprayer? No [email or web address] Information not available 10/16/2024 What Is Your Relationship Status? [email or web address] Information not available 10/16/2024 Sex: Unknown Functional Status Question Answer Note LastModified by [email or web address] Details LastModified Time Do you use any illicit or recreational drugs? No [email or web address] Information not available 10/16/2024 What is your level of alcohol consumption? None [email or web address] Information not available 10/16/2024 Are you currently employed? Yes [email or web address] Information not available 10/16/2024 Are you able to walk independently without assistance or assistive devices? YESWOREST [email or web address] Information not available 10/16/2024 Mental Status None recorded. Family History Nothing Reported. Medical History Condition Response Bipolar Disease N Coronary Artery Disease N Gout N Seizure Disorder N Thyroid Disease N Atrial Fibrillation N Hernia N Head Trauma/Injury N COPD N Depression N Anxiety Disorder N Acid Reflux (GERD) N Cancer N Skin Disorder N Stroke N High Cholesterol N Liver Disease N Rheumatoid Arthritis N Fibromyalgia N Headaches N Autoimmune Disease N Kidney Disease N Osteoarthritis N Neurosurgery N DVT N Peptic Ulcer Disease N Anemia N Heart Attack ([place]) N Diabetes N Cardiomyopathy N Bleeding Disorder [...] ICD10 Code Diagnosis IMO Codes Diagnosis Note [id number] BERRY HOWELL MD [place] [address] [place] [address] 10/16/2024 13:08:45 10/16/2024 14:06:03 Chronic low back pain [id number] M54.51 This is a 44-year-ol d with [...] ID Guarantor Name 10/13/2024 1 [employer] [id number] 7 Lambert Jason II [id number] 78 Lambert Jason Notes Date Note Type [...] independently.,able to bathe/groom without assistance.,able to complete anglesmith without much difficulty.,walking without assistance or significant difficulty, andworking without restriction.. For prior imaging, patient reportsmri (08/30/2024 lumbar mri). For physical [facility], [facility]complete more than 6weeks, andresponse to therapy: temporary [...] and lumbar facet injections.). BERRY HOWELL MD [address] [place] [address], [phone], [facility] 03/06/2025 08:42:57
--- OUTSIDE RECORDS SUMMARY | 2025-06-07 17:31 | XMS_ITS | Data Portability ---
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 Unavailable NANCY MATTA Medical Office Assistant NANCY MATTA Medical Office Assistant Assessment Encounter Date Assessment Date Assessment LastModified [...] group A, throat 2024 025 [facility] [place], [address] [facility], [place], [address], 09:22:07 rapid flu (A+B) [address], [address] [place] [address], [place], [address], 5 09:22:11 rapid SARS CoV + SARS CoV 2 Ag, QL IA, respiratory specimen [address], [address] [place] [address], [place], [address], 5 09:22:14 urinalysis, dipstick 2023 024 [facility] 4 [facility], [address] [place] [address] , [place], [address], 4 17:20:56 culture, urine 2023 024 [facility], [address], [place] [address], [place], [address], 4 04:11:27 HbA1c (hemoglobin A1c), blood 2023 024 [facility], [address], [place], [place], [address], 4 04:11:49 Referral None recorded. Procedures None recorded. Surgeries None recorded. Imaging None recorded. Medication Orders amoxicillin 875 mg tablet [address], [address], 5 05:01:51 albuterol sulfate HFA 90 mcg/actuati on aerosol inhaler [address], [address], 5 10:38:43 cetirizine 10 mg tablet [address], [place], [address], 5 10:38:44 fluticasone propionate 50 mcg/actuati on nasal spray,suspe nsion [address], [address], 5 10:38:43 Mounjaro 15 mg/0.5 mL subcutaneou s pen injector [address], [address], 5 10:38:42 OneTouch Ultra Test strips [address], [address], 5 10:41:41 ondansetron 4 mg disintegrat ing tablet [address], [address], 5 14:51:21 cephalexin 500 mg capsule 2023 025 [facility], [address] [place], [address], 5 10:10:36 cetirizine 10 mg tablet 2023 024 [facility], [address], [address], 4 10:25:16 fluticasone propionate 50 mcg/actuati on nasal spray,suspe nsion 2023 024 [facility], [address], [address], 10:25:14 Mounjaro 15 mg/0.5 mL subcutaneou s pen injector 2023 [facility], [address] [place], [address], 10:25:13 ProAir HFA 90 mcg/actuati on aerosol inhaler 2023 [facility], [address] [place], [address], 10:25:15 sildenafil 100 mg tablet 2023 [facility], [address] [place], [address], 10:25:15 lisinopril 40 mg tablet [email or web address] [facility], [address] [place], [address], 10:25:11 Patient TargetsNo targets recorded. Patient Instructions Encounter Date Encounter Id Patient Instructions Last Modified By Organization Details Last Modified Time 05/12/2024 [id number] deciding about using medicines to quit smoking [email or web address] Not available 05/12/2024 10:56:32 Quitting Tobacco : Care Instructions [email or web address] Not available 05/12/2024 10:56:32 diabetic foot exam* Not available 05/12/2024 10:40:41 body mass index: care instructions [email or web address] Not available 05/12/2024 10:25:12 learning about healthy weight [email or web address] Not available 05/12/2024 10:25:12 10/30/2024 [id number] Follow up as needed. The patient will report any new or worsening symptoms. The patient will return to clinic if new or worsening symptoms are noted, or if if the symptoms do not resolve. If marked worsening of the symptoms is noted the patient will go to the emergency department of their choice. Not available 10/30/2024 16:41:51 11/17/2024 [id number] learning about healthy weight Not available 11/17/2024 [...] their choice. Not available 11/17/2024 10:20:57 12/12/2024 [id number] Follow up as needed. The patient will [...] with diabe justyn: <7.0 Not Available [facility] ([facility]) [address] [place], [address], 05/13/2024 04:11:49 06/13/20 24 06/14/2024 URINE CULTU RE, RAMANDEEPI NE urine culture, routine Final report Not Available [facility] ([facility]) [address] [place], [address], 06/15/2024 04:11:27 06/13/20 24 06/14/2024 URINE CULTU RE, ROUTI NE result 1 No growth Not Available [facility] ([facility]) [address] [place], [address], 06/15/2024 04:11:27 06/13/20 24 06/13/2024 urina lysis , dipst ick Leukocytes Negati ve Not Available [address] , [place], [address], 06/13/2024 17:06:13 06/13/20 24 06/13/2024 urina lysis , dipst ick Nitrite negati ve Not Available [address] , [place], [address], 06/13/2024 17:06:13 06/13/2006/13/2024 urina lysis , dipst ick Urobilinogen .2 Not Available [address] , [place], [address], 06/13/2024 17:06:13 06/13/20 24 06/13/2024 urina lysis , dipst ick Protein Negati ve Not Available [address] , [place], [address], 06/13/2024 17:06:13 06/13/20 24 06/13/2024 urina lysis , dipst ick pH 5.5 Not Available [address] , [place], [address], 06/13/2024 17:06:13 06/13/20 24 06/13/2024 urina lysis , dipst ick Blood Hemoly zed: Trace Not Available [address] , [place], [address], 06/13/2024 17:06:13 06/13/20 24 06/13/2024 urina lysis , dipst ick Specific [place] 1.030 Not Available [address] [place], [address], 06/13/2024 17:06:13 06/13/20 24 06/13/2024 urina lysis , dipst ick Ketone Negati ve Not Available [address] , [place], [address], 06/13/2024 17:06:13 06/13/20 24 06/13/2024 urina lysis , dipst ick Bilirubin Negati ve Not Available [address] , [place], [address], 06/13/2024 17:06:13 06/13/20 24 06/13/2024 urina lysis , dipst ick Glucose Negati ve Not Available [address] , [place], [address], 06/13/2024 17:06:13 06/13/20 24 06/13/2024 urina lysis , dipst ick Appearance Slight ly Cloudy Not Available [address] , [place], [address], 06/13/2024 17:06:13 06/13/20 24 06/13/2024 urina lysis , dipst ick Color Dark Yellow Not Available [address] , [place], [address], 06/13/2024 17:06:13 12/13/19 25 12/12/2024 rapid SARS CoV + SARS CoV 2 Ag, QL IA, respi rator y speci men SARS CoV antigen Negati ve Not Available [facility] [address], [place], [address], 12/12/2024 08:59:52 12/13/19 25 12/12/2024 rapid flu (A+B) Flu negati ve Not Available [facility] [place] [address], [place], [address], 12/12/2024 08:59:44 12/13/1912/12/2024 rapid flu (A+B) Type Both A & B Not Available [facility] [place] [address] [facility], [place], [address], 12/12/2024 08:59:44 12/13/19 25 12/12/2024 rapid strep group A, throa t Strep negati ve Not Available [facility] [place] [address] [facility], [place], [address], 12/12/2024 08:59:43 12/13/19 25 12/12/2024 rapid strep group A, throa t Culture No Not Available [facility] [place] [address] [facility], [place], [address], 12/12/2024 08:59:43 06/18/20 24 06/18/2024 XR, chest , 2 view No observ ation record ed. [place] [address] [facility] [address], [place], [address], 06/19/2024 16:01:42 06/18/20 24 06/17/2024 CT, head, w/o contr ast No observ ation record ed. [address], [place], [address], 06/19/2024 16:01:34 06/18/20 24 06/17/2024 CT, angio gram, neck, w/ contr ast No observ ation record ed. [place] [address], [place], [address], 06/19/2024 16:01:20 06/18/20 24 06/17/2024 CT, head, w/ contr ast No observ ation record ed. [email or web address] [facility] [address], [place], [place], [address], 06/19/2024 16:01:07 06/19/20 24 06/17/2024 elect rocar diogr am No observ ation record ed. [email or web address] [address], [place], [place], [address], 06/19/2024 16:00:38 08/30/19 25 08/30/2024 MRI, lumba r spine , w/o contr ast No observ ation record ed. [facility] [address], [place], [place], [address], 08/30/2024 13:03:15 10/31/19 25 10/29/2024 CT, abdom en, w/o contr ast No observ ation record ed. [facility] [address], [place], [place], [address], 10/30/2024 10:21:20 11/18/19 25 11/15/2024 elect rocar diogr am No observ ation record ed. [facility] [address] [place], [address], 11/20/2024 10:38:31 11/29/19 25 11/28/2024 CT, abdom en + pelvi s, w/o contr ast No observ ation record ed. [facility] [address], [place], [place], [address], 11/28/2024 16:25:17 12/08/19 25 12/07/2024 US, doppl er echoc ardio gram No observ ation record ed. [email or web address] [facility] [address], [place], [place], [address], 12/07/2024 12:05:12 12/08/19 25 12/07/2024 nucle ar stres s test No observ ation record ed. [email or web address] [facility] [address], [place], [address], 12/07/2024 12:04:42 12/17/19 25 12/16/2024 XR, chest , 1 view No observ ation record ed. [facility] [address], [place], [address], 12/18/2024 08:50:40 Result Notes None recorded. Problems Name Problem SNOMED Code Status Onset Date Resolution Date Notes Provider Name and Address Organization Details Recorded Time Hypertens kings disorder 66321553 Active Chichi Tao MD [address], [place], [address], [place] [facility] 2 09:48:21 Hyperlipi demia 61991951 Active Chichi Tao MD [address], [place], [address], [place] [facility] 2 09:48:22 Tobacco dependenc e syndrome 57830685 Active 2019 Chichi Tao MD [address], [place], [address] [facility] 2 09:48:22 COVID-19 308320613 Completed 201910/15/2021 Chichi Tao MD [address], [place], [address], [place] [facility] 2 09:48:32 Blood glucose outside reference range 759786477 Active 2021 Chichi Tao MD [address], [place], [address], [place] [facility] 2 10:15:43 Acute bacterial sinusitis 21343336 Active 2021 Chichi Tao MD [address], [place], [address] [facility] 2 17:49:07 Allergic rhinitis 36541905 Active 2022 Chichi Tao MD [address], [place], [address], [place] [facility] 3 14:40:13 Dysfuncti on of left eustachia n tube 632028782908 9106 Active 2022 Chichi Tao MD [address], [place], [address], [place] [facility] 3 14:51:31 Type 2 diabetes mellitus 25413886 Active 2022 Kayla Anaya APRN [address], [place], [address], [place] [facility] 5 10:41:48 Insulin resistanc e 592767833 Active 2022 Chichi Tao MD [address], [place], [address], [place] [facility] 3 14:52:07 Lumbar radiculop athy 511035279 Active 2022 Chichi Tao MD [address], [place], [address], [place] [facility] 3 09:53:05 History of male erectile disorder 056782969 Active 2022 Chichi Tao MD [address], [place], [address] [facility] 17:24:31 Biliary calculus 569478970 Active 2024 Kayla Anaya APRN [address], [place], [address], [place] [facility] 5 14:52:41 Nausea 212326516 Active 2024 Kayla Anaya APRN [address], [place], [address], [place] [facility] 5 14:52:43 Low blood pressure 03369941 Active 2024 Kayla Anaya APRN [address], [place], [address], [place] [facility] 5 11:44:18 Acute suppurati ve otitis media without spontaneo us rupture of ear drum 68797991 Active 2024 Kayla Anaya APRN [address], [place], [address], [place] - [facility] 5 09:26:55 Viral upper respirato ry tract infection 618061490 Active 2024 Kayla Anaya, [employer] [address], [place], [address], [place] - [facility] 5 09:27:18 Problem [...] e 50 mcg/actua tion nasal spray,zack pension Ida 2 sprays every day by intranas al [...] temperature Respiratory rate Heart rate Oxygen saturation Pain severity - 0-10 verbal numeric rating [Score] - Reported Systolic And Diastolic Provider Name and Address Organization Details Last Updated DateTime 5 190.5 cm 38.4 kg/m2 240397. 86 g 98.2 [degF] 18 /min 107 /min 97 % 6 128/78 mm[Hg] Iliana Pollitt [place] - [facility] 5 14:31:57 Date Recorded Body height Body mass index (BMI) Body weight Respiratory rate Pain severity - 0-10 verbal numeric rating [Score] - Reported Body temperature Heart rate Oxygen saturation Systolic And Diastolic Provider Name and Address Organization Details Last Updated DateTime 5 190.5 cm 37.2 kg/m2 630935. 53 g 18 /min 0 98.3 [degF] 74 /min 98 % 118/80 mm[Hg] Iliana Pollitt [place] - [facility] 5 10:09:46 Date Recorded Body height Body mass index (BMI) Body weight Body temperature Heart rate Oxygen saturation Systolic And Diastolic Provider Name and Address Organization Details Last Updated DateTime 5 190.5 cm 37 kg/m2 978709. 34 g 98.4 [degF] 112 /min 97 % 118/82 mm[Hg] Ruth Cynthia [place] - [facility] 5 09:02:06 Date Recorded Body height Body mass index (BMI) Body weight Body temperature Heart rate Oxygen saturation Respiratory rate Pain severity - 0-10 verbal numeric rating [Score] - Reported Systolic And Diastolic Provider Name and Address Organization Details Last Updated DateTime 4 190.5 cm 38.5 kg/m2 957866. 45 g 98.6 [degF] 84 /min 96 % 18 /min 0 100/80 mm[Hg] Carmen Vinson [place] - [facility] 4 09:58:02 Date Recorded Body height Body mass index (BMI) Body weight Heart rate Oxygen saturation Respiratory rate Pain severity - 0-10 verbal numeric rating [Score] - Reported Systolic And Diastolic Provider Name and Address Organization Details Last Updated DateTime 4 190.5 cm 38.7 kg/m2 296313. 63 g 82 /min 98 % 16 /min 3 102/76 mm[Hg] Zoila Ha [place] - [facility] 4 17:09:52 Social History Question Answer Notes LastModified by Organizat ion Details LastModified Time Tobacco Smoking Status Never Smoker Orion Mendezkermit fan [place] - [facility] 05/10/2017 18:23:54 Able To Swim? Yes Information not available 09/21/2017 Do You Have An Advance Directive? No Information not available 05/10/2017 Are You Blind Or Do You Have Difficulty Seeing? No Information not available 05/10/2017 What Is Your Level Of Caffeine Consumption? Occasional Information not available 05/10/2017 How Much Tobacco Do You Chew? 5+/day [email or web address] Information not available 12/07/2022 In The 14 Days Before Symptom Onset, Have You Had Close Contact With A Laboratory-confir med COVID-19 While That Case Was Ill? No [email or web address] Information not available 12/07/2022 In The 14 Days Before Symptom Onset, Have You Had Close Contact With A Person Who Is Under Investigation For COVID-19 While That Person Was Ill? No [email or web address] Information not available 12/07/2022 Have You Been To An Area Known To Be High Risk For COVID-19? No Information not available 12/07/2022 Are You Deaf Or Do You Have Serious Difficulty Hearing? No Information not available 05/10/2017 What Type Of Diet Are You Following? REGULAR Information not available 05/10/2017 Which Illicit Or Recreational Drugs Have You Used? None [email or web address] Information not available 12/07/2022 Have You Processed Blood Or Body Fluids From An Ebola Virus Disease Patient Without Appropriate PPE? No [email or web address] Information not available 12/07/2022 Do You Reside In Or Have You Traveled To An Area Where Ebola Virus Transmission Is Active? No [email or web address] Information not available 12/07/2022 What Is The Highest Grade Or Level Of School You Have Completed Or The Highest Degree You Have Received? EH06064-4 [email or web address] Information not available 12/07/2022 Have There Been Any Changes To Your Family Or Social Situation? No [email or web address] Information no t available 12/07/2022 What Is The Fluoride Status Of Your Home? Unknown [email or web address] Information not available 12/07/2022 Hard Of Hearing Or Deaf In One Or Both Ears? No Information not available 05/10/2017 Have You Recently Or Are You Planning To Travel To An Area With Zika Virus? No [email or web address] Information not available 12/07/2022 Legally Blind In One Or Both Eyes? No Information no t available 05/10/2017 Live Alone Or With Others? With Others Information not available 05/10/2017 Do You Have A Medical Power Of Tearoom Hostess? No [email or web address] Information not available 12/07/2022 What Was The Date Of Your Most Recent Tobacco Screening? 11/17/2024 Information not available 11/17/2024 How Many Children Do You Have? 1 Information not available 09/21/2017 Do You Use Protection During Sex? No Information not available 05/10/2017 Do You Use Protection Against STDs? No [email or web address] Information not available 12/07/2022 What Is Your Relationship Status? Information not available 05/10/2017 Seat Belts Used Routinely Yes Information not available 05/10/2017 Are You Sexually Active? Yes Information not available 05/10/2017 Smoke Alarm In Home Yes Information not available 09/21/2017 Do You Have Smoke And Carbon Monoxide Detectors In Your Home? Yes Information not available 12/07/2022 Are You Passively Exposed To Smoke? No [email or web address] Information no t available 12/07/2022 How Much [...] Have You Used E-cigarettes Or Vape? 25 [email or web address] Information not available 12/07/2022 How Many Years Have You Used Smokeless Tobacco? 25 Information not available 11/10/2023 Sex: Male Functional Status Question Answer Note LastModified by Organizat ion Details LastModified Time How many times per week do you consume alcohol? Less than 1 time per week [email or web address] Information not available 12/07/2022 Do you or have you ever used smokeless tobacco? Currently chews tobacco Information not available 11/23/2019 Are you currently employed? Yes Information not available 05/10/2017 Do you have transportation difficulties? No [email or web address] Information not available 12/07/2022 Are you able to care for yourself independently? Yes Information not available 05/10/2017 Do you have difficulty dressing, bathing, grooming, or toileting? No Information not available 05/10/2017 Do you or have you ever used e-cigarettes or vape? Former user of electronic cigarettes [email or web address] Information not available 08/28/2019 What is your exercise level? Occasional Information not available 09/21/2017 Do you use any illicit or recreational drugs? No [email or web address] Information not available 12/07/2022 Do you or have you ever used any other forms of tobacco or nicotine? No [email or web address] Information not available 12/07/2022 What is your level of alcohol consumption? Occasional Information not available 09/21/2017 Are you able to walk independently without assistance or assistive devices? [email or web address] Information not available 05/10/2017 Do you have difficulty doing errands alone? 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 [id number] Information not available 12/07/2022 Do you have [...] colitis N Cerebrovascular Disease N Depression N Guillain-[place] N Sleep Apnea N Aneurysm N Bronchitis [...] ICD10 Code Diagnosis IMO Codes Diagnosis Note [id number] Chichi Tao MD [address] [place] [address] 05/10/2017 18:05:03 05/10/2017 19:53:56 Essential hypertension 44140738 I10 Mixed hyperlipidemia 267 945368 E78.2 [id number] Gustavo Price MD [address] [place] [address] 09/21/2017 14:23:10 09/21/2017 15:24:09 Low back pain 899230451 M54.5 [id number] Gustavo Price MD [address] [place] [address] 09/28/2017 08:39:02 09/28/2017 09:25:02 Low back pain 775336739 M54.5 Resolved [id number] Chichi Tao MD [address] [place] [address] 04/24/2019 16:24:36 04/24/2019 17:02:50 Essential hypertension 99966087 I10 Hypertensive disorder 38 932881 I10 Hyperlipidemia 25029000 E78.1 Viral syndrome 620805441 B34.9 [id number] Amanda Du MD [address] [place] [address] 06/19/2019 14:08:24 06/19/2019 15:52:55 Cough 19860732 R05 He also has symptoms suggestive of [...] us in 5 days Hypertensive disorder 38 714567 I10 Continue Amlodipine at current dose.Added Losartan. Reduce dietary sodium intake to less than 100 mEq (2.3 g of sodium or 6 g of sodium chloride)/ day. Discussed weight loss, DASH diet and exercise programGet labs in our clinic as soon as possible. Follow up on high blood pressure in 2 weeks Otitis media 43306818 H6 6.90 Take Augmentin as prescribed . See us back or go to Er right away should get worse or develop any new symptoms or complaints . Follow up with us in 5 days. See us earlier if no improvemen t within next 48 to 72 hours. 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 Discussed weight loss, DASH diet and exercise programFol low up in 2 weeks Sally bañuelos isease screening 046586618 Z11.3 Snoring 63172507 R06.83 Patient snores and at times stop breathing during sleep. Also daytime sleepiness sometimes. Possible PARTH. Referred to sleep clinic. Warned and cautioned him about not to engage in activities that require mental alertness like driving, operaing machinery, etc Acute bronchitis 6272173 2 J20.9 Take Mucinex and Tessalon as prescribed . CXR showed no acute findings. See us back or go to Er right away should get worse or develop any new symptoms or complaints . Follow up with us in one week Otitis media 15569477 H6 6.90 Take Augmentin as prescribed . See us back or go to Er right away should get worse or develop any new symptoms or complaints . Follow up with us in one week. See us earlier if no improvemen t within next 48 to 72 hours. [id number] Amanda Du MD [address] [place] [address] 06/26/2019 09:47:25 06/26/2019 12:24:36 Otitis media 17508494 H66.90 Patient continues having left ear pain despite taking Augmentin. Stop Augmentin. Take Cefdinir as prescribed . See us or go to Er right away if not better within next 48 to 72 hours. See us back or go to Er right away should get worse or develop any new symptoms or complaints . Follow u with us in 3 days Headache 36105015 R51 It might well be part of [...] away should get INSERT again. Chest pain 37962171 R07. 9 I reviewed EKG in office [...] He has an appointmen t scheduled with Cardiologi in a week. And I recommende d he should keep that appointmen t. Liver enzy mes outside reference range 486631870 R94.5 Will check labs. Get outstandin g [...] with us in 3 days Acute bronchitis 3126499 2 J20.9 Cough and sputum have resolved. He continues having shortness of air with exertion [id number] Amanda Du MD [address] [place] [address] 07/03/2019 14:06:01 07/03/2019 15:17:52 Hypertensive disorder 97550913 I10 Better control. Continue Amlodipine . Recommende d to reduce dietary sodium intake to less than 100 mEq (2.3 g of sodium or 6 g of sodium chloride)/ day. Discussed weight loss, DASH diet and exercise programFol low up with us in 3 months Allergic rhinitis 722384 04 J30.9 Use Flonase as prescribed . See us back or go to the Er right away should get worse or develop any new symptoms or complaints . Follow up with us in a couple of weeks Ear pressu re sensation 603392346 H93.8X9 Patient would like to see ENT and referral for same will be placed Otitis media 68860223 H6 6.90 Ear pain resolved. Complete course of Cefdinir. See us back or go to the Er right away should get worse or develop any new symptoms or complaints . Note he still has 3 more days of abx to go. Follow up with us in 3 days [id number] Amanda Du MD [address] [place] [address] 07/05/2019 14:07:52 07/05/2019 15:26:31 Hypertensive disorder 40978352 I10 Continue Amlodipine at current doseAdded Hydrochlor othiazide and start taking it as prescribed .Do not take Losartan.R educe dietary sodium intake to less than 100 mEq (2.3 g of sodium or 6 g of sodium chloride)/ day. Discussed weight loss, DASH diet and exercise programFol low up with us in 2 weeks Insomnia 682496725 G47.0 0 Take Trazodone as prescribed . 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 I counselled patient about side effects of medicine (s). Seek an immediate medical attention i.e. see us or go to Er right away should get worse or develop any new symptoms or complaints . Call 911 and go to Er right away should develop any suicidal ideation. Follow up with us in 2 weeks. [id number] Amanda Du MD [address] [place] [address] 07/18/2019 09:34:10 07/18/2019 11:57:20 Hypertensive disorder 12873509 I10 Continue Amlodipine at current dose.Incre ased dose of Hydrochlor othiazide 12.5 to 25 mg once a day Reduce dietary sodium intake to less than 100 mEq (2.3 g of sodium or 6 g of sodium chloride)/ day. Discussed weight loss, DASH diet and exercise programFol low up with us in a couple of weeks [id number] Amanda Du MD [address] [place] [address] 07/26/2019 16:53:49 07/26/2019 18:10:22 Hypertensive disorder 69798167 I10 Continue Amlodipine at current dose (does not need refill) Reduce dietary sodium intake to less than 100 mEq (2.3 g of sodium or 6 g of sodium chloride)/ day. Discussed weight loss, DASH diet and exercise programGet labs (BMP) and follow up with us for BP check in 3 days. Hyperglycemia 98000727 R 73.9 Recent labs had shown Glucose 123. Take a low carb diet, exercise and loose weight. Get A1c [id number] Amanda Du MD [address] [place] [address] 07/31/2019 08:41:38 07/31/2019 09:57:02 Hypertensive disorder 54187603 I10 Continue Amlodipine and Lisinopril at current doses. Recommende d to reduce dietary sodium intake to less than 100 mEq (2.3 g of sodium or 6 g of sodium chloride)/ day. Discussed weight loss, DASH diet and exercise programFol low up in 3 months Anxiety disorder 4338623 06 F41.9 Start Sertraline . 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 I counselled patient about side effects of medicine (s). Seek an immediate medical attention i.e. see us or go to Er right away should get worse or develop any new symptoms or complaints . Call 911 and go to Er right away should develop any suicidal ideation. Follow up in 2 weeks Prediabetes 785092730 R7 3.03 A1c 6.1 (on 07.28.19). Take a diabetic diet, exercise and loose weight. Get a repeat A1c in 3 months. [id number] Maryse Small LCSW [facility] [address] [place] [address] 08/01/2019 09:52:11 08/01/2019 11:54:44 [id number] Amanda Du MD [address] [place] [address] 08/21/2019 10:15:17 08/21/2019 12:16:06 Hypertensive disorder 13488473 I10 Continue Amlodipine at current dose.Incre ase dose of Lisinopril from 5 to 10 mg once a day.Recomm ended to reduce dietary sodium intake to less than 100 mEq (2.3 g of sodium or 6 g of sodium chloride)/ day.Discus sed weight loss, DASH diet and exercise programFol low up with us in 4 weeksfor BP checkGet a repeat BMP in 2 weeks [id number] Amanda Du MD [address] [place] [address] 08/28/2019 14:02:42 08/28/2019 16:13:28 Hypertensive disorder 47900600 I10 Continue Amlodipine and Lisinopril at current doses. Recommende d to reduce dietary sodium intake to less than 100 mEq (2.3 g of sodium or 6 g of sodium chloride)/ day. Discussed weight loss, DASH diet and exercise program. Follow up in 3 months. Acute uppe r respiratory infection 23559077 J06.9 Rapid flu is negative. Take Ibuprofen as prescribed with food. Maintain an adequate hydration. Discussed use of warm fluids like chicken soup, tea. Nasal saline. See us back or go to the Er right away should get worse or develop any new symptoms or complaints . Follow up with us in 3 days Abnormal urinalysis 1672 64065 R82.90 See above under urinary symptoms and cystitis Endocrine/ metabolic screening 782435098 Z13.228 Fasting glucose 102 in office. Take a diabetic diet. Exercise and loose weight. Will check A1c Mass of chest wall 96064 4000 R22.2 Deep seated lump over left lower chest pain. Referred to general surgery Urinary symptoms 7387410 08 R39.9 Pt with recent onset urinary [...] Follow up with us in 3 days. 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 Patient will come to office for swab. [id number] Jaclyn Bosch APRN [address] [place] [address] 05/06/2020 14:15:23 05/06/2020 15:22:37 Acute maxillary sinusitis 55252060 J01.00 Patient likely has an acute bacterial [...] if symptoms worsen or do not improve. [id number] Chichi Tao MD [address] [place] [address] 10/09/2020 17:18:22 10/09/2020 18:18:46 Hypertensive disorder 07216906 I10 Allergic rhinitis 028427 04 J30.9 Generalize d anxiety disorder 44440686 F41.1 Vaccine ad verse reaction 202069373 T50.Z95A [id number] Chichi Tao MD [address] [place] [address] 03/18/2021 15:52:08 03/18/2021 16:49:52 Peripheral venous insufficiency 30157325 I87.2 Gastroesop hageal reflux disease without esophagitis 493571508 K21.9 [id number] Chichi Tao MD [address] [place] [address] 10/15/2021 09:31:28 10/15/2021 10:15:53 Allergic rhinitis 20127599 J30.9 Blood gluc ose outside reference range 220767538 R73.09 Essential hypertension 77002396 I10 Insulin resistance 80699 5000 E88.81 Body mass index 40+ - severely obese 737283336 Z68.41 [id number] Chichi Tao MD [address] [place] [address] 08/10/2022 13:53:49 08/10/2022 14:53:56 Essential hypertension 88062768 I10 Insulin resistance 94170 5000 E88.81 Generalize d anxiety disorder 84818451 F41.1 Allergic rhinitis 040530 04 J30.9 Type 2 galindo betes mellitus 97310908 E11.9 Blood gluc ose outside reference range 635791438 R73.09 Dysfunctio n of left eustachian tube 7937670610 701571 H69.92 [id number] Chichi Tao MD [address] [place] [address] 11/02/2022 13:40:36 11/02/2022 16:16:10 Type 2 diabetes mellitus 33581465 E11.9 Hypertensive disorder 38 843593 I10 Hyperlipidemia 16991391 E78.1 Allergic rhinitis 438348 04 J30.9 Lumbar sprain 915387015 S33.5XXA [id number] Chichi Tao MD [address] [place] [address] 11/25/2022 08:51:34 11/25/2022 10:24:46 Lumbar radiculopathy 501673874 M54.16 [id number] Chichi Tao MD [address] [place] [address] 12/07/2022 09:53:53 12/07/2022 10:48:09 Lumbar radiculopathy 863680207 M54.16 [id number] Chichi Tao MD [address] [place] [address] 12/22/2022 12:52:16 12/22/2022 14:07:49 Lumbar radiculopathy 752558332 M54.16 [id number] Chichi Tao MD [address] [place] [address] 04/19/2023 11:48:58 04/19/2023 12:32:56 Body mass index 30+ - obesity 341291845 Z68.38 Obesity 741817087 E66.9 Type 2 galindo betes mellitus 20952171 E11.9 Allergic rhinitis 164579 04 J30.9 Essential hypertension 40762325 I10 Hypertensive disorder 38 955660 I10 Hyperlipidemia 81985240 E78.1 [id number] Sergio Shin MD [address] [place] [address] 11/10/2023 08:55:18 11/10/2023 09:36:50 Lumbar radiculopathy 597388346 M54.16 History of male erectile disorder 245177688 Z87.438 Type 2 galindo betes mellitus 56078143 E11.9 Allergic rhinitis 655666 04 J30.9 Insulin resistance 68969 5000 E88.819 Tobacco de pendence syndrome 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 F17.200 Hypertensive disorder 38 814489 I10 Hyperlipidemia 61319068 E78.1 Essential hypertension 48384642 I10 Body mass index 30+ - obesity 961598945 Z68.38 [id number] Alden Gomez [address] [address] 11/25/2023 15:48:25 11/26/2023 13:32:50 [id number] Sergio Shin MD [address] [place] [address] 02/18/2024 15:26:20 02/18/2024 15:58:13 Allergic rhinitis 47173097 J30.9 Tobacco de pendence syndrome 19438799 F17.200 Body mass index 30+ - obesity 958464850 Z68.38 [id number] Sergio Shin MD [address] [place] [address] 05/12/2024 09:35:03 05/12/2024 10:43:11 Lumbar radiculopathy 651617635 M54.16 History of male erectile disorder 858496308 Z87.438 Type 2 galindo betes mellitus 77937009 E11.9 Allergic rhinitis 186096 04 J30.9 Insulin resistance 54202 5000 E88.819 Tobacco de pendence syndrome 02627688 F17.200 Hypertensive disorder 38 147460 I10 Hyperlipidemia 37604969 E78.1 Pulmonary emphysema 8743 3001 J43.9 Essential hypertension 92323357 I10 Body mass index 30+ - obesity 829723280 Z68.38 [id number] Jaclyn Bosch APRN [address] [place] [address] 06/13/2024 17:00:11 06/13/2024 17:21:04 Dysuria 77385584 R30.0 Will call with results of urine culture Acute sinusitis 63406318 J01.90 F/U PRN if symptoms worsen or no improvemen t - discussed antibiotic prescribed below will treat sinus symptoms as well as urinary symptoms (pending culture results) [id number] Kayla Anaya APRN [facility] [address] [place] [address] 10/30/2024 14:19:12 10/30/2024 14:57:34 Nausea 919680643 R11.0 38746 Biliary calculus 8364946 03 K80.20 [id number] Patient has appointmen t November 24, 2024 with general surgeryFol low up as needed [id number] GIORGI Bellokirbymendez [facility] [address] [place] [address] 11/17/2024 09:59:35 11/17/2024 10:48:21 Body mass index 30+ - obesity 807646666 Z68.38 86489417 38.4 Obesity 615999016 E66.9 Low blood pressure 20964 003 I95.9 561675699 Episode of hypotensio n and near syncopeER Discontinu ed lisinopril , has follow up with cardiology next weekFollow up as needed Pulmonary emphysema 8743 3001 J43.9 Chronic Allergic rhinitis 414381 04 J30.9 Chronic Type 2 galindo betes mellitus 43860471 E11.9 06907836 Chronic [id number] GIORGI Bellokirbymendez [facility] [address] FRANKYMendez [facility] [place] [address] 12/12/2024 08:54:27 12/12/2024 09:27:53 Sore throat 288850140 J02.9 15650 Acute supp urative otitis media without spontaneous rupture of ear drum 95100750 H66.001 8910509320 Follow up in 1-2 weeks if symptoms persist Viral uppe r respiratory tract infection 358694736 J06.9 1809827 Encouraged increased oral fluid intake as toleratedF ollow up in 1-2 weeks if symptoms persist Health Concerns Section Related Observation LastModified by Organization Detai ls LastModified Time None Recorded Concern Status LastModified by Organization Details LastModified Time None Recorded Advance Directives Directive N: Payers Insurance Date Sequence Insurance Name Policy Number Policy Bauman Covered Member ID Bauman Member ID Guarantor Name 09/22/2017 [employer] Lambert Jason 11/26/2022 [employer] Lambert Jason 10/12/2019 [employer] Lambert Jason 12/12/2024 1 [place] [id number] Lambert Jason II [id number] Lambert Jason Notes Date Note Type Note Provider Name and Address Organization Details Recorded Time 05/12/2024 text/html Here for checkup, labs, refills. BS 95-105. Loraine natarajan increased. Had eye exam [facility] Dr. Dowd. Sergio Shni MD [address], [place], [address], [place] - [facility] 05/12/2024 10:27:16 06/13/2024 text/html ROS as noted in the HPI Lambert is a 44 year old male [...] that his ears feel full today. Jaclyn Hiro, [employer] [address], [place], [address], [place] - [facility] 06/13/2024 17:22:21 10/30/2024 text/html Emergency Depart ment Follow-Up RecordReported by PatientEmergency Room Follow-Up RecordFor discharge information, patient reportsname of hospital/urgent care patient was seen: ([facility]),patient presented to hospital/urgent care on or around: actual date 10/29/24,patient presented to hospital for treatment of: (abdominal pain),treatment received by hospital/urgent care: (abdominal us & ct.ct showed cholelithiasishe has an appointment with dr. ricardo watson @ [facility] on november 24.),patient's condition has: unchanged, andhospital records available at the time of this visit: yes. Kayla Jaclyn, [employer] [address], [place], [address], [place] [facility] 10/30/2024 16:41:55 11/17/2024 text/html Emergency Depart ment Follow-Up RecordReported by PatientEmergency Room Follow-Up RecordFor discharge information, patient reportsname of hospital/urgent care [facility] was seen: ([facility]),patient presented to hospital/urgent care on or around: actual date 11/15/24,patient presented to hospital for treatment of: (syncope),treatment received by hospital/urgent care: (labs & chest x-ray (normal)discharged home with diagnosis of hypotension and referral to cardiologyd/c 40mg lisinoprilhe has an appointment on 11/23 with his claim analyst.),patient 's condition has: improved, andhospital records available at the time of this visit: yes. Kayla Anaya, [employer] [address], [place], [address], [place] [facility] 11/17/2024 11:45:42 12/12/2024 text/html Upper Respirator y SymptomsReported by PatientUpper Respiratory SymptomsFor quality, patient reportscongested. For associated symptoms, patient reportsshortness of breath,wheezing,fatigu e,fever,sore throat, andnauseabut reportsno sputum production,no change in number of pillows needed to sleep at night,no sweats,no significant weight loss,no morning cough,no vomiting,no diarrhea, andno rash(bilateral ear pain, sinus pressure/patricio, runny nose). For location, patient reportshead,chest, andthroat. For severity, patient reportsmild. For onset/timing, patient reportssudden. For context, patient reportsno sick contacts,no foreign travel, andnon-smoker. For duration, (2 days ago).ROS as noted in the HPI Kayla Anaya, GIORGI [address], [place], [address], [place] [facility] 12/12/2024 09:27:25
[2025-06-07 18:00] VITALS: BP 138/83; PULSE 67; O2SAT 99
[2025-06-07] MEDS: BELLADONNA ALKALOIDS 60 ML ML PO (18:18)
[2025-06-07 18:30] VITALS: BP 145/87; PULSE 79; O2SAT 99
[2025-06-07 19:00] VITALS: BP 145/87; PULSE 75; RESP 18; TEMP 36.9; O2SAT 98
== END 2025-06-07 19:02 | disposition home or self-care (01) ==
PROVIDERS: Physician Assistant; Emergency Provider Emergency Medicine; PCP Internal Medicine
DX: R10.31 Right lower quadrant pain (principal); R11.0 Nausea; I10 Essential (primary) hypertension; F17.210 Nicotine dependence, cigarettes, uncomplicated; E11.9 Type 2 diabetes mellitus without complications
CPT/HCPCS: 74177; 80053; 81001; 83605; 83690; 83735; 85025; 96374; 96375; 99285; J2270; J2405; Q9967